=== PATIENT | male | born 1945 | race Caucasian/White ===

== ENCOUNTER → 2017-10-16 12:55 | Outpatient (CLI) | payer MEDICARE, SELFPAY ==
--- NOTE | 2017-10-16 13:08 | RAD_ITS ---
STUDY: SWALLOWING STUDY REASON FOR EXAM: Male, 71 years old. Dysphagia. TECHNIQUE: The examination was performed with Speech Pathology in attendance. Under fluoroscopic observation, the patient ingested thin barium, thick barium, barium pudding, and barium coated cracker. FLUOROSCOPY TIME: 2:17 minutes/seconds. 2129 fluoroscopic images were obtained. RADIOLOGIST INVOLVEMENT: Radiologist was present and providing direct supervision. COMPARISON: None. FINDINGS: The following was observed during swallowing of the various mixtures of barium: Hypertrophy of the cricopharyngeus muscle. Thin Barium: Penetration and delayed silent aspiration with thin liquids. Thick Barium: There was no evidence of aspiration or laryngeal penetration. Barium Pudding: There was no evidence of aspiration or laryngeal penetration. Barium Coated Cracker: There was no evidence of aspiration or laryngeal penetration. RAD/Swallowing Function w/Video IMPRESSION: Penetration and delayed silent aspiration for thin liquids. Prominence of the cricopharyngeus muscle. The swallow study findings were discussed with the patient by the speech pathologist at the conclusion of the examination. Please see speech pathology report for more information and recommendations. Electronically Signed: Silvestre Abraham MD at 13:52 EDT Tel [phone], Service support ,
--- NOTE | 2017-10-16 19:02 | SP.MBSS_ITS ---
PRIMARY / SECONDARY DIAGNOSIS: dysphagia (R13.10) REFERRING PHYSICIAN: Dr. Obinna Green MD CURRENT DIET: regular textures, thin liquids DENTITION: WFL MENTAL STATUS: WNL RESPIRATORY STATUS: O2 via room air PREVIOUS MODIFIED BARIUM SWALLOW STUDY: REASON FOR REFERRAL: Patient is a 71 year old male referred for a modified barium swallow (MBS) study to objectively assess the Patients oropharyngeal swallow function under fluoroscopy secondary to reported consistent sensation of retention located at and below the laryngeal notch (globus sensation vs. pharyngoesophageal retention ) that has persisted well over 1 year that has somewhat progressed particularly over the last 3 months, along with intermittent substernal discomfort. Patient unable to identify if symptoms are associated more so with liquids vs. solid textures. Patient reporting unexplained asthma related symptoms that persisted for upwards of 2-3 years that was seemingly unresponsive to intervention, denied any recent bronchitis or pneumonitis. Patient reporting intermittent and unexplained weakness and somewhat shuffled gait (not present during ambulation to fluoroscopy suite), presents with mild hypophonia (noted to gradually decline by the Patients ), mild dysphonia, and mild dysarthria marked by intermittent slurring of words, very trace hypernasality. Patient denies odynophagia, ageusia / dysgeusia, diurnal sialorrhea (though does report coughing on saliva at night prior to use of CPAP), denies presence of tremor or hypoesthesia. 10/20/2017 barium esophagram scheduled. MEDICAL HISTORY: Obstructive sleep apnea with use of CPAP. STUDY FINDINGS: Patient participated in a Modified Barium Swallow (MBS) study on 10/16/2017. Dr. Abraham was the radiologist present for this evaluation. This study was recorded in the lateral view and images were sent to PACs for storage. The following consistencies were presented to this patient for analysis of oropharyngeal swallow function: thin liquids, nectar thickened liquids, pudding , and a regular textured, Sidra Doone cookie. Results of the MBS are as follows: PENETRATION / ASPIRATION SCALE (MOREIRA): 1 = does not enter airway 2 = enters airway/above vocal folds/ejected 3 = enters airway/above vocal folds/not ejected 4 = enters airway/contacts vocal folds/ejected 5 = enters airway/contacts vocal folds/not ejected 6 = enters airway/below vocal folds/ejected 7 = enters airway/below vocal folds/not ejected despite effort 8 = enters airway/below vocal folds/no effort VIDEOFLOROSCOPIC SCALE SCORE (MOREIRA): Grade I = aspiration of material that has penetrated into the laryngeal vestibule, intact cough reflex Grade II = aspiration < 10 % of the bolus, intact cough reflex Grade III = aspiration of < 10 % of the bolus, reduced cough reflex or aspiration of > 10 % of the bolus, intact cough reflex Grade IV = aspiration of > 10 % of the bolus, reduced cough reflex PENETRATION / ASPIRATION SCALE (SCORE) WITH VIDEOFLOROSCOPIC SCALE SCORE: Thin liquid - 5 mL tsp.: 1 Thin liquids via cup (single sip): 1 Thin liquids via cup (single sip): 1 Thin liquids via cup (single sip): 1 Thin liquids via cup (sequential swallows): 1 Thin liquids via straw (sequential swallows): 8* - Grade III Thin liquids via straw (sequential swallows): 6 - Grade III Pudding via spoon: 1 Regular textured cookie: 1, 8 - Grade III Thin liquids via straw (single sip): 1 Ehrhardt thickened liquids via cup (single sip): 1 Ehrhardt thickened liquids via cup (single sip): 1 Ehrhardt thickened liquids via cup (single sip): 1 * denotes presence of prandial aspiration located along the posterior tracheal wall denotes clear aspiration of thin liquid residue within the laryngeal vestibule from prior penetration / aspiration events IMPRESSION: DIAGNOSIS: moderate oropharyngeal dysphagia (R13.12) ORAL PHASE CHARACTERIZED BY: LABIAL SEAL: no labial escape TONGUE CONTROL DURING BOLUS MANIPULATION: cohesive bolus between tongue to palatal seal BOLUS PREPARATION / MASTICATION: timely and efficient chewing and mashing BOLUS TRANSPORT / LINGUAL MOTION: brisk tongue motion ORAL RESIDUE: residue collection on oral structures PHARYNGEAL PHASE CHARACTERIZED BY: INITIATION OF PHARYNGEAL SWALLOW: bolus head in valleculae at first hyoid excursion SOFT PALATE ELEVATION: no bolus between soft palate and pharyngeal wall LARYNGEAL ELEVATION: intermittent partial superior movement of thyroid cartilage/partial approximation of arytenoids cartilage to epiglottic petiole ANTERIOR HYOID EXCURSION: trace anterior movement EPIGLOTTIC MOVEMENT: limited epiglottic inversion LARYNGEAL VESTIBULE CLOSURE AT HEIGHT OF SWALLOW: incomplete laryngeal vestibule closure with narrow column of air/contrast in laryngeal vestibule PHARYNGEAL STRIPPING WAVE: pharyngeal stripping wave present / diminished PHARYNGOESOPHAGEAL SEGMENT OPENING: complete distension and complete duration with no obstruction of flow TONGUE BASE RETRACTION: narrow column of contrast between tongue base and posterior pharyngeal wall PHARYNGEAL RESIDUE: collection of residue within or on pharyngeal structures ( valleculae), with upwards of 25% of the bolus retained during ingestion of more viscous textures. ESOPHAGEAL PHASE CHARACTERIZED BY: ESOPHAGEAL BOLUS CLEARANCE IN THE UPRIGHT POSITION: could not view DIET TEXTURE RECOMMENDATIONS: Will recommend a regular textured, nectar thickened liquid diet. COMPENSATORY STRATEGIES RECOMMENDED: Reduced bolus volume, reduced rate of intake, avoid straws, seated upright at 90 degrees during PO intake, remain upright for 30-60 minutes post meal (GERD precaution) INTERPRETATION OF RESULTS: Patient presents with moderate oropharyngeal dysphagia (R13.12) with grade III SILENT aspiration of thin liquids, with results unexpected given no clear etiology of cause. Oral phase primarily marked by mildly impaired oral clearance likely attributed to very mild reduced intraoral strength and coordination with mild consolidation of more viscous textures. Pharyngeal phase primarily marked by reduced closure of the airway during deglutition attributed to limited anterior hyoid excursion resulting in very limited epiglottic inversion and poor laryngeal vestibule closure / pressure contributing to prandial penetration and subsequent SILENT aspiration of thin liquids, with insufficient laryngeal vestibule pressure generated to expel penetrated material resulting in persistent SILENT aspiration of previously penetrated material; and impaired pharyngeal motility / pharyngeal dysmotility attributed to impaired tongue based retraction and posterior pharyngeal stripping wave action resulting in pharyngeal retention within the valleculae complicating airway protection during ingestion. All deficits ameliorated with bolus viscosity adjustments. Non-obstructive cricopharyngeal bar located at the C-5 C- 6 level no impact noted. Patient noted to SILENTLY aspirate with thin liquids, with clinical assessment at bedside relying on identification of classic overt signs and symptoms of aspiration unreliable. RECOMMENDATIONS: Would strongly discourage advancement past nectar thickened liquids without completion of a repeat modified barium swallow study due to the extent of aspirate identified that was SILENT in nature. Patient at higher risk of reduced caloric intake (quicker satiety during intake) along with increased risk of dehydration with placement on thickened liquid viscosities. Would consider implementation of the Mccormick Free Water Protocol (FFWP) following Patient and family education if deemed clinically appropriate. Patient considered at higher risk for pulmonary complications associated with persistent aspiration due to the presence of SILENT aspiration identified under fluoroscopy. Patient requires intensive skilled speech-language intervention targeting continued diet texture management; training and implementation of recommended compensatory strategies; training and implementation of recommended oropharyngeal strengthening exercises to facilitate improved lingual control / strength, laryngeal vestibule closure / pressure, and pharyngeal motility; training, implementation, and Patient education regarding implementation of the FFWP; and Patient and caregiver training targeting thickened liquid preparation. Would STRONGLY consider a referral for further workup via neurologist, as the Patient has reported a progressive course regarding dysphagia with primary concerns associated with thin liquid tolerance compounded by pharyngeal dysmotility, with no clear etiology of cause based on information present during assessment, with multiple progressive neurological etiologies known to initially present as persistent unexplained dysphagia. ADDITIONAL COMMENTS/RECOMMENDATIONS: Results and recommendations were discussed with the Patient immediately following MBS completion, with the Patient verbalizing understanding and agreement with all recommendations and education provided. IMAGE COUNT: 2129 G-CODES: SWALLOWING [id number] Current Status: CJ SWALLOWING [id number] Goal Status: SWALLOWING [id number] Discharge Status: TD Khan M.A., CCC-INVENTORY CONTROL ASSISTANT [facility] Speech-Language Pathology Department [email or web address]
== END ==
PROVIDERS: Visit Provider Otolaryngology
DX: R13.10 Dysphagia, unspecified (principal)
CPT/HCPCS: 74230; 92611; G8996; G8997; G8998

== ENCOUNTER → 2017-10-20 08:51 | Outpatient (CLI) | payer MEDICARE, SELFPAY ==
--- NOTE | 2017-10-20 08:56 | RAD_ITS ---
STUDY: AIR-CONTRAST ESOPHAGRAM STUDY REASON FOR EXAM: Male, 71 years old. Dysphagia RADIATION DOSAGE (If Supplied By Facility): CTDIvol = ( ) mGy, DLP = ( ) mGycm FLUOROSCOPY TIME (if supplied): (0:23) minutes/seconds, 12 images. TECHNIQUE: Barium pill swallow with sips of water is performed at the beginning of the study without difficulty. Multiple barium swallows were performed under fluoroscopic monitoring. Multiple views of the esophagus, the upper stomach were performed. COMPARISON: None. FINDINGS: Barium pill swallow with sips of water is performed at the beginning of the study without difficulty. The esophagus appears normal in size and shape it shows unremarkable mucosal pattern. There is a small intermittent sliding-type hiatal hernia with gastroesophageal reflux up to the giuliana. RAD/Esophagus Only IMPRESSION: There is a small intermittent sliding-type hiatal hernia with gastroesophageal reflux up to the giuliana. Electronically Signed: Tegan Clark MD at 20:24 EDT Tel , Service support ,
== END ==
PROVIDERS: Visit Provider Otolaryngology
DX: R13.10 Dysphagia, unspecified (principal)
CPT/HCPCS: 74220

== ENCOUNTER → 2018-02-06 09:02 | Outpatient (CLI) | payer MEDICARE, SELFPAY | PROVIDERS: Referring Provider Otolaryngology Otolaryngology/Facial Plastic Surgery; Visit Provider Otolaryngology Otolaryngology/Facial Plastic Surgery | DX: J32.9 Chronic sinusitis, unspecified (principal) | CPT/HCPCS: 87070; 87205 ==

== ENCOUNTER 2020-06-05 14:13 | Outpatient (RCR) | payer MEDICARE, SELFPAY ==
[2020-06-05] MEDS: COVID-19 VACC, MRNA(PFIZER)/PF 30 MCG/0.3 ML SYRINGE IM (11:17)
[2020-06-26] MEDS: COVID-19 VACC, MRNA(PFIZER)/PF 30 MCG/0.3 ML SYRINGE IM (11:08)
== END 2020-09-04 23:59 ==
LOC: IMMUN 14:13
PROVIDERS: Visit Provider Family Medicine
DX: Z23 Encounter for immunization (principal)
CPT/HCPCS: 0001A; 0002A; 91300

== ENCOUNTER → 2022-04-11 | Outpatient (CLI) | payer MEDICARE, SELFPAY ==
--- NOTE | 2022-04-11 11:58 | CT_ITS ---
STUDY: CT MAXILLOFACIAL SINUSES REASON FOR EXAM: Male, 76 years old. SINUSITIS RADIATION DOSAGE (If Supplied By Facility): CTDIvol = ( 33.06 ) mGy, DLP = ( 829.72 ) mGycm TECHNIQUE: The patient was scanned in a multi detector CT scanner. High resolution axial imaging was performed without the administration of intravenous contrast material. Sagittal and coronal images were reconstructed. Individualized dose optimization techniques were used for this CT. COMPARISON: None. FINDINGS: FRONTAL SINUSES: Normal aeration, without mucosal inflammatory disease. ETHMOIDAL SINUSES: Normal aeration, without mucosal inflammatory disease. MAXILLARY SINUSES: Mild degree of mucosal thickening of the maxillary sinuses inferiorly. SPHENOIDAL SINUSES: Normal aeration, without mucosal inflammatory disease. There is patency of the bilateral maxillary infundibuli with normal uncinate processes, ethmoid bullae, and hiatus semilunaris. Normal bilateral middle turbinates. Normal bilateral inferior turbinates. Normal midline nasal septum. There is patency of the bilateral nasal airways. The visualized osseous structures are normal. The visualized bilateral orbital contents are normal. CT/Sinus/Facial Bone IMPRESSION: Mild degree of mucosal thickening of the inferior portions of the maxillary sinuses bilaterally. Electronically Signed: Silvestre Abraham MD at 13:49 EST ,
== END | disposition home or self-care (01) ==
PROVIDERS: Visit Provider Otolaryngology
DX: J32.8 Other chronic sinusitis (principal)
CPT/HCPCS: 70486

== ENCOUNTER → 2023-06-11 | Outpatient (CLI) | payer MEDICARE, SELFPAY ==
--- NOTE | 2023-06-11 16:10 | CT_ITS ---
STUDY: CT MAXILLOFACIAL SINUSES REASON FOR EXAM: Male, 77 years old. SINUSITIS RADIATION DOSAGE (If Supplied By Facility): CTDIvol = ( 33.06 ) mGy, DLP = ( 854.51 ) mGycm TECHNIQUE: The patient was scanned in a multi detector CT scanner. High resolution axial imaging was performed without the administration of intravenous contrast material. Sagittal and coronal images were reconstructed. Individualized dose optimization techniques were used for this CT. COMPARISON: None. FINDINGS: FRONTAL SINUSES: Normal aeration, without mucosal inflammatory disease. ETHMOIDAL SINUSES: Normal aeration, with minimal mucosal inflammatory disease. MAXILLARY SINUSES: Normal aeration, with minimal mucosal inflammatory disease. SPHENOIDAL SINUSES: Normal aeration, without mucosal inflammatory disease. There is patency of the bilateral maxillary infundibuli with normal uncinate processes, ethmoid bullae, and hiatus semilunaris. Normal bilateral middle turbinates. Normal bilateral inferior turbinates. Normal midline nasal septum. There is patency of the bilateral nasal airways. The visualized osseous structures are normal. The visualized bilateral orbital contents are normal. CT/Sinus/Facial Bone IMPRESSION: Minimal mucosal thickening in the maxillary and ethmoid sinuses Electronically Signed: Kris Paniagua MD at 14:19 EDT ,
--- OUTSIDE RECORDS SUMMARY | 2023-06-11 22:22 | XMS RPT_ITS | CCD ---
Author Name Unknown Address [address] [place] [address] Organization [facility] Care Team Providers Care [employer] Name Role Phone Arlette Lopez Unavailable Unavailable Get Terrazas Unavailable Unavailable Nilda Baker Unavailable Unavailable Tierney Jung Unavailable Unavailable Get Terrazas Unavailable Unavailable Nilda Baker Unavailable Unavailable Get Terrazas Unavailable Unavailable Unavailable Get Terrazas MD Primary Care Provider Unavailable Unavailable Ebonie Vargas Attending Unavailable Mk, Dr. Get [facility] Unavai lable Detec, Ms. Ebonie Mackey Attending Unavailab tanvi Terrazas, Dr. Get [place] [facility] Mitavai lable Detec, Ms. Ebonie Mackey Attending Unavailab tanvi [place], Dr. Get [place] [facility] Unavai lable Detec, Ms. Ebonie Mackey Attending Unavailab tanvi [place], Dr. Get [place] Primary [facility] Mitavai lable Detec, Ms. Ebonie Mackey Attending Unavailab tanvi [place], Dr. Get [place] Primary [facility] Mitavai lable Detec, Ms. Ebonie Mackey Attending Unavailab tanvi [place], Dr. Get [place] [facility] Corbini labtanvi Detalbino, Ms. Ebonie Mackey Attending Unavailab tanvi [place], Dr. Get [place] [facility] Mitavai labtanvi Detalbino, Ms. Ebonie Mackey Attending Unavailab tanvi [place], Dr. Get [place] [facility] Mitavai labtanvi Detalbino, Ms. Ebonie Mackey Attending Unavailab le Mk, Dr. Get [place] Primary [facility] Unavai lable Detec, Ms. Ebonie Mackey Attending Unavailab le [place], Dr. Get [place] Primary [facility] Unavai lable Detec, Ms. Ebonie Mackey Attending Unavailab le Mk, Dr. Get [place] Primary [facility] Unavai lable Detec, Ms. Ebonie Mackey Attending Unavailab le [place], Dr. Get [place] [facility] Unavai lable Detec, Ms. Ebonie Mackey Attending Unavailab le Mk, Dr. Get [place] [facility] Unavai lable Mk, Dr. Get [place] [facility] Isac Samuel, Dr. Barahona Referring Unavailable Sofya, Dr. Barahona Attending Unavailable Detec, Ms. Ebonie Mackey Attending Unavailab le Detec, Ms. Ebonie Mackey Referring Unavailab le [place], Dr. Get [place] [facility] Unavai lable Detec, Ms. Ebonie Mackey Attending Unavailab le Mk, Dr. Get [place] Primary [facility] Unavai lable Detec, Ms. Ebonie Mackey Attending Unavailab le Mk, Dr. Get [place] [facility] Unavai lable Detec, Ms. Ebonie Mackey Attending Unavailab le [place], Dr. Get [place] Primary [facility] Unavai lable Detec, Ms. Ebonie Mackey Attending Unavailab le Mk, Dr. Get [place] [facility] Unavai lable Detec, Ms. Ebonie Mackey Attending Unavailab le [place], Dr. Get [place] [facility] Unavai lable Detec, Ms. Ebonie Mackey Attending Unavailab le Mk, Dr. Get [place] [facility] Unavai lable [place], Dr. Get [facility] Primary [facility] Mitavai labtanvi Mk, Dr. Get [place] Referring Unavai lable Stephanie, Dr. Lopez Attending Unava ilable [place], Dr. Get [place] [facility] JUN Crespo Attending Unavailable JUN SAMUEL Referring Unavailable JUN SAMUEL Referring Unavailable Mk, Dr. Get [place] [facility] JUN Crespo Attending Unavailable JUN SAMUEL Attending Unavailable JUN SAMUEL Referring Unavailable [place], Dr. Get [place] [facility] Mitadei labtanvi Mk, Dr. Get [facility] Primary [facility] Unavai lable Mk, Dr. Get [place] Referring Unavai lable Thirumavalavan, Dr. Lopez Attending Unava ilable [place], Dr. Get [facility] Unavai lable Detec, Ebonie Attending Unavailable Detec, Ebonie Referring Unavailable [place], Dr. Get [place] [facility] Unavai lable Detec, Ebonie Attending Unavailable Detec, Ebonie Referring Unavailable [place] Get NUNEZ Primary Care Provider Monae Steward DO Unavailable Get Terrazas MD Primary Care Provider Get Terrazas MD Primary Care Provider Isac TERRAZAS, GET [place] Primary Care Unavailable JUN SAMUEL Referring Unavailable MK, GET [place] Primary Care Unavailable ORLANDO DUKE Attending Unavailable HINDUISMCARLA TALBERT Attending Unavailable MK, GET A Primary Care Unavailable ARLETTE LOPEZ Attending Unavailable MK, GET A Primary Care Unavailable JUN SAMUEL Attending Unavailable MK, GET A Primary Care Unavailable ARLETTE LOPEZ Attending Unavailable MK, GET A Primary Care Unavailable DETALBINO, EBONIE B Attending Unavailable MK, GET [place] Primary Care Unavailable TRINH LOYOLA Attending Unavailable JONNA TRINH Primary Care Unavailable MELEENDER, BRAN Attending Unavailable MK, GET Primary Care Unavailable AWENDER, BRAN Attending Unavailable MK, GET Primary Care Unavailable LEONARDO BUSTAMANTE Attending Unavailable MK, GET Primary Care Unavailable AWENDER, BRAN Attending Unavailable MK, GET Primary Care Unavailable AWENDER, BRAN Attending Unavailable MK, GET Primary Care Unavailable AWENDER, BRAN Attending Unavailable MK, GET Primary Care Unavailable AWENDER, BRAN Attending Unavailable MK, GET Primary Care Unavailable AWENDER, BRAN Attending Unavailable MK, GET Primary Care Unavailable AWENDER, BRAN Attending Unavailable MK, GET Primary Care Unavailable Geaney Arlette NGUYEN Unavailable [phone] Trinh Loyola DO Primary Care Provider DETEC, EBONIE B Referring Unavailable BRODE, TRINH Primary Care Unavailable DETEC, EBONIE B Referring Unavailable BRODE, TRINH Primary Care Unavailable BRODE, TRINH Referring Unavailable BRODE, TRINH Primary Care Unavailable DETEC, EBONIE B Referring Unavailable BRODE, TRINH Primary Care Unavailable DETEC, EBONIE B Referring Unavailable BRODE, TRINH Primary Care Unavailable DETEC, EBONIE B Referring Unavailable BRODE, TRINH Primary Care Unavailable Allergies Allergy Classification Reported Allergen(s) Allergy Type Date of Onset Reaction(s) Facility (20 sources) Aspirin; Translations: [Aspirin TABS] Drug Allergy 5 Asthma, Other [facility] (20 sources) Bacitracin / Neomycin / Polymyxin B; Translations: [Neosporin OINT] Drug Allergy [email or web address] Work Phone: (20 sources) Ibuprofen; Translations: [ibuprofen] Drug Allergy 5 Other (See Comments), Swelling, Other [facility] Work Phone: (20 sources) Sulfonamides (Antibiotic); Translations: [Sulfa Drugs] drug allergy [facility] Work Phone: (20 sources) Bacitracin / Polymyxin B Drug Allergy 3 Hives [facility] Work Phone: (20 sources) Aluminum aspirin; Translations: [ASPIRIN] Drug Allergy 5 Other (See Comments), Other [facility] (19 sources) Sulfonamides (Antibiotic) Propensity to adverse reactions to drug 1 Itching, Rash [facility] (1 source) Neomycin-Bacitra fernanda Zn-Polymyx Propensity to adverse reactions to drug 1 Other (See Comments) [facility] (20 sources) Neomycin-Polymyx in-Gramicidin; Translations: [NEOMYCIN-POLYMY RUBY-GRAMICIDIN] Propensity to adverse reactions to drug 5 Rash [facility] Work Phone: (20 sources) Bacitracin / Neomycin / Polymyxin B / pramoxine; Translations: [[id number] YMYX-PRAMOXINE] Drug Allergy 1 Other [facility] Work Phone: (9 sources) Loratadine; Translations: [LORATADINE] Drug Allergy 3 [facility] Work Phone: (10 sources) Sulfonamides (Antibiotic); Translations: [SULFA (SULFONAMIDE ANTIBIOTICS)] Drug Allergy 1 Itching, Rash, [facility] Work Phone: (20 sources) Hydrocortisone; Translations: [HYDROCORTISONE] Drug Allergy 8 [facility] (18 sources) Loratadine Allergy to substance 3 [facility] (3 sources) BACITRACIN ZINC-POLYMYXIN B; Translations: [BACITRACIN ZINC-POLYMYXIN B] Propensity to adverse reactions to drug (disorder) 3 [facility] (3 sources) BACITRACIN-POLYM YXIN B; Translations: [BACITRACIN-POLY MYXIN B] Propensity to adverse reactions to drug (disorder) 3 [facility] Medications Current Medications Medication Drug Class(es) Dates Sig (Normalized) Sig (Original) [id number] 200 actuat albuterol 0.09 mg/actuat metered dose inhaler (20 sources) beta2-Adrenergic Agonist Start: 08-27-2021 End: 03-12-2023 albuterol 90 mcg/actuation inhaler Inhale 2 puffs if needed. 0 08/27/2021 03/12/2023 Discontinued (Med List Cleanup) Completed/Discontinued Medications Medication Drug Class(es) Dates Sig (Normalized) Sig (Original) acetaminophen 325 mg oral tablet (20 sources) Start: 08-29-2021 take 650 mg by mouth every four hours as needed, then take 4000 mg by mouth every twenty-four hours as needed 650 mg, Oral, EVERY 4 HOURS PRN, Starting on Key 08/29/21 at 1140, Until Discontinued, Pain Mild (1-3), Fever, Fever >100.5 F (38 C) Maximum dose of acetaminophen is 4000 mg from all sources in 24 hours. Recovery(IR) Problems Active Problems Problem Classification Problem Date Documented Da te Episodic/Chronic Allergic reactions (20 sources) Vesicular eczema; Translations: [Dyshidrosis] Episodic Asthma (20 sources) Asthma; Translations: [Asthma, unspecified type, unspecified] Onset: 03-08-2015 03-08-2015 Chronic Bacterial infection; unspecified site (2 sources) Other specified bacterial agents as the cause of diseases classified elsewhere; Translations: [Other specified bacterial agents as the cause of diseases classified elsewhere] Onset: 05-11-2023 Episodic Cancer; other and unspecified primary (20 sources) H/O: malignant neoplasm; Translations: [Personal history of unspecified malignant neoplasm] Episodic Cancer; other and unspecified primary (1 source) History of squamous cell carcinoma; Translations: [Personal history of malignant neoplasm of other organs and systems] 11-24-2022 Episodic Disorders of lipid metabolism (20 sources) Hyperlipidemia; Translations: [Other and unspecified hyperlipidemia] Onset: 12-22-2022 12-22-2022 Chronic Headache; including migraine (20 sources) Ophthalmic migraine; 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 with aura, not intractable, without status migrainosus] Onset: 05-29-2022 12-22-2022 Chronic Lymphadenitis (3 sources) Posterior auricular lymphadenopathy; Translations: [Localized enlarged lymph nodes] Onset: 05-25-2023 05-25-2023 Episodic Miscellaneous mental health disorders (20 sources) 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; 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] Onset: 12-22-2022 12-22-2022 Chronic Nutritional deficiencies (20 sources) Vitamin D deficiency; Translations: [Unspecified vitamin D deficiency] Onset: 03-11-2023 03-11-2023 Chronic Osteoarthritis (20 sources) Degenerative joint disease involving multiple joints; Translations: [Osteoarthrosis, generalized, multiple sites] Onset: 09-16-2022 12-22-2022 Chronic Other connective tissue disease (20 sources) Impingement syndrome of shoulder region; Translations: [Other affections of shoulder region, not elsewhere classified] Episodic Other connective tissue disease (20 sources) H/O: arthritis; Translations: [Personal history of arthritis] Episodic Other connective tissue disease (20 sources) Trochanteric bursitis; Translations: [Enthesopathy of hip region] Episodic Other connective tissue disease (20 sources) Tendinitis of right rotator cuff; Translations: [Disorders of bursae and tendons in shoulder region, unspecified] Onset: 03-11-2023 03-11-2023 Episodic Other connective tissue disease (9 sources) Foot pain; Translations: [Pain in limb] Episodic Other connective tissue disease (1 source) Complete rotator cuff tear or rupture of right shoulder, not specified as traumatic; Translations: [Complete rotatr-cuff tear/ruptr of r shoulder, not trauma] Onset: 09-16-2022 Episodic Other connective tissue disease (1 source) Other synovitis and tenosynovitis, right shoulder; Translations: [Other synovitis and tenosynovitis, right shoulder] Onset: 09-16-2022 Episodic Other connective tissue disease (1 source) Unspecified disorder of synovium and tendon, right upper arm; Translations: [Unspecified disorder of synovium and tendon, right upper arm] Onset: 09-16-2022 Episodic Other connective tissue disease (1 source) Nontraumatic rupture of rotator cuff of right shoulder; Translations: [Partial tear of rotator cuff] Episodic Other endocrine disorders (20 sources) Male hypogonadism; Translations: [Other testicular hypofunction] Onset: 12-22-2022 12-22-2022 Chronic Other eye disorders (20 sources) Bilateral posterior vitreous detachment; Translations: [Vitreous degeneration, bilateral] Onset: 05-29-2022 05-29-2022 Chronic Other eye disorders (2 sources) Vitreous degeneration, bilateral; Translations: [Vitreous degeneration, bilateral] Onset: 05-29-2022 Chronic Other gastrointestinal disorders (20 sources) Oropharyngeal dysphagia; Translations: [Dysphagia, oropharyngeal phase] Episodic Other lower respiratory disease (20 sources) Cough; Translations: [Cough] Episodic Other male genital disorders (20 sources) Male erectile dysfunction, unspecified; Translations: [ED (erectile dysfunction)] Chronic Other male genital disorders (20 sources) Persistent testicular pain; Translations: [Unspecified disorder of male genital organs] Onset: 03-11-2023 03-11-2023 Episodic Other non-epithelial cancer of skin (20 sources) History of malignant neoplasm of skin; Translations: [Personal history of other malignant neoplasm of skin] Episodic Other non-traumatic joint disorders (18 sources) Knee pain; Translations: [Knee pain] Episodic Other non-traumatic joint disorders (20 sources) Hip pain; Translations: [Pain in joint, pelvic region and thigh] Episodic Other non-traumatic joint disorders (20 sources) Pain in unspecified knee; Translations: [Knee pain] Episodic Other non-traumatic joint disorders (20 sources) Instability of joint of left ankle; Translations: [Other joint derangement, not elsewhere classified, ankle and foot] Episodic Other non-traumatic joint disorders (9 sources) Pain in right shoulder; Translations: [Pain in joint, shoulder region] Onset: 04-15-2022 Episodic Other non-traumatic joint disorders (5 sources) Pain in left shoulder; Translations: [Pain in left shoulder] Onset: 04-15-2022 Episodic Other non-traumatic joint disorders (5 sources) Pain in right knee; Translations: [Pain in joint, lower leg] Onset: 02-17-2023 02-17-2023 Episodic Other non-traumatic joint disorders (2 sources) Bilateral shoulder joint pain; Translations: [Pain in right shoulder] Onset: 05-21-2023 05-21-2023 Episodic Other nutritional; endocrine; and metabolic disorders (20 sources) Obesity; Translations: [Obesity, unspecified] Onset: 10-01-2017 12-22-2022 Chronic Other screening for suspected conditions (not mental disorders or infectious disease) (2 sources) Encounter for screening for malignant neoplasm of prostate; Translations: [Encounter for screening for malignant neoplasm of prostate] Onset: 05-11-2023 Episodic Other skin disorders (8 sources) Disorder of skin of lower limb; Translations: [History of Skin lesion of right lower limb] Episodic Other skin disorders (11 sources) [place] of toe; Translations: [Corns and callosities] Episodic Other skin disorders (20 sources) Disorder of the skin and subcutaneous tissue, unspecified; Translations: [Mass of skin of right lower limb] Episodic Other upper respiratory disease (20 sources) Allergic rhinitis; Translations: [Allergic rhinitis, cause unspecified] Onset: 12-22-2022 12-22-2022 Chronic Past or Other Problems Problem Classification Problem Date Documented Da te Episodic/Chronic Blindness and vision defects (18 sources) Disorder of refraction AND/OR accommodation; Translations: [Myopia, unspecified eye] Onset: 05-29-2022 05-29-2022 Episodic Cancer; other and unspecified primary (2 sources) Personal history of malignant neoplasm of other organs and systems; Translations: [Personal history of malignant neoplasm of other organs and systems] Onset: 11-24-2022 Episodic Cataract (20 sources) Combined form of senile cataract; Translations: [Combined forms of age-related cataract, unspecified eye] Onset: 05-29-2022 Resolved: 05-11-2023 12-22-2022 Chronic Genitourinary symptoms and ill-defined conditions (20 sources) Dysuria; Translations: [Increased frequency of urination] Onset: 03-11-2023 Resolved: 03-11-2023 03-11-2023 Episodic Immunizations and screening for infectious disease (3 sources) Vaccination needed; Translations: [Encounter for immunization] Onset: 12-22-2022 12-22-2022 Episodic Nonspecific chest pain (19 sources) Chest pain; Translations: [Chest pain, unspecified] Onset: 01-14-2017 01-14-2017 Episodic Other bone disease and musculoskeletal deformities (3 sources) Cartilage disorder; Translations: [Disorder of cartilage, unspecified] Onset: 11-24-2022 11-24-2022 Episodic Other bone disease and musculoskeletal deformities (2 sources) Disorder of cartilage, unspecified; Translations: [Disorder of cartilage, unspecified] Onset: 11-24-2022 Episodic Other diseases of veins and lymphatics (20 sources) Varicocele; Translations: [Scrotal varices] Onset: 03-08-2015 Episodic Other eye disorders (20 sources) Fuchs' corneal dystrophy; 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] Onset: 05-29-2022 12-22-2022 Episodic Other eye disorders (20 sources) Dermatochalasis of right upper eyelid; Translations: [Dermatochalasis] Onset: 05-29-2022 05-29-2022 Episodic Other eye disorders (2 sources) Dermatochalasis of left upper eyelid; Translations: [Dermatochalasis of left upper eyelid] Onset: 05-29-2022 Episodic Other gastrointestinal disorders (20 sources) Dysphagia; Translations: [Dysphagia, unspecified] Onset: 12-22-2022 12-22-2022 Episodic Other lower respiratory disease (20 sources) H/O: respiratory disease; Translations: [Personal history of other infectious and parasitic diseases] Resolved: 12-22-2014 Episodic Other lower respiratory disease (20 sources) H/O: asthma; Translations: [Personal history of other diseases of respiratory system] Resolved: 04-16-2021 Episodic Other non-traumatic joint disorders (20 sources) Shoulder pain; Translations: [Pain in joint, shoulder region] Onset: 03-11-2023 Resolved: 03-11-2023 03-11-2023 Episodic Other non-traumatic joint disorders (1 source) Pain in right hip; Translations: [Pain in right hip] Onset: 04-15-2022 Episodic Other non-traumatic joint disorders (1 source) Pain in left hip; Translations: [Pain in left hip] Onset: 01-10-2022 Episodic Other non-traumatic joint disorders (9 sources) Instability of joint of left ankle; Translations: [Instability of left ankle joint] Other skin disorders (20 sources) Change in skin lesion; Translations: [Unspecified disorder of skin and subcutaneous tissue] Resolved: 04-16-2021 Episodic Other skin disorders (20 sources) Epidermoid cyst; Translations: [Sebaceous cyst] Resolved: 12-22-2014 Episodic Other skin disorders (20 sources) Skin lesion; Translations: [Unspecified disorder of skin and subcutaneous tissue] Onset: 03-11-2023 Resolved: 03-11-2023 03-11-2023 Episodic Other skin disorders (20 sources) Epidermoid cyst of skin of ear; Translations: [Sebaceous cyst] Onset: 03-11-2023 Resolved: 03-11-2023 03-11-2023 Episodic Other skin disorders (20 sources) H/O: skin disorder; Translations: [Personal history of diseases of skin and subcutaneous tissue] Resolved: 04-16-2021 Episodic Other skin disorders (2 sources) Disorder of skin; Translations: [Other skin changes] Onset: 12-22-2022 12-22-2022 Episodic Other skin disorders (1 source) Other skin changes; Translations: [Other skin changes] Onset: 12-22-2022 Episodic Other upper respiratory disease (20 sources) Hypertrophy of nasal turbinates; Translations: [Hypertrophy of nasal turbinates] Onset: 12-22-2022 12-22-2022 Episodic Other upper respiratory disease (20 sources) Deviated nasal septum; Translations: [Deviated nasal septum] Onset: 03-08-2015 03-08-2015 Episodic Other upper respiratory infections (20 sources) Viral upper respiratory tract infection; Translations: [Acute upper respiratory infections of unspecified site] Onset: 03-11-2023 Resolved: 03-11-2023 03-11-2023 Episodic [place]-; endo-; and myocarditis; cardiomyopathy (except that caused by tuberculosis or sexually transmitted disease) (20 sources) Pericarditis; Translations: [Disease of pericardium, unspecified] Onset: 03-08-2015 03-08-2015 Episodic Residual codes; unclassified (20 sources) Personal history of other specified conditions; Translations: [History of chest pain] Resolved: 12-22-2014 Episodic Unclassified (20 sources) History of clinical finding in subject; Translations: [History of cough] Resolved: 04-16-2021 Unclassified (4 sources) Low back pain, unspecified; Translations: [Low back pain, unspecified] Onset: 12-19-2021 Unclassified (1 source) Other low back pain; Translations: [Other low back pain] Onset: 12-30-2021 Unclassified (6 sources) Onset: 11-24-2022 Resolved: 05-22-2023 11-24-2022 Unclassified (1 source) Endothelial corneal dystrophy, bilateral; 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, bilateral] Onset: 05-06-2023 NEGATED: Highlighted row has not occurred!Residual codes; unclassified (20 sources) Disease Episodic Results Test Name Value Interpretation Reference Range Facil ity Vital Signs Date Time Vital Sign Value Performing Clinician Facility 03-12-2023 10:01-0500 Body mass index (BMI) [Ratio] 35.59 kg/m2 Arlette Lopez APRN-MUSIC REHABILITATION THERAPIST Work Phone: [facility] 03-12-2023 10:01-0500 Body temperature 97.3 [degF] Arlette Lopez APRN-MUSIC REHABILITATION THERAPIST Work Phone: [facility] 03-12-2023 10:01-0500 Body weight 109.32 kg Arlette Lopez TUNNEL KILN OPERATOR-MUSIC REHABILITATION THERAPIST Work Phone: [facility] 03-12-2023 10:01-0500 Diastolic blood pressure 74 mm[Hg] Arlette Lopez TUNNEL KILN OPERATOR-MUSIC REHABILITATION THERAPIST Work Phone: [facility] 03-12-2023 10:01-0500 Heart rate 59 /min Arlette Smithy TUNNEL KILN OPERATOR-MUSIC REHABILITATION THERAPIST Work Phone: [facility] 03-12-2023 10:01-0500 SaO2% (BldA) [Mass fraction] 98 % Arlette Lopez TUNNEL KILN OPERATOR-MUSIC REHABILITATION THERAPIST Work Phone: [facility] 03-12-2023 10:01-0500 Systolic blood pressure 120 mm[Hg] Arlette Smithy TUNNEL KILN OPERATOR-MUSIC REHABILITATION THERAPIST Work Phone: [facility] 01-13-2023 14:22-0400 Body height 177.8 cm Leonardo Bustamante MD Work Phone: [facility] 01-13-2023 14:22-0400 Body mass index (BMI) [Ratio] 34.29 kg/m2 Leonardo Bustamante MD Work Phone: [facility] 01-13-2023 14:22-0400 Body weight 108.41 kg Leonardo Bustamante MD Work Phone: [facility] 01-13-2023 14:22-0400 Diastolic blood pressure 60 mm[Hg] Leonardo Bustamante MD Work Phone: [employer] [facility] 01-13-2023 14:22-0400 Heart rate 62 /min Leonardo Bustamante MD Work Phone: [facility] [facility] 01-13-2023 14:22-0400 SaO2% (BldA) [Mass fraction] 95 % Leonardo Bustamante MD Work Phone: [employer] 01-13-2023 14:22-0400 Systolic blood pressure 112 mm[Hg] Leonardo Bustamante MD Work Phone: [facility] 12-22-2022 13:46-0400 Body mass index (BMI) [Ratio] 35.68 kg/m2 Arlette Lopez TUNNEL KILN OPERATOR-MUSIC REHABILITATION THERAPIST Work Phone: [facility] 12-22-2022 13:46-0400 Body temperature 97.59 [degF] Arlette Luisy TUNNEL KILN OPERATOR-MUSIC REHABILITATION THERAPIST Work Phone: [facility] 12-22-2022 13:46-0400 Body weight 109.59 kg Arlettecathy Smithy TUNNEL KILN OPERATOR-MUSIC REHABILITATION THERAPIST Work Phone: [facility] 12-22-2022 13:46-0400 Diastolic blood pressure 58 mm[Hg] Arlette Gagandeepaney TUNNEL KILN OPERATOR-MUSIC REHABILITATION THERAPIST Work Phone: [facility] 12-22-2022 13:46-0400 Heart rate 64 /min Arlette Gagandeepaney TUNNEL KILN OPERATOR-MUSIC REHABILITATION THERAPIST Work Phone: [facility] 12-22-2022 13:46-0400 SaO2% (BldA) [Mass fraction] 97 % Arlette Gagandeepaney TUNNEL KILN OPERATOR-MUSIC REHABILITATION THERAPIST Work Phone: [facility] 12-22-2022 13:46-0400 Systolic blood pressure 106 mm[Hg] Arlette Gagandeepaney TUNNEL KILN OPERATOR-MUSIC REHABILITATION THERAPIST Work Phone: [facility] 11-24-2022 12:51-0400 Body mass index (BMI) [Ratio] 35.77 kg/m2 Carla Alfredo MD Work Phone: [facility] 11-24-2022 12:51-0400 Body temperature 97.59 [degF] Carla Alfredo MD Work Phone: [facility] 11-24-2022 12:51-0400 Body weight 109.86 kg Carla Alfredo MD Work Phone: [facility] 11-24-2022 12:51-0400 Diastolic blood pressure 73 mm[Hg] Carla Alfredo MD Work Phone: [facility] 11-24-2022 12:51-0400 Heart rate 61 /min Carla Alfredo MD Work Phone: [facility] 11-24-2022 12:51-0400 Systolic blood pressure 111 mm[Hg] Carla Alfredo MD Work Phone: [facility] 09-23-2022 14:59-0400 Body height 175.26 cm Get [facility] Work Phone: [facility] Work Phone: 09-23-2022 14:59-0400 Body mass index (BMI) [Ratio] 35.29 kg/m2 Get [facility]raz[facility] Work Phone: [facility] Work Phone: 09-23-2022 14:59-0400 Body surface area Derived from formula 2.23 m2 Get [facility]razas Work Phone: [facility] Work Phone: 09-23-2022 14:59-0400 Body weight 108.41 kg Get Terrazas Work Phone: [facility] Work Phone: 07-21-2022 16:48-0400 Body height 175.26 cm Get Terrazas Work Phone: [facility] Work Phone: 07-21-2022 16:48-0400 Body mass index (BMI) [Ratio] 35.29 kg/m2 [facility] Work Phone: [facility] Work Phone: 07-21-2022 16:48-0400 Body surface area Derived from formula 2.23 m2 Get Terrazas Work Phone: [facility] Work Phone: 07-21-2022 16:48-0400 Body weight 108.41 kg Get Terrazas Work Phone: [facility] Work Phone: 03-07-2022 11:15-0500 Body height 175.26 cm Get Terrazas Work Phone: WF[facility]Txxerlzaqd-Arjrm view 1400 A DO Work Phone: 03-07-2022 11:15-0500 Body mass index (BMI) [Ratio] 35.29 kg/m2 Get Genevieve Inmanch Work Phone: ZC[facility]Dbccdxevqg-Mukoz [facility] 1400 A DO Work Phone: 03-07-2022 11:15-0500 Body surface area Derived from formula 2.23 m2 Get Genevieve Terrazas Work Phone: ID-Eadpracyrd-Ypqse view 1400 A DO Work Phone: 03-07-2022 11:15-0500 Body weight 108.41 kg Get Genevieve Terrazas Work Phone: AF-Kyqwdyoroy-Gjofq view 1400 A DO Work Phone: 12-19-2021 10:54-0400 Body height 175.26 cm Get Terrazas Work Phone: [facility] 100 DO Work Phone: 12-19-2021 10:54-0400 Body mass index (BMI) [Ratio] 35.29 kg/m2 Get Genevieve Terrazas Work Phone: [facility] 100 DO Work Phone: 12-19-2021 10:54-0400 Body surface area Derived from formula 2.23 m2 Get Genevieve Terrazas Work Phone: [facility] 100 DO Work Phone: 12-19-2021 10:54-0400 Body weight 108.41 kg Get Genevieve Terrazas Work Phone: [facility] 100 DO Work Phone: 09-10-2021 14:53-0400 Body height 175.26 cm Get Inmanch Work Phone: [facility] 100 DO Work Phone: 09-10-2021 14:53-0400 Body mass index (BMI) [Ratio] 35.29 kg/m2 Get Inmanch Work Phone: [facility] 100 DO Work Phone: 09-10-2021 14:53-0400 Body surface area Derived from formula 2.23 m2 Get Vallejo Visalia Work Phone: [facility] 100 DO Work Phone: 09-10-2021 14:53-0400 Body weight 108.41 kg Get Inmanch Work Phone: [facility] 100 DO Work Phone: 09-05-2021 10:41-0400 Body height 175.26 cm Get Vallejo Mk Work Phone: XI-Lwwityj-Rojdhsl Work Phone: 09-05-2021 10:41-0400 Body mass index (BMI) [Ratio] 35.3 kg/m2 Get Vallejo [employer] Work Phone: MS-Ubovpqy-Jdtdfuy Work Phone: 09-05-2021 10:41-0400 Body surface area Derived from formula 2.23 m2 Get Vallejo [employer] Work Phone: TW-Bvqdhkd-Bwsogxk Work Phone: 09-05-2021 10:41-0400 Body weight 108.43 kg Get Vallejo [employer] Work Phone: MF-Atgmbha-Rwwvbgg Work Phone: 09-05-2021 10:41-0400 Diastolic blood pressure 66 mm[Hg] Get Terrazas Work Phone: WA-Thwdhxc-Zxobzdt Work Phone: 09-05-2021 10:41-0400 Heart rate 70 /min Get Genevieve Terrazas Work Phone: NY-Vlovjqw-Yddhmcs Work Phone: 09-05-2021 10:41-0400 Systolic blood pressure 103 mm[Hg] Get Genevieve Terrazas Work Phone: SA-Dcdbpvc-Tupeqjx Work Phone: 08-29-2021 13:00-0400 Diastolic blood pressure 67 mm[Hg] Jony Cano MD Work Phone: [facility] 08-29-2021 13:00-0400 Heart rate 55 /min Jony Cano MD Work Phone: [facility] 08-29-2021 13:00-0400 SaO2% (BldA) [Mass fraction] 96 % Jony Cano MD Work Phone: [facility] 08-29-2021 13:00-0400 Systolic blood pressure 96 mm[Hg] Jony Cano MD Work Phone: [facility] 08-29-2021 11:42-0400 Respiratory rate 18 /min Jony Cano MD Work Phone: [facility] 08-29-2021 08:25-0400 Body height 177.8 cm Jony Cano MD Work Phone: [facility] 08-29-2021 08:25-0400 Body mass index (BMI) [Ratio] 33 kg/m2 Jony Cano MD Work Phone: [facility] 08-29-2021 08:25-0400 Body temperature 97.2 [degF] Jony Cano MD Work Phone: [facility] 08-29-2021 08:25-0400 Body weight 104.33 kg Jony Cano MD Work Phone: [facility] 08-27-2021 15:07-0400 Body mass index (BMI) [Ratio] 35.29 kg/m2 Get Terrazas Work Phone: [facility] Work Phone: 08-27-2021 15:07-0400 Body surface area Derived from formula 2.23 m2 Get Genevieve Mk Work Phone: [facility] Work Phone: 08-27-2021 15:07-0400 Body temperature 97.5 [degF] Get Terrazas Work Phone: [facility] Work Phone: 08-27-2021 15:07-0400 Body weight 108.41 kg Get Vallejo Mk Work Phone: [facility] Work Phone: 08-27-2021 15:07-0400 Diastolic blood pressure 62 mm[Hg] Get Genevieve Terrazas Work Phone: [facility] Work Phone: 08-27-2021 15:07-0400 Heart rate 58 /min Get Genevieve Terrazas Work Phone: [facility] Work Phone: 08-27-2021 15:07-0400 SaO2% (BldA) [Mass fraction] 98 % Get Vallejo Mk Work Phone: [facility] Work Phone: 08-27-2021 15:07-0400 Systolic blood pressure 102 mm[Hg] Get Vallejo Mk Work Phone: [facility] Work Phone: 05-03-2021 15:03-0500 Body height 175.26 cm Get Terrazas Work Phone: VQ-Gwqlczbfny-Gghup view 1400 A DO Work Phone: 05-03-2021 15:03-0500 Body mass index (BMI) [Ratio] 34.41 kg/m2 Get Vallejo Mk Work Phone: NR-Fetabokvzr-Atcvn view 1400 A DO Work Phone: 05-03-2021 15:03-0500 Body surface area Derived from formula 2.2 m2 Get Genevieve Visalia Work Phone: JF-Isxcinzpuf-Cgyuh view 1400 A DO Work Phone: 05-03-2021 15:03-0500 Body weight 105.69 kg Get Genevieve [employer] Work Phone: SO-Asaqmozsjc-Ihgkn view 1400 A DO Work Phone: 04-16-2021 10:16-0500 Body height 174.5 cm Get Genevieve Visalia Work Phone: [facility] Work Phone: 04-16-2021 10:16-0500 Body mass index (BMI) [Ratio] 35.51 kg/m2 Get Inmanch Work Phone: [facility] Work Phone: 04-16-2021 10:16-0500 Body surface area Derived from formula 2.22 m2 Get Genevieve Visalia Work Phone: [facility] Work Phone: 04-16-2021 10:16-0500 Body temperature 97.2 [degF] Get Inmanch Work Phone: [facility] Work Phone: 04-16-2021 10:16-0500 Body weight 108.13 kg Get Genevieve Visalia Work Phone: [facility] Work Phone: 04-16-2021 10:16-0500 Diastolic blood pressure 80 mm[Hg] Get Terrazas Work Phone: [facility] Work Phone: 04-16-2021 10:16-0500 Systolic blood pressure 120 mm[Hg] Get Terrazas Work Phone: [facility] Work Phone: 04-14-2020 08:06-0500 BMI (Body Mass Index) 33.86 kg/m2 Nilda Kingger [facility] Work Phone: 04-14-2020 08:06-0500 Body Temperature 97.2 [degF] Nilda Kingger [facility] Work Phone: 04-14-2020 08:06-0500 Body weight 107.05 kg Nilda Kingger [facility] Work Phone: 04-14-2020 08:06-0500 BP Diastolic 82 mm[Hg] Nilda Kingger [facility] Work Phone: 04-14-2020 08:06-0500 BP Systolic 116 mm[Hg] Nilda Kingger [facility] Work Phone: 04-14-2020 08:06-0500 BSA (Body Surface Area) 2.24 m2 Nilda Kingger [facility] Work Phone: 03-29-2019 10:17-0500 BMI (Body Mass Index) 33.72 kg/m2 Arlette Donissaminacathy [facility] Work Phone: 03-29-2019 10:17-0500 Body Temperature 98.9 [degF] Arlette Donissaminacathy [facility] Work Phone: 03-29-2019 10:17-0500 Body weight 106.6 kg Arlette Lopez [facility] Work Phone: 03-29-2019 10:17-0500 BP Diastolic 70 mm[Hg] Arlette Lopez [facility] Work Phone: 03-29-2019 10:17-0500 BP Systolic 100 mm[Hg] Arlette Lopez [facility] Work Phone: 03-29-2019 10:17-0500 BSA (Body Surface Area) 2.24 m2 Arlette Lopez [facility] Work Phone: 03-29-2019 10:17-0500 Pulse (Heart Rate) 66 /min Arlette Lopez [facility] Work Phone: 03-29-2019 10:17-0500 Pulse Oximetry 97 % Arlette Lopez [facility] Work Phone: Encounters Encounter Date Encounter Type Care Provider Facility Start: 06-09-2023 End: 06-09-2023 ambulatory [facility] Start: 06-03-2023 End: 06-03-2023 ambulatory [facility] Start: 06-01-2023 End: 06-01-2023 ambulatory [facility] Start: 05-25-2023 End: 05-26-2023 ambulatory TRINH LOYOLA [facility] Start: 05-25-2023 End: 05-25-2023 Subsequent hospital visit by physician [address] Procedures Date Procedure Procedure Detail Performing Clinician Start: 06-09-2023 FOLLOW UP IN PHYSICAL THERAPY EBONIE DETEC Start: 06-03-2023 FOLLOW UP IN PHYSICAL THERAPY EBONIE DETEC Start: 06-01-2023 FOLLOW UP IN PHYSICAL THERAPY EBONIE DETEC Start: 05-25-2023 US HEAD NECK SOFT TISSUE EBONIE DETEC Start: 05-25-2023 XR SHOULDER 2+ VIEWS BILATERAL EBONIE DETEC Start: 05-25-2023 Us soft tissue head & neck real time imge docm Trinh Loyola DO Work Phone: Start: 05-25-2023 Radex shoulder compl ete minimum 2 views Ebonie Hernandez Detec TUNNEL KILN OPERATOR-MUSIC REHABILITATION THERAPIST Work Phone: Start: 05-21-2023 AMB REFERRAL TO PHYS ICAL THERAPY EBONIE DETEC Start: 03-25-2023 Oph bmtry prtl coher intrfrmtry io lens pwr roosevelt Monk MD Work Phone: Start: 03-03-2023 Oph bmtry prtl coher intrfrmtry io lens pwr roosevelt Monk MD Work Phone: Start: 02-17-2023 LARGE JOINT INJECTION/ARTHROCENTESIS TAJUL HINDUISM Start: 02-17-2023 POINT OF CARE ULTRAS OUND NO CHARGE TAJUL HINDUISM Start: 02-17-2023 XR KNEE RIGHT 3 VIEWS B BLANE TERRAZAS Start: 02-17-2023 Arthrocentesis aspir &/inj major jt/bursa w/us Jun Samuel MD Work Phone: Start: 01-14-2023 Ecg routine ecg w/le ast 12 lds w/i&r Leonardo Bustamante MD Work Phone: Start: 12-22-2022 INFLUENZA, HIGH-DOSE SEASONAL. QUADRIVALENT, PRESERVATIVE FREE TAJUL HINDUISM Start: 11-29-2022 Comprehensive metabo lic 2000 panel - Serum or Plasma GET TERRAZAS Start: 11-29-2022 Hemoglobin A1c/Hemoglobin.total in Blood GET TERRAZAS Start: 11-29-2022 Lipid panel GET JOSEPH Start: 11-29-2022 TSH WITH REFLEX TO F REE T4 IF ABNORMAL GET TERRAZAS Start: 11-29-2022 VITAMIN D 25-HYDROXY,TOTAL GET TERRAZAS Start: 11-29-2022 Lipid 1996 panel - S rosy or Plasma Arlette Lopez TUNNEL KILN OPERATOR-MUSIC REHABILITATION THERAPIST Work Phone: Start: 12-16-2021 Follow-up visit Start: 10-14-2021 Follow-up visit Start: 08-29-2021 Creatinine blood Jony Cano MD Work Phone: Start: 04-13-2021 Lipid 1996 panel - S rosy or Plasma Carla Alfredo MD Work Phone: Start: 04-14-2020 Dermatopathology Shanel soren Baker Start: 04-05-2019 Xray Chest 2 View PA + Lateral Arlette Donissaminacathy Start: 03-29-2019 GI Mod Barium Swallo w with Speech Eval Arlettemarkos Smithy Start: 02-27-2009 Colonoscopy Jony astorga MD Work Phone: Plan of Treatment Date Care Activity Detail Author Start: 11-30-2027 Lipid panel Lipid Panel [facility] Start: 04-13-2026 Lipid panel Lipid Panel [facility] Start: 10-09-2025 DTaP/Tdap/Td vaccine (2 - Td or Tdap) DTaP/Tdap/Td vaccine (2 - Td or Tdap) [facility] Start: 10-09-2025 DTaP/Tdap/Td Vaccines (2 - Td or Tdap) DTaP/Tdap/Td Vaccines (2 - Td or Tdap) [facility] Start: 05-12-2024 Medicare Annual Wellness Visit Medicare Annual Wellness Visit (AWV) [facility] Start: 01-13-2024 End: 01-13-2024 Patient encounter procedure 01/13/2024 12:00 PM EDT Office Visit [facility] [address] [place] [address] [address] [place] [address] Leonardo Bustamante MD [address] [place] [address], [address] [place], [place] [id number] [facility] Start: 11-30-2023 Diabetes mellitus screening Diabetes Screening [facility] Start: 11-09-2023 End: 11-09-2023 Patient encounter procedure 11/09/2023 8:30 AM EDT Office Visit [facility] [address] [place] [address] Trinh Loyola DO [address] Jack [address] [place] [address] [facility] Start: 06-25-2023 End: 06-25-2023 ambulatory 06/25/2023 11:30 AM EDT Treatment [facility] [place] [address] Eduarda Parada, PT [address] [facility] [place] [id number] [facility] Start: 06-23-2023 End: 06-23-2023 ambulatory 06/23/2023 11:00 AM EDT Treatment [facility] [address] [place] [address] Eduarda Parada, PT [address] [facility] [place] [id number] [facility] Start: 06-18-2023 End: 06-18-2023 ambulatory 06/18/2023 2:30 PM EDT Treatment [facility] [address] [place] [address] Eduarda Parada, PT [address] [facility] [place] [id number] [facility] Start: 06-16-2023 End: 06-16-2023 ambulatory 06/16/2023 3:15 PM EDT Treatment [facility] [address] [place] [address] Eduarda Parada, PT [address] [place] [address] [facility] Start: 06-11-2023 End: 06-11-2023 ambulatory 06/11/2023 1:15 PM EDT Treatment [address] [address] Eduarda Parada, PT [address] [facility] [place] [address] [facility] Start: 06-09-2023 End: 06-09-2023 ambulatory 06/09/2023 11:30 AM EDT Treatment [address] [address] Eduarda Parada, PT [address] [facility] [place] [address] [facility] Start: 06-03-2023 End: 06-03-2023 ambulatory 06/03/2023 11:30 AM EST Treatment [address] [address] Sarah Beth Lemons, DIESEL CRANE OPERATOR [address] [facility] [place] [address] [facility] Start: 06-01-2023 End: 06-01-2023 ambulatory 06/01/2023 8:30 AM EST Treatment [address] [address] Caity Cano, DIESEL CRANE OPERATOR [address] [facility] [place] [address] [facility] Start: 05-11-2023 End: 05-11-2023 Patient encounter procedure [facility] Start: 05-06-2023 End: 05-06-2023 Patient encounter procedure 05/06/2023 10:15 AM EST Office Visit [facility] [address] [place] [address] Bran Monk MD [address] [place], [place] [id number] [facility] Start: 04-22-2023 End: 04-22-2023 Patient encounter procedure [facility] Start: 04-15-2023 End: 04-15-2023 Patient encounter procedure 04/15/2023 10:45 AM EST Office Visit [facility] [address] [place] [address] Bran Monk MD [address] [place], [place] [id number] [facility] Start: 04-15-2023 End: 04-15-2023 Patient encounter procedure [facility] Start: 04-08-2023 End: 04-08-2023 Patient encounter procedure 04/08/2023 9:45 AM EST Office Visit [facility] [address] [place] [address] Bran Monk MD [address] [place], [place] [id number] [facility] Start: 03-25-2023 End: 03-25-2023 Patient encounter procedure [facility] Start: 03-18-2023 COVID-19 Vaccine (5 - Pfizer series) COVID-19 Vaccine (5 - Pfizer series) [facility] Start: 03-18-2023 COVID-19 Vaccine ( season) COVID-19 Vaccine ( season) [facility] Start: 03-18-2023 COVID-19 Vaccine ( season) COVID-19 Vaccine ( season) [facility] Start: 03-18-2023 End: 03-18-2023 Patient encounter procedure [facility] Start: 02-17-2023 End: 02-19-2023 XR Knee - right 3 Views [facility] Service Area Work Phone: Immunizations Immunization Date Immunization Notes Care Provider Janis rogers 01-21-2023 COVID-19, subunit, rS-nanoparticle, adjuvanted, PF, 5 mcg/0.5 mL Tino 1 [facility] Work Phone: 01-21-2023 Pfizer Purple Cap SARS-CoV-2 Arlettemarkos Donissaminacathy TUNNEL KILN OPERATOR-MUSIC REHABILITATION THERAPIST Work Phone: [facility] Work Phone: 12-22-2022 Flu vaccine, quadrivalent, high-dose, preservative free, age 65y+ (FLUZONE) Arlette Donismarline TUNNEL KILN OPERATOR-MUSIC REHABILITATION THERAPIST Work Phone: [facility] 12-23-2021 Fluad Quadrivalent 0 .5 ML Intramuscular Prefilled Syringe Get Terrazas Work Phone: [facility] Work Phone: Payers Date Payer Category Payer Medicare [id number] 2021 Medicare [id number] 2021 Private Health Insurance [id number] 2015 Medicare AETNA MEDICARE A ETNA MEDICARE-ADVANTAGE PPO [id number] 2015-Present [address] [place] [address] Medicare [id number] 1946 Unknown [id number] 2.16.840.1.996492.3.579.2.1 046 1946 Unknown [id number] 2.16.840.1.500029.3.579.2.1 1946 Unknown [id number] 2.16.840.1.936935.3.579.2.1 1946 Unknown [id number] 2.16.840.1.882636.3.579.2.1 1946 Unknown [id number] 2.16.840.1.334472.3.579.2.1 1946 Unknown [id number] 2.16.840.1.681959.3.579.2.1 1946 Unknown [id number] 2.16.840.1.297640.3.579.2.1 1946 Unknown [id number] 2.16.840.1.246816.3.579.2.1 1946 Unknown [id number] 2.16.840.1.638052.3.579.2.1 1946 Unknown [id number] 2.16840.1.719264.3.579.2.1 1946 Unknown [id number] 2.16840.1.500473.3.579.2.1 1946 Unknown [id number] 2.16840.1.489065.3.579.2.1 1946 Unknown [id number] 2.16840.1.599337.3.579.2.1 1946 Unknown [id number] 2.16.840.1.856677.3.579.2.1 1946 Unknown [id number] 2.16840.1.937455.3.579.2.1 1946 Unknown [id number] 2.16840.1.833081.3.579.2.1 1946 Unknown [id number] 2.16840.1.513361.3.579.2.1 1946 Unknown [id number] 2.16.840.1.586812.3.579.2.1 1946 Unknown [id number] 2.16840.1.475755.3.579.2.1 069 1946 Unknown [id number] 2.16.840.1.929680.3.579.2.1 069 1946 Unknown [id number] 2.16.840.1.270464.3.579.2.1 069 1946 Unknown [id number] 2.16.840.1.894774.3.579.2.3 56 1946 Unknown [id number] 2.16.840.1.522426.3.579.2.3 56 1946 Unknown [id number] 2.16.840.1.597292.3.579.2.3 56 1946 Unknown [id number] 2.16.840.1.457141.3.579.2.3 56 1946 Unknown [id number] 2.16840.1.030806.3.579.2.3 56 1946 Unknown [id number] 2.16.840.1.289542.3.579.2.3 56 1946 Unknown [id number] 2.16.840.1.853315.3.579.2.3 56 1946 Unknown [id number] 2.16.840.1.399624.3.579.2.1 245 1946 Unknown [id number] 2.16.840.1.532669.3.579.2.1 245 1946 Unknown [id number] 2.16.840.1.491949.3.579.2.1 244 1946 Unknown [id number] 2.16.840.1.466136.3.579.2.1 244 1946 Unknown [id number] 2.16.840.1.590565.3.579.2.1 244 1946 Unknown [id number] 2.16.840.1.175867.3.579.2.1 244 1946 Unknown [id number] 2.16.840.1.438706.3.579.2.1 244 1946 Unknown [id number] 2.16.840.1.409499.3.579.2.1 244 1946 Unknown [id number] 2.16.840.1.877766.3.579.2.1 243 1946 Unknown [id number] 2.16.840.1.300279.3.579.2.1 243 1946 Unknown [id number] 2.16.840.1.418352.3.579.2.1 243 1946 Unknown [id number] 2.16.840.1.518536.3.579.2.1 243 1946 Unknown [id number] 2.16.840.1.473323.3.579.2.1 243 1946 Unknown [id number] 2.16.840.1.343362.3.579.2.1 243 Unknown Social History Date Type Detail Facility Start: 08-29-2021 End: 05-22-2023 Does not use smokeless tobacco Does not use smokeless tobacco [facility] Work Phone: Start: 03-08-2015 End: 11-24-2022 Tobacco smoking status NHIS Never smoked tobacco [facility] Work Phone: Start: 03-08-2015 End: 05-22-2023 Tobacco use and exposure Smokeless tobacco non-user [facility] Work Phone: Start: 08-29-2021 End: 05-22-2023 Alcohol intake Current drinker of alcohol (finding) [facility] Work Phone: Start: 03-08-2015 History SDOH Alcohol Comment Socially [facility] Work Phone: Start: 1945 Sex Assigned At Male S [facility] Start: 08-19-2021 End: 05-25-2023 Exposure to SARS-CoV-2 (event) Not sure [facility] Work Phone: Start: 11-24-2022 End: 05-22-2023 Tobacco use panel [facility] Work Phone: Start: 01-16-2022 Gender identity Identifies as male gender (finding) [facility] Work Phone: Start: 12-17-2022 End: 05-22-2023 Tobacco smoking status NHIS Ex-smoker [facility] Work Phone: End: 03-30-1974 History of tobacco use Current smoker [facility] Work Phone: End: 03-30-1974 History of tobacco use Cigarette Smoker [facility] Work Phone: Start: 01-16-2022 Sexual orientation Heterosexual (fin ulises) [facility] End: 03-30-1974 History of tobacco use Pipe Smoker [facility] Start: 03-18-2023 Tobacco Comment Occasionally s moked a pipe, but NEVER SINCE Mar 30, 1975 [facility] Start: 05-22-2023 Tobacco Comment Very occasiona l pipe smoker, back in early . [facility] Work Phone: Start: 05-22-2023 Alcohol Comment Occasional beer. [facility] Work Phone: NEGATED: Highlighted row - - [facility] Work Phone: NEGATED: Highlighted rowStart: NINF History of tobacco use Passive smoker [facility] Work Phone: Medical Equipment Procedure Code Equipment Code Equipment Origin al Text Equipment Identifier Dates Selvin Embolizat ion Coil-08/29/2021 [id number] Start: 08-29-2021 Functional Status Date Assessment Result Facility NEGATED: Highlighted row Functional performance Functional status health issues are not documented Disease [facility] Work Phone: Mental Status Date Assessment Result Facility NEGATED: Highlighted row Cognitive function [Interpretation] Cognitive status health issues are not documented Disease [facility] Work Phone: Clinical Notes 10-04-2009 to 05-13-2023 Telephone Encounter - BEVERLEY Aguilera - 05/13/2023 11:47 AM ESTTelephone Encounter - BEVERLEY Aguilera - 05/13/2023 11:47 AM ESTTelephone Encounter - Bran Monk MD - 05/13/2023 10:06 AM EST Note Date & Type Note Facility 05-13-2023 Telephone encounter Note Called pt on 05/13/23 @ 1147 to inform him he is okay to take flonase. Pt understood and was thankful for a quick response. [facility] 05-13-2023 Miscellaneous Notes Called pt on 05/13/23 @ 1147 to inform him he is okay to take flonase. Pt understood and was thankful for a quick response. Yes, that is fine to take flonase Pt called on 05/12/2023 @ 1200. Pt states he has a sinus infection at the moments and was prescribed flonase. Pt would like to know if he is okay to take this. Last sx was on 04-07-23 documented in this encounter [facility] 05-13-2023 Telephone encounter Note Yes, that is fine to take flonase [facility] 05-12-2023 Telephone encounter Note Pt called on 05/12/2023 @ 1200. Pt states he has a sinus infection at the moments and was prescribed flonase. Pt would like to know if he is okay to take this. Last sx was on 04-07-23 [facility] [place] 05-06-2023 History of Present illness Narrative Images from the original note were not included. 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 Subjective HPI 77 year old male presents for 1 month post operative status post (s/p) Phaco w/ intraocular lens (IOL) right eye (OD). Pt reports good compliance with Ketorolac every day right eye (OD) and Prednisolone every day right eye (OD). Pt states once in a while, pt will notice irritation right eye (OD). Pt states vision has improved since operation. Pt states peripheral vision has reduced. Ketorolac last used this morning at 0825 Prednisolone last used this morning at 0830 Last edited by BEVERLEY Lennon on 05/06/2023 10:48 AM. ROS Positive for: Neurological, HENT, Cardiovascular, Eyes, Respiratory Negative for: Constitutional, Gastrointestinal, Skin, Genitourinary, Musculoskeletal, Endocrine, Psychiatric, Allergic/Imm, Heme/Lymph Last edited by Bran Monk MD on 05/06/2023 11:41 AM. Allergies Allergen Reactions Hydrocortisone Swelling Ibuprofen Swelling and Other nightmares/sleep disturbance, night terrors Aspirin Other Asthma Bacitracin-Polymyxin B Hives Loratadine Hives Fjavm-Xpwvw-Srowpcn-Pramoxine Other Vjptqlpn-Hqgrvrhsb-Oeimhrxrai Rash Sulfa Antibiotics Itching and Rash Current Outpatient Medications Medication Sig Dispense Refill cholecalciferol (Vitamin D-3) 125 MCG (5000 UT) capsule Take 5,000 Units by mouth daily. ketorolac (Acular) 0.5 % ophthalmic solution Administer 1 drop into the right eye in the morning and 1 drop at noon and 1 drop in the evening and 1 drop before bedtime. Start 2 days before surgery. Do not start before March 31, 2023. (Patient taking differently: Administer 1 drop into the right eye daily. Start 2 days before surgery) 5 mL 1 Multiple Vitamins-Minerals (PRESERVISION AREDS 2 PO) Take by mouth. prednisoLONE acetate (Pred-Forte) 1 % ophthalmic suspension Administer 1 drop into the right eye in the morning and 1 drop at noon and 1 drop in the evening and 1 drop before bedtime. Start day of surgery. Do not start before March 31, 2023. (Patient taking differently: Administer 1 drop into the right eye daily. Start day of surgery) 5 mL 1 No current facility-administered medications for this visit. Past Medical History: Diagnosis Date Asthma Combined forms of age-related cataract of both eyes DDD (degenerative disc disease), cervical Dermatochalasis of both upper eyelids Deviated septum Fuchs' corneal dystrophy of both eyes Hyperlipidemia Ocular migraine Osteoarthritis Lumbar Pericarditis PVD (posterior vitreous detachment), both eyes Sleep apnea Spondylosis Surgery, other elective Turbinate reduction Varicocele Left teste Visual floaters Social History Tobacco Use Smoking status: Former Types: Pipe Smokeless tobacco: Never Tobacco comments: Occasionally smoked a pipe, but NEVER SINCE Mar 30, 1975 Substance Use Topics Alcohol use: Yes Alcohol/week: 3.0 standard drinks of alcohol Types: 3 Cans of beer per week Past Surgical History: Procedure Laterality Date APPENDECTOMY CARDIAC CATHETERIZATION Left 08/2007 normal exam CATARACT EXTRACTION W/ INTRAOCULAR LENS IMPLANT Left 03/17/2023 CATARACT EXTRACTION W/ INTRAOCULAR LENS IMPLANT Right 04/07/2023 FRACTURE SURGERY Right FX leg NASAL SEPTUM SURGERY NOSE SURGERY 05/2014 turbinate reduction surgery SKIN CANCER EXCISION Left left calf TESTICLE SURGERY Left 08/29/2021 Dr. Cano TONSILLECTOMY (HISTORICAL) Family History Problem Relation Name Age of Onset Other (22911) Mother Pollee P Hruby lung disease Arthritis Mother Pollee P Hruby Fuchs' dystrophy Mother Pollee P Hruby Cataracts Mother Pollee P Hruby Thyroid disease Mother Pollee P Hruby Cancer Father Pedrito [place] Jr Tumor in heart High Blood Pressure Father Pedrito [place] Jr Heart disease Father Pedrito [place] Jr heart tumor cardiac pacemaker Obesity Sister High Blood Pressure Brother Uvaldo Vallejo Hruby Fuchs' dystrophy Brother Uvaldo [place] Hruby Cataracts Brother Uvaldo [place] Hruby Thyroid disease Brother David Carson Hruby Fuchs' dystrophy Father's Sister Aurora Mota Cataracts Paternal Grandfather Pedrito [place] Stroke Paternal Grandfather Pedrito [place] Thyroid disease Daughter Glaucoma Neg Hx Macular degeneration Neg Hx Objective Base Eye Exam Visual Acuity (Snellen - Linear) Right Left Dist sc 20/30 -2 20/40 -2 Tonometry (Applanation with Fluress, 11:00 AM) Right Left Pressure 10 10 Pupils Pupils Dark Light Shape React APD Right PERRL 4 3 Round Brisk None Left PERRL 4 3 Round Brisk None Visual Mclaughlin Right Left Full Full Extraocular Movement Right Left Full, Ortho Full, Ortho Neuro/Psych Oriented x3: Yes Mood/Affect: Normal Dilation Right eye: 2.5% Phenylephrine, 1.0% Tropicamide @ 11:00 AM Angles appear open, dilation discussed. Slit Lamp and Fundus Exam External Exam Right Left External Normal Normal Slit Lamp Exam Right Left Lids/Lashes 1+ Dermatochalasis - upper lid, 1+ Meibomian gland dysfunction 1+ Dermatochalasis - upper lid, 1+ Meibomian gland dysfunction Conjunctiva/Sclera White and quiet White and quiet Cornea 3-4+ Guttata, clear corneal incision 3-4+ Guttata, clear corneal incision Anterior Chamber Deep and quiet Deep and quiet Iris Round and reactive Round and reactive Lens Posterior chamber intraocular lens Posterior chamber intraocular lens Anterior Vitreous Posterior vitreous detachment Posterior vitreous detachment Fundus Exam Right Left Disc Peripapillary atrophy C/D Ratio 0.25 Macula Normal Vessels Normal Periphery Normal Refraction Wearing Rx Sphere Cylinder Viola Add Right -0.25 +1.50 022 +2.75 Left +0.25 +2.25 152 +2.75 Type: PAL - Pt uses these for computer and reading with ease Manifest Refraction (Auto) Sphere Cylinder Viola Dist VA Add Near VA Right -0.25 +1.00 007 Left [place] +1.50 149 Manifest Refraction #2 Sphere Cylinder Viola Dist VA Add Near VA Right -0.75 +1.25 010 20/20 +2.75 J1+ Left -0.75 +1.50 150 20/20 +2.75 J1+ Final Rx Sphere Cylinder Viola Add Right -0.75 +1.25 010 +2.75 Left -0.75 +1.50 150 +2.75 Expiration Date: 05/06/2024 Data Reviewed and Summarized No current labs Bran Monk MD documented in this encounter [facility] 04-15-2023 History of Present illness Narrative Images from the original note were not included. [facility] [address] [facility] [address] Dept: [phone] Dept Loc: [phone] Visit type: Established patient Reason for Visit: Post-op Assessment and Plan Problem List Items Addressed This Visit Eye/Vision problems Combined forms of age-related cataract - Primary (Chronic) One week post op status post (s/p) phaco w/pciol od: stable and improving Please see post-op instructions given prior to discharge Call if decreased vision or increased pain or other concerns Ofloxacin Prenisolone Acetate Ketorolac Week 1 4 times a day 4 times a day 4 times a day Week 2 3 times a day 3 times a day Week 3 2 times a day 2 times a day Week 4 1 times a day 1 times a day Ok to start artificial tears 4x/day Follow up for 1 month post op. Subjective HPI 77 year old male presents for 8 days status post (s/p) Phaco w/ intraocular lens (IOL) right eye (OD). Pt reports good compliance with Ketorolac TID right eye (OD), Prednisolone TID right eye (OD), and Ofloxacin discontinue. Pt states he is able to see well since cataract surgery. Pt denies itching, burning, pain, and irritation. Ketorolac last used this morning at 0830 Prednisolone last used this morning at 0835 Ofloxacin last used last night at 0100 Last edited by BEVERLEY Lennon on 04/15/2023 10:58 AM. ROS Positive for: Neurological, HENT, Cardiovascular, Eyes, Respiratory Last edited by BEVERLEY Lennon on 04/15/2023 10:50 AM. Allergies Allergen Reactions Hydrocortisone Swelling Ibuprofen Swelling and Other nightmares/sleep disturbance, night terrors Aspirin Other Asthma Bacitracin-Polymyxin B Hives Loratadine Hives Sknsy-Jtrsf-Mbtxkte-Pramoxine Other Ttcsuqsf-Eldomhfop-Xwceprqdkk Rash Sulfa Antibiotics Itching and Rash Current Outpatient Medications Medication Sig Dispense Refill cholecalciferol (Vitamin D-3) 125 MCG (5000 UT) capsule Take 5,000 Units by mouth daily. ketorolac (Acular) 0.5 % ophthalmic solution Administer 1 drop into the right eye in the morning and 1 drop at noon and 1 drop in the evening and 1 drop before bedtime. Start 2 days before surgery. Do not start before March 31, 2023. 5 mL 1 Multiple Vitamins-Minerals (PRESERVISION AREDS 2 PO) Take by mouth. prednisoLONE acetate (Pred-Forte) 1 % ophthalmic suspension Administer 1 drop into the right eye in the morning and 1 drop at noon and 1 drop in the evening and 1 drop before bedtime. Start day of surgery. Do not start before March 31, 2023. 5 mL 1 No current facility-administered medications for this visit. Past Medical History: Diagnosis Date Asthma Combined forms of age-related cataract of both eyes DDD (degenerative disc disease), cervical Dermatochalasis of both upper eyelids Deviated septum Fuchs' corneal dystrophy of both eyes Hyperlipidemia Ocular migraine Osteoarthritis Lumbar Pericarditis PVD (posterior vitreous detachment), both eyes Sleep apnea Spondylosis Surgery, other elective Turbinate reduction Varicocele Left teste Visual floaters Social History Tobacco Use Smoking status: Former Types: Pipe Smokeless tobacco: Never Tobacco comments: Occasionally smoked a pipe, but NEVER SINCE Mar 30, 1975 Substance Use Topics Alcohol use: Yes Alcohol/week: 3.0 standard drinks of alcohol Types: 3 Cans of beer per week Past Surgical History: Procedure Laterality Date APPENDECTOMY CARDIAC CATHETERIZATION Left 08/2007 normal exam CATARACT EXTRACTION W/ INTRAOCULAR LENS IMPLANT Left 03/17/2023 CATARACT EXTRACTION W/ INTRAOCULAR LENS IMPLANT Right 04/07/2023 FRACTURE SURGERY Right FX leg NASAL SEPTUM SURGERY NOSE SURGERY 05/2014 turbinate reduction surgery SKIN CANCER EXCISION Left left calf TESTICLE SURGERY Left 08/29/2021 Dr. Cano TONSILLECTOMY (HISTORICAL) Family History Problem Relation Name Age of Onset Other (26343) Mother Salas Kirkpatrick Hruby lung disease Arthritis Mother Salas P Hruby Fuchs' dystrophy Mother Salas P Hruby Cataracts Mother Salas Kirkpatrick Hruby Thyroid disease Mother Salas P Hruby Cancer Father Pedrito [place] Jr Tumor in heart High Blood Pressure Father Pedrito [place] Jr Heart disease Father Pedrito [place] Jr heart tumor cardiac pacemaker Obesity Sister High Blood Pressure Brother Uvaldo [place] Hruby Fuchs' dystrophy Brother Uvaldo [place] Hruby Cataracts Brother Uvaldo [place] Hruby Thyroid disease Brother David [place] Hruby Fuchs' dystrophy Father's Sister Aurora Mota Cataracts Paternal Grandfather Pedrito Concepcion Hruby Stroke Paternal Grandfather Pedrito Concepcion Hruby Thyroid disease Daughter Glaucoma Neg Hx Macular degeneration Neg Hx Objective Base Eye Exam Visual Acuity (Snellen - Linear) Right Left Dist sc 20/25 -2 20/40 Tonometry (Applanation with Fluress, 11:03 AM) Right Left Pressure 10 10 Pupils Pupils Dark Light Shape React APD Right PERRL 4 3 Round Brisk None Left PERRL 4 3 Round Brisk None Visual Mclaughlin Right Left Full Full Extraocular Movement Right Left Full, Ortho Full, Ortho Neuro/Psych Oriented x3: Yes Mood/Affect: Normal Slit Lamp and Fundus Exam External Exam Right Left External Normal Normal Slit Lamp Exam Right Left Lids/Lashes 1+ Dermatochalasis - upper lid, 1+ Meibomian gland dysfunction 1+ Dermatochalasis - upper lid, 1+ Meibomian gland dysfunction Conjunctiva/Sclera White and quiet White and quiet Cornea 3-4+ Guttata, FTBUT 3-4+ Guttata, FTBUT Anterior Chamber Deep and quiet Deep and quiet Iris dilated Round and reactive Lens Posterior chamber intraocular lens Posterior chamber intraocular lens Anterior Vitreous Posterior vitreous detachment Posterior vitreous detachment Data Reviewed and Summarized No current labs Bran Monk MD documented in this encounter [facility] 04-15-2023 Instructions BEVERLEY Lennon - 04/15/2023 10:45 AM EST 1 week Post-Operative Cataract Surgery Eye Drop Instructions Patient Name: Robyn Ireland : 1945 DATE: 04/15/2023 Directions for your surgical eye only: Instill only one (1) drop of medication Wait 3-5 minutes then install the next drop of medication. You may use them in any order. Ofloxacin (Valverde cap) Prednisolone Acetate (Salado or white cap) Ketorolac (Pate cap) Week 2 STOP 3 times a day 3 times a day Week 3 2 times a day 2 times a day Week 4 1 times a day 1 times a day Week 5 STOP STOP If you have any new change in clarity of vision, pain, or redness please call Dr. Monk's office at [phone]. documented in this encounter [facility] 04-08-2023 History of Present illness Narrative Images from the original note were not included. [facility] [address] [facility] [address] [facility] [address] Dept: [phone] Dept Loc: [phone] Visit type: Established patient Reason for Visit: Post-op Assessment and Plan Problem List Items Addressed This Visit Eye/Vision problems Combined forms of age-related cataract - Primary (Chronic) One day post op status post (s/p)phaco w/pciol od: doing well Please see post-op instructions given prior to discharge Call if decreased vision or increased pain or other concerns Ofloxacin Prenisolone Acetate Ketorolac Week 1 4 times a day 4 times a day 4 times a day Week 2 3 times a day 3 times a day Week 3 2 times a day 2 times a day Week 4 1 times a day 1 times a day He had one incidence while reading a spread sheet last night when he had difficulty reading centrally but was not wearing readers at the time. OCT done today to look for edema in macula and it was within normal limits. Follow up for 1 week post op. Subjective HPI 77 yr old male is here for a 1 day post op for posterior chamber intraocular lens (PCIOL) right eye (OD). Pt states slept well and is not in any pain. Pt is noticing new floaters in os and while doing a spreadsheet last night the middle had a blank spot. Pt was able to start all 3 post op drops (gtts) 4x after sx left eye (OS). Pt is still doing Pred and Ketorlac left eye (OS) once a day starting today. Ofloxacin last used:08 Ketorolac last used:804 Prednisolone last used: 809 Last edited by BEVERLEY Aguilera on 04/08/2023 10:00 AM. ROS Positive for: Eyes Last edited by BEVERLEY Aguilera on 04/08/2023 9:50 AM. Allergies Allergen Reactions Hydrocortisone Swelling Ibuprofen Swelling and Other nightmares/sleep disturbance, night terrors Aspirin Other Asthma Bacitracin-Polymyxin B Hives Loratadine Hives Bsavf-Xdxek-Kjmsobm-Pramoxine Other reaction(s): Other Mdahckkh-Ypbgccjlm-Cokrlqoatg Rash Sulfa Antibiotics Itching and Rash Itching Current Outpatient Medications Medication Sig Dispense Refill cholecalciferol (Vitamin D-3) 125 MCG (5000 UT) capsule Take 5,000 Units by mouth daily. ketorolac (Acular) 0.5 % ophthalmic solution Administer 1 drop into the right eye in the morning and 1 drop at noon and 1 drop in the evening and 1 drop before bedtime. Start 2 days before surgery. Do not start before March 31, 2023. 5 mL 1 Multiple Vitamins-Minerals (PRESERVISION AREDS 2 PO) Take by mouth. ofloxacin (Ocuflox) 0.3 % ophthalmic solution Administer 1 drop into the right eye in the morning and 1 drop at noon and 1 drop in the evening and 1 drop before bedtime. Do all this for 10 days. Start 2 days before surgery. Do not start before March 31, 2023. 5 mL 0 prednisoLONE acetate (Pred-Forte) 1 % ophthalmic suspension Administer 1 drop into the right eye in the morning and 1 drop at noon and 1 drop in the evening and 1 drop before bedtime. Start day of surgery. Do not start before March 31, 2023. 5 mL 1 No current facility-administered medications for this visit. Past Medical History: Diagnosis Date Asthma Combined forms of age-related cataract of both eyes DDD (degenerative disc disease), cervical Dermatochalasis of both upper eyelids Deviated septum Fuchs' corneal dystrophy of both eyes Hyperlipidemia Ocular migraine Osteoarthritis Lumbar Pericarditis PVD (posterior vitreous detachment), both eyes Sleep apnea Spondylosis Surgery, other elective Turbinate reduction Varicocele Left teste Visual floaters Social History Tobacco Use Smoking status: Former Types: Pipe Smokeless tobacco: Never Tobacco comments: Occasionally smoked a pipe, but NEVER SINCE Mar 30, 1975 Substance Use Topics Alcohol use: Yes Alcohol/week: 3.0 standard drinks of alcohol Types: 3 Cans of beer per week Past Surgical History: Procedure Laterality Date APPENDECTOMY CARDIAC CATHETERIZATION Left 08/2007 normal exam CATARACT EXTRACTION W/ INTRAOCULAR LENS IMPLANT Left 03/17/2023 CATARACT EXTRACTION W/ INTRAOCULAR LENS IMPLANT Right 04/07/2023 FRACTURE SURGERY Right FX leg NASAL SEPTUM SURGERY NOSE SURGERY 05/2014 turbinate reduction surgery SKIN CANCER EXCISION Left left calf TESTICLE SURGERY Left 08/29/2021 Dr. Cano TONSILLECTOMY (HISTORICAL) Family History Problem Relation Name Age of Onset Other (51056) Mother Pollee P Hruby lung disease Arthritis Mother Pollee P Hruby Fuchs' dystrophy Mother Pollee P Hruby Cataracts Mother Pollee P Hruby Thyroid disease Mother Pollee P Hruby Cancer Father Pedrito Hruby Jr Tumor in heart High Blood Pressure Father Pedrito Hruby Jr Heart disease Father Pedrito Hruby Jr heart tumor cardiac pacemaker Obesity Sister High Blood Pressure Brother Chau Hruby Fuchs' dystrophy Brother Chau Hruby Cataracts Brother Uvaldo [place]lejo Hruby Thyroid disease Brother David S Hruby Fuchs' dystrophy Father's Sister Aurora Mota Cataracts Paternal Grandfather Pedrito Concepcion Hrubcathy Stroke Paternal Grandfather Pedrito Concepcion Hruby Thyroid disease Daughter Glaucoma Neg Hx Macular degeneration Neg Hx Objective Base Eye Exam Visual Acuity (Snellen - Linear) Right Left Dist sc 20/30 -2 20/30 -2 Tonometry (Applanation, 10:31 AM) Right Left Pressure 17 Pupils Pupils Dark Light Shape React APD Right PERRL 5 4 Round dilated None Left PERRL 4 3 Round Brisk None Neuro/Psych Oriented x3: Yes Mood/Affect: Normal Slit Lamp and Fundus Exam External Exam Right Left External Normal Normal Slit Lamp Exam Right Left Lids/Lashes 1+ Dermatochalasis - upper lid, 1+ Meibomian gland dysfunction 1+ Dermatochalasis - upper lid, 1+ Meibomian gland dysfunction Conjunctiva/Sclera White and quiet White and quiet Cornea 3-4+ Guttata, FTBUT 3-4+ Guttata, FTBUT Anterior Chamber 1+ Cell Deep and quiet Iris dilated Round and reactive Lens Posterior chamber intraocular lens Posterior chamber intraocular lens Anterior Vitreous Posterior vitreous detachment Posterior vitreous detachment Data Reviewed and Summarized No current labs Bran Monk MD documented in this encounter [facility] 04-08-2023 Instructions BEVERLEY Aguilera - 04/08/2023 9:45 AM EST 1 Day Post-Operative Cataract Surgery Eye Drop Instructions Patient Name: Robyn Ireland : 1945 DATE: 04/08/2023 Directions for your surgical eye only: Instill only one (1) drop of the medication 2.) Wait 3-5 minutes then instill the next drop. You may use them in any order. Wear the clear eye shield at night for the first week No lifting over 10 pounds for the first week Ofloxacin (Valverde cap) Prenisolone Acetate (Salado or white cap) Ketorolac (Pate cap) Week 1 4 times a day 4 times a day 4 times a day Week 2 STOP 3 times a day 3 times a day Week 3 2 times a day 2 times a day Week 4 1 times a day 1 times a day If you have any new change in clarity of vision, pain, or redness please call Dr. Monk's office at [phone]. documented in this encounter [facility] 03-25-2023 History of Present illness Narrative Images from the original note were not included. [facility] [address] [facility] [address] Dept: [phone] Dept Loc: [phone] Visit type: Established patient Reason for Visit: Cataract Assessment and Plan Problem List Items Addressed This Visit Eye/Vision problems Combined forms of age-related cataract - Primary (Chronic) Relevant Orders IOL Biometry - OD - Right Eye (Completed) Fuchs' corneal dystrophy of both eyes (Chronic) One week post op status post (s/p) phaco w/pciol os: doing well Please see post-op instructions given prior to discharge Call if decreased vision or increased pain or other concerns Ofloxacin Prenisolone Acetate Ketorolac Week 1 4 times a day 4 times a day 4 times a day Week 2 3 times a day 3 times a day Week 3 2 times a day 2 times a day Week 4 1 times a day 1 times a day Patient feels they are unable to function with current vision and limited ability to carry out activies including: []Reading small print []Watching TV []Driving at night due to glare []Unable to meet occupation expectations ie: measuring, driving, seeing fine detail, colors []Unable to meet vocational expectations ie: crafts, art, painting, puzzles, model building []Other: The risks and benefits of cataract surgery were discussed with the patient including but not limited to: infection, bleeding, blindness, additional surgeries and complications due to anesthesia including and need for spectacles. Decreased vision appears to be due to visually significant cataracts and vision is expected to improve with cataract extraction. The alternatives to cataract surgery have also been discussed with patient including but not limited to: avoiding glare and optimizing glasses mrx. Order [facility]/Scan OU Target: distance with needing glasses for astigmatism Guarded prognosis: [] No [x]Yes Due to: Fuchs dystrophy possibly needing transplant The patient wishes to proceed with cataract surgery in the: [x] Right Eye [] Left Eye Anesthesia: [x] Topical [] General [] Block Preop meds: [] Prednisolone Forte [] Ofloxacin [] Ketorolac [] Sent to pharmacy [facility]: Preop Consent: Plan: [x] Phaco with PC IOL Topical: [] @ [] @ [facility] [] Phaco with PC IOL Block: [] @ [] @ [facility] [] Complex phaco with PC IOL pupilloplasty: [] @ [] @ [facility] Follow up for surgery scheduled at right eye. Subjective HPI Cataract Laterality: right eye Associated symptoms: blurred vision and glare Comments 77 yr old male is here for a 1 wk post op for posterior chamber intraocular lens (PCIOL) left eye (OS). Pt states left eye (OS) is doing a lot better. Pt reports he can read with left eye (OS) and he wasn't able to before the cataract sx. Pt would like to proceed with cataract sx right eye (OD). Pt states he was really constipated for a whole week since the sx and took stool softener and that helped. Ketorolac last used: 0800 Prednisolone last used: 08 Last edited by BEVERLEY Aguilera on 03/25/2023 10:17 AM. ROS Positive for: Eyes, Respiratory Last edited by BEVERLEY Aguilera on 03/25/2023 10:10 AM. Allergies Allergen Reactions Hydrocortisone Swelling Ibuprofen Swelling and Other nightmares/sleep disturbance, night terrors Aspirin Other Asthma Bacitracin-Polymyxin B Hives Loratadine Hives Txblt-Yfcrj-Hdfejhq-Pramoxine Other reaction(s): Other Honxesue-Nxytyiatb-Wtnpercqyc Rash Sulfa Antibiotics Itching and Rash Itching Current Outpatient Medications Medication Sig Dispense Refill cholecalciferol (Vitamin D-3) 125 MCG (5000 UT) capsule Take 5,000 Units by mouth daily. ketorolac (Acular) 0.5 % ophthalmic solution Administer 1 drop into the left eye in the morning and 1 drop at noon and 1 drop in the evening and 1 drop before bedtime. 5 mL 1 Multiple Vitamins-Minerals (PRESERVISION AREDS 2 PO) Take by mouth. prednisoLONE acetate (Pred-Forte) 1 % ophthalmic suspension Administer 1 drop into the left eye in the morning and 1 drop at noon and 1 drop in the evening and 1 drop before bedtime. 5 mL 1 No current facility-administered medications for this visit. Past Medical History: Diagnosis Date Asthma Combined forms of age-related cataract of both eyes DDD (degenerative disc disease), cervical Dermatochalasis of both upper eyelids Deviated septum Fuchs' corneal dystrophy of both eyes Hyperlipidemia Ocular migraine Osteoarthritis Lumbar Pericarditis PVD (posterior vitreous detachment), both eyes Sleep apnea Spondylosis Surgery, other elective Turbinate reduction Varicocele Left teste Visual floaters Social History Tobacco Use Smoking status: Former Types: Pipe Smokeless tobacco: Never Tobacco comments: Occasionally smoked a pipe, but NEVER SINCE Mar 30, 1975 Substance Use Topics Alcohol use: Yes Alcohol/week: 3.0 standard drinks of alcohol Types: 3 Cans of beer per week Past Surgical History: Procedure Laterality Date APPENDECTOMY CARDIAC CATHETERIZATION Left 08/2007 normal exam CATARACT EXTRACTION W/ INTRAOCULAR LENS IMPLANT Left 03/17/2023 FRACTURE SURGERY Right FX leg NASAL SEPTUM SURGERY NOSE SURGERY 05/2014 turbinate reduction surgery SKIN CANCER EXCISION Left left calf TESTICLE SURGERY Left 08/29/2021 Dr. Cano TONSILLECTOMY (HISTORICAL) Family History Problem Relation Name Age of Onset Other (86658) Mother Pollee P Hruby lung disease Arthritis Mother Pollcynthia P Hruby Fuchs' dystrophy Mother Pollcynthia P Hruby Cataracts Mother Pollee P Hruby Thyroid disease Mother Pollee P Hruby Cancer Father Pedrito Hruby Jr Tumor in heart High Blood Pressure Father Pedrito Hruby Jr Heart disease Father Pedrito Hruby Jr heart tumor cardiac pacemaker Obesity Sister High Blood Pressure Brother Uvaldo [place] Hruby Fuchs' dystrophy Brother Chau Hruby Cataracts Brother Uvaldo [place] Hruby Thyroid disease Brother David [place] Hruby Fuchs' dystrophy Father's Sister Aurora Mota Cataracts Paternal Grandfather Pedrito Olveraubcathy Stroke Paternal Grandfather Pedrito Concepcion Hrubcathy Thyroid disease Daughter Glaucoma Neg Hx Macular degeneration Neg Hx Objective Base Eye Exam Visual Acuity (Snellen - Linear) Right Left Dist sc 20/50 +1 Dist cc 20/25 +2 Dist ph sc 20/25 -2 Correction: Glasses Tonometry (Applanation, 10:31 AM) Right Left Pressure 10 11 Pupils Pupils Dark Light Shape React APD Right PERRL 4 3 Round Brisk None Left PERRL 4 3 Round Brisk None Visual Mclaughlin Right Left Full Full Extraocular Movement Right Left Full, Ortho Full, Ortho Neuro/Psych Oriented x3: Yes Mood/Affect: Normal Dilation Left eye: 2.5% Phenylephrine, 1.0% Tropicamide @ 10:31 AM Slit Lamp and Fundus Exam External Exam Right Left External Normal Normal Slit Lamp Exam Right Left Lids/Lashes 1+ Dermatochalasis - upper lid, 1+ Meibomian gland dysfunction 1+ Dermatochalasis - upper lid, 1+ Meibomian gland dysfunction Conjunctiva/Sclera White and quiet White and quiet Cornea 3-4+ Guttata, FTBUT 3-4+ Guttata, FTBUT Anterior Chamber Deep and quiet Deep and quiet Iris Round and reactive Round and reactive Lens 2+ Nuclear sclerosis, 1+ Cortical cataract Posterior chamber intraocular lens Anterior Vitreous Posterior vitreous detachment Posterior vitreous detachment Fundus Exam Right Left Disc Normal C/D Ratio 0.3 Macula Normal Vessels Normal Periphery Normal Refraction Wearing Rx Sphere Cylinder Viola Right -0.75 +1.50 018 Left -0.50 +2.00 148 Type: Bifocal Manifest Refraction Sphere Cylinder Viola Dist VA Add Near VA Right Left -0.50 +1.75 155 20/20 +2.75 J1+ Data Reviewed and Summarized No current labs Bran Monk MD documented in this encounter [facility] 03-25-2023 Instructions BEVERLEY Aguilera - 03/25/2023 10:00 AM EST 1 week Post-Operative Cataract Surgery Eye Drop Instructions Patient Name: Robyn Ireland : 1945 DATE: 03/25/2023 Directions for your surgical eye only: Instill only one (1) drop of medication Wait 3-5 minutes then install the next drop of medication. You may use them in any order. Ofloxacin (Valverde cap) Prednisolone Acetate (Salado or white cap) Ketorolac (Pate cap) Week 2 STOP 3 times a day 3 times a day Week 3 2 times a day 2 times a day Week 4 1 times a day 1 times a day Week 5 STOP STOP If you have any new change in clarity of vision, pain, or redness please call Dr. Monk's office at [phone]. documented in this encounter [facility] 03-24-2023 Telephone encounter Note Spoke to pt @ 4255. Pt c/o constipation s/p cataract extraction. Pt expressed concern stating that he eats fruits and vegetables, roughage, and drinks plenty of water. Pt states constipation is uncharacteristic and was wondering if the medication (gtts), may have caused the constipation. Asked pt if he has tried taking a stool softener, pt denied. Advised pt to contact his PCP to assess for any contraindications to taking a stool softener and if none, to try taking a stool softener to ease bowel movements. Pt expressed understanding and was thankful. Informed pt I will inform Dr Monk of symptoms upon her return to the office tomorrow. [facility] 03-24-2023 Miscellaneous Notes Spoke to pt @ 1305. Pt c/o constipation s/p cataract extraction. Pt expressed concern stating that he eats fruits and vegetables, roughage, and drinks plenty of water. Pt states constipation is uncharacteristic and was wondering if the medication (gtts), may have caused the constipation. Asked pt if he has tried taking a stool softener, pt denied. Advised pt to contact his PCP to assess for any contraindications to taking a stool softener and if none, to try taking a stool softener to ease bowel movements. Pt expressed understanding and was thankful. Informed pt I will inform Dr Monk of symptoms upon her return to the office tomorrow. documented in this encounter [facility] 03-18-2023 Telephone encounter Note Pt called concerned about a flicker of light in operative eye, left eye. Pt states the flicker of light is occurring in the peripheral vision left eye. Pt denies floaters or curtain effect. Advised pt sometimes after cataract surgery, the light will catch the edge of the lens while healing and the pt might notice a flash or flicker of light. Pt expressed understanding and was thankful. [facility] 03-18-2023 Miscellaneous Notes Pt called concerned about a flicker of light in operative eye, left eye. Pt states the flicker of light is occurring in the peripheral vision left eye. Pt denies floaters or curtain effect. Advised pt sometimes after cataract surgery, the light will catch the edge of the lens while healing and the pt might notice a flash or flicker of light. Pt expressed understanding and was thankful. documented in this encounter [facility] 03-18-2023 History of Present illness Narrative Images from the original note were not included. 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 Subjective HPI 77 year old male presents for 1 day status post (s/p) Phaco w/ intraocular lens (IOL) left eye (OS). Patch removed in office. Pt reports good compliance with Ketorolac QID left eye (OS), Prednisolone QID left eye (OS), and Ofloxacin QID left eye (OS). Pt denies itching, burning, pain, and irritation. Ketorolac last used this morning at 0730 Prednisolone last used this morning at 0735 Ofloxacin last used this morning at 0740 Last edited by BEVERLEY Lennon on 03/18/2023 10:36 AM. ROS Positive for: Neurological, HENT, Cardiovascular, Eyes, Respiratory Last edited by BEVERLEY Lennon on 03/18/2023 10:30 AM. Allergies Allergen Reactions Hydrocortisone Swelling Ibuprofen Swelling and Other nightmares/sleep disturbance, night terrors Aspirin Other Asthma Bacitracin-Polymyxin B Hives Loratadine Hives Zbmxu-Kxcnk-Qxdygjy-Pramoxine Other reaction(s): Other Zuswspiv-Abkrighwe-Tyqgepusvi Rash Sulfa Antibiotics Itching and Rash Itching Current Outpatient Medications Medication Sig Dispense Refill cholecalciferol (Vitamin D-3) 125 MCG (5000 UT) capsule Take 5,000 Units by mouth daily. ketorolac (Acular) 0.5 % ophthalmic solution Administer 1 drop into the left eye in the morning and 1 drop at noon and 1 drop in the evening and 1 drop before bedtime. 5 mL 1 Multiple Vitamins-Minerals (PRESERVISION AREDS 2 PO) Take by mouth. ofloxacin (Ocuflox) 0.3 % ophthalmic solution Administer 1 drop into the left eye in the morning and 1 drop at noon and 1 drop in the evening and 1 drop before bedtime. Do all this for 10 days. 5 mL 0 prednisoLONE acetate (Pred-Forte) 1 % ophthalmic suspension Administer 1 drop into the left eye in the morning and 1 drop at noon and 1 drop in the evening and 1 drop before bedtime. 5 mL 1 No current facility-administered medications for this visit. Past Medical History: Diagnosis Date Asthma Combined forms of age-related cataract of both eyes DDD (degenerative disc disease), cervical Dermatochalasis of both upper eyelids Deviated septum Fuchs' corneal dystrophy of both eyes Hyperlipidemia Ocular migraine Osteoarthritis Lumbar Pericarditis PVD (posterior vitreous detachment), both eyes Sleep apnea Spondylosis Surgery, other elective Turbinate reduction Varicocele Left teste Visual floaters Social History Tobacco Use Smoking status: Former Types: Pipe Smokeless tobacco: Never Tobacco comments: Occasionally smoked a pipe, but NEVER SINCE Mar 30, 1975 Substance Use Topics Alcohol use: Yes Alcohol/week: 3.0 standard drinks of alcohol Types: 3 Cans of beer per week Past Surgical History: Procedure Laterality Date APPENDECTOMY CARDIAC CATHETERIZATION Left 08/2007 normal exam CATARACT EXTRACTION W/ INTRAOCULAR LENS IMPLANT Left 03/17/2023 FRACTURE SURGERY Right FX leg NASAL SEPTUM SURGERY NOSE SURGERY 05/2014 turbinate reduction surgery SKIN CANCER EXCISION Left left calf TESTICLE SURGERY Left 08/29/2021 Dr. Cano TONSILLECTOMY (HISTORICAL) Family History Problem Relation Name Age of Onset Other ([id number]) Mother Pollee P Hruby lung disease Arthritis Mother Pollee P Hruby Fuchs' dystrophy Mother Pollee P Hruby Cataracts Mother Pollee P Hruby Thyroid disease Mother Pollee P Hruby Cancer Father ePdrito Hruby Jr Tumor in heart High Blood Pressure Father Pedrito Hruby Jr Heart disease Father Pedrito Hruby Jr heart tumor cardiac pacemaker Obesity Sister High Blood Pressure Brother Chau Hruby Fuchs' dystrophy Brother Chau Hruby Cataracts Brother Chau Hruby Thyroid disease Brother David S Hruby Fuchs' dystrophy Father's Sister Aurora Mota Cataracts Paternal Grandfather Pedrito [place] Stroke Paternal Grandfather Pedrito Concepcion Hruby Thyroid disease Daughter Glaucoma Neg Hx Macular degeneration Neg Hx Objective Base Eye Exam Visual Acuity (Snellen - Linear) Right Left Dist sc 20/60 Dist cc 20/25 -1 Dist ph sc 20/40 -2 Near cc J1 Correction: Glasses Tonometry (Applanation, 11:02 AM) Right Left Pressure 16 Pupils Dark Light Shape React APD Right 4.5 3.5 Round Brisk None Left 6 6 Round Dilated None Visual Mclaughlin Right Left Full Full Extraocular Movement Right Left Full, Ortho Full, Ortho Neuro/Psych Oriented x3: Yes Mood/Affect: Normal Slit Lamp and Fundus Exam External Exam Right Left External Normal Normal Slit Lamp Exam Right Left Lids/Lashes 1+ Dermatochalasis - upper lid, 1+ Meibomian gland dysfunction 1+ Dermatochalasis - upper lid, 1+ Meibomian gland dysfunction Conjunctiva/Sclera White and quiet Trace Injection Cornea 3-4+ Guttata, FTBUT 3-4+ Guttata, FTBUT Anterior Chamber Deep and quiet 1+ Cell Iris Round and reactive dilated Lens 2+ Nuclear sclerosis, 1+ Cortical cataract Posterior chamber intraocular lens Anterior Vitreous Posterior vitreous detachment Posterior vitreous detachment Refraction Wearing Rx Sphere Cylinder Viola Right -0.75 +1.50 018 Left -0.50 +2.00 148 Type: Bifocal Data Reviewed and Summarized No current labs Bran Monk MD documented in this encounter [facility] 03-18-2023 Instructions BEVERLEY Lennon - 03/18/2023 10:15 AM EST 1 Day Post-Operative Cataract Surgery Eye Drop Instructions Patient Name: Robyn Ireland : 1945 DATE: 03/18/2023 Directions for your surgical eye only: Instill only one (1) drop of the medication 2.) Wait 3-5 minutes then instill the next drop. You may use them in any order. Wear the clear eye shield at night for the first week No lifting over 10 pounds for the first week Ofloxacin (Valverde cap) Prenisolone Acetate (Salado or white cap) Ketorolac (Pate cap) Week 1 4 times a day 4 times a day 4 times a day Week 2 STOP 3 times a day 3 times a day Week 3 2 times a day 2 times a day Week 4 1 times a day 1 times a day If you have any new change in clarity of vision, pain, or redness please call Dr. Monk's office at [phone]. documented in this encounter [facility] 03-12-2023 History of Present illness Narrative Subjective Patient ID: Robyn Ireland is a 77 y.o. male who presents for Pre-op Exam (Cataract surgery 03/17/[address] Monk). HPI Presents forr surgical clearance for cataracts removal and lens implant. No problems with anesthesia. No cardiac or respiratory issues. Cardiology year EKG this fall normal. Labs 04/2022 reviewed as noted. Review of Systems Constitutional: Negative. HENT: Negative. Respiratory: Negative. Cardiovascular: Negative. Gastrointestinal: Negative. Musculoskeletal: Negative. Neurological: Negative. Psychiatric/Behavioral: Negative. Objective BP 120/74 (BP Location: Left arm, Patient Position: Sitting) Pulse 59 Temp 36.3 C (97.3 F) (Temporal) Wt 109 kg (241 lb) SpO2 98% BMI 35.59 kg/m Physical Exam Constitutional: Appearance: Normal appearance. HENT: Right Ear: Tympanic membrane, ear canal and external ear normal. Left Ear: Tympanic membrane, ear canal and external ear normal. Nose: Nose normal. Mouth/Throat: Mouth: Mucous membranes are moist. Pharynx: Oropharynx is clear. Eyes: Pupils: Pupils are equal, round, and reactive to light. Cardiovascular: Rate and Rhythm: Normal rate and regular rhythm. Pulses: Normal pulses. Pulmonary: Effort: Pulmonary effort is normal. Abdominal: General: Abdomen is flat. Bowel sounds are normal. Palpations: Abdomen is soft. Musculoskeletal: General: Normal range of motion. Cervical back: Normal range of motion. Lymphadenopathy: Cervical: No cervical adenopathy. Skin: General: Skin is warm. Neurological: General: No focal deficit present. Mental Status: He is alert and oriented to person, place, and time. Psychiatric: Mood and Affect: Mood normal. Behavior: Behavior normal. Assessment/Plan Problem List Items Addressed This Visit ICD-10-CM Combined forms of age-related cataract (Chronic) H25.819 Other Visit Diagnoses Codes Pre-operative clearance - Primary Z01.818 documented in this encounter [facility] Work Phone: 03-12-2023 Instructions WENDY Young - 03/12/2023 9:45 AM EST Forms completed and will be faxed. documented in this encounter [facility] Work Phone: 03-04-2023 Telephone encounter Note Spoke with pt on 03-04-23 @ 4579. Went over surgery letter, eye drop instructions, and post op appointment. Pt showed understanding. Mailed letter out to pt. [facility] 03-04-2023 Miscellaneous Notes Spoke with pt on 03-04-23 @ 8028. Went over surgery letter, eye drop instructions, and post op appointment. Pt showed understanding. Mailed letter out to pt. documented in this encounter [facility] 03-03-2023 History of Present illness Narrative Lenstar today: left eye first documented in this encounter [facility] 03-02-2023 Note HNO ID: [id number] Author: Orlando Duke MD Service: ? Author Type: Physician Type: Progress Notes Filed: 03/02/2023 8:54 AM Note Text: Assessment and Plan 1. Fuchs' corneal dystrophy of both eyes -with some thickening both eyes 2. Combined form of age-related cataract, both eyes -visually significant -followed by Dr. Monk Plan: -corneal thickness 586/587 -discussed with patient that the recovery after cataract surgery will be prolonged, but odds of the corneas clearing up after surgery are good. If still not satisfied with vision after 3 months postop, back to me for consideration of DMEK I have confirmed and edited as necessary the relevant ophthalmic history, ROS, and the neuro exam findings as obtained by others. I have seen and examined Robyn Kirkpatrick Francoisecathy. I have discussed the case and the management of this patient's care with the Resident/Fellow, if applicable. I also have reviewed and agree with the assessment and plan as stated above and agree with all of its relevant components. Orlando Duke MD March 02, 2023 8:37 AM [facility] 02-17-2023 History of Present illness Narrative Associated Order(s): L Inj/Asp: R knee Post-Procedure Diagnose(s): Right knee pain History of Present Illness Chief Complaint Patient presents with Right Knee - Pain The patient is 77 y.o. male here with a complaint of right knee pain. Onset of symptoms few days ago. Patient says that he has been quite active in his yard over the summer and fall without any issues, says that after some more intense work in his yard 2 days ago he was walking into his house and as he was going to go up some steps he had pain and difficulty doing so. He has been taking some dvpj-dtg-gvwaqaj medications with minimal change in symptoms, he points to the medial aspect of his knee as area of discomfort. He says that he will get some intermittent pain in his knee as with activity but typically is self-limiting and more mild in severity. Was concerned about the severity of his right knee pain as well as some feelings of instability, was worried he may fall. He denies any significant swelling, no locking or catching. Past Medical History: Diagnosis Date Acute upper respiratory infection, unspecified 03/29/2019 Upper respiratory infection, viral Disorder of the skin and subcutaneous tissue, unspecified 04/14/2020 Changing skin lesion Disorder of the skin and subcutaneous tissue, unspecified 06/03/2013 Skin lesion of right lower limb Epidermal cyst 11/04/2013 Inclusion cyst Pain in unspecified knee 04/16/2021 Knee pain Personal history of diseases of the skin and subcutaneous tissue 02/25/2016 History of corn of toe Personal history of malignant neoplasm, unspecified History of malignant neoplasm Personal history of other diseases of the musculoskeletal system and connective tissue History of arthritis Personal history of other diseases of the respiratory system 04/16/2021 History of asthma Personal history of other diseases of the respiratory system 03/06/2014 History of upper respiratory infection Personal history of other malignant neoplasm of skin History of malignant neoplasm of skin Personal history of other specified conditions 04/04/2014 History of chest pain Medication Documentation Review Audit Reviewed by WENDY Young (Nurse Practitioner) on 12/22/22 at 1351 Medication Order Taking? Sig Documenting Provider Last Dose Status albuterol 90 mcg/actuation inhaler [id number] Yes Inhale 2 puffs if needed. Historical Provider, Taking Active cholecalciferol (Vitamin D-3) 125 MCG (5000 UT) capsule [id number] Yes Take 1 capsule (5,000 Units) by mouth once daily. Historical Provider, Taking Active fexofenadine ([place] [facility]) 180 mg tablet [id number] Yes Take 1 tablet (180 mg) by mouth if needed. Historical Provider, Taking Active Allergies Allergen Reactions Hydrocortisone Swelling Aspirin Other asthma Bacitracin Zinc-Polymyxin B Hives Bacitracin-Polymyxin B Hives Claritin [Loratadine] Hives Ibuprofen Swelling and Other Night terrors Jotte-Ntezv-Nqoqejv-Pramoxine Other Pgxovkdd-Ccsvhsmxk-Lcbqikcadu Rash Sulfa (Sulfonamide Antibiotics) Itching, Rash and Hives Itching Itching Social History Socioeconomic History Marital status: Spouse name: Not on file Number of children: Not on file Years of education: Not on file Highest education level: Not on file Occupational History Not on file Tobacco Use Smoking status: Former Types: Cigarettes Passive exposure: Never Smokeless tobacco: Never Substance and Sexual Activity Alcohol use: Not on file Drug use: Not on file Sexual activity: Not on file Other Topics Concern Not on file Social History Narrative Not on file Social Determinants of Health Financial Resource Strain: Not on file Food Insecurity: Not on file Transportation Needs: Not on file Physical Activity: Not on file Stress: Not on file Social Connections: Not on file Intimate Partner Violence: Not on file Housing Stability: Not on file No past surgical history on file. Review of Systems GENERAL: Negative GI: Negative MUSCULOSKELETAL: See HPI SKIN: Negative NEURO: Negative Physical Exam: General/Constitutional: well appearing, no distress, appears stated age HEENT: sclera clear Respiratory: non labored breathing Vascular: No edema, swelling or tenderness, except as noted in detailed exam. Integumentary: No impressive skin lesions present, except as noted in detailed exam. Neurological: Alert and oriented Psychological: Normal mood and affect. Musculoskeletal: Normal, except as noted in detailed exam and in HPI. Mildly antalgic gait, unassisted Right knee: Normal appearance, no swelling, no redness or warmth, there is no joint effusion. There is some tenderness at the medial joint line, there is some tenderness at the medial tibia as well. Range of motion from 0 to 120 degrees with some mild discomfort endrange of flexion, there is no motor deficits, there is some pain with both resisted knee flexion and extension. Negative Combs, negative Edgardo, negative posterior drawer. Stable to varus and valgus stress. Imaging: X-rays of right knee obtained today and independently reviewed, there is a mild to moderate narrowing of the medial joint space, no acute abnormalities are seen L Inj/Asp: R knee on 02/17/2023 2:25 PM Indications: pain Details: 22 G needle, ultrasound-guided superolateral approach Medications: 40 mg triamcinolone acetonide 40 mg/mL; 2 mL lidocaine 10 mg/mL (1 %) Outcome: tolerated well, no immediate complications Procedure, treatment alternatives, risks and benefits explained, specific risks discussed. Consent was given by the patient. Immediately prior to procedure a time out was called to verify the correct patient, procedure, equipment, it support engineer and site/side marked as required. Patient was prepped and draped in the usual sterile fashion. Assessment 1. Primary osteoarthritis of right knee 2. Right knee pain XR knee right 3 views Point of Care Ultrasound Acute, atraumatic knee pain thought to be aggravation of underlying moderate osteoarthritis of the medial compartment, may have some mild early stress reaction Plan: Discussed further work-up and treatment, x-rays were reviewed. Patient was provided a home exercise rehabilitation program. We also proceeded with knee joint injection with Kenalog under ultrasound guidance, see procedure note for full details. He was directed to modify his activity, he will limit some of his extracurricular activities in the yard, walking over the next few weeks to allow for some healing. He will follow-up as symptoms dictate. documented in this encounter [facility] Work Phone: 02-10-2023 Note Progress notes faxed to Dr Orlando Duke's office @ [phone]. Confirmation rec'd via fax that job was completed. Confirmation fax scanned into pt's chart. [facility] 02-10-2023 Telephone encounter Note Progress notes faxed to Dr Orlando Duke's office @ [phone]. Confirmation rec'd via fax that job was completed. Confirmation fax scanned into pt's chart. [facility] 02-10-2023 Miscellaneous Notes Progress notes faxed to Dr Orlando Duke's office @ [phone]. Confirmation rec'd via fax that job was completed. Confirmation fax scanned into pt's chart. Dr Monk requested pt be seen by Dr Orlando Duke at [facility]. Appointment was made for 03/02/2023 @ 0745. Dr Duke's office requested records be faxed to [phone]. Will fax progress notes tomorrow morning when signed and finalized. documented in this encounter [facility] 02-09-[address] Monk requested pt be seen by Dr Orlando Duke at [facility]. Appointment was made for 03/02/2023 @ 0745. Dr Duke's office requested records be faxed to [phone]. Will fax progress notes tomorrow morning when signed and finalized. [facility] 02-09-[address] Monk requested pt be seen by Dr Orlando Duke at [facility]. Appointment was made for 03/02/2023 @ 0745. Dr Duke's office requested records be faxed to [phone]. Will fax progress notes tomorrow morning when signed and finalized. documented in this encounter [facility] 02-09-2023 History of Present illness Narrative Images from the original note were not included. [facility] [address] [facility] [address] Dept: [phone] Dept Loc: [phone] Visit type: Established patient Reason for Visit: Cataract Assessment and Plan Problem List Items Addressed This Visit Eye/Vision problems Combined forms of age-related cataract (Chronic): visually significant left worse than right. He is not interested in toric lenses and will wear glasses to correct his astigmatism. We had long discussion regarding risks and benefits in particular related to Fuch's corneal dystrophy both eyes. I offered a second opinion from [facility] cornea specialist prior to cataract surgery. 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 Gale at [facility] in [place] . Subjective HPI Return 6 mos DFE for poss scheduling cataract surgery. Pt states va left eye (OS) has decreased in near va especially. Pt uses art tears very rarely. Pt states was wire brushing rust and feels both eyes (OU) have a little rust in them. Both eyes (OU) feel a little gritty. Pt c/o both eyes (OU) water sometimes and feel dry. Pt has hx of floaters, no light flashes. Last edited by Maylin Markham on 02/09/2023 2:17 PM. ROS Positive for: Eyes Negative for: Constitutional, Gastrointestinal, Neurological, Skin, Genitourinary, Musculoskeletal, HENT, Endocrine, Cardiovascular, Respiratory, Psychiatric, Allergic/Imm, Heme/Lymph Last edited by Bran Monk MD on 02/09/2023 5:59 PM. Allergies Allergen Reactions Hydrocortisone Swelling Ibuprofen Other and Swelling Other reaction(s): nightmares/sleep disturbance, Other Night terrors Night terrors Aspirin Other Other reaction(s): Asthma, Asthma asthma asthma Bacitracin-Polymyxin B Hives Loratadine Hives Hcczu-Igejk-Khnkere-Pramoxine Other reaction(s): Other Reodfgfw-Etqbmrktn-Pndrhyhtwq Rash Sulfa Antibiotics Itching and Rash Itching Current Outpatient Medications Medication Sig Dispense Refill cholecalciferol (Vitamin D-3) 125 MCG (5000 UT) capsule Take 5,000 Units by mouth daily. Multiple Vitamins-Minerals (PRESERVISION AREDS 2 PO) Take by mouth. No current facility-administered medications for this visit. Past Medical History: Diagnosis Date Asthma Cataract DDD (degenerative disc disease), cervical Deviated septum Fuchs' corneal dystrophy of both eyes Hyperlipidemia Ocular migraine Osteoarthritis Lumbar Pericarditis Sleep apnea Spondylosis Surgery, other elective Turbinate reduction Varicocele Left teste Visual floaters Social History Tobacco Use Smoking status: Former Types: Cigarettes, Pipe Quit date: 1974 Years since quittin.8 Smokeless tobacco: Never Substance Use Topics Alcohol use: Yes Alcohol/week: 3.0 standard drinks of alcohol Types: 3 Cans of beer per week Past Surgical History: Procedure Laterality Date APPENDECTOMY CARDIAC CATHETERIZATION Left 08/2007 normal exam FRACTURE SURGERY Right FX leg NASAL SEPTUM SURGERY NOSE SURGERY 05/2014 turbinate reduction surgery SKIN CANCER EXCISION Left left calf TESTICLE SURGERY Left 08/29/2021 Dr. Cano TONSILLECTOMY (HISTORICAL) Family History Problem Relation Name Age of Onset Other (21553) Mother lung disease Arthritis Mother Fuchs' dystrophy Mother Cancer Father Tumor in heart High Blood Pressure Father Heart disease Father heart tumor cardiac pacemaker Obesity Sister High Blood Pressure Brother Fuchs' dystrophy Brother Thyroid disease Daughter Objective Base Eye Exam Visual Acuity (Snellen - Linear) Right Left Dist cc 20/20 -2 20/30 +2 Near cc J1+ J3 Tonometry (Applanation with Fluress, 2:30 PM) Right Left Pressure 10 9 Pupils Pupils Right PERRL Left PERRL Neuro/Psych Oriented x3: Yes Mood/Affect: Normal Dilation Both eyes: 2.5% Phenylephrine, 1.0% Tropicamide @ 2:31 PM Additional Tests Glare Testing (BAT) Off Medium High Right 20/20 20/25 20/30 Left 20/25 20/40 20/60 Slit Lamp and Fundus Exam External Exam Right Left External Normal Normal Slit Lamp Exam Right Left Lids/Lashes 1+ Dermatochalasis - upper lid, 1+ Meibomian gland dysfunction 1+ Dermatochalasis - upper lid, 1+ Meibomian gland dysfunction Conjunctiva/Sclera White and quiet White and quiet Cornea 2+ Guttata, FTBUT 2+ Guttata, FTBUT Anterior Chamber Deep and quiet Deep and quiet Iris Round and reactive Round and reactive Lens 2+ Nuclear sclerosis, 1+ Cortical cataract 2+ Nuclear sclerosis, 1+ Cortical cataract Anterior Vitreous Posterior vitreous detachment Posterior vitreous detachment Fundus Exam Right Left Disc Normal Normal C/D Ratio 0.3 0.3 Macula Normal Normal Vessels Normal Normal Periphery Normal Normal Refraction Wearing Rx Sphere Cylinder Viola Right -0.75 +1.50 018 Left -0.50 +2.00 148 Age: 6m Type: Bifocal Manifest Refraction Sphere Cylinder Viola Dist VA Near VA Right -0.75 +1.50 018 20/20- J1+ Left -0.50 +2.00 148 20/25- J2 Data Reviewed and Summarized No current labs Bran Monk MD documented in this encounter [facility] 02-09-2023 History of Present illness Narrative Images from the original note were not included. 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 He is not interested in toric lenses and will wear glasses to correct his astigmatism. We had long discussion regarding risks and benefits in particular related to Fuch's corneal dystrophy both eyes. I offered a second opinion from [facility] cornea specialist prior to cataract surgery. 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): stable monitor PVD (posterior vitreous detachment), both eyes (Chronic): stable monitor yearly Dermatochalasis of both upper eyelids (Chronic): stable monitor yearly Patient feels they are unable to function with current vision and limited ability to carry out activies including: [x]Reading small print []Watching TV [x]Driving at night due to glare []Unable to meet occupation expectations ie: measuring, driving, seeing fine detail, colors []Unable to meet vocational expectations ie: crafts, art, painting, puzzles, model building []Other: The risks and benefits of cataract surgery were discussed with the patient including but not limited to: infection, bleeding, blindness, additional surgeries and complications due to anesthesia including and need for spectacles. Decreased vision appears to be due to visually significant cataracts and vision is expected to improve with cataract extraction. The alternatives to cataract surgery have also been discussed with patient including but not limited to: avoiding glare and optimizing glasses mrx. Order Lenstar/Scan OU Target: distance needing glasses for all distance due to astigmatism, not interested or a candidate for toric lenses Guarded prognosis: [] No [x]Yes Due to: Moderate Fuch's dystrophy; he went to cornea specialist and understands the risks and benefits. He understands that his cornea may fail and require a corneal transplant after cataract surgery if it fails to clear due to Fuch's dystrophy. He was offered to go to cornea specialist for his cataracts but wishes to have them done by me. The patient wishes to proceed with cataract surgery in the: [] Right Eye [x] Left Eye Anesthesia: [x] Topical [] General [] Block Preop meds: [] Prednisolone Forte [] Ofloxacin [] Ketorolac [] Sent to pharmacy Lenstar: done Preop Consent: done Plan: [x] Phaco with PC IOL Topical: [x] @ [facility] [] @ [facility] [] Phaco with PC IOL Block: [] @ PW [] @ [facility] [] Complex phaco with PC IOL pupilloplasty: [] @ PW [] @ [facility] Note above was written after his appointment with Dr. Gale but discussion occurred prior to his during this visit. Follow up for referral to Cornea: Dr. Gale at [facility] in [place] . Subjective HPI Return 6 mos DFE for poss scheduling cataract surgery. Pt states va left eye (OS) has decreased in near va especially. Pt uses art tears very rarely. Pt states was wire brushing rust and feels both eyes (OU) have a little rust in them. Both eyes (OU) feel a little gritty. Pt c/o both eyes (OU) water sometimes and feel dry. Pt has hx of floaters, no light flashes. Last edited by Maylin Markham on 02/09/2023 2:17 PM. ROS Positive for: Eyes Negative for: Constitutional, Gastrointestinal, Neurological, Skin, Genitourinary, Musculoskeletal, HENT, Endocrine, Cardiovascular, Respiratory, Psychiatric, Allergic/Imm, Heme/Lymph Last edited by Bran Monk MD on 02/09/2023 5:59 PM. Allergies Allergen Reactions Hydrocortisone Swelling Ibuprofen Other and Swelling Other reaction(s): nightmares/sleep disturbance, Other Night terrors Night terrors Aspirin Other Other reaction(s): Asthma, Asthma asthma asthma Bacitracin-Polymyxin B Hives Loratadine Hives Dpnnp-Mgrng-Sqwopgb-Pramoxine Other reaction(s): Other Npbbtzhg-Gdwovfyeb-Ekktwweqmx Rash Sulfa Antibiotics Itching and Rash Itching Current Outpatient Medications Medication Sig Dispense Refill cholecalciferol (Vitamin D-3) 125 MCG (5000 UT) capsule Take 5,000 Units by mouth daily. Multiple Vitamins-Minerals (PRESERVISION AREDS 2 PO) Take by mouth. No current facility-administered medications for this visit. Past Medical History: Diagnosis Date Asthma Cataract DDD (degenerative disc disease), cervical Deviated septum Fuchs' corneal dystrophy of both eyes Hyperlipidemia Ocular migraine Osteoarthritis Lumbar Pericarditis Sleep apnea Spondylosis Surgery, other elective Turbinate reduction Varicocele Left teste Visual floaters Social History Tobacco Use Smoking status: Former Types: Cigarettes, Pipe Quit date: 1974 Years since quittin.8 Smokeless tobacco: Never Substance Use Topics Alcohol use: Yes Alcohol/week: 3.0 standard drinks of alcohol Types: 3 Cans of beer per week Past Surgical History: Procedure Laterality Date APPENDECTOMY CARDIAC CATHETERIZATION Left 08/2007 normal exam FRACTURE SURGERY Right FX leg NASAL SEPTUM SURGERY NOSE SURGERY 05/2014 turbinate reduction surgery SKIN CANCER EXCISION Left left calf TESTICLE SURGERY Left 08/29/2021 Dr. Cano TONSILLECTOMY (HISTORICAL) Family History Problem Relation Name Age of Onset Other (53677) Mother lung disease Arthritis Mother Fuchs' dystrophy Mother Cancer Father Tumor in heart High Blood Pressure Father Heart disease Father heart tumor cardiac pacemaker Obesity Sister High Blood Pressure Brother Fuchs' dystrophy Brother Thyroid disease Daughter Objective Base Eye Exam Visual Acuity (Snellen - Linear) Right Left Dist cc 20/20 -2 20/30 +2 Near cc J1+ J3 Tonometry (Applanation with Fluress, 2:30 PM) Right Left Pressure 10 9 Pupils Pupils Right PERRL Left PERRL Neuro/Psych Oriented x3: Yes Mood/Affect: Normal Dilation Both eyes: 2.5% Phenylephrine, 1.0% Tropicamide @ 2:31 PM Additional Tests Glare Testing (BAT) Off Medium High Right 20/20 20/25 20/30 Left 20/25 20/40 20/60 Slit Lamp and Fundus Exam External Exam Right Left External Normal Normal Slit Lamp Exam Right Left Lids/Lashes 1+ Dermatochalasis - upper lid, 1+ Meibomian gland dysfunction 1+ Dermatochalasis - upper lid, 1+ Meibomian gland dysfunction Conjunctiva/Sclera White and quiet White and quiet Cornea 2+ Guttata, FTBUT 2+ Guttata, FTBUT Anterior Chamber Deep and quiet Deep and quiet Iris Round and reactive Round and reactive Lens 2+ Nuclear sclerosis, 1+ Cortical cataract 2+ Nuclear sclerosis, 1+ Cortical cataract Anterior Vitreous Posterior vitreous detachment Posterior vitreous detachment Fundus Exam Right Left Disc Normal Normal C/D Ratio 0.3 0.3 Macula Normal Normal Vessels Normal Normal Periphery Normal Normal Refraction Wearing Rx Sphere Cylinder Viola Right -0.75 +1.50 018 Left -0.50 +2.00 148 Age: 6m Type: Bifocal Manifest Refraction Sphere Cylinder Viola Dist VA Near VA Right -0.75 +1.50 018 20/20- J1+ Left -0.50 +2.00 148 20/25- J2 Data Reviewed and Summarized No current labs Bran Monk MD documented in this encounter [facility] 01-13-2023 History of Present illness Narrative Subjective: Patient: Robyn Ireland is a 77 y.o. male HPI Robyn Ireland is 77 years old last visit with us was a year ago he has a history of pericarditis and obstructive sleep apnea in the past to use nonsteroidals for his pericarditis. EKG in the past has been normal. He has been active doing daily activities. He lives in [facility]. Blood work and renal function in the past was unremarkable. He had a catheterization in 1999, which was reported to be normal his last documented weight 241. His last visit he had no evidence to suggest a reoccurrence of his pericarditis he continues to use his CPAP device. Today presents in follow-up for his history of pericarditis and obstructive sleep apnea. He is currently on no cardiac medications Review of Systems Constitutional: Negative. HENT: Negative. Eyes: Negative. Respiratory: Negative. Cardiovascular: Negative. Gastrointestinal: Negative. Endocrine: Negative. Genitourinary: Negative. Musculoskeletal: Negative. Skin: Negative. Allergic/Immunologic: Negative. Neurological: Negative. Hematological: Negative. Psychiatric/Behavioral: Negative. Allergies Allergen Reactions Hydrocortisone Swelling Ibuprofen Other and Swelling Other reaction(s): nightmares/sleep disturbance, Other Night terrors Night terrors Aspirin Other Other reaction(s): Asthma, Asthma asthma asthma Bacitracin-Polymyxin B Hives Loratadine Hives Givvr-Ekjhu-Kpvxsfs-Pramoxine Other reaction(s): Other Kaukkfve-Dzolwsbwj-Mtztoimdco Rash Sulfa Antibiotics Itching and Rash Itching @MEDCMED@ Past Medical History: Diagnosis Date Asthma DDD (degenerative disc disease), cervical Deviated septum Hyperlipidemia Osteoarthritis Lumbar Pericarditis Sleep apnea Spondylosis Surgery, other elective Turbinate reduction Varicocele Left teste Past Surgical History: Procedure Laterality Date APPENDECTOMY CARDIAC CATHETERIZATION Left 08/2007 normal exam FRACTURE SURGERY Right FX leg NASAL SEPTUM SURGERY NOSE SURGERY 05/2014 turbinate reduction surgery SKIN CANCER EXCISION Left left calf TESTICLE SURGERY Left 08/29/2021 Dr. Cano TONSILLECTOMY (HISTORICAL) Family History Problem Relation Name Age of Onset Other (12529) Mother lung disease Arthritis Mother Fuchs' dystrophy Mother Cancer Father Tumor in heart High Blood Pressure Father Heart disease Father heart tumor cardiac pacemaker Obesity Sister High Blood Pressure Brother Fuchs' dystrophy Brother Thyroid disease Daughter Social History Tobacco Use Smoking status: Never Smokeless tobacco: Never Substance Use Topics Alcohol use: Yes Alcohol/week: 3.0 standard drinks of alcohol Objective: BP 112/60 (BP Location: Left arm, Patient Position: Sitting, BP Cuff Size: Adult) Pulse 62 Ht 5' 10 (1.778 m) Wt 239 lb (108 kg) SpO2 95% BMI 34.29 kg/m Physical Exam Vitals and nursing note reviewed. Constitutional: Appearance: Normal appearance. HENT: Head: Normocephalic and atraumatic. Nose: Nose normal. Eyes: Extraocular Movements: Extraocular movements intact. Conjunctiva/sclera: Conjunctivae normal. Pupils: Pupils are equal, round, and reactive to light. Cardiovascular: Rate and Rhythm: Normal rate and regular rhythm. Pulses: Normal pulses. Heart sounds: Normal heart sounds. Pulmonary: Effort: Pulmonary effort is normal. Breath sounds: Normal breath sounds. Abdominal: General: Abdomen is flat. Bowel sounds are normal. Palpations: Abdomen is soft. Musculoskeletal: General: No swelling. Normal range of motion. Cervical back: Normal range of motion and neck supple. Skin: General: Skin is warm and dry. Neurological: General: No focal deficit present. Mental Status: He is alert and oriented to person, place, and time. Mental status is at baseline. Psychiatric: Mood and Affect: Mood normal. Behavior: Behavior normal. Thought Content: Thought content normal. Assessment 1. Mixed hyperlipidemia 2. Obstructive sleep apnea syndrome 3. Mild intermittent asthma without complication 4. Chronic idiopathic pericarditis, unspecified complication status Plan Robyn Ireland is well from a cardiac standpoint he remains active. His primary complaint is more arthritic in nature. He has had no evidence of a reoccurrence of his pericarditis today his exam is unremarkable. He has sleep apnea uses a CPAP device. He does not want to be on any medications unless he has to his lipids are somewhat elevated. His LDL is 140. I discussed with him rationale and current recommendations for treating elevated lipids he would prefer to try it with diet first and then proceed with medications if required. His EKG today showed a sinus rhythm and a normal record. I will see him back in the office in 1 year. He will be in search of a new family physician in the [facility]. He will contact me should he have difficulties Leonardo Bustamante MD 01/14/2023 6:50 AM In preparation for this encounter, we have personally reviewed pertinent lab work, imaging, and cardiac testing. documented in this encounter [facility] 12-22-2022 History of Present illness Narrative Subjective Patient ID: Robyn Ireland is a 77 y.o. male who presents for lab follow up, spot on right fore arm, and spot on left cheek. HPI Presents today as follow up on blood work done at last visit. Patient has questions and was told he may need medication for his cholesterol. Is requesting flu vaccine Has socrates working in the yard and now has some bruising on his right arm Blood work 11/29/2022 reviewed with patient as noted CACS 05/13/2021 was 0 Has a raised clear lesion on his left cheek. Saw dermatology and they said all ok but now seems to be getting scaly Review of Systems Constitutional: Negative. Respiratory: Negative. Cardiovascular: Negative. Skin: As noted in HPI Psychiatric/Behavioral: Negative. Objective BP 106/58 (BP Location: Left arm, Patient Position: Sitting, BP Cuff Size: Large adult) Pulse 64 Temp 36.4 C (97.6 F) (Temporal) Wt 110 kg (241 lb 9.6 oz) SpO2 97% BMI 35.68 kg/m Physical Exam Constitutional: Appearance: Normal appearance. Cardiovascular: Rate and Rhythm: Normal rate and regular rhythm. Pulmonary: Effort: Pulmonary effort is normal. Breath sounds: Normal breath sounds. Musculoskeletal: General: Normal range of motion. Skin: Comments: 2 cm bruise right forearm. 5 mm raised scaly round lesion left cheek Neurological: General: No focal deficit present. Mental Status: He is alert. Psychiatric: Mood and Affect: Mood normal. Behavior: Behavior normal. Assessment/Plan Problem List Items Addressed This Visit ICD-10-CM Hypercholesterolemia E78.00 Other Visit Diagnoses Codes Need for vaccination - Primary Z23 Relevant Orders Flu vaccine, quadrivalent, high-dose, preservative free, age 65y+ (FLUZONE) (Completed) Other skin changes R23.8 documented in this encounter [facility] Work Phone: 12-22-2022 Instructions WENDY Young - 12/22/2022 1:30 PM EDT Will continue to monitor your cholesterol yearly. If lesion on face continues to change please return to the drum stock clerk. documented in this encounter [facility] Work Phone: 11-24-2022 History of Present illness Narrative Subjective HPI Robyn Ireland is a 77 y.o. male who presents for Pain (Twinging, swelling noticed about 2 hrs after getting out of bed plus couple of skin issues ). Having left lateral leg pain for couple of weeks. 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 Objective Visit Vitals BP 111/73 Pulse 61 Temp 36.4 C (97.6 F) Review of Systems All 12 systems reviewed, no other abnormality except that mentioned in HPI. Physical Exam Constitutional- no abnormality ENT- no abnormality Neck- no swelling CVS- normal S1 and S2, no murmur. Pulmonary- clear to auscultation,no rhonchi, no wheezes. Abdomen- normal- liver and spleen, soft, no distension, bowel sound present. Neurological- all cranial nerves intact, speech and gait normal, no sensory or motor deficiency. Musculoskeletal- all pulses are normal, normal movement, no joint swelling. Skin- scar over the left lateral leg area. psychiatry- no suicidal ideation. Lymph node- no lymphadenopathy Assessment/Plan Problem List Items Addressed This Visit None Visit Diagnoses Healthcare maintenance - Primary Relevant Orders Comprehensive Metabolic Panel Lipid Panel Vitamin D, Total TSH with reflex to Free T4 if abnormal Hemoglobin A1C Disorder of cartilage, unspecified Relevant Orders Vitamin D, Total H/O squamous cell carcinoma Relevant Orders Referral to Dermatology H/O squamous cell cancer and left lateral leg pain- he has some new lesion, he also have some lesion over his left hand dorsal surface. Carla Alfredo MD documented in this encounter [facility] Work Phone: 11-24-2022 Instructions Calra Alfredo MD - 11/24/2022 12:30 PM EDT Medicare wellness visit in February,. Dermatology referral placed. documented in this encounter [facility] Work Phone: 03-25-2022 History of Present illness Narrative Patient confirmed name and date of . PT Francis came in pool room to perform measurements at start of session. Added shoulder strengthening in aquatic session today. Gave HEP to patient along with bands. Patient demonstrated R shoulder weakness with midrows and b/l extension. Patient continues to demonstrate good trunk control with LE/UE exercises.03/25/2022 PT Reassessment to add Dx of b/l shoulder pain to PT POC. Pt presents with b/l shoulder strength and ROM limitation with IR. Pt would benefit from adding b/l shoulder strength and ROM/flexibility to current POC at this time. See added PT goals in goal section for b/l shoulder strength and ROM/flexibility. Continue as per current PT POC with added shoulder treatment as per MD order. [facility] Work Phone: 12-22-2021 History of Present illness Narrative This is a pleasant 76-year-old male presenting to the office for reevaluation of low back pain with radiculopathy down left side. I did see patient last week, and provided him with a Medrol Dosepak and physical therapy order. Patient states that he was feeling much better after Medrol Dosepak, and was able to go kayaking for the first time in a while. Patient admits to feeling better, and proceeding to move two filing cabinets in his basement. He also removed a few items in and out of his truck, and then began to start experiencing more excruciating left lower back pain. It has been difficult for him to sleep and get in and out of the chair. He has been trying rest, and has done 1 physical therapy appointment. He will have an aquatic physical therapy appointment tomorrow. He has been taking ibuprofen as needed to help decrease pain and inflammation following Medrol Dosepak. He continues to deny numbness and paresthesia of bilateral lower extremities.The patient's past medical, surgical, family, and social history as well as allergies and medications were reviewed and updated in the chart.Pleasant and no acute distress. Walks with an antalgic gait today in office. There is decreased flexibility of the lumbosacral spine. There is tenderness on the lumbar paraspinal muscles, more notably to left side. Bilateral lower extremity quadriceps, hamstring, gastrocsoleus, tibialis anterior strength are intact. Sensation to light touch is intact. Both lower extremities are well perfused the skin is intact and muscle tone is adequate.Multiple view x-rays of the lumbar spine obtained today independently reviewed with evidence of degenerative changes of lumbar spine. There is spondylolisthesis of L4-L5, L5-S1.Assessment: Low back pain, differential diagnoses of left-sided sciatica pain versus bulging discPlan: Discussion with patient and his about differential diagnoses with review of today's x-rays. Explained to patient that I think he should obtain an MRI of the lumbar spine to evaluate for sciatica versus bulging disc. Order provided for MRI. He was also provided a referral to pain management, and advised to make appointment after MRI is complete. He should continue with physical therapy and aquatic therapy for lower back pain. Extensive discussion with patient about rest, and not overdoing activities even if he starts to feel better. He can continue to take ibuprofen or Tylenol as needed to help decrease inflammation and pain. He will avoid aggravating activities. I will call patient once results of MRI are complete. [facility] Work Phone: 2021 History of Present illness Narrative 76-year-old male presenting for follow-up of bilateral shoulder pain, right greater than left as well as some right foot pain, would also like a new order for some therapy for some ongoing chronic low back pain. With regards to his shoulders, patient was seen by me approximately 10 months ago, was diagnosed with bilateral shoulder impingement, right greater than left, treatment has included subacromial injection at that time, he has also been doing formal physical therapy and home exercise program. He did have a subsequent injection in August of this year with some recurrence of pain which did provide good relief. He says that over the past few weeks he has been very active in his yard, they have a farm. Thinks he may have aggravated some pain in his shoulder with this. He has continued to physical therapy, is combining his back and his shoulder, feels like he is doing well with his aquatic therapy and would like to continue with this. Left pain is minimal. 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 No new injuries or symptomsWith regards to right foot he is having some pain over the plantar aspect of his foot he says it is only noticeable when he steps on something during their hikes, he will get sharp pain that can be pretty intense but seems to resolve after a short period of time. Has been going on for the past few months. He denies any swelling, no redness or warmth. -[facility] Work Phone: 10-21-2021 Chief complaint Narrative - Reported An interactive audio and video telecommunication system which permits real time communications between the patient (at the originating site) and provider (at the distant site) was utilized to provide this telehealth service.Verbal consent was requested and obtained from ROBYN IRELAND on this date, 10/21/2021 01:00 PM , for a telehealth visit.VaricoceleAnorgasmiaLow T [facility] Work Phone: 10-21-2021 History of Present illness Narrative 76 yo M here for varicocele and anorgasmiaLast visit 10/21/21:-continue conservative measures-monitor symptoms during masturbation vs intercourse-repeat T in end of October#Varicocele/scrotal pain-had varicocele for over 20 years-varicocele embolization 08/29/21-had previous dysuria, negative for UTI-dull throbbing, improved after embolization-left testicular pain with exercise, no correlation with ejaculation, had severe pain yesterday when working with plants-radiates to back-had asthma brought on by aspirin, nightmares from ibuprofen-taking tylenol-dad of cancer-no hx of vasectomyScrotal US 09/06/21 personally reviewed: Mild left varicocele.Additional incidental findings as detailed above includingbilateral 6 mm epididymal head cysts and 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Labs 09/16/21: UA, UCx normal#Anorgasmia-unable to orgasm with intercourse and masturbation-has low BP-no other symptoms of low T-no hx of heart attack or stroke-Labs 09/17/21: T 264, 17OHP 22, Prl 10.1, FSH 8.3 LH 7.1, E 22, PSA 3.22, A1C 5.3-T 11/30/21: 313 GA-[facility] [place] Work Phone: 09-16-2021 History of Present illness Narrative 75 yo M here for varicocele and anorgasmiaLast visit 09/16/21:-UA/CX/ureaplasma/mycopla sma-pelvic floor PT-monitor symptoms during masturbation vs intercourse-ED labs (hormones), A1C#Varicocele-had varicocele for over 20 years-varicocele embolization 08/29/21-had previous dysuria, negative for UTI-dull throbbing, improved after embolization-left testicular pain with exercise, no correlation with ejaculation-had asthma brought on by aspirin, nightmares from ibuprofen-taking tylenol-dad of cancer-no hx of vasectomyScrotal US 09/06/21 personally reviewed: Mild left varicocele.Additional incidental findings as detailed above includingbilateral 6 mm epididymal head cysts and 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 No known injury. He was last seen by Dr. Samuel in April 2021, when he was diagnosed with bilateral shoulder impingement syndrome. At that time he received a right shoulder subacromial steroid injection, which he states provided relief for approximately 1 month. Patient states that that this time right shoulder pain is significantly more prominent than the left. He noticed over the last few weeks that it was difficult to forward flex right upper extremity, specifically stating difficulty bringing fork to his mouth. He enjoys canoeing as well as hiking, but canoeing has been difficult with right shoulder pain. He has pain with overhead reaching, reaching behind his back, and taking on and off shirts. He points to the anterior and posterior lateral aspect of right shoulder. He is currently not taking any medications to help decrease pain. He had been going to physical therapy for bilateral shoulder impingement syndrome over the last 3 months, last session being on Thursday. He will continue with a home exercise program. Denies any numbness or paresthesia of right upper extremity.The patient's past medical, surgical, family, and social history as well as allergies and medications were reviewed and updated in the chart.Denies history of diabetes.Pleasant and no acute distress. Right shoulder normal appearance, no overlying skin changes, no muscle atrophy. Right shoulder forward flexion 160 . No effusion or instability. There is positive Neer and Paez impingement. There is subacromial crepitus and tenderness around the subacromial space. No biceps tenderness. No acromioclavicular tenderness. Rotator cuff strength 5/5 with resisted internal and external rotation, as well as forward flexion resistance. Strength is intact, but there is discomfort with strength testing. Left shoulder forward flexion 180 . No effusion or instability. No impingement or crepitus or tenderness involving the subacromial space. No biceps or acromioclavicular tenderness. There is intact rotator cuff strength. There is adequate range of motion of the cervical spine without pain. Both upper extremities are well perfused, skin is intact and muscle tone is adequate. Elbow flexion and extension and wrist flexion and extension strength are intact. Sensation intact to light touch.Multiple view x-rays of bilateral shoulders obtained on May 03 reviewed. Reiterated to patient that he has moderate degenerative changes of the acromioclavicular joint bilaterally. Slightly superior rising humeral head on the right.Under clean conditions, a right shoulder subacromial injection was performed with 1cc of Kenalog 40 mg/mL and 2cc of 2% lidocaine plain. Patient tolerated injection well.Assessment: Right shoulder impingement syndrome/rotator cuff tendinitisPlan: Discussion with patient about diagnosis of right shoulder impingement syndrome and rotator cuff tendinitis, with review of previous x-rays. Explained to patient that since his strength was adequate with strength testing, I do not have concern for a major rotator cuff tear. Treatment for rotator cuff impingement syndrome and tendinitis is treated conservatively. After the risks and benefits of a right shoulder subacromial steroid joint injection of Kenalog and lidocaine was discussed, patient agreed to proceed with injection and tolerated well. He has just completed a 3-month physical therapy program for bilateral shoulder impingement syndrome. He will continue with his home exercise program. He was advised to try Voltaren gel topically. If patient does not see significant relief of symptoms in 4 to 6 weeks, an MRI of the right shoulder may be indicated. He will follow-up as needed. -[facility] [address] DO Work Phone: 09-03-2021 History of Present illness Narrative This is a pleasant 75-year-old supkm-cgal-hcsudnmv male presenting to the office for returning right shoulder pain, which has been ongoing for approximately 6 months, worsening over the last week. No known injury. He was last seen by Dr. Samuel in April 2021, when he was diagnosed with bilateral shoulder impingement syndrome. At that time he received a right shoulder subacromial steroid injection, which he states provided relief for approximately 1 month. Patient states that that this time right shoulder pain is significantly more prominent than the left. He noticed over the last few weeks that it was difficult to forward flex right upper extremity, specifically stating difficulty bringing fork to his mouth. He enjoys canoeing as well as hiking, but canoeing has been difficult with right shoulder pain. He has pain with overhead reaching, reaching behind his back, and taking on and off shirts. He points to the anterior and posterior lateral aspect of right shoulder. He is currently not taking any medications to help decrease pain. He had been going to physical therapy for bilateral shoulder impingement syndrome over the last 3 months, last session being on Thursday. He will continue with a home exercise program. Denies any numbness or paresthesia of right upper extremity.The patient's past medical, surgical, family, and social history as well as allergies and medications were reviewed and updated in the chart.Denies history of diabetes.Pleasant and no acute distress. Right shoulder normal appearance, no overlying skin changes, no muscle atrophy. Right shoulder forward flexion 160 . No effusion or instability. There is positive Neer and Paez impingement. There is subacromial crepitus and tenderness around the subacromial space. No biceps tenderness. No acromioclavicular tenderness. Rotator cuff strength 5/5 with resisted internal and external rotation, as well as forward flexion resistance. Strength is intact, but there is discomfort with strength testing. Left shoulder forward flexion 180 . No effusion or instability. No impingement or crepitus or tenderness involving the subacromial space. No biceps or acromioclavicular tenderness. There is intact rotator cuff strength. There is adequate range of motion of the cervical spine without pain. Both upper extremities are well perfused, skin is intact and muscle tone is adequate. Elbow flexion and extension and wrist flexion and extension strength are intact. Sensation intact to light touch.Multiple view x-rays of bilateral shoulders obtained on May 03 reviewed. Reiterated to patient that he has moderate degenerative changes of the acromioclavicular joint bilaterally. Slightly superior rising humeral head on the right.Under clean conditions, a right shoulder subacromial injection was performed with 1cc of Kenalog 40 mg/mL and 2cc of 2% lidocaine plain. Patient tolerated injection well.Assessment: Right shoulder impingement syndrome/rotator cuff tendinitisPlan: Discussion with patient about diagnosis of right shoulder impingement syndrome and rotator cuff tendinitis, with review of previous x-rays. Explained to patient that since his strength was adequate with strength testing, I do not have concern for a major rotator cuff tear. Treatment for rotator cuff impingement syndrome and tendinitis is treated conservatively. After the risks and benefits of a right shoulder subacromial steroid joint injection of Kenalog and lidocaine was discussed, patient agreed to proceed with injection and tolerated well. He has just completed a 3-month physical therapy program for bilateral shoulder impingement syndrome. He will continue with his home exercise program. He was advised to try Voltaren gel topically. If patient does not see significant relief of symptoms in 4 to 6 weeks, an MRI of the right shoulder may be indicated. He will follow-up as needed. 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 No new co pain. Right neck site benign. Will dc to home shortly - pt getting dressed at this time. DC instructions given to paper and pt spoke With Dr. Cano regarding them. Interventional Radiology: Robyn is in post procedure recovery here in IR. He is alert and in no distress. Vitals stable. He denies pain. His right neck puncture site dressing is dry and intact. No bleeding. No hematoma. He is fully awake and oriented. He is in no distress. documented in this encounter [facility] Work Phone: 06-20-2021 History of Present illness Narrative DISCHARGE SUMMARY: PERIOD COVERED: 06/20/2021 TO 07/17/2021 SESSIONS ATTENDED: 8/8Mr. Dianelys was seen twice per week for dysphagia treatment with concurrent neuromuscular electrical stimulation - NMES (VitalStim) with overall excellent attendance and adequate progress. He has a history of dysphagia and has been seen previously for instrumental swallow studies and subsequent dysphagia treatment in the past. A modified barium swallow study (MBSS) was done 06/07/21, which showed mild oral pharyngeal dysphagia - large bites/sips, difficulty chewing mixed texture, and difficulty with pineapple. Mild premature spillage with liquids, piecemeal swallowing, and trace to mild stasis in valleculae. No other significant pharyngeal stasis, laryngeal penetration, or aspiration. The biggest issue with Mr. Ireland's swallowing is minimal to no epiglottic movement and prominent cricopharyngeus at C4-C5. Outpatient dysphagia therapy targeted base of tongue retraction, strengthening pharyngeal constrictors, and patient education - re: eating/drinking slower, smaller bites/sips, hard/effortful swallow, multiple swallows, as needed, and avoiding pineapple. Mr. Ireland continues to eat pineapple, but blends it with cantaloupe. MANAGER TECHNICAL suggested crushed pineapple. A repeat MBSS was done 08/02/21, which showed continued premature spillage and stasis, decreased epiglottic movement, and prominent cricopharyngeus muscle. Improvement seen with ability to clear stasis in valleculae with multiple swallows or liquid wash despite no epiglottic movement. No aspiration or laryngeal penetration. Continue to use safe eating/swallowing strategies.Mr. Ireland is discharged from therapy with maximum potential achieved with goals. Reconsult as needed. Thank you for this referral. [facility] Work Phone: 06-07-2021 History of Present illness Narrative Mr. Ireland was seen for an outpatient swallowing evaluation following a modified barium swallow study (MBSS), which was completed 06/07/2021. MBSS showed minimal to no epiglottic movement and a prominent cricopharyngeus muscle at C5-C6. Outpatient dysphagia therapy with concurrent neuromuscular electrical stimulation - NMES (VitalStim) was recommended. Mr. Ireland frequently complains of obstruction in valleculae, especially with pineapple. MANAGER TECHNICAL recommended canned, crushed pineapple if he wants to continue to eat pineapple. Mr. Ireland is well known to MANAGER TECHNICAL from previous swallow studies and subsequent dysphagia treatment starting in 2019. Mr. Ireland admitted to eating/drinking fast at times, taking larger bites/sips, and not always alternating solids/liquids. MANAGER TECHNICAL showed MBSS video to Mr. Ireland and reviewed swallow function and eating/swallowing strategies to help reduce/eliminate stasis.Diet Recommendations:Liquid consistencies: thin (IDDSI level 0)Solid consistencies: regular (IDDSI Level 7)NOMS swallow score: mild: level 6Feeding strategy recommendations: small bites, small sips, hard/effortful swallow, slow rate , alternate consistencies, up 90 degrees for all intake by mouth, remain upright for 30 minutes after meal and reflux precautionsAdditional recommendations: outpatient skilled speech therapyRepeat: MBSS, when clinically indicated [facility] Work Phone: 05-28-2021 History of Present illness Narrative ROBYN IRELAND was seen for an outpatient modified barium swallow study (MBSS) to following dysphagia treatment in order to re-assess oral and pharyngeal phases of swallow and make recommendations for safest oral diet. The patient reported feeling improvements in his swallow, though stated he had difficulty swallowing a pretzel this AM. Past medical history includes decreased epiglottic excursion and cricopharyngeal bar on MBSS in May 2021.MBSS showed mild oropharyngeal dysphagia. The patient demonstrated premature spillage and stasis in valleculae d/t decreased epiglottic movement; as well as the cricopharyngeal bar noted on previous study. Even so, that patient demonstrated adequate clearing of stasis with multiple swallows and liquid wash. No aspiration or penetration noted. Based on the findings, a regular diet and thin liquids is recommended. It is recommended that ROBYN IRELAND alternate liquids and solids and eat at a slow rate.MBSS VIDEO IN PACS [facility] Work Phone: 05-08-2021 History of Present illness Narrative 76-year-old male presenting for follow-up of bilateral shoulder pain, right greater than left as well as some right foot pain, would also like a new order for some therapy for some ongoing chronic low back pain. With regards to his shoulders, patient was seen by me approximately 10 months ago, was diagnosed with bilateral shoulder impingement, right greater than left, treatment has included subacromial injection at that time, he has also been doing formal physical therapy and home exercise program. He did have a subsequent injection in August of this year with some recurrence of pain which did provide good relief. He says that over the past few weeks he has been very active in his yard, they have a farm. Thinks he may have aggravated some pain in his shoulder with this. He has continued to physical therapy, is combining his back and his shoulder, feels like he is doing well with his aquatic therapy and would like to continue with this. Left pain is minimal. 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 No new injuries or symptomsWith regards to right foot he is having some pain over the plantar aspect of his foot he says it is only noticeable when he steps on something during their hikes, he will get sharp pain that can be pretty intense but seems to resolve after a short period of time. Has been going on for the past few months. He denies any swelling, no redness or warmth. [email or web address] [address] A DO Work Phone: 01-31-2021 History of Present illness Narrative Pleasant 75-year-old zxuwu-lihd-mycumgvc male presenting for shoulder pain. Onset of symptoms approximately 3 months ago, atraumatic in nature. Right shoulder pain significantly more prominent than left. Patient says that he enjoys canoeing as well as hiking, has not been canoeing since pain started because of the weather but is worried that he will not be able to continue with the degree of discomfort in his right shoulder. He admits to pain with overhead activity, reaching behind his back, putting on and off his coat. Pain is over the anterior lateral and posterior aspect of his shoulder, feels deep within the shoulder at times. He denies any radiation of pain down the upper extremity, no associated numbness or tingling. He is not taking any medications for pain, no specific treatments. He feels like things may have been aggravated the last few weeks with moving heavy snow. [email or web address] [address] A DO Work Phone: 09-25-2019 History of Present illness Narrative 76-year-old male presenting for follow-up of right shoulder pain/MRI review. In brief patient has been ill with some ongoing right shoulder pain for the past few years, atraumatic in nature, also has some less significant left shoulder pain. He has been treating conservatively with formal physical therapy as well as as needed subacromial injections with somewhat of a diminishing response, most recent visit with me was 2 months ago, he had around 5 months of relief with prior subacromial injection with 1 before this lasting around 10 months, we did opt to proceed with MRI of his shoulder for better evaluation of rotator cuff to help further guide treatment, he is here today for review, he says symptoms are overall doing well following injection 2 months ago, pain is tolerable. Patient does enjoy canoeing on a regular basis, tends to notice that his pain is most prominent when he uses his canoe on consecutive days, also worse with a shorter paddle compared to his longer paddle. He denies any new injuries or symptoms. [facility] Work Phone: 02-27-2019 History of Present illness Narrative Mr. Ireland was seen for an outpatient modified barium swallow study (MBSS) to assess oral and pharyngeal phases of swallowing and any aspiration. He was previously seen for an MBSS with subsequent dysphagia therapy from February 2019 to April 2019. Mr. Ireland reported increased obstruction and coughing/throat clear the last few months. No precipitating factors. Main difficulty is with pineapples, apples, and walnuts. He also reported eating fast and not always alternating solids/liquids. Own teeth. No recent hospitalization, but he did have a recent fall and is receiving outpatient physical therapy.MBSS showed mild oropharyngeal dysphagia as evidenced by: large bites/sips at times, difficulty chewing mixed fruit - especially pineapple, reported frequent obstruction (pharynx was clear at times), premature spillage with liquid portion of mixed liquid/solids, piecemeal swallowing with soft and regular solids, trace to mild stasis in valleculae, and minimal to no epiglottic movement. No other significant pharyngeal stasis, no laryngeal penetration, and no aspiration. No coughing. Occasional throat clear. Prominent cricopharyngeus at C4-C5.MBSS VIDEO IN PACSDiet Recommendations:Liquid consistencies: thin (IDDSI level 0)Solid consistencies: regular (IDDSI Level 7)NOMS swallow score: mild: level 6Feeding strategy recommendations: small bites, small sips, hard/effortful swallow, double/multiple swallows, slow rate , alternate consistencies, up 90 degrees for all intake by mouth and remain upright for 30 minutes after mealAdditional recommendations: outpatient skilled speech therapyRepeat: MBSS, when clinically indicated [facility] Work Phone: 02-27-2019 History of Present illness Narrative Mr. Ireland was seen for an outpatient modified barium swallow study (MBSS) to assess oral and pharyngeal phases of swallowing and any aspiration. He was previously seen for an MBSS with subsequent dysphagia therapy from February 2019 to April 2019. Mr. Ireland reported increased obstruction and coughing/throat clear the last few months. No precipitating factors. Main difficulty is with pineapples, apples, and walnuts. He also reported eating fast and not always alternating solids/liquids. Own teeth. No recent hospitalization, but he did have a recent fall and is receiving outpatient physical therapy.MBSS showed mild oropharyngeal dysphagia as evidenced by: large bites/sips at times, difficulty chewing mixed fruit - especially pineapple, reported frequent obstruction (pharynx was clear at times), premature spillage with liquid portion of mixed liquid/solids, piecemeal swallowing with soft and regular solids, trace to mild stasis in valleculae, and minimal to no epiglottic movement. No other significant pharyngeal stasis, no laryngeal penetration, and no aspiration. No coughing. Occasional throat clear. Prominent cricopharyngeus at C4-C5.MBSS VIDEO IN PACSDiet Recommendations:Liquid consistencies: thin (IDDSI level 0)Solid consistencies: regular (IDDSI Level 7)NOMS swallow score: mild: level 6Feeding strategy recommendations: small bites, small sips, hard/effortful swallow, double/multiple swallows, slow rate , alternate consistencies, up 90 degrees for all intake by mouth and remain upright for 30 minutes after mealAdditional recommendations: outpatient skilled speech therapyRepeat: MBSS, when clinically indicated [facility] 10-[facility]-2009 History of Present illness Narrative Patient presents to the office today to Establish with a Varicocele. Painful -11/06. Recently Dr Jony Cano at [facility] did Embolization of the Varicocele (08/29/2021). Since procedure he has had a lot of discomfort. LUTs are chronic and mild. Denies frequency and urgency. Some hesitancy..Some intermittent dysuria. Denies hematuria.. Nocturia x2-3. Fm Hx of Prostate CA (Father)...Most recent PSA was 1.98 (04/20)... Caffeine does worsen LUTs.. No medications for LUTs. ED is Chronic. No meds for this....No Hx of Kidney Stones.No Hx of UTI's. [facility] Work Phone: Chief complaint Narrative - Reported Varicose vein in testicle would like referral. [facility] Work Phone: documented in this encounter [facility] [employer] Phone: Evaluation note* Diagnosis Healthcare maintenance- Primary Disorder of cartilage, unspecified H/O squamous cell carcinoma documented in this encounter [facility] Work Phone: Evaluation note* Diagnosis Hypercholesterolemia- Primary Pure hypercholesterolemia Need for vaccination Need for prophylactic vaccination and inoculation against unspecified single disease Other skin changes documented in this encounter [facility] Work Phone: Evaluation note* Diagnosis Mixed hyperlipidemia- Primary Obstructive sleep apnea syndrome Obstructive sleep apnea (adult) (pediatric) Mild intermittent asthma without complication Chronic idiopathic pericarditis, unspecified complication status documented in this encounter [facility] [employer] note* Diagnosis Fuchs' corneal dystrophy of both eyes- Primary Combined forms of age-related cataract of both eyes PVD (posterior vitreous detachment), both eyes Dermatochalasis of both upper eyelids documented in this encounter [facility] [employer] note* Diagnosis Primary osteoarthritis of right knee- Primary Right knee pain Pain in joint, lower leg documented in this encounter [facility] Work Phone: Evaluation note* Diagnosis Combined forms of age-related cataract of both eyes- Primary documented in this encounter [facility] [employer] note* Diagnosis Fuchs' corneal dystrophy of both eyes- Primary Combined forms of age-related cataract of both eyes PVD (posterior vitreous detachment), both eyes Dermatochalasis of both upper eyelids documented in this encounter [facility] [employer] note* Diagnosis Pre-operative clearance- Primary Unspecified pre-operative examination Combined forms of age-related cataract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 the coordination, continuation and progression of the POC. * This patient s care and PT of record will be transferred from Macarena Azar PT to Corinne Husain PT effective as of 12/16/21. * Clinical Presentation: Stable and/or uncomplicated characteristics. * Level of Complexity: low * Problem List: activity limitations, ADLs/IADLs/self care skills, balance, decreased functional level, decreased knowledge of HEP, fall risk, flexibility, gait/locomotion, pain, participation restrictions, posture, range of motion/joint mobility and strength. [facility] Work Phone: History of Present illness Narrative* This is a pleasant 76-year-old male presenting to the office for reevaluation of low back pain withradiculopathy down left side. I did see patient last week, and provided him with a Medrol Dosepak and physical therapy order. Patient states that he was feeling much better after Medrol Dosepak, and was able to go kayaking for the first time in a while. Patient admits to feeling better, and proceeding to move two filing cabinets in his basement. He also removed a few items in and out of his truck, and then began to start experiencing more excruciating left lower back pain. It has been difficultfor him to sleep and get in and out of the chair. He has been trying rest, and has done 1 physical therapy appointment. He will have an aquatic physical therapy appointment tomorrow. He has been taking ibuprofen as needed to help decrease pain and inflammation following Medrol Dosepak. He continuesto deny numbness and paresthesia of bilateral lower extremities. * The patient's past medical, surgical, family, and social history as well as allergies and medications were reviewed and updated in the chart. * Pleasant and no acute distress. Walks with an antalgic gait today in office. There is decreased flexibility of the lumbosacral spine. There is tenderness on the lumbar paraspinal muscles, more notably to left side. Bilateral lower extremity quadriceps, hamstring, gastrocsoleus, tibialis anterior strength are intact. Sensation to light touch is intact. Both lower extremities are well perfused the skin is intact and muscle tone is adequate. * Multiple view x-rays of the lumbar spine obtained today independently reviewed with evidence of degenerative changes of lumbar spine. There is spondylolisthesis of L4-L5, L5-S1. * Assessment: Low back pain, differential diagnoses of left-sided sciatica pain versus bulging disc * Plan: Discussion with patient and his about differential diagnoses with review of today's x-rays. Explained to patient that I think he should obtain an MRI of the lumbar spine to evaluate for sciatica versus bulging disc. Order provided for MRI. He was also provided a referral to pain management, and advised to make appointment after MRI is complete. He should continue with physical therapy and aquatic therapy for lower back pain. Extensive discussion with patient about rest, and not overdoing activities even if he starts to feel better. He can continue to take ibuprofen or Tylenol as needed to help decrease inflammation and pain. He will avoid aggravating activities. I will call patient once results of MRI are complete. [facility] [address] DO Work Phone: History of Present illness NarrativePatient orientated to pool. Patient has weak Tra and attempts to keep intact in tact with ther-ex. Patient needing verbal/demo cues for body positioning, paddle positioning with ther-ex. Patient needing one UE support with LE ther-ex and no support with 100% unloading. Continue with core stability while programing dyn activity to decrease back pain. [facility] Work Phone: History of Present illness NarrativePatient tolerated treatment without increased pain. Patient has Fair TrA and keeps intact with ther-ex. Patient has good form/understanding with ther-ex and keeps body in good alignment. Patient needing one UE support with LE ther-ex and no support with 100% unloading. Continue with core stability while performing dyn activity to decrease back pain.[facility] Work Phone: History of Present illness NarrativePatient tolerated treatment without increased pain. Patient has Fair TrA and keeps intact with ther-ex. Patient Has good form/understanding with ther-ex and keeps body in good alignment. Patient needing one UE support with LE ther-ex and no support with 100% unloading. Continue with core stability while peforming dyn activity to decrease back pain.[facility] Work Phone: History of Present illness NarrativePatient tolerated treatment without increased pain. Patient has Fair TrA and keeps intact with ther-ex. Patient needing no UE support with LE ther-ex or with 100% unloading. Patient has good form/understanding with ther-ex and keeps body in good alignment. Continue with core stability to improve low back pain and improve sleeping, standing, ambulation. [facility] Work Phone: History of Present illness NarrativePatient confirmed name and date of . Reviewed TrA contraction with patient, compensation noted.[facility] Work Phone: History of Present illness Narrative* Patient confirmed name and date of . Reviewed TrA contraction with patient, compensation noted. JA * Pt has improved significantly in his pain levels since beginning aquatic PT services. He also demosfunctional improvements including no longer requiring an assistive device to ambulate (used [place] at [facility]). Despite these improvements he is still reporting pain in low back and would benefit from continued PT services in order to further reduce pain so that he can perform outdoor activities safely and painfree. MP. [facility] Work Phone: History of Present illness NarrativePatient confirmed name and date of . Patient demonstrates fair trunk control with UE/LE exercises, some loss from having a 3 week break. Cues for Tra contraction and no flexed posture with dumbbell rolls. Some fatigue noted in R shoulder from UE paddles, no increased pain. Reduction pain with unloading. [facility] Work Phone: History of Present illness NarrativePatient confirmed name and date of . Patient able to progress to dumbbell rotation and side bends to promote lumbar mobility to allow for improved lumbar ROM with yard work. Added bwd step taps today to work on core control and extension bias. [facility] Work Phone: History of Present illness NarrativePatient confirmed name and date of . Added lunges facing shallow end, patient required cues for good form. No c/o of increased pain. Patient showed good tolerance to addition of reps, good trunkstability. Patient maintains trunk stability throughout session.[facility] Work Phone: History of Present illness NarrativePatient confirmed name and date of . Patient demonstrates increased trunk control with UE/LE exercises, able to move through all reps without noted fatigue or c/o of increased pain. Noted LE weakness with bwd step ups, performed 5 reps today. Cues to keep trunk from rotation with skiing duringunloading. [facility] Work Phone: history of Present illness Narrative* Patient confirmed name and date of this session. * Pt is progressing well through POC addressing back pain with aquatic PT. He demos improved strengthand functional mobility which allows for greater ease with yardwork, bending, lifting. He does report R shoulder and neck pain has started recently therefore pt instructed to obtain script for this diagnosis and it can be addressed in PT. Pt would benefit from skilled aquatic PT to further lower back pain and cont addressing LE strength, core strength, and flexibility. [facility] Work Phone: History of Present illness NarrativePatient confirmed name and date of . Patient showed slight balance deficits with UE/LE exercises without UE assist. Held lateral lunges today secondary to lack of time. Patient is going to send PT Corinne a script from to address shoulder pain.[facility] Work Phone: History of Present illness NarrativePatient confirmed name and date of . Added addition shoulder strengthening with patient demonstrating good tolerance and fair strength. Patient shows improved scapular engagement with postural strengthening. Improved trunk control with unloading, less sway and rotation noted.[facility] Work Phone: Hismcdt of Present illness Narrative* Patient confirmed name and date of . Patient demonstrates improved trunk control with all UE/LE exercises, Able to advance resistance with dumbbell rolls with fair trunk control, some trunk swaynoted. Patient able to perform lunges without UE assist. No increased pain with aquatic exercises. * Pt reassessed this date by supervising PT after last aquatic session, with improvements noted in lumbar AROM, MMT in BLE s as well as significant subjective report of improvement with CHELSEY score improving from 60% at eval to only 10% disability at D/C. Pt reported good understanding of all edu and up dates to HEP made this date and is appropriate to attempt independence with HEP and symptom management at this time. [facility] Work Phone: Hisnrda of Present illness [id number] male presenting for follow-up of right shoulder pain. Patient has previously been diagnosed with rotator cuff impingement syndrome, he has had x-rays that show some mild to moderate degenerative changes but no range of motion abnormalities, has had good response to 2prior subacromial injections, initial injection lasted around 10 months, recent injection lasted around 5 months with recent recurrence of symptoms, he is getting back into canoe season, says that ifhe continues on consecutive days he will have more notable discomfort, less so if he takes days offbut he plans to continue quite a bit this summer, thought he should be seen. Pain over the anteriorlateral aspect of his shoulder similar to before prior injection, no new symptoms. No prior advanced imaging of his shoulder. He has done physical therapy for his shoulder in the past, he has been compliant with his home exercise program, says that he has been doing more diligently with more recentaggravation of pain.- [facility] [address] Work Phone: Hospital Discharge instructions* Instructions* Stefan Mixon RN - 08/29/2021 SEDATION / ANALGESIA INFORMATION / HOME GOING ADVICE You have received the sedation/analgesia medication during your visit Sedation/analgesia is used during short medical procedures under controlled supervision. The medication will produce a strong relaxation. You will be able to hear, speak and follow instructions, but your memory and alertness will be decreased. You will be able to swallow and breathe on your own. During sedation/analgesia your blood pressure,heart and breathing will be watched closely. After the procedure, you may not remember what was said or done. You may have the following effects from the medication. Drowsiness, dizziness, sleepiness or confusion. Difficulty remembering or delayed reaction times. Loss of fine muscle control or difficulty with your balance especially while walking. Difficulty focusing or blurred vision. You may not be aware of slight changes in your behavior and/or your reaction time because of the medication used during the procedure. Therefore you should follow these instructions. Have someone responsible help you with your care. Do not drive for 24 hours. Do not operate equipment for 24 hours (lawnmowers, power tools, kitchen accessories, stove). Do not drink any alcoholic beverages for a minimum of 24 hours. Do not make important personal, legal or business decisions for 24 hours. You may experience dizziness or lightheadedness. Move slowly and carefully, do not make sudden position changes. Drink extra amounts of fluids today. Increase your diet as tolerated (unless you have received specific instructions from your doctor). If you feel nauseated, continue with liquids until the nausea is gone. Notify your physician if you have not urinated within 8 hours after the procedure. Resume your medications unless otherwise instructed. Contact your physician if you have any questions or concerns. You may contact Special Procedures at with any questions or concerns. After hours (before 7 am and after 5 pm) call and ask for the Interventional Radiologist personnel research scientist. IF YOU REPORT TO AN EMERGENCY ROOM, DOCTOR'S OFFICE OR HOSPITAL WITHIN 24 HOURS AFTER YOUR PROCEDURE, BRING THIS SHEET AND YOUR AFTER VISIT SUMMARY WITH YOU AND GIVE IT TO THE PHYSICIAN OR NURSE ATTENDING YOU. * Attachments The following attachments cannot be sent through Care Everywhere. * Angiogram: General: Post-op (Setswana) documented in this [facility] Work Phone: Reason for referral (narrative)* Consultation (Routine) - Authorized Specialty Diagnoses / Procedures Referred By Jam mojica Referred To Contact Dermatology Diagnoses H/O squamous cell carcinoma Procedures IN OFFICE/OUTPATIENT NEW HIGH MDM 60-74 MINUTES Carla Alfredo MD [address] [facility], [facility] [address] [place] [address] Referral ID Status Reason Start Date Expiration Date Visits Requested Visits Authorized [id number] Authorized Specialty Services Required 11/24/2022 05/23/2023 1 1 [facility] Work Phone: Reason for visit Narrative* Initial Evaluation . bilateral shoulder pain, R and L shoulder impingement. * Referred by: Dr. Samuel [facility] Work Phone: Reycqs for visit Narrative* Initial Evaluation . greater trochanteric bursitis of L hip and R hip. * Referred by: Dr. Samuel [facility] Work Phone: Reemiq for visit Narrative* Initial Evaluation . hip pain right, lumbago. * Referred by: Ebonie Vargas APRN-MENDEZ [facility] Work Phone: Family History No Family History Records Found Father Name Dates Details Family history of Prostate c ancer(185, C61) Status:Active Father Name Dates Details Family history of Prostate c ancer(185, C61) Status:Active Father Name Dates Details Family history of Prostate c ancer(185, C61) Status:Active Father Name Dates Details Family history of Prostate c ancer(185, C61) Status:Active Father Name Dates Details Family history of Prostate c ancer(185, C61) Status:Active Father Name Dates Details Family history of Prostate c ancer(185, C61) Status:Active Father Name Dates Details Family history of Prostate c ancer(185, C61) Status:Active Father Name Dates Details Family history of Prostate c ancer(185, C61) Status:Active Unknown Family Member Name Dates Details Prostate cancer: Father Status:Active Unknown Family Member Name Dates Details Prostate cancer: Father Status:Active Unknown Family Member Name Dates Details Prostate cancer: Father Status:Active Unknown Family Member Name Dates Details Prostate cancer: Father Status:Active Unknown Family Member Name Dates Details Prostate cancer: Father Status:Active Family history of malignant neoplasm of heart: Father(V16.8, Z80.8) Status:Active Family history of arthritis: Mother(V17.7, Z82.61) Status:Active Unknown Family Member Name Dates Details Family history of malignant neoplasm of heart: Father(V16.8, Z80.8) Status:Active Family history of arthritis: Mother(V17.7, Z82.61) Status:Active Prostate cancer: Father Status:Active Unknown Family Member Name Dates Details Prostate cancer: Father Status:Active Family history of malignant neoplasm of heart: Father(V16.8, Z80.8) Status:Active Family history of arthritis: Mother(V17.7, Z82.61) Status:Active Unknown Family Member Name Dates Details Prostate cancer: Father Status:Active Family history of arthritis: Mother(V17.7, Z82.61) Status:Active Family history of malignant neoplasm of heart: Father(V16.8, Z80.8) Status:Active Unknown Family Member Name Dates Details Prostate cancer: Father Status:Active Family history of arthritis: Mother(V17.7, Z82.61) Status:Active Family history of malignant neoplasm of heart: Father(V16.8, Z80.8) Status:Active Unknown Family Member Name Dates Details Prostate cancer: Father Status:Active Family history of malignant neoplasm of heart: Father(V16.8, Z80.8) Status:Active Family history of arthritis: Mother(V17.7, Z82.61) Status:Active Unknown Family Member Name Dates Details Prostate cancer: Father Status:Active Family history of malignant neoplasm of heart: Father(V16.8, Z80.8) Status:Active Family history of arthritis: Mother(V17.7, Z82.61) Status:Active Unknown Family Member Name Dates Details Prostate cancer: Father Status:Active Family history of malignant neoplasm of heart: Father(V16.8, Z80.8) Status:Active Family history of arthritis: Mother(V17.7, Z82.61) Status:Active Unknown Family Member Name Dates Details Prostate cancer: Father Status:Active Family history of malignant neoplasm of heart: Father(V16.8, Z80.8) Status:Active Family history of arthritis: Mother(V17.7, Z82.61) Status:Active Unknown Family Member Name Dates Details Prostate cancer: Father Status:Active Family history of malignant neoplasm of heart: Father(V16.8, Z80.8) Status:Active Family history of arthritis: Mother(V17.7, Z82.61) Status:Active Unknown Family Member Name Dates Details Prostate cancer: Father Status:Active Family history of malignant neoplasm of heart: Father(V16.8, Z80.8) Status:Active Family history of arthritis: Mother(V17.7, Z82.61) Status:Active Unknown Family Member Name Dates Details Prostate cancer: Father Status:Active Family history of malignant neoplasm of heart: Father(V16.8, Z80.8) Status:Active Family history of arthritis: Mother(V17.7, Z82.61) Status:Active Unknown Family Member Name Dates Details Prostate cancer: Father Status:Active Family history of malignant neoplasm of heart: Father(V16.8, Z80.8) Status:Active Family history of arthritis: Mother(V17.7, Z82.61) Status:Active Unknown Family Member Name Dates Details Prostate cancer: Father Status:Active Family history of malignant neoplasm of heart: Father(V16.8, Z80.8) Status:Active Family history of arthritis: Mother(V17.7, Z82.61) Status:Active Unknown Family Member Name Dates Details Prostate cancer: Father Status:Active Family history of malignant neoplasm of heart: Father(V16.8, Z80.8) Status:Active Family history of arthritis: Mother(V17.7, Z82.61) Status:Active Unknown Family Member Name Dates Details Prostate cancer: Father Status:Active Family history of malignant neoplasm of heart: Father(V16.8, Z80.8) Status:Active Family history of arthritis: Mother(V17.7, Z82.61) Status:Active Unknown Family Member Name Dates Details Prostate cancer: Father Status:Active Family history of arthritis: Mother(V17.7, Z82.61) Status:Active Family history of malignant neoplasm of heart: Father(V16.8, Z80.8) Status:Active Unknown Family Member Name Dates Details Family history of arthritis: Mother(V17.7, Z82.61) Status:Active Family history of malignant neoplasm of heart: Father(V16.8, Z80.8) Status:Active Prostate cancer: Father Status:Active Unknown Family Member Name Dates Details Prostate cancer: Father Status:Active Family history of malignant neoplasm of heart: Father(V16.8, Z80.8) Status:Active Family history of arthritis: Mother(V17.7, Z82.61) Status:Active Unknown Family Member Name Dates Details Prostate cancer: Father Status:Active Family history of malignant neoplasm of heart: Father(V16.8, Z80.8) Status:Active Family history of arthritis: Mother(V17.7, Z82.61) Status:Active Unknown Family Member Name Dates Details Prostate cancer: Father Status:Active Family history of arthritis: Mother(V17.7, Z82.61) Status:Active Family history of malignant neoplasm of heart: Father(V16.8, Z80.8) Status:Active Unknown Family Member Name Dates Details Prostate cancer: Father Status:Active Family history of arthritis: Mother(V17.7, Z82.61) Status:Active Family history of malignant neoplasm of heart: Father(V16.8, Z80.8) Status:Active Unknown Family Member Name Dates Details Prostate cancer: Father Status:Active Family history of malignant neoplasm of heart: Father(V16.8, Z80.8) Status:Active Family history of arthritis: Mother(V17.7, Z82.61) Status:Active Unknown Family Member Name Dates Details Prostate cancer: Father Status:Active Family history of malignant neoplasm of heart: Father(V16.8, Z80.8) Status:Active Family history of arthritis: Mother(V17.7, Z82.61) Status:Active Unknown Family Member Name Dates Details Prostate cancer: Father Status:Active Family history of malignant neoplasm of heart: Father(V16.8, Z80.8) Status:Active Family history of arthritis: Mother(V17.7, Z82.61) Status:Active Unknown Family Member Name Dates Details Prostate cancer: Father Status:Active Family history of malignant neoplasm of heart: Father(V16.8, Z80.8) Status:Active Family history of arthritis: Mother(V17.7, Z82.61) Status:Active Unknown Family Member Name Dates Details Prostate cancer: Father Status:Active Family history of malignant neoplasm of heart: Father(V16.8, Z80.8) Status:Active Family history of arthritis: Mother(V17.7, Z82.61) Status:Active Unknown Family Member Name Dates Details Prostate cancer: Father Status:Active Family history of malignant neoplasm of heart: Father(V16.8, Z80.8) Status:Active Family history of arthritis: Mother(V17.7, Z82.61) Status:Active Unknown Family Member Name Dates Details Prostate cancer: Father Status:Active Family history of malignant neoplasm of heart: Father(V16.8, Z80.8) Status:Active Family history of arthritis: Mother(V17.7, Z82.61) Status:Active Unknown Family Member Name Dates Details Prostate cancer: Father Status:Active Family history of malignant neoplasm of heart: Father(V16.8, Z80.8) Status:Active Family history of arthritis: Mother(V17.7, Z82.61) Status:Active Unknown Family Member Name Dates Details Prostate cancer: Father Status:Active Family history of malignant neoplasm of heart: Father(V16.8, Z80.8) Status:Active Family history of arthritis: Mother(V17.7, Z82.61) Status:Active Unknown Family Member Name Dates Details Prostate cancer: Father Status:Active Family history of malignant neoplasm of heart: Father(V16.8, Z80.8) Status:Active Family history of arthritis: Mother(V17.7, Z82.61) Status:Active Unknown Family Member Name Dates Details Prostate cancer: Father Status:Active Family history of malignant neoplasm of heart: Father(V16.8, Z80.8) Status:Active Family history of arthritis: Mother(V17.7, Z82.61) Status:Active Unknown Family Member Name Dates Details Prostate cancer: Father Status:Active Family history of malignant neoplasm of heart: Father(V16.8, Z80.8) Status:Active Family history of arthritis: Mother(V17.7, Z82.61) Status:Active Unknown Family Member Name Dates Details Prostate cancer: Father Status:Active Family history of malignant neoplasm of heart: Father(V16.8, Z80.8) Status:Active Family history of arthritis: Mother(V17.7, Z82.61) Status:Active Unknown Family Member Name Dates Details Prostate cancer: Father Status:Active Family history of malignant neoplasm of heart: Father(V16.8, Z80.8) Status:Active Family history of arthritis: Mother(V17.7, Z82.61) Status:Active Unknown Family Member Name Dates Details Prostate cancer: Father Status:Active Family history of malignant neoplasm of heart: Father(V16.8, Z80.8) Status:Active Family history of arthritis: Mother(V17.7, Z82.61) Status:Active Unknown Family Member Name Dates Details Prostate cancer: Father Status:Active Family history of malignant neoplasm of heart: Father(V16.8, Z80.8) Status:Active Family history of arthritis: Mother(V17.7, Z82.61) Status:Active Unknown Family Member Name Dates Details Prostate cancer: Father Status:Active Family history of malignant neoplasm of heart: Father(V16.8, Z80.8) Status:Active Family history of arthritis: Mother(V17.7, Z82.61) Status:Active Unknown Family Member Name Dates Details Prostate cancer: Father Status:Active Family history of malignant neoplasm of heart: Father(V16.8, Z80.8) Status:Active Family history of arthritis: Mother(V17.7, Z82.61) Status:Active Unknown Family Member Name Dates Details Prostate cancer: Father Status:Active Family history of malignant neoplasm of heart: Father(V16.8, Z80.8) Status:Active Family history of arthritis: Mother(V17.7, Z82.61) Status:Active Unknown Family Member Name Dates Details Prostate cancer: Father Status:Active Family history of malignant neoplasm of heart: Father(V16.8, Z80.8) Status:Active Family history of arthritis: Mother(V17.7, Z82.61) Status:Active Unknown Family Member Name Dates Details Prostate cancer: Father Status:Active Family history of malignant neoplasm of heart: Father(V16.8, Z80.8) Status:Active Family history of arthritis: Mother(V17.7, Z82.61) Status:Active Unknown Family Member Name Dates Details Prostate cancer: Father Status:Active Family history of malignant neoplasm of heart: Father(V16.8, Z80.8) Status:Active Family history of arthritis: Mother(V17.7, Z82.61) Status:Active Unknown Family Member Name Dates Details Prostate cancer: Father Status:Active Family history of malignant neoplasm of heart: Father(V16.8, Z80.8) Status:Active Family history of arthritis: Mother(V17.7, Z82.61) Status:Active Unknown Family Member Name Dates Details Prostate cancer: Father Status:Active Family history of malignant neoplasm of heart: Father(V16.8, Z80.8) Status:Active Family history of arthritis: Mother(V17.7, Z82.61) Status:Active Unknown Family Member Name Dates Details Prostate cancer: Father Status:Active Family history of malignant neoplasm of heart: Father(V16.8, Z80.8) Status:Active Family history of arthritis: Mother(V17.7, Z82.61) Status:Active Unknown Family Member Name Dates Details Prostate cancer: Father Status:Active Family history of malignant neoplasm of heart: Father(V16.8, Z80.8) Status:Active Family history of arthritis: Mother(V17.7, Z82.61) Status:Active Unknown Family Member Name Dates Details Family history of arthritis: Mother(V17.7, Z82.61) Status:Active Family history of malignant neoplasm of heart: Father(V16.8, Z80.8) Status:Active Prostate cancer: Father Status:Active Unknown Family Member Name Dates Details Prostate cancer: Father Status:Active Family history of malignant neoplasm of heart: Father(V16.8, Z80.8) Status:Active Family history of arthritis: Mother(V17.7, Z82.61) Status:Active Unknown Family Member Name Dates Details Prostate cancer: Father Status:Active Family history of malignant neoplasm of heart: Father(V16.8, Z80.8) Status:Active Family history of arthritis: Mother(V17.7, Z82.61) Status:Active Unknown Family Member Name Dates Details Prostate cancer: Father Status:Active Family history of malignant neoplasm of heart: Father(V16.8, Z80.8) Status:Active Family history of arthritis: Mother(V17.7, Z82.61) Status:Active Unknown Family Member Name Dates Details Prostate cancer: Father Status:Active Family history of arthritis: Mother(V17.7, Z82.61) Status:Active Family history of malignant neoplasm of heart: Father(V16.8, Z80.8) Status:Active Unknown Family Member Name Dates Details Prostate cancer: Father Status:Active Family history of malignant neoplasm of heart: Father(V16.8, Z80.8) Status:Active Family history of arthritis: Mother(V17.7, Z82.61) Status:Active Unknown Family Member Name Dates Details Prostate cancer: Father Status:Active Family history of malignant neoplasm of heart: Father(V16.8, Z80.8) Status:Active Family history of arthritis: Mother(V17.7, Z82.61) Status:Active Unknown Family Member Name Dates Details Prostate cancer: Father Status:Active Family history of malignant neoplasm of heart: Father(V16.8, Z80.8) Status:Active Family history of arthritis: Mother(V17.7, Z82.61) Status:Active Unknown Family Member Name Dates Details Prostate cancer: Father Status:Active Family history of malignant neoplasm of heart: Father(V16.8, Z80.8) Status:Active Family history of arthritis: Mother(V17.7, Z82.61) Status:Active Unknown Family Member Name Dates Details Prostate cancer: Father Status:Active Family history of malignant neoplasm of heart: Father(V16.8, Z80.8) Status:Active Family history of arthritis: Mother(V17.7, Z82.61) Status:Active Unknown Family Member Name Dates Details Prostate cancer: Father Status:Active Family history of malignant neoplasm of heart: Father(V16.8, Z80.8) Status:Active Family history of arthritis: Mother(V17.7, Z82.61) Status:Active Unknown Family Member Name Dates Details Prostate cancer: Father Status:Active Family history of malignant neoplasm of heart: Father(V16.8, Z80.8) Status:Active Family history of arthritis: Mother(V17.7, Z82.61) Status:Active Heart base tumor: Father Status:Active Unknown Family Member Name Dates Details Prostate cancer: Father Status:Active Family history of malignant neoplasm of heart: Father(V16.8, Z80.8) Status:Active Family history of arthritis: Mother(V17.7, Z82.61) Status:Active Heart base tumor: Father Status:Active Unknown Family Member Name Dates Details Prostate cancer: Father Status:Active Family history of malignant neoplasm of heart: Father(V16.8, Z80.8) Status:Active Family history of arthritis: Mother(V17.7, Z82.61) Status:Active Heart base tumor: Father Status:Active Unknown Family Member Name Dates Details Prostate cancer: Father Status:Active Family history of malignant neoplasm of heart: Father(V16.8, Z80.8) Status:Active Family history of arthritis: Mother(V17.7, Z82.61) Status:Active Heart base tumor: Father Status:Active Chief Complaint * NO CONTACT RISK * Medicare Annual Wellness Visit * 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 X 3 MOS * NKI * RT HANDED * + SLEEP, ACHY, LROM, WEAKNESS, TROUBLE GRIPPING Establishing with a VaricoceleF/U RT SHOUDLERF/U RT SHOUDLERVaricocele* Varicocele * Anorgasmia * Low T * lower back/ hip pain x 5 days * +yardwork- digging * L>R * +groin F/U BACK PAINF/U BACK PAINF/U BILATERAL SHOULDERF/U RT SHOULDERF/U BILATERAL SHOULDERF/U DISCUSS MRI RT SHOULDER Reason for Referral Specialty Diagnoses / Procedures Referred By Jam mojica Referred To Contact Radiology Diagnoses Varicocele Procedures XA SPECIAL ANGIOGRAPHY PROCEDURE Jerome, Jony Vallejo MD [facility] [place] [address] Referral ID Status Reason Start Date Expiration Date Visits Re quested Visits Authorized [id number] Open 08/28/2021 08/28/2022 1 1 Specialty Diagnoses / Procedures Referred By Jam mojica Referred To Contact Orthopaedic Surgery / Orthopedic Surgery Diagnoses Right knee pain Procedures L Inj/Asp: R knee Jun Samuel MD [address] [place] [address] Referral ID Status Reason Start Date Expiration Date V isits Requested Visits Authorized [id number] Pending Review 02/17/2023 02/17/2024 1 1 Specialty Diagnoses / Procedures Referred By Contac t Referred To Contact Radiology Diagnoses Right knee pain Procedures XR knee right 3 views Jun Samuel MD [address] [place] [address] Referral ID Status Reason Start Date Expiration Date Visits Requested Visits Authorized [id number] Authorized Perform Procedure 02/16/2024 1 1 Specialty Diagnoses / Procedures Referred By Contac t Referred To Contact Radiology Diagnoses Postauricular lymphadenopathy Procedures US head neck soft tissue Trinh [facility] [address] [facility] [address] [place] [address] Referral ID Status Reason Start Date Expiration Date Visits Requested Visits Authorized [id number] Authorized Perform Procedure 05/22/2023 05/21/2024 1 1 Specialty Diagnoses / Procedures Referred By Contac t Referred To Contact Radiology Diagnoses Bilateral shoulder pain, unspecified chronicity Procedures XR shoulder 2+ views bilateral Eboine Vargas, TUNNEL KILN OPERATOR-MUSIC REHABILITATION THERAPIST [address] [facility], [address] [place] [address] Referral ID Status Reason Start Date Expiration Date Visits Requested Visits Authorized [id number] Authorized Perform Procedure 05/25/2023 05/24/2024 1 1 Advance Directives No Advanced Directives Records FoundDocuments on File Type Date Recorded 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 ACP-Advance Directive ACP-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 Latest Code Status on File Code Status Date Activated Date Inactivated Comments Full Code 08/29/2021 11:41 AM Summary Purpose Additional Source Comments Continuous Active and Recently Administ ered Medications (unrecognized section and content) PRN Medication Order 08/27/2021 08/28/2021 08/29/2021 acetaminophen (TYLENOL) tablet 650 mg 650 mg, Oral, EVERY 4 HOURS PRN, Starting on Key 6 at 1140, Until Discontinued, Pain Mild (1-3), Fever, Fever >100.5 F (38 C), Maximum dose of acetaminophen is 4000 mg from all sources in 24 hours., Recovery(IR) fentaNYL (SUBLIMAZE) injection (COMPLETED) ONCE PRN, 1 dose, Starting on Key 6//22 at 0936, Until Key 6/05/21 at 0936 0936 (Given - Provid er: Radha Gamino RN) fentaNYL (SUBLIMAZE) injection (COMPLETED) ONCE PRN, 1 dose, Starting on Key 6/05/21 at 1011, Until Key 6 at 1011 1011 (Given - Provid er: Radha Gamino RN) fentaNYL (SUBLIMAZE) injection (COMPLETED) ONCE PRN, 1 dose, Starting on Key 6 at 1040, Until Key 6 at 1040 1040 (Given - Provid er: Radha Gamino RN) lidocaine PF 1 % injection (COMPLETED) ONCE PRN, 1 dose, Starting on Key 6 at 0936, Until Key 6/22 at 0936 0936 (Given - Provid er: Jony Cano MD - Comment: Right) midazolam (VERSED) injection (COMPLETED) ONCE PRN, 1 dose, Starting on Key 6/05/21 at 0936, Until Key 6/05/21 at 0936 0936 (Given - Provid er: Radha Gamino RN) midazolam (VERSED) injection (COMPLETED) ONCE PRN, 1 dose, Starting on Key 6 at 1011, Until Key 6 at 1011 1011 (Given - Provid er: Radha Gamino RN) midazolam (VERSED) injection (COMPLETED) ONCE PRN, 1 dose, Starting on Key 6 at 1040, Until Key 6/22 at 1040 1040 (Given - Provid er: Radha Gamino RN) ondansetron (ZOFRAN) injection 4 mg 4 mg, IntraVENous, EVERY 8 HOURS PRN, Starting on Key 6 at 1141, Until Discontinued, Nausea, Vomiting, Recovery(IR) oxyCODONE (ROXICODONE) immediate release tablet 10 mg(Linked Group 1) 10 mg, Oral, EVERY 4 HOURS PRN, Starting on Key 08/29/21 at 1141, Until Discontinued, Pain Severe (7-10), Recovery(IR) oxyCODONE (ROXICODONE) immediate release tablet 5 mg(Linked Group 1) 5 mg, Oral, EVERY 4 HOURS PRN, Starting on Key 08/29/21 at 1141, Until Discontinued, Pain Moderate (4-6), Recovery(IR) Linked Groups Order Group 1: oxyCODONE (ROXICODONE) immediate release tablet 5 mgJump to med 5 mg, Oral, EVERY 4 HOURS PRN, Starting on Key 08/29/21 at 1141, Until Discontinued, Pain Moderate (4-6), Recovery(IR) Or oxyCODONE (ROXICODONE) immediate release tablet 10 mgJump to med 10 mg, Oral, EVERY 4 HOURS PRN, Starting on Key 08/29/21 at 1141, Until Discontinued, Pain Severe (7-10), Recovery(IR) Care Teams (unrecognized sec tion and content) Recyclable Materials Distributor Relationship Specialty Start Date End Date Get Terrazas MD [address] [facility] [place], [address] [address] PCP - General 04/24/11 Monae Steward DO [address] [facility] [place], [address] [address] PCP - [employer] Medicare Advantage PCP 03/30/22 [employer] Materials Distributor Relationship Specialty Start Date End Date Get Terrazas MD [address] [facility] [place], [address] [address] PCP - General 04/24/11 Monae Steward DO [address] [facility] [place], [address] [address] PCP - [employer] Medicare Advantage PCP 03/30/22 [employer] Distributor Relationship Specialty Start Date End Date Get Terrazas MD [address] [facility], [address] [address] PCP - General 01/07/16 [employer] Distributor Relationship Specialty Start Date End Date Get Terrazas MD [address] [facility], [address] [address] PCP - General 01/07/16 [employer] Distributor Relationship Specialty Start Date End Date Get Terrazas MD [address] [facility], [address] [address] PCP - General 01/07/16 [employer] Distributor Relationship Specialty Start Date End Date Get Terrazas MD Office Address Unavailable as of 09/28/2022 PCP - General 04/24/11 Monae Steward DO [address] [facility], [address] [address] PCP - [employer] Medicare Advantage PCP 03/30/22 Recyclable Materials Distributor Relationship Specialty Start Date End Date Get Terrazas MD [address] [facility], [address] [address] PCP - General 01/07/16 [employer] Distributor Relationship Specialty Start Date End Date Get Terrazas MD [address] [facility], [address] [address] PCP - General 01/07/16 [employer] Distributor Relationship Specialty Start Date End Date Get Terrazas MD [address] [facility] [place], [facility] [address] [place] [address] PCP - General 01/07/16 [employer] Distributor Relationship Specialty Start Date End Date Get Terrazas MD Office Address Unavailable as of 09/28/2022 PCP - General 04/24/11 Monae Steward DO [address] [facility] [place], [address] [address] PCP - [employer] Medicare Advantage PCP 03/30/22 [employer] Materials Distributor Relationship Specialty Start Date End Date Get Terrazas MD [address] [facility] [place], [address] [address] PCP - General 01/07/16 [employer] Distributor Relationship Specialty Start Date End Date Get Terrazas MD [address] [facility] [place], [address] [address] PCP - General 01/07/16 [employer]ycl[employer] Materials Distributor Relationship Specialty Start Date End Date Get Terrazas MD [address] [facility] [place], [address] [address] PCP - General 01/07/16 [employer] Distributor Relationship Specialty Start Date End Date Get Terrazas MD [address] [facility] [place], [address] [address] PCP - General 01/07/16 [employer]yclable Materials Distributor Relationship Specialty Start Date End Date Get Terrazas MD [address] [facility] [place], [address] [address] PCP - General 01/07/16 [employer] Distributor Relationship Specialty Start Date End Date Arlette Lopez, TUNNEL KILN OPERATOR-MUSIC REHABILITATION THERAPIST [address] [facility] [place], [address] [place] [address] PCP - [employer] Medicare Advantage PCP 03/30/23 Trinh Loyola DO [address] [place] [address] PCP - General Family Medicine 05/11/23 (unrecognized sect ion and content) No Status Records FoundNo Status Records FoundNo Status Records FoundNo Status Records FoundNo Status Records FoundNo Status Records FoundNo Status Records FoundNo Status Records FoundNo Status Records FoundNo Status Records FoundNo Status Records Found INFORMATION SOURCE (unrecogn ized section and content) DATE CREATED AUTHOR AUTHOR'S ORGANIZ ATION 12/29/2021 [facility] DATE CREATED AUTHOR AUTHOR'S ORGANIZ ATION 09/21/2022 [facility] DATE CREATED AUTHOR AUTHOR'S ORGANIZ ATION 09/24/2022 [facility] DATE CREATED AUTHOR AUTHOR'S ORGANIZ ATION 09/30/2022 [facility] DATE CREATED AUTHOR AUTHOR'S ORGANIZ ATION 02/22/2023 [facility] DATE CREATED AUTHOR AUTHOR'S ORGANIZ ATION 03/03/2023 [facility] DATE CREATED AUTHOR AUTHOR'S ORGANIZ ATION 04/08/2023 [facility] DATE CREATED AUTHOR AUTHOR'S ORGANIZ ATION 05/12/2023 [facility] DATE CREATED AUTHOR AUTHOR'S ORGANIZ ATION 05/14/2023 [facility] DATE CREATED AUTHOR AUTHOR'S ORGANIZ ATION 06/10/2023 [facility] Reason for Visit (unrecogniz ed section and content) Reason Comments lab follow up spot on right fore arm spot on left cheek Reason Comments Follow-up Reason Onset Date Comments Appointment Request 02/09/2023 Reason Comments Cataract Reason Comments Pain Reason Onset Date Comments Cataract sx Letter 03/04/2023 Reason Comments [facility] Reason Comments Pre-op Exam Cataract surgery with Dr. Monk Reason Onset Date Comments Med Refill 03/13/2023 Reason Onset Date Comments Eye Problem 03/18/2023 Reason Comments Post-op Reason Onset Date Comments Constipation 03/24/2023 Reason Onset Date Comments Medication Question 05/12/2023 Specialty Diagnoses / Procedures Referred By Contac t Referred To Contact Radiology Diagnoses Postauricular lymphadenopathy Procedures US head neck soft tissue Trinh Loyola, DO [address] [place] [address] Referral ID Status Reason Start Date Expiration Date Visits Requested Visits Authorized [id number] Authorized Perform Procedure 05/22/2023 05/21/2024 1 1 Specialty Diagnoses / Procedures Referred By Contac t Referred To Contact Radiology Diagnoses Bilateral shoulder pain, unspecified chronicity Procedures XR shoulder 2+ views bilateral Ebonie Vargas, TUNNEL KILN OPERATOR-MUSIC REHABILITATION THERAPIST [address] [facility], [address] [place] [address] Referral ID Status Reason Start Date Expiration Date Visits Requested Visits Authorized [id number] Authorized Perform Procedure 05/25/2023 05/24/2024 1 1 FOR RECORDS PERTAINING TO PATIENTS WHO ARE OR HAVE BEEN ENROLLED IN A CHEMICAL DEPENDENCY/SUBSTANCEABUSE PROGRAM, SOME INFORMATION MAY BE OMITTED. This clinical summary was aggregated from multiple sources. Caution should be exercised in using it in the provision of clinical care. This summary normalizes information from multiple sources, and as a consequence, information in this document may materially change the coding, format and clinical context of patient data. In addition, data may be omitted in some cases. CLINICAL DECISIONS SHOULD BE BASED ON THE PRIMARY CLINICAL RECORDS. [employer] provides no warranty or guarantee of the accuracy or completeness of information in this document.
== END | disposition home or self-care (01) ==
LOC: CT 16:07
DX: J32.0 Chronic maxillary sinusitis (principal)
CPT/HCPCS: 70486

== ENCOUNTER → 2023-08-13 | Outpatient (CLI) | payer MEDICARE, SELFPAY | END | disposition home or self-care (01) | LOC: LABSPEC 14:59 | PROVIDERS: Referring Provider Otolaryngology; Visit Provider Otolaryngology | DX: J32.9 Chronic sinusitis, unspecified (principal) | CPT/HCPCS: 87070; 87077; 87205 ==

== ENCOUNTER → 2024-02-06 | Outpatient (CLI) | payer MEDICARE, SELFPAY | END | disposition home or self-care (01) | LOC: LABSPEC 11:21 | PROVIDERS: Visit Provider Otolaryngology | DX: J32.9 Chronic sinusitis, unspecified (principal) | CPT/HCPCS: 87070; 87205 ==

== ENCOUNTER → 2024-03-11 | Outpatient (CLI) | payer MEDICARE, SELFPAY ==
--- NOTE | 2024-03-11 19:02 | CT_ITS ---
INDICATION: Chronic sinusitis EXAMINATION: CT SINUSES - CT Maxillofacial W/O Contrast Injection TECHNIQUE: Helically acquired images were obtained of the paranasal sinuses. A radiation dose optimization technique was used for this scan. IV Contrast dosage and agent: No contrast administered. Radiation Dose (provided by facility) CTDIvol (NA ) mGy, DLP ( NA) mGy-cm COMPARISON: 06/11/2023 FINDINGS: POSTOPERATIVE CHANGES: None Paranasal sinuses- MAXILLARY SINUSES: Mucosal thickening in the maxillary antra with negligible interval change. No air-fluid levels noted. The ostiomeatal complexes are narrowed but patent. No evidence of emma occlusion. ETHMOID SINUSES: Diffuse mucosal thickening within ethmoid complexes without air-fluid level or emma sinus opacification. FRONTAL SINUSES: Mild mucosal thickening within the frontal sinuses with mild contact thickening within the distal recesses reflect however are completely included SPHENOID SINUSES: Sphenoid sinuses are clear, sphenoid ostia are patent. Nasal passages- NASAL SEPTUM: Midline in position, no bony spurs noted. TURBINATES: She has had normal configuration, there is mild bilateral inferior turbinate hypertrophy. No evidence of nasal passages occlusion.. There is pneumatization of the vertical lamella of the middle turbinates without evidence of fluid or soft tissue accumulation. CRIBRIFORM PLATE AND FOVEA ETHMOIDALIS: Normal Facial skeleton- FACIAL SKELETON AND ORBITS: Within normal limits. CT/Sinus/Facial Bone IMPRESSION: 1. Stable exam. 2. Persistent diffuse of mucosal thickening in ethmoid and maxillary sinuses. There is mild persistent narrowing of the ostiomeatal complexes and the frontal recesses, however no evidence of air-fluid levels, emma sinus opacification or obstruction of drainage catheter. 3. Persistent anterior turbinate hypertrophy bilaterally without evidence of nasal passage obstruction.. Electronically Signed: Pollo Lino MD at 18:12 EST ,
== END | disposition home or self-care (01) ==
PROVIDERS: Referring Provider Otolaryngology; Visit Provider Otolaryngology
DX: J32.9 Chronic sinusitis, unspecified (principal)
CPT/HCPCS: 70486

== ENCOUNTER → 2024-10-31 | Outpatient (CLI) | payer MEDICARE, SELFPAY ==
--- NOTE | 2024-10-31 16:09 | RAD_ITS ---
PROCEDURE: CHEST PA AND LATERAL 10/31/2024 REASON FOR EXAM: COUGH TECHNIQUE: CHEST PA AND LATERAL COMPARISON: None. FINDINGS: Hardware: None. Heart: None. Mediastinum: Unremarkable. Lungs: Diffuse reticular pulmonary densities may represent pulmonary edema, pneumonitis or pneumonia. No pleural effusion or pneumothorax. Bones: No acute bony abnormalities. RAD/Chest PA and Lateral IMPRESSION: Diffuse reticular pulmonary densities may represent pulmonary edema, pneumoniti s or pneumonia. Reading Location: [id number]
--- OUTSIDE RECORDS SUMMARY | 2024-10-31 22:51 | XMS RPT_ITS | CCD ---
Author Organization [facility] Care Team Providers Care Carver And Checkerer Specials Name Role Phone Arlette Lopez Unavailable Unavailable Get Terrazas Unavailable Unavailable Nilda Baker Unavailable Unavailable Tierney Jung Unavailable Unavailable Get Terrazas Unavailable Unavailable Nilda Baker Unavailable Unavailable Get Terrazas Unavailable Unavailable Unavailable Get Terrazas MD Primary Care Provider Unavailable Unavailable Ebonie Moore Attending Unavailable Mk, Dr. Get [facility] Unavai lable Detec, Ms. Ebonie Mackey Attending Unavailab le Helen, Dr. Get [facility] Unavai lable Detec, Ms. Ebonie Mackey Attending Unavailab le Mk, Dr. Get [facility] Unavai lable Detec, Ms. Ebonie Mackey Attending Unavailab le Helen, Dr. Get [facility] Unavai lable Detec, Ms. Ebonie Mackey Attending Unavailab le Mk, Dr. Get [facility] Unavai lable Detec, Ms. Ebonie Mackey Attending Unavailab le Mk, Dr. Get [facility] Unavai lable Detmisbah, Ms. Ebonie Mackey Attending Unavailab le Helen, Dr. Gte [facility] Unavai lable Detmisbah, Ms. Ebonie Mackey Attending Unavailab le Helen, Dr. Get [facility] Unavai lable Detec, Ms. Ebonie Mackey Attending Unavailab le Helen, Dr. Get [facility] Unavai lable Detec, Ms. Ebonie Mackey Attending Unavailab le Helen, Dr. Get [facility] Unavai lable Detec, Ms. Ebonie Mackey Attending Unavailab le Mk, Dr. Get [facility] Unavai lable Detec, Ms. Ebonie Mackey Attending Unavailab le Helen, Dr. Get [facility] Unavai lable Detec, Ms. Ebonie Mackey Attending Unavailab le Mk, Dr. Get [facility] Corbini melvin Terrazas, Dr. Get [place] [facility] Isac Samuel, Dr. Barahona Referring Unavailable Sofya, Dr. Barahona Attending Unavailable Detec, Ms. Ebonie Mackey Attending Unavailab le Detec, Ms. Ebonie Mackey Referring Unavailab le Mk, Dr. Get [facility] Unavai lable Detec, Ms. Ebonie Mackey Attending Unavailab le Helen, Dr. Get [place] Primary [facility] Unavai lable Detec, Ms. Ebonie Mackey Attending Unavailab le Helen, Dr. Get [facility] Unavai lable Detec, Ms. Ebonie Mackey Attending Unavailab le Mk, Dr. Get [facility] Unavai lable Detec, Ms. Ebonie Mackey Attending Unavailab le Mk, Dr. Get [facility] Unavai lable Detec, Ms. Ebonie Mackey Attending Unavailab le Helen, Dr. Get [facility] Unavai lable Detec, Ms. Ebonie Mackey Attending Unavailab le Mk, Dr. Get [facility] Unavai arunle Mk, Dr. Get [place] Primary Care Mitavamagdaleno Terrazas, Dr. Get [place] Referring Unavai lable Thirumavalavan, Dr. Lopez Attending Unava ilable Helen, Dr. Get [facility] JUN Crespo Attending Unavailable JUN SAMUEL Referring Unavailable JUN SAMUEL Referring Unavailable Mk, Dr. Get [facility] JUN Crespo Attending Unavailable JUN SAMUEL Attending Unavailable JUN SAMUEL Referring Unavailable Helen, Dr. Get [facility] Isac Terrazas, Dr. Get [place] Primary Care Isac Terrazas, Dr. Get [place] Referring Isac Brown, Dr. Lopez Attending Corbin Terraazs, Dr. Get [facility] Unavai lable Detec, Ebonie Attending Unavailable Detec, Ebonie Referring Unavailable Mk, Dr. Get [facility] Mitavai labtanvi Detec, Ebonie Attending Unavailable Detec, Ebonie Referring Unavailable Mk NUNEZ, Get [place] Primary Care Provider Bin DO Monae H Unavailable Mk NUNEZ, Get [place] Primary Care Provider Mk NUNEZ, Get [place] Primary Care Provider Isac Lopez DISC INSPECTOR-HEAD MIXER, Arlette L Unavailable [phone] Brode DO, Trinh Primary Care Provider ISAMAR Romano Attending Provider [phone] BRODE, TRINH Primary Care Unavailable BRODE, TRINH Primary Care Unavailable Get Terrazas MD Primary Care Provider Unavailable Primary Care Provider Unavailabl e Brode DO, Trinh Primary Care Provider Brode DO, Trinh Unavailable Mk NUNEZ, Get [place] Primary Care Provider LEONARDO BUSTAMANTE Attending Unavailable GET TERRAZAS Primary Care Unavailable ROZINA STAPLETON Attending Unavailable GET TERRAZAS Primary Care Unavailable Brode DO, Trinh Unavailable MELANIE DUMAS Attending Unavailable DETEC, EBONIE B Referring Unavailable BRODE, TRINH Primary Care Unavailable DETEC, EBONIE B Referring Unavailable BRODE, TRINH Primary Care Unavailable DETEC, EBONIE B Referring Unavailable BRODE, TRINH Primary Care Unavailable MELANIE DUMAS Attending Unavailable DETEC, EBONIE B Referring Unavailable BRODE, TRINH Primary Care Unavailable MELANIE DUMAS Attending Unavailable DETEC, EBONIE B Referring Unavailable BRODE, TRINH Primary Care Unavailable DETEC, EBONIE B Referring Unavailable BRODE, TRINH Primary Care Unavailable DETEC, EBONIE B Referring Unavailable BRODE, TRINH Primary Care Unavailable DETEC, EBONIE B Referring Unavailable BRODE, TRINH Primary Care Unavailable MELANIE DUMAS Attending Unavailable DETEC, EBONIE B Referring Unavailable BRODE, TRINH Primary Care Unavailable ROBERT CHRISTIAN Referring Unavailable BRODE, TRINH Primary Care Unavailable ROBERT CHRISTIAN Referring Unavailable BRODE, TRINH Primary Care Unavailable BRODE, TRINH Attending Unavailable BRODE, TRINH Primary Care Unavailable ARLETTE LOPEZ Attending Unavailable BRODE, TRINH Primary Care Unavailable BRODE, TRINH Attending Unavailable BRODE, TRINH Primary Care Unavailable BRODE, TRINH Attending Unavailable BRODE, TRINH Primary Care Unavailable TEETEE CHAPIN Attending Unavailable BRODE, TRINH Primary Care Unavailable JUN SAMUEL Attending Unavailable BRODE, TRINH Primary Care Unavailable ROBERT CHRISTIAN Attending Unavailable BRODE, TRINH Referring Unavailable BRODE, TRINH Primary Care Unavailable ROBERT CHRISTIAN Attending Unavailable BRODE, TRINH Primary Care Unavailable DETEC, EBONIE B Attending Unavailable BRODE, TRINH Primary Care Unavailable ORLANDO DUKE Attending Unavailable ORLANDO DUKE Attending Unavailable SELF Referring Unavailable Macarena Duran Attending Provider Obinna Green Attending [facility] Obinna Green Referring UnavailObinna Gonzalez Attending Unavailprincess cherry [facility] Care Unavailable [facility] Unavailable Scottie Solorzano Referring Unavailable Scottie Solorzano Attending Unavailable Macarena Cho Attending Unavailprincess cherry Allergies Allergy Classification Reported Allergen(s) Allergy Type Date of Onset Reaction(s) Facility Aluminum aspirin (1 source) Aluminum aspirin Drug Allergy 03-08-20 15 Other [facility] Bacitracin / Polymyxin B (1 source) Bacitracin / Polymyxin B Drug Allergy 05-30-19 23 Hives [facility] Corticosteroids (1 source) Hydrocortisone Drug Allergy 10-02-19 18 Swelling [facility] NSAIDs (1 source) Ibuprofen Drug Allergy 03-08-20 15 Swelling, Other [facility] Sulfonamides (antibiotic) (1 source) Sulfonamides (Antibiotic) Drug Allergy 06-06-19 21 Itching, Rash [facility] (20 sources) Aspirin; Translations: [Aspirin TABS] Drug Allergy 03-08-20 15 Asthma, Other, Other: See Comments [facility] (20 sources) Bacitracin / Neomycin / Polymyxin B; Translations: [Neosporin OINT] Drug Allergy [facility] Work Phone: (20 sources) Ibuprofen; Translations: [ibuprofen] Drug Allergy 03-08-20 15 Other (See Comments), Swelling, Other, [facility] Work Phone: (20 sources) Sulfonamides (Antibiotic); Translations: [Sulfa Drugs] drug allergy [facility] Work Phone: (20 sources) Bacitracin / Polymyxin B Drug Allergy 05-30-19 23 Hives [facility] Work Phone: (20 sources) Aluminum aspirin; Translations: [ASPIRIN] Drug Allergy 03-08-20 15 Other (See Comments), Other [facility] (20 sources) Sulfonamides (Antibiotic) Propensity to adverse reactions to drug 06-06-19 21 Itching, Rash [facility] (1 source) Neomycin-Bacitracin Zn-Polymyx Propensity to adverse reactions to drug 11-28-19 21 Other (See Comments) [facility] (20 sources) Neomycin-Polymyxin- Gramicidin; Translations: [NEOMYCIN-POLYMYXIN -GRAMICIDIN] Propensity to adverse reactions to drug 03-08-20 15 Rash [facility] Work Phone: (9 sources) Sulfonamides (Antibiotic); Translations: [SULFA (SULFONAMIDE ANTIBIOTICS)] Allergy to substance 06-06-19 21 Itching [facility] (20 sources) Bacitracin / Neomycin / Polymyxin B / pramoxine; Translations: [QZYNW-AUPYF-FSPIGE X-PRAMOXINE] Drug Allergy 11-28-19 21 Other [facility] Work Phone: (20 sources) Loratadine; Translations: [LORATADINE] Drug Allergy 11-25-19 23 [facility] Work Phone: (20 sources) Sulfonamides (Antibiotic) Drug Allergy 06-06-19 21 Itching, Rash, [facility] Work Phone: (20 sources) Hydrocortisone; Translations: [HYDROCORTISONE] Drug Allergy 10-02-19 18 [facility] (20 sources) Loratadine Allergy to substance 11-25-19 23 [facility] (6 sources) BACITRACIN ZINC-POLYMYXIN B; Translations: [BACITRACIN ZINC-POLYMYXIN B] Propensity to adverse reactions to drug (disorder) 11-25-19 [facility] (5 sources) BACITRACIN-POLYMYXI N B; Translations: [BACITRACIN-POLYMYX IN B] Propensity to adverse reactions to drug (disorder) 05-30-19 [facility] (3 sources) Sulfamethoxazole / Trimethoprim; Translations: [SULFAMETHOXAZOLE-T RIMETHOPRIM] Drug Allergy 03-02-20 [facility] (10 sources) Doxycycline; Translations: [DOXYCYCLINE] Drug Allergy 06-29-19 [facility] Work Phone: (1 source) Bacitracin Drug Allergy 10-31-19 25 [facility] (1 source) Neomycin Drug Allergy 10-31-19 25 [facility] (1 source) Polymyxin B Drug Allergy 10-31-19 25 [facility] (1 source) Bacitracin Drug Allergy 10-31-19 25 [facility] (1 source) Loratadine Drug Allergy 10-31-19 25 [facility] (1 source) Neomycin Drug Allergy 10-31-19 25 [facility] (1 source) Sulfonamides (Antibiotic) Drug allergy (disorder) 10-31-19 25 [facility] (1 source) polymyxin B Drug allergy (disorder) 10-31-19 25 [facility] Medications Current Medications Medication Drug Class(es) Dates Sig (Normalized) Sig (Original) [id number] 200 actuat albuterol 0.09 mg/actuat metered dose inhaler (20 sources) beta2-Adrenergic Agonist Start: 08-27-2021 End: 03-12-2023 albuterol 90 mcg/actuation inhaler Inhale 2 puffs if needed. 0 08/27/2021 03/12/2023 Discontinued (Med List Cleanup) Start: 08-27-2021 take 2 puff(s) by in halation every four hours as needed Albuterol Sulfate HFA 108 (90 Base) MCG/ACT Inhalation Aerosol Solution INHALE 2 PUFFS EVERY 4 HOURS NEEDED Quantity: 1 Refills: 0 Ordered: 27-Aug-2021 Binviola CASTILLO Monae Start : 27-Aug-2021 Active ALBUTEROL SULFAT E IN Inhale into the lungs as needed Newly prescribed. Pt has not has to use it yet 0 Active azelastine hydrochloride 0.137 mg/actuat metered dose nasal spray (12 sources) Histamine-1 Receptor Antagonist Start: 10-30-2024 Azelastine 137 mcg ( 0.1 %) spray,non-aerosol Active 1 NMA INTRANASAL TWICE A DAY October 30, 2024 12:00am Start: 03-17-2024 End: 03-17-2025 take 1 spray(s) nasal route twice daily azelastine (Astelin) 137 mcg (0.1 %) nasal spray Indications: Recurrent sinusitis Administer 1 spray into each nostril 2 times a day. Use in each nostril as directed 30 mL 12 03/17/2024 03/17/2025 Active Start: 03-17-2024 End: 03-17-2025 azelastine (Astelin) 0.1 % n miladys spray 1 spray twice a day. 03/17/2024 03/17/2025 Active benoxinate hydrochloride 4 mg/ml / fluorescein sodium 3 mg/ml ophthalmic solution (4 sources) Diagnostic Dye Start: 10-17-2024 End: 10-17-2024 fluorescein-benoxinate 0.3-0.4 % 1 drop (FLURESS) Start: 10-17-2024 End: 10-17-2024 1 drop, BOTH EYES, DIRECT ED, Starting on Thu10/17/24 at 1000, Until Thu10/17/24 at 2159, Administer for applanation tonometry. In the event of a Fluress shortage, administer Claunch-Fluor 1 drop into both eyes as directed for applanation tonometry Start: 05-04-2024 End: 05-05-2024 fluorescein-benoxinate 0.3-0 .4 % 1 Drop (FLURESS) Start: 05-04-2024 End: 05-05-2024 1 Drop, BOTH EYES, DIRECT ED, Starting on Thu05/04/24 at 1330, Until Key 05/05/24 at 0129, Administer for applanation tonometry. In the event of a Fluress shortage, administer Celestina-Fluor 1 drop into both eyes as directed for applanation tonometry benzonatate 100 mg oral capsule (13 sources) Non-narcotic Antitussive Start: 06-22-2024 End: 07-22-2024 take 1 capsule by mouth three times daily as needed for cough benzonatate (Tessalon) 100 mg capsule Indications: Cough, unspecified type Take 1 capsule (100 mg) by mouth 3 times a day as needed for cough. Do not crush or chew. 20 capsule 06/22/2024 07/22/2024 Active Start: 03-14-2019 take 1 capsule by mo uth three times daily as needed Benzonatate 200 MG Oral Capsule TAKE 1 CAPSULE 3 TIMES DAILY NEEDED. Quantity: 20 Refills: 0 Arlette Vasquez Start : 14-Mar-2019 Active cholecalciferol 0.125 mg oral capsule (20 sources) Vitamin D Start: 10-30-2024 take 1 capsule by mouth once daily Cholecalciferol (Vitamin D3) 125 mcg (5,000 unit) capsule Active 125 ug PO daily October 30, 2024 12:00am Start: 08-27-2021 Cholecalcifero l, Vitamin D3, 125 mcg (5,000 unit) cap Take 5,000 Units by mouth. 08/27/2021 Active Start: 08-27-2021 take 1 capsule by mo uth once daily cholecalciferol (Vitamin D-3) 125 MCG (5000 UT) capsule Take 1 capsule (125 mcg) by mouth once daily. 08/27/2021 Active Start: 08-27-2021 take 1 capsule by mo uth once daily cholecalciferol (Vitamin D-3) 125 MCG (5000 UT) capsule Take 5,000 Units by mouth daily. 08/27/2021 Active Start: 08-27-2021 Vitamin D-3 12 5 MCG (5000 UT) Oral Tablet Quantity: 0 Refills: 0 Ordered: 27-Aug-2021 DO Start : 27-Aug-2021 Active vitamin D (VITAM IN D3 MAXIMUM STRENGTH) 125 MCG (5000 UT) CAPS capsule Take 5,000 Units by mouth daily 0 Active CPAP (4 sources) Start: 12-04-2020 CPAP Indicatio ns: SIOMARA (obstructive sleep apnea) Please provide pt with PAP supplies: mask(pt pref), chin strap, heated tubing & heated humidity, filters. Lifetime supplies. SIOMARA G47.33. 1 Device 12/04/2020 Active Start: 12-06-2019 CPAP New Set u p: Settings IPAP max 25 EPAP min 4 and PS 4 cm H2O, suitable mask per pt preference, chin strap, head gear, humidity, heated tubing (FAUSTINO), lifetime supplies. G47.33 SIOMARA 1 Device 11 12/06/2019 Active CPAP Machine MISC (1 source) Start: 12-04-2020 CPAP Machine M ISC Please provide pt with PAP supplies: mask(pt pref), chin strap, heated tubing & heated humidity, filters. Lifetime supplies. SIOMARA G47.33. 0 12/04/2020 Active Docusate (17 sources) docusate sodium (Stool Softener) 150 MG/15ML oral liquid Every 24 hours. Active docusate sodium (STOOL SOFTENER ORAL) Take by mouth. Active docusate sodium (STOOL SOFTENER ORAL) Take by mouth. 0 Active doxycycline hyclate 100 mg oral capsule (1 source) Tetracycline-class Drug Start: 06-22-2024 End: 06-27-2024 doxycycline (Vibramycin) 100 mg capsule Indications: Bronchitis Take 1 capsule (100 mg) by mouth 2 times a day for 5 days. Take with at least 8 ounces (large glass) of water, do not lie down for 30 minutes after 10 capsule 06/22/2024 06/27/2024 Active ferrous sulfate (12 sources) Start: 10-30-2024 take 1 tablet by mouth once daily Ferrous Sulfate (Slow Fe) 137 mg (45 mg iron) tablet extended release Active 137 mg PO daily October 30, 2024 12:00am Start: 03-17-2024 End: 03-17-2025 Slow Fe 45 MG tablet Take 13 7 mg by mouth daily. 03/17/2024 03/17/2025 Active Start: 03-17-2024 End: 03-17-2025 take 1 tablet by mouth once daily ferrous sulfate (Slow Fe) 137 mg (45 mg iron) tablet extended release Indications: Iron deficiency anemia, unspecified iron deficiency anemia type Take 1 tablet (137 mg) by mouth once daily. 90 tablet 3 03/17/2024 03/17/2025 Active ferrous sulfate 137 mg (45 mg iron) TbER (2 sources) Start: 03-17-2024 End: 03-17-2025 ferrous sulfate 137 mg (45 mg iron) TbER Take 137 mg by mouth. 03/17/2024 03/17/2025 Active fexofenadine hydrochloride 180 mg oral tablet (20 sources) Histamine-1 Receptor Antagonist Start: 06-03-2013 fexofenadine (Allegr a Allergy) 180 mg tablet Take 1 tablet (180 mg) by mouth if needed. 06/03/2013 Active fexofenadine HCl (PARADISE ORAL) Take by mouth as needed. Active fluticasone propionate 0.05 mg/actuat metered dose nasal spray (20 sources) Corticosteroid Start: 03-10-2024 End: 03-10-2025 Fluticasone Propionate 50 mcg/actuation spray,suspension Active 2 NMA INTRANASAL daily October 30, 2024 12:00am Start: 05-11-2023 End: 05-10-2024 fluticasone (Flonase) 50 MCG /ACT nasal spray 1 spray in the morning. 05/11/2023 Active Start: 05-11-2023 End: 05-10-2024 take 1 spray(s) nasal route once daily fluticasone (Flonase) 50 mcg/actuation nasal spray Indications: Bacterial sinusitis Administer 1 spray into each nostril once daily. Shake gently. Before first use, prime pump. After use, clean tip and replace cap. 16 g 11 05/11/2023 03/10/2024 Discontinued (Reorder) Start: 08-27-2021 take 2 spray(s) nasa l route once daily Fluticasone Propionate 50 MCG/ACT Nasal Suspension SPRAY 2 SPRAYS INTO EACH NOSTRIL EVERY DAY Quantity: 1 Refills: 2 Ordered: 27-Aug-2021 Monae Steward DO Start : 27-Aug-2021 Active take 1 spray(s) nasa l route once daily fluticasone (FLONASE) 50 MCG/ACT nasal spray 1 spray by Each Nostril route daily 0 Active ketorolac tromethamine 5 mg/ml ophthalmic solution (15 sources) Nonsteroidal Anti-inflammatory Drug, Cyclooxygenase Inhibitor Start: 04-05-2023 take 1 drop(s) into the eye(s) four times daily keTORolac (ACULAR) 0.5 % ophthalmic solution Use 1 Drop in the right eye four times daily. 04/05/2023 Active Start: 03-16-2023 End: 05-06-2023 ketorolac (Acular) 0.5 % oph thalmic solution Administer 1 drop into the right eye in the morning and 1 drop at noon and 1 drop in the evening and 1 drop before bedtime. Start 2 days before surgery. Do not start before March 31, 2023. 5 mL 1 03/31/2023 05/06/2023 mecobalamin 1 mg chewable tablet (1 source) Start: 10-30-2024 take 1 tablet by mouth once daily Mecobalamin (Vitamin B12) 1,000 mcg tablet,chewable Active 1000 ug PO daily October 30, 2024 12:00am Multiple Vitamins-Minerals (PRESERVISION AREDS 2 PO) (20 sources) Multiple Vitamin s-Minerals (PRESERVISION AREDS 2 PO) Take by mouth. Active Multiple Vitamin s-Minerals (PRESERVISION AREDS 2 PO) Take by mouth. 0 Active mupirocin 0.02 mg/mg topical ointment (1 source) RNA Synthetase Inhibitor Antibacterial End: 08-29-2021 mupirocin (BACTROBAN) 2 % ointment Apply topically 3 times daily Apply topically 3 times daily. 0 08/29/2021 Discontinued (LIST CLEANUP) ofloxacin 3 mg/ml ophthalmic solution (10 sources) Quinolone Antimicrobial Start: 04-05-2023 take 1 drop(s) into the eye(s) four times daily ofloxacin (OCUFLOX) 0.3 % ophthalmic solution Use 1 Drop in the right eye four times daily. 04/05/2023 Active Start: 03-31-2023 End: 04-15-2023 ofloxacin (Ocuflox) 0.3 % op hthalmic solution Administer 1 drop into the right eye in the morning and 1 drop at noon and 1 drop in the evening and 1 drop before bedtime. Do all this for 10 days. Start 2 days before surgery. Do not start before March 31, 2023. 5 mL 0 03/31/2023 04/15/2023 Discontinued (Therapy completed) Start: 03-16-2023 End: 03-26-2023 ofloxacin (Ocuflox) 0.3 % op hthalmic solution Administer 1 drop into the left eye in the morning and 1 drop at noon and 1 drop in the evening and 1 drop before bedtime. Do all this for 10 days. 5 mL 0 03/16/2023 03/25/2023 Discontinued (Therapy completed) oxyCODONE (1 source) Opioid Agonist Start: 08-29-2021 oxyCODONE (ROXICODONE) immediate release tablet 5 mg pantoprazole 20 mg delayed release oral tablet (20 sources) Proton Pump Inhibitor Start: 12-13-2020 take 1 tablet by mouth twice daily pantoprazole DR (PROTONIX) 20 mg tablet Take 20 mg by mouth twice daily. 12/13/2020 Active Start: 03-14-2019 End: 08-29-2021 pantoprazole (PROTONIX) 20 M G tablet Take by mouth 0 03/14/2019 08/29/2021 Discontinued (LIST CLEANUP) Start: 03-14-2019 take 1 tablet by azalea once daily Pantoprazole Sodium 40 MG Oral Tablet Delayed Release TAKE 1 TABLET DAILY. Quantity: 0 Refills: 0 Ordered: 14-Mar-2019 DO Start : 14-Mar-2019 Active phenylephrine hydrochloride 25 mg/ml ophthalmic solution (2 sources) alpha-1 Adrenergic Agonist Start: 10-17-2024 End: 10-17-2024 PHENYLephrine 2.5 % 1 drop (AK-DILATE, ALMA-SYNEPHRINE) Start: 10-17-2024 End: 10-17-2024 1 drop, BOTH EYES, DIRECT ED, Starting on Thu10/17/24 at 1000, Until Thu10/17/24 at 2159, Administer for dilation PROTECT FROM LIGHT prednisoLONE acetate 10 mg/ml ophthalmic suspension (15 sources) Corticosteroid Start: 04-07-2023 prednisoLONE a cetate (PRED FORTE) 1 % ophthalmic suspension Use 1 Drop in the right eye four times daily. 04/07/2023 Active Start: 03-16-2023 End: 05-06-2023 prednisoLONE acetate (Pred-F orte) 1 % ophthalmic suspension Administer 1 drop into the right eye in the morning and 1 drop at noon and 1 drop in the evening and 1 drop before bedtime. Start day of surgery. Do not start before March 31, 2023. 5 mL 1 03/31/2023 05/06/2023 proparacaine hydrochloride 5 mg/ml ophthalmic solution (3 sources) Local Anesthetic Start: 10-17-2024 End: 10-17-2024 proparacaine 0.5 % 1 drop (ALCAINE) Start: 05-04-2024 End: 05-05-2024 proparacaine 0.5 % 1 Drop (A LCAINE) Start: 05-04-2024 End: 05-05-2024 1 Drop, BOTH EYES, DIRECT ED, Starting on Thu05/04/24 at 1330, Until Thu05/05/24 at 0129, Administer for pneumo tonometry, tonopen tonometry, or pachymetry. In the event of a proparacaine shortage, administer tetracaine 0.5% ophthalmic drops 1 drop in both eyes as directed for pneumo tonometry, tonopen tonometry, or pachymetry 1000 ml sodium chloride 9 mg/ml injection (1 source) Start: 08-29-2021 0.9 % sodium c hloride infusion tropicamide 10 mg/ml ophthalmic solution (4 sources) Anticholinergic Start: 10-17-2024 End: 10-17-2024 tropicamide 1 % 1 drop (MYDRIACYL) Start: 10-17-2024 End: 10-17-2024 1 drop, BOTH EYES, DIRECT ED, Starting on Thu10/17/24 at 1000, Until Thu10/17/24 at 2159, Administer for dilation Start: 05-04-2024 End: 05-05-2024 tropicamide 1 % 1 Drop (MYDR IACYL) Start: 05-04-2024 End: 05-05-2024 1 Drop, BOTH EYES, DIRECT ED, Starting on Thu05/04/24 at 1330, Until Key 05/05/24 at 0129, Administer for dilation vit A/vit C/vit E/zinc/coppe r (PRESERVISION AREDS ORAL) (17 sources) vit A/vit C/vit E/zinc/copper (PRESERVISION AREDS ORAL) Take by mouth. Active vit A/vit C/vit E/zinc/copper (PRESERVISION AREDS ORAL) Take by mouth. 0 Active vit C/E/Zn/coppr/lutein/zeax an (PRESERVISION AREDS-2 ORAL) (2 sources) take 1 tablet by mouth twice daily vit C/E/Zn/coppr/lutein/zeaxan (PRESERVISION AREDS-2 ORAL) Take 1 tablet by mouth two times a day. Active vitamin b12 1 mg oral tablet (10 sources) Vitamin B12 take 1 tablet by mouth once daily cyanocobalamin (Vitamin B-12) 1,000 mcg tablet Take 1 tablet (1,000 mcg) by mouth once daily. Active Vitamins A,C,I-Qsjx-Cppuer (Preservision Areds) 4,296 mcg-226 mg-90 mg capsule (1 source) Star t: 06-16 Vitamins A,C,G-Rcag-Vqphsw (Preservision Areds) 4,296 mcg-226 mg-90 mg capsule Active 1 NMA PO TWICE A DAY October 30, 2024 12:00am Completed/Discontinued Medications Medication Drug Class(es) Dates Sig [...] from all sources in 24 hours. Recovery(IR) Acetaminophen 32 5 MG Oral Tablet Quantity: 0 Refills: 0 Ordered: 05-Sep-2021 DO Active amoxicillin 875 mg / clavulanate 125 mg oral tablet (3 sources) Penicillin-class Antibacterial Start: 05-11-2023 End: 05-26-2023 take 1 tablet by mouth twice daily amoxicillin-pot clavulanate (Augmentin) 875-125 mg tablet Indications: Bacterial sinusitis Take 1 tablet (875 mg) by mouth 2 times a day for 10 days. 20 tablet 0 05/11/2023 05/26/2023 Discontinued (Therapy completed) Start: 01-07-2021 End: 08-29-2021 amoxicillin-clavulanate (AUG MENTIN) 875-125 MG per tablet azithromycin 500 mg oral tablet (8 sources) Macrolide Antimicrobial Start: 03-29-2019 take 1 tablet by mouth once daily Azithromycin 500 MG Oral Tablet TAKE 1 TABLET DAILY. Quantity: 5 Refills: 1 Get Terrazas MD Start : 29-Mar-2019 Active famotidine 20 mg oral tablet (20 sources) Histamine-2 Receptor Antagonist Start: 08-27-2021 Famotidine 20 MG Oral Tablet Quantity: 0 Refills: 0 Ordered: 27-Aug-2021 DO Start : 27-Aug-2021 Active 2 ml fentaNYL 0.05 mg/ml injection (3 sources) Opioid Agonist Start: 08-29-2021 End: 08-29-2021 fentaNYL (SUBLIMAZE) injection guaiFENesin 20 mg/ml oral solution (20 sources) Start: 08-27-2021 Mucinex Fast-Max Chest [place] MS 400 MG/20ML Oral Liquid Quantity: 0 Refills: 0 Ordered: 27-Aug-2021 DO Start : 27-Aug-2021 Active guaiFENesin (HUM IBID E) 400 mg tab Take 400 mg by mouth. Active hydrocortisone 25 mg/ml topical cream (8 sources) Corticosteroid Start: 06-06-2016 Hydrocortisone 2.5 % External Cream APPLY TO AFFECTED AREA TWICE DAILY DIRECTED. Quantity: 1 Refills: 2 Get Terrazas MD Start : 06-Jun-2016 Active 30 GM Tube Lidocaine (13 sources) Antiarrhythmic, Amide Local Anesthetic Start: 07-22-2024 End: 07-22-2024 lidocaine (Xylocaine) 20 mg/mL (2 %) injection 2 mL Start: 07-22-2024 End: 07-22-2024 2 mL, injection, Once PRN Pr ocedure, Starting on Thu07/22/24 at 1619, For 1 dose Start: 06-12-2023 End: 06-12-2023 lidocaine (Xylocaine) 20 mg/ mL (2 %) injection 2 mL Start: 02-17-2023 End: 02-17-2023 lidocaine (Xylocaine) 10 mg/ mL (1 %) injection 2 mL Start: 03-07-2022 Lidocaine HCl - 2 % Injection Solution INJECT 2 ML Intra-articular Quantity: 0 Refills: 0 Ordered: 21-Jul-2022 Jun Samuel MD Start : 21-Jul-2022 Complete Start: 09-10-2021 Lidocaine HCl - 2 % Injection Solution inject 2 ml intr- articular Quantity: 0 Refills: 0 Ordered: 10-Sep-2021 Detec Ebonie NGUYEN Start : 10-Sep-2021 Complete Start: 08-29-2021 End: 08-29-2021 lidocaine PF 1 % injection Start: 05-03-2021 Lidocaine HCl - 2 % Injection Solution INJECT 2 ML Intra-articular Quantity: 0 Refills: 0 Ordered: 03-May-2021 Jun Samuel MD Start : 03-May-2021 Complete methylPREDNISolone 4 MG Oral Tablet Therapy Pack (20 sources) Start: 12-12-2021 methylPREDNISolone 4 MG Oral Tablet Therapy Pack Take as prescribed Quantity: 1 Refills: 0 Ordered: 12-Dec-2021 Ebonie Ortiz Start : 12-Dec-2021 Active 2 ml midazolam 1 mg/ml injection (3 sources) Benzodiazepine Start: 08-29-2021 End: 08-29-2021 midazolam (VERSED) injection 2 ml ondansetron 2 mg/ml injection (1 source) Serotonin-3 Receptor Antagonist Start: 08-29-2021 4 mg, IntraVENous, EVERY 8 HOURS PRN, Starting on Thu08/29/21 at 1141, Until Discontinued, Nausea, Vomiting, Recovery(IR) 1 ml triamcinolone acetonide 40 mg/ml injection (12 sources) Corticosteroid Start: 07-22-2024 End: 07-22-2024 triamcinolone acetonide (Kenalog-40) injection 40 mg Start: 07-22-2024 End: 07-22-2024 40 mg, intra-articular, Once PRN Procedure, Starting on Thu07/22/24 at 1619, For 1 dose Start: 06-12-2023 End: 06-12-2023 triamcinolone acetonide (Jovanni alog-40) injection 40 mg Start: 02-17-2023 End: 02-17-2023 triamcinolone acetonide (Jovanni alog-40) injection 40 mg Start: 07-21-2022 Triamcinolone Acetonide 40 MG/ML Injection Suspension INJECT 1 ML Intra-articular Quantity: 0 Refills: 0 Ordered: 21-Jul-2022 Jun Samuel MD Start : 21-Jul-2022 Complete Start: 03-07-2022 Triamcinolone Acetonide 40 MG/ML Injection Suspension INJECT 1 ML Intra-articular Quantity: 0 Refills: 0 Ordered: 07-Mar-2022 Jun Samuel MD Start : 07-Mar-2022 Complete Start: 03-07-2022 Triamcinolone Acetonide 40 MG/ML Injection Suspension INJECT 1 ML Intra-articular Quantity: 0 Refills: 0 Ordered: 07-Mar-2022 Jun Samuel MD Start : 07-Mar-2022 Complete Start: 09-10-2021 Triamcinolone Acetonide 40 MG/ML Injection Suspension INJECT 1 ML INTRA-ARTICULAR Quantity: 0 Refills: 0 Ordered: 10-Sep-2021 Detec Ebonie NGUYEN Start : 10-Sep-2021 Complete Start: 05-03-2021 Triamcinolone Acetonide 40 MG/ML Injection Suspension INJECT 1 ML Intra-articular Quantity: 0 Refills: 0 Ordered: 03-May-2021 Jun Samuel MD Start : 03-May-2021 Complete Problems Active Problems Problem Classification Problem Date Documented Da te Episodic/Chronic Allergic reactions (20 sources) Vesicular eczema; Translations: [Dyshidrosis] Episodic Asthma (20 sources) Asthma; Translations: [Asthma, unspecified type, unspecified] Onset: 03-08-2015 03-08-2015 Chronic Blindness and vision defects (20 sources) Disorder of refraction AND/OR accommodation; Translations: [Myopia, unspecified eye] Onset: 05-29-2022 05-29-2022 Episodic Cancer; other and unspecified primary (20 sources) H/O: malignant neoplasm; Translations: [Personal history of unspecified malignant neoplasm] Episodic Cancer; other and unspecified primary (1 source) History of squamous cell carcinoma; Translations: [Personal history of malignant neoplasm of other organs and systems] 11-24-2022 Episodic Cataract (20 sources) Combined form of senile cataract; Translations: [Combined forms of age-related cataract, unspecified eye] Onset: 05-29-2022 Resolved: 05-11-2023 12-22-2022 Chronic Chronic obstructive pulmonary disease and bronchiectasis (3 sources) Bronchitis; Translations: [Bronchitis, not specified as acute or chronic] Onset: 06-22-2024 06-22-2024 Episodic Deficiency and other anemia (2 sources) Anemia; Translations: [Anemia, unspecified] 11-09-2023 Episodic Deficiency and other anemia (2 sources) Iron deficiency anemia; Translations: [Iron deficiency anemia, unspecified] 03-17-2024 Episodic Disorders of lipid metabolism (20 sources) Hyperlipidemia; Translations: [Other and unspecified hyperlipidemia] Onset: 12-22-2022 12-22-2022 Chronic Headache; including migraine (20 sources) Ophthalmic migraine; 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 with aura, not intractable, without status migrainosus] Onset: 05-29-2022 12-22-2022 Chronic Immunizations and screening for infectious disease (1 source) Vaccination needed; Translations: [Encounter for immunization] 12-22-2022 Episodic Lymphadenitis (1 source) Posterior auricular lymphadenopathy; Translations: [Localized enlarged lymph nodes] 05-25-2023 Episodic Miscellaneous mental health disorders (20 sources) 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; 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] Onset: 12-22-2022 12-22-2022 Chronic Nutritional deficiencies (20 sources) Vitamin D deficiency; Translations: [Unspecified vitamin D deficiency] Onset: 03-11-2023 03-11-2023 Chronic Osteoarthritis (20 sources) Degenerative joint disease involving multiple joints; Translations: [Osteoarthrosis, generalized, multiple sites] Onset: 09-16-2022 12-22-2022 Chronic Other bone disease and musculoskeletal deformities (1 source) Cartilage disorder; Translations: [Disorder of cartilage, unspecified] 11-24-2022 Episodic Other congenital anomalies (1 source) 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; 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] 03-17-2024 Chronic Other congenital anomalies (2 sources) 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; 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] Onset: 03-17-2024 Chronic Other connective tissue disease (20 sources) Impingement syndrome of shoulder region; Translations: [Other affections of shoulder region, not elsewhere classified] Onset: 07-22-2024 Episodic Other connective tissue disease (20 sources) H/O: arthritis; Translations: [Personal history of arthritis] Episodic Other connective tissue disease (20 sources) Trochanteric bursitis; Translations: [Enthesopathy of hip region] Episodic Other connective tissue disease (9 sources) [...] [Partial tear of rotator cuff] Episodic Other connective tissue disease (6 sources) Supraspinatus tear; Translations: [Unspecified rotator cuff tear or rupture of right shoulder, not specified as traumatic] 05-20-2024 Episodic Other connective tissue disease (5 sources) Tear of left rotator cuff; Translations: [Unspecified rotator cuff tear or rupture of left shoulder, not specified as traumatic] 06-20-2024 Episodic Other connective tissue disease (3 sources) Unspecified rotator cuff tear or rupture of unspecified shoulder, not specified as traumatic; Translations: [Rotator cuff (capsule) sprain] Onset: 07-08-2024 07-08-2024 Episodic Other connective tissue disease (8 sources) Unspecified rotator cuff tear or rupture of right shoulder, not specified as traumatic; Translations: [Unspecified rotator cuff tear or rupture of right shoulder, not specified as traumatic] Onset: 05-20-2024 Episodic Other connective tissue disease (2 sources) Nontraumatic rotator cuff tear; Translations: [Unspecified rotator cuff tear or rupture of right shoulder, not specified as traumatic] 07-22-2024 Episodic Other connective tissue disease (1 source) Rotator cuff impingement syndrome; Translations: [Impingement syndrome of left shoulder] 07-22-2024 Episodic Other connective tissue disease (1 source) Impingement syndrome of left shoulder; Translations: [Impingement syndrome of left shoulder] Onset: 07-22-2024 Episodic Other connective tissue disease (1 source) Tear of right rotator cuff; Translations: [Unspecified rotator cuff tear or rupture of right shoulder, not specified as traumatic] 09-22-2024 Episodic Other endocrine disorders (20 sources) Male hypogonadism; Translations: [Other testicular hypofunction] Onset: 12-22-2022 12-22-2022 Chronic Other eye disorders (20 sources) Bilateral posterior vitreous detachment; Translations: [Vitreous degeneration, bilateral] Onset: 05-29-2022 05-29-2022 Chronic Other eye disorders (20 sources) Fuchs' corneal dystrophy; 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] Onset: 05-29-2022 12-22-2022 Episodic Other eye disorders (2 sources) Tear film insufficiency; Translations: [Dry eye syndrome of bilateral lacrimal glands] 05-04-2024 Episodic Other eye disorders (1 source) Dry eye syndrome of bilateral lacrimal glands; Translations: [Dry eye syndrome of both eyes] Onset: 10-17-2024 Episodic Other gastrointestinal disorders (20 sources) Oropharyngeal dysphagia; Translations: [Dysphagia, oropharyngeal phase] Episodic Other lower respiratory disease (20 sources) Cough; Translations: [Cough] 06-22-2024 Episodic Other lower respiratory disease (1 source) Cough; Translations: [Acute cough] 03-10-2024 Episodic Other male genital disorders (20 sources) Male erectile dysfunction, unspecified; Translations: [ED (erectile dysfunction)] Chronic Other nervous system disorders (6 sources) Other chronic pain; Translations: [Other chronic pain] Onset: 05-20-2024 Chronic Other non-epithelial cancer of skin (20 sources) [...] and foot] Episodic Other non-traumatic joint disorders (13 sources) Pain in right shoulder; Translations: [Pain in joint, shoulder region] Onset: 04-15-2022 Episodic Other non-traumatic joint disorders (1 source) Pain in right knee; Translations: [Pain in joint, lower leg] 02-17-2023 Episodic Other non-traumatic joint disorders (6 sources) Chronic pain of right upper limb; Translations: [Pain in right shoulder] 06-12-2023 Episodic Other nutritional; endocrine; and metabolic disorders (20 sources) Obesity; Translations: [Obesity, unspecified] Onset: 10-01-2017 12-22-2022 Chronic Other screening for suspected conditions (not mental disorders or infectious disease) (8 sources) Encounter for screening for malignant neoplasm of prostate; Translations: [Patient encounter status] Onset: 11-06-2023 Episodic Other skin disorders (8 sources) Disorder of skin of lower limb; Translations: [History of Skin lesion of right lower limb] Episodic Other skin disorders (11 sources) [place] of toe; Translations: [Corns and callosities] Episodic Other skin disorders (20 sources) Disorder of the skin and subcutaneous tissue, unspecified; Translations: [Mass of skin of right lower limb] Episodic Other skin disorders (1 source) Disorder of skin; Translations: [Other skin changes] 12-22-2022 Episodic Other upper respiratory disease (20 sources) Allergic rhinitis; Translations: [Allergic rhinitis, cause unspecified] Onset: 12-22-2022 12-22-2022 Chronic Comment on above: Added by Problem Lis yunior Migration; 2013-01-09; Moved to [facility] Feb 20 2013 4:35PM; Other upper respiratory infections (15 sources) Chronic maxillary sinusitis; Translations: [Chronic maxillary sinusitis] Onset: 03-08-2024 Resolved: 03-08-2024 03-08-2024 Chronic Pneumonia (except that caused by tuberculosis or sexually transmitted disease) (20 sources) Community acquired pneumonia; Translations: [Pneumonia, organism unspecified] Episodic Residual codes; unclassified (20 sources) Obstructive sleep apnea syndrome; Translations: [Obstructive sleep apnea (adult)(pediatric)] Onset: 01-07-2016 01-07-2016 Chronic Residual codes; unclassified (20 sources) Sleep apnea; Translations: [Sleep apnea, unspecified] Onset: 03-08-2015 03-08-2015 Chronic Residual codes; unclassified (2 sources) Obstructive sleep apnea (adult) (pediatric); Translations: [Obstructive sleep apnea (adult) (pediatric)] Onset: 01-10-2022 Chronic Retinal detachments; defects; vascular occlusion; and retinopathy (2 sources) Bilateral cystoid macular edema of retinas; 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, bilateral] Onset: 10-17-2024 10-17-2024 Chronic Spondylosis; intervertebral disc disorders; other back problems (4 sources) Spondylosis without myelopathy or radiculopathy, lumbar region; Translations: [Spondylosis without myelopathy or radiculopathy, cervical region] Onset: 12-19-2021 Chronic Unclassified (5 sources) Low back pain, unspecified; Translations: [Low back pain, unspecified] Onset: 12-19-2021 Unclassified (2 sources) Other low back pain; Translations: [Other low back pain] Onset: 12-30-2021 Unclassified (3 sources) Chronic pain of right upper limb 05-20-2024 Unclassified (1 source) Rotator cuff tear 07-08-2024 Unclassified (3 sources) Cough, unspecified; Translations: [Cough, unspecified] Onset: 06-22-2024 Unclassified (1 source) Acute cough; Translations: [Acute cough] Onset: 03-10-2024 Unclassified (1 source) Fuchs' corneal dystrophy of both eyes; 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] Onset: 10-17-2024 Viral infection (14 sources) Disease caused by 2019-nCoV; Translations: [COVID-19] Onset: 03-08-2024 Resolved: 03-08-2024 04-23-2023 Episodic Past or Other Problems Problem Classification Problem Date Documented Da te Episodic/Chronic Deficiency and other anemia (4 sources) Anemia, unspecified; Translations: [Anemia, unspecified] Onset: 11-09-2023 Episodic Deficiency and other anemia (2 sources) Iron deficiency anemia, unspecified; Translations: [Iron deficiency anemia, unspecified] Onset: 03-17-2024 Episodic Genitourinary symptoms and ill-defined conditions (20 sources) Dysuria; Translations: [Increased frequency of urination] Onset: 03-11-2023 Resolved: 03-11-2023 03-11-2023 Episodic Nonspecific chest pain (20 sources) Chest pain; Translations: [Chest pain, unspecified] Onset: 01-14-2017 01-14-2017 Episodic Other connective tissue disease (20 sources) Tendinitis of right rotator cuff; Translations: [Disorders of bursae and tendons in shoulder region, unspecified] Onset: 03-11-2023 03-11-2023 Episodic Other connective tissue disease (13 sources) Non-traumatic partial tear of right rotator cuff; Translations: [Incomplete rotator cuff tear or rupture of right shoulder, not specified as traumatic] Onset: 11-26-2023 06-12-2023 Episodic Other connective tissue disease (4 sources) Unspecified rotator cuff tear or rupture of left shoulder, not specified as traumatic; Translations: [Unspecified rotator cuff tear or rupture of left shoulder, not specified as traumatic] Onset: 06-20-2024 Episodic Other connective tissue disease (2 sources) Incomplete rotator cuff tear or rupture of right shoulder, not specified as traumatic; Translations: [Incomplete rotator cuff tear or rupture of right shoulder, not specified as traumatic] Onset: 11-26-2023 Episodic Other diseases of veins and lymphatics (20 sources) Varicocele; Translations: [Scrotal varices] Onset: 03-08-2015 Episodic Other eye disorders (20 sources) Dermatochalasis of right upper eyelid; Translations: [Dermatochalasis] Onset: 05-29-2022 05-29-2022 Episodic Other eye disorders (2 sources) Excess skin of eyelid; Translations: [Dermatochalasis of right upper eyelid] Onset: 05-29-2022 Episodic Other gastrointestinal disorders (20 sources) Dysphagia; Translations: [Dysphagia, unspecified] Onset: 12-22-2022 12-22-2022 Episodic Other lower respiratory disease (20 sources) H/O: respiratory disease; Translations: [Personal history of other infectious and parasitic diseases] Resolved: 12-22-2014 Episodic Other lower respiratory disease (20 sources) H/O: asthma; Translations: [Personal history of other diseases of respiratory system] Resolved: 01-18-2022 Episodic Other male genital disorders (20 sources) Persistent testicular pain; Translations: [Unspecified disorder of male genital organs] Onset: 03-11-2023 03-11-2023 Episodic Other non-traumatic joint disorders (20 sources) Shoulder pain; Translations: [Pain in joint, shoulder region] Onset: 03-11-2023 Resolved: 03-11-2023 03-11-2023 Episodic Other non-traumatic joint disorders (1 source) Pain in right hip; Translations: [Pain in right hip] Onset: 04-15-2022 Episodic Other non-traumatic joint disorders (3 sources) Pain in left shoulder; Translations: [Pain in left shoulder] Onset: 04-15-2022 Episodic Other non-traumatic joint disorders (1 source) Pain in left hip; Translations: [Pain in left hip] Onset: 01-10-2022 Episodic Other non-traumatic joint disorders (20 sources) Bilateral shoulder joint pain; Translations: [Pain in right shoulder] Onset: 05-21-2023 Resolved: 11-09-2023 05-21-2023 Episodic Other non-traumatic joint disorders (9 sources) [...] 04-16-2021 Episodic Other skin disorders (2 sources) Finding of neck region; Translations: [Localized swelling, mass and lump, neck] Onset: 10-01-2017 10-01-2017 Episodic Other upper respiratory disease (11 sources) Allergic rhinitis due to pollen; Translations: [Allergic rhinitis due to pollen] Onset: 03-08-2024 Resolved: 03-08-2024 03-08-2024 Chronic Other upper respiratory disease (20 sources) Hypertrophy [...] [History of chest pain] Resolved: 12-22-2014 Episodic Spondylosis; intervertebral disc disorders; other back problems (20 sources) Low back pain; Translations: [Lumbago] Onset: 03-11-2023 Resolved: 03-11-2023 03-11-2023 Episodic Comment on above: Added by Problem Ellyn Staples; 2013-01-09; Moved to [facility] Feb 20 2013 4:35PM; Unclassified (20 sources) History of clinical finding in subject; Translations: [History of cough] Resolved: 04-16-2021 Unclassified (2 sources) Low back pain, unspecified; Translations: [Low back pain, unspecified] Onset: 12-19-2021 Unclassified (1 source) Other low back pain; Translations: [Other low back pain] Onset: 12-30-2021 Unclassified (20 sources) Onset: 11-24-2022 Resolved: 10-10-2024 11-24-2022 Unclassified (1 source) Cough, unspecified; Translations: [Cough, unspecified] Onset: 06-22-2024 Unclassified (1 source) Acute cough; Translations: [Acute cough] Onset: 03-10-2024 NEGATED: Highlighted row has not occurred!Residual codes; unclassified (20 sources) Disease Episodic Results Test Name Value Interpretation Reference Range Facility Chest PA and Lateralon 10-31 Chest PA and Lateral [facility] Services [address] [place] [address] Chest PA and Lateral MR#: [id number] Acct: [id number] Name: ORBYN IRELAND Rep #: [id number] : 1945 M 78 From: Harris Nazario MD PCP: TRINH LOYOLA Status: REG CLI Study: Chest PA and Lateral Date of Exam: 10/31/24 Exam# [id number] Ordering Dr: Scottie Barnes PA PROCEDURE: CHEST PA AND LATERAL 10/31/2024 REASON FOR EXAM: COUGH TECHNIQUE: CHEST PA AND LATERAL COMPARISON: None. FINDINGS: Hardware: None. Heart: None. Mediastinum: Unremarkable. Lungs: Diffuse reticular pulmonary densities may represent pulmonary edema, pneumonitis or pneumonia. No pleural effusion or pneumothorax. Bones: No acute bony abnormalities. RAD/Chest PA and Lateral IMPRESSION: Diffuse reticular pulmonary densities may represent pulmonary edema, pneumonitis or pneumonia. Reading Location: [facility] CC: TRINH LOYOLA; ISAMAR Varma Inspector Balance Bridge: Signed Normal [facility] Office Visit Reporton 2024 Office Visit Report [facility] [address] [place] [address] OFFICE VISIT Date of Service: 10/30/24 MR#: [id number] Acct: [id number] Patient: ROBYN IRELAND Rep #: [id number] : 1945 Provider: ISAMAR Xie Age/Sex: 78/M Location: [facility] [place] [facility] [place] Status: Signed Intake Vital Signs 04/23/23 16:14 10/30/24 11:36 Height 5 ft 10 in BP 108/68 Blood Pressure Location Rt brachial Position Sitting Respiration 16 Pulse 62 Pulse Source NIBP Temp 99.0 F Temp Source Oral Pulse Oximetry (%) 96 Oxygen Delivery Method room air Intake Visit Reasons: CONCERN FOR FLU Chief Complaint: cough, fatigue, BA, fever 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 Required: No Is patient in pain?: No Allergies bacitracin (From Neosporin ([id number])) Allergy (Mild, Verified 10/30/24 11:37) Rash loratadine (From Claritin) Allergy (Mild, Verified 10/30/24 11:37) Rash neomycin (From Neosporin ([id number])) Allergy (Mild, Verified 10/30/24 11:37) Rash polymyxin B (From Neosporin ([id number])) Allergy (Mild, Verified 10/30/24 11:37) Rash ibuprofen Allergy (Verified 10/30/24 11:37) Other Sulfa (Sulfonamide Antibiotics) Allergy (Verified 10/30/24 11:37) Itching Medications ???Medication ???Instructions ???Recorded ???Confirmed ???Type azelastine 137 mcg (0.1 %) nasal 1 spray intranasal BID 10/30/24 History spray azithromycin 250 mg tablet See Rx Instructions PO .COMPLEX 5 10/30/24 10/30/24 Rx (Zithromax Z-Simon) days #6 tabs cholecalciferol (vitamin D3) 125 125 mcg PO QDAY 10/30/24 10/30/24 History mcg (5,000 unit) capsule ferrous sulfate 137 mg (45 mg 137 mg PO QDAY 10/30/24 10/30/24 H istory iron) tablet,extended release (Slow Fe) fluticasone propionate 50 2 spray intranasal QDAY 10/30/24 0 10/30/24 History mcg/actuation nasal spray,suspension mecobalamin (vitamin B12) 1,000 1,000 mcg PO QDAY 10/30/24 5 History mcg chewable tablet vitamins A,C,N-jkcq-aaxuzx 4,296 1 cap PO BID 10/30/24 10/30/24 His tory mcg-226 mg-90 mg capsule (PreserVision AREDS) Have you fallen in the past year?: No Nurse's Note: cough, fatigue, BA, fever x 4 days. pt concern for flu. admits to very strong fumes at home during remodel recently. pt agreeable to covid testing as recommended HPI HPI Chief Complaint: cough, fatigue, BA, fever Details: ROBYN IRELAND, is a 78 M who presents to the office today for fatigue, low-grade fever of 99-100, chronic cough that keeps him up at night. Because of his symptoms he will be tested for COVID and flu. He does not have any ear pain or sinus drainage. He just has a cough that is dry, low-grade fevers, fatigue and wanting to take naps. and body aches. ROS Const Constitutional: Positive for other (ROS negative x 6 except what is described above) Exam Const General: cooperative and well developed HENMT Head: normal to inspection and atraumatic Ears: hearing grossly normal bilaterally and TM's normal bilaterally Nose: nasal discharge clear Face and sinus: normal facial exam Mouth: oral mucosae normal Throat: posterior oropharynx normal Resp Effort Inspection: normal respiratory effort and no audible wheezes Auscultation: Bilateral: Rales Cardio Palpation: normal PMI Rate: regular rate Rhythm: regular rhythm Neuro General: patient alert and CN's II-XI intact bilaterally Psych Appearance: grossly normal Mental Status: mental status grossly normal Results POC FLU A B Office Flu A B Negative FLU A B Last Edit by Sheri Borges on 10/30/24 11:47 POC SARS AG POC SARS AG Negative Last Edit by Sheri Borges on 10/30/24 11:48 Coding Level of Care Code Off vis,est,level 3 Diagnoses Pneumonia J18.9 Assessment and Plan Assessment and Plan (1) Pneumonia: Status: Acute Plan: Based on patient's symptoms and exam we will treat him for pneumonia. He was negative for both flu and COVID. He was given a prescription for Zithromax. He was advised that if he does not feel any better he should see his PCP. He was also advised that we do not have x-ray available on the weekend and that is why if he still not improving he should see his PCP. Orders: Orders POC Rapid SARS Antigen Today POC FLU A B Today R05.9 - Cough, unspecified Medications: New azithromycin (Zithromax Z-Simon) For 250 mg dose pack: take 500 mg today (day 1), then 250 mg for 4 days (days 2-5) PO 5 days 6 tabs 0RF Clinical Quality Measures Falls Risk Screening/Assistive Devices Have you fallen in the past year?: No 10/30/24 1159 A> Date Macarena Franco Signature: Date (if applicable) CC: Normal [facility] OCT MACULA CIRRUS OU (BOTH E YES)on 10-17-2024 [facility] Radiology Study observation (narrative) [facility] L Inj/Asp: R subacromial bur saon 07-22-2024 Jun Samuel MD 07/22 4:21 PM L Inj/Asp: R subacromial bursa on 07/22/2024 4:19 PM Indications: pain Details: 22 G needle, posterior approach Medications: 40 mg triamcinolone acetonide 40 mg/mL; 2 mL lidocaine 20 mg/mL (2 %) Outcome: tolerated well, no immediate complications Procedure, treatment alternatives, risks and benefits explained, specific risks discussed. Consent was given by the patient. Immediately prior to procedure a time out was called to verify the correct patient, procedure, equipment, behaviour support teacher and site/side marked as required. Patient was prepped and draped in the usual sterile fashion. [facility] Work Phone: [facility] Work Phone: MR SHOULDER LEFT WO IV CONTR Viri 07-08-2024 MR SHOULDER LEFT WO IV CONTRAST Interpreted By: Dony Dennison, STUDY: MR SHOULDER LEFT WO IV CONTRAST; INDICATION: Signs/Symptoms:left rotator cuff tear. COMPARISON: Plain film radiographs of the left shoulder performed on May 25, 2023 ACCESSION NUMBER(S): [id number] ORDERING CLINICIAN: ROBERT CHRISTIAN TECHNIQUE: Multiplanar multisequential MRI left shoulder without contrast. FINDINGS: Small amount of partial-thickness articular surface tearing distal supraspinatus tendon without evidence of full-thickness rotator cuff tear. Other rotator cuff tendons are normal. Muscle volume normal without atrophy or edema. Some rotator cuff insertional cystic change noted at the greater tuberosity. Biceps intact. Degenerative tearing posterosuperior and posteroinferior labrum with adjacent subchondral cystic change along the posterior glenoid rim. There is also some blunting of the anterior labrum with adjacent subchondral edema also degenerative tearing. No sizeable effusion. No evidence of fracture. No marrow replacement lesion. Moderate acromioclavicular osteoarthritis. Mild subacromial subdeltoid bursitis. No focal fluid collections. No evidence of a soft tissue mass. IMPRESSION: Small amount of distal supraspinatus tendon tearing without full-thickness rotator cuff tear. Mild glenohumeral osteoarthritis with degenerative circumferential labral tearing. Moderate acromioclavicular osteoarthritis with some subacromial subdeltoid bursitis. Signed by: Dony Dennison 07/09/2024 10:36 AM Dictation workstation: [id number] [facility] MR SHOULDER RIGHT WO IV CONT Judith 07-08-2024 MR SHOULDER RIGHT WO IV CONTRAST Interpreted By: Dony Dennison, STUDY: MR SHOULDER RIGHT WO IV CONTRAST; INDICATION: Signs/Symptoms:right rotator cuff tear. COMPARISON: Previous MRI performed on September 16, 2022 ACCESSION NUMBER(S): [id number] ORDERING CLINICIAN: ROBERT CHRISTIAN TECHNIQUE: Multiplanar multisequential MRI right shoulder without contrast. FINDINGS: Evaluation of the rotator cuff demonstrates a small full-thickness tear of the distal supraspinatus tendon measuring an approximate 7 mm in size. This is superimposed on high-grade partial-thickness articular surface tearing of the entirety of the remainder of the supraspinatus. This has significantly progressed from prior. There is also some new partial tearing of the superior fibers of the subscapularis. Intra-articular biceps tendinosis without tear. Degenerative tearing posterosuperior and posteroinferior labrum with some adjacent subchondral cystic change and mild glenohumeral osteoarthritis. This has progressed from prior. No evidence of fracture. No marrow edema or marrow replacement process. Some joint effusion or synovitis. No other fluid collections. Mild acromioclavicular osteoarthritis similar to prior. IMPRESSION: Small full-thickness distal supraspinatus tendon tear slightly more prominent than prior study with extensive high-grade partial-thickness articular surface tearing. Partial tearing superior fibers subscapularis. Posterior labral tearing with glenohumeral osteoarthritis. Joint effusion with some synovitis. Signed by: Dony Dennison 07/09/2024 10:34 AM Dictation workstation: [id number] [facility] Comment on above: Order Comment: PT [facility] HE HAS COILS IN GROIN AREA STATES HE HAS HAD MRI'S SINCE COIL PLACEMENT WITH NO ISSUES COILS PLACED 4 OR 5 YEARS AGO XR EYE FOREIGN BODYon 2024 XR EYE FOREIGN BODY Interpreted By: Amish Vega, STUDY: XR EYE FOREIGN BODY; ; 07/08/2024 5:35 pm INDICATION: Signs/Symptoms:MRI clearance. ,M75.100 Unspecified rotator cuff tear or rupture of unspecified shoulder, not specified as traumatic COMPARISON: None. ACCESSION NUMBER(S): [id number] ORDERING CLINICIAN: ROBERT CHRISTIAN FINDINGS: There are no radiopaque foreign bodies overlying the orbits or other vital structures. No acute osseous abnormalities. IMPRESSION: No evidence of metallic foreign body overlying the orbits or other vital structures. MACRO: None Signed by: Amish Lerner 07/08/2024 5:57 PM Dictation workstation: [id number] [facility] XR eye foreign bodyon 2024 No evidence of metal lic foreign body overlying the orbits or other vital structures. MACRO: None Signed by: Amish Lerner 07/08/2024 5:57 PM Dictation workstation: [id number] MMODAL Interpreted By: Amish Vega, STUDY: XR EYE FOREIGN BODY; ; 07/08/2024 5:35 pm INDICATION: Signs/Symptoms:MRI clearance. ,M75.100 Unspecified rotator cuff tear or rupture of unspecified shoulder, not specified as traumatic COMPARISON: None. ACCESSION NUMBER(S): [id number] ORDERING CLINICIAN: ROBERT CHRISTIAN FINDINGS: There are no radiopaque foreign bodies overlying the orbits or other vital structures. No acute osseous abnormalities. [facility] MMODAL Amish Lerner MD - 07/08/2024 Interpreted By: Amish Lerner, STUDY: XR EYE FOREIGN BODY; ; 07/08/2024 5:35 pm INDICATION: Signs/Symptoms:MRI clearance. ,M75.100 Unspecified rotator cuff tear or rupture of unspecified shoulder, not specified as traumatic COMPARISON: None. ACCESSION NUMBER(S): [id number] ORDERING CLINICIAN: ROBERT CHRISTIAN FINDINGS: There are no radiopaque foreign bodies overlying the orbits or other vital structures. No acute osseous abnormalities. IMPRESSION: No evidence of metallic foreign body overlying the orbits or other vital structures. MACRO: None Signed by: Amish Lerner 07/08/2024 5:57 PM Dictation workstation: [id number] [facility] Work Phone: Radiology Study observation (narrative) [facility] Work Phone: XR eye foreign bodyOrdered B y: Amish Lerner on 07-08-2024 [facility] Work Phone: No Panel InformationOrdered By: Maribeth Dia on 06-22-2024 [facility] POCT [employer] Covid-[address] manually resultedon 06-22-2024 SARS-CoV-2 (COVID-19) Ag IA.rapid Ql (Resp) Presumptive negative test for SARS-CoV-2 (no antigen detected) Presumptive negative test for SARS-CoV-2 (no antigen detected) [facility] Work Phone: POCT Influenza A/B manually resultedOrdered By: Maribeth Dia on 06-22-2024 POC Rapid Influenza A Negative Negative [facility] POC Rapid Influenza B Negative Negative [facility] SARS-CoV-2 (COVID-19) Ag IA. rapid Ql (Resp)on 06-22-2024 [employer] [facility] Covid Expiration 09/18/2025 [facility] Work Phone: [employer] Covid Serial Number [id number] [facility] Work Phone: ECG 12 lead - CLINIC PERFORM EDon 06-08-2024 Sinus Bradycardia Nonspecific QRS widening [facility] 37on 06-06-2024 37 ASCVD Risk Normal [facility] Office Visiton 06-06-2024 Follow-up visit [id number] Akil Ireland Casimiro 1945 M Date Provider Department Center 06/06/2024 [id number] [facility] [address] Ar Family History Problem Relation Age of Onset Other Mother Comments: lung disease Arthritis Mother Fuchs' dystrophy Mother Cataracts Mother Thyroid disease Mother Cancer Father Comments: Tumor in heart High Blood Pressure Father Heart disease Father Comments: heart tumor cardiac pacemaker Obesity Sister High Blood Pressure Brother Fuchs' dystrophy Brother Cataracts Brother Thyroid disease Brother Fuchs' dystrophy Father's Sister Cataracts Paternal Grandfather Stroke Paternal Grandfather Thyroid disease Daughter Glaucoma Neg Hx Macular degeneration Neg Hx Family Status - Relation Status Age at Mother 89 Notes: Eye issues Father Sister Alive Notes: 1 sister Brother Alive Notes: 3 brothers Brother Father's Sister Paternal Grandfather Daughter Alive Notes: Nicole's disease Neg Hx Level of Service:68469 ME OFFICE/OUTPATIENT NEW LOW MDM 30 MINUTES Reason for Visit and Comments: Establish Care [42] [facility] Progress Noteon 06-06-2024 Progress Note [facility] - [address] [address] Dept: [phone] Dept Loc: [phone] Visit type: New patient Dr. Bustamante Reason for Visit: Establish Care Assessment and Plan Recurrent pericarditis, resolved -see details in HPI -No further cardiac testing indicated at this time; EKG normal Hyperlipidemia, uncontrolled -LDL 157 (March 2024) -Continue with diet and lifestyle modification -He does not wish to pursue pharmacotherapy at this time; information given in AVS for Mediterranean diet -Repeat lipid panel yearly Follow up in about 1 year (around 06/06/2025). Subjective HPI 77yo M following with Dr. Bustamante for a remote history of recurrent pericarditis. He had a catheterization 20 years ago which was reported to be normal he had no symptoms to suggest a reoccurrence of his pericarditis. He last saw Dr. Bustamante in October 2023. He had an elevated LDL of 140 and wanted to trial diet and lifestyle modification prior to pharmacotherapy for primary prevention. Patient seen and examined in the office today to establish. He continues to do well from a cardiac standpoint. His biggest complaint is arthritis pain. He is active and enjoys horticulture. ROS as below. Review of Systems Constitutional: Negative for fatigue and unexpected weight change. Respiratory: Negative for shortness of breath. Cardiovascular: Negative for chest pain, palpitations and leg swelling. Musculoskeletal: Positive for arthralgias. Neurological: Negative for dizziness, syncope and light-headedness. Hematological: Does not bruise/bleed easily. Allergies Allergen Reactions Hydrocortisone Swelling Ibuprofen Swelling and Other nightmares/sleep disturbance, night terrors Aspirin Other Asthma Bacitracin-Polymyxin B Hives Loratadine Hives Lteeg-Bmjhi-Uowdsuv-Pramoxi ne Other Dxjqwwry-Zyajjnoah-Ykumlktp in Rash Sulfa Antibiotics Itching and Rash Current Outpatient Medications Medication Instructions azelastine (Astelin) 0.1 % nasal spray 1 spray, 2 times daily cholecalciferol (VITAMIN D-3) 5,000 Units, Daily cyanocobalamin (VITAMIN B-12) 1,000 mcg, Daily docusate sodium (Stool Softener) 150 MG/15ML oral liquid Every 24 hours fluticasone (Flonase) 50 MCG/ACT nasal spray 1 spray, Daily Multiple Vitamins-Minerals (PRESERVISION AREDS 2 PO) Take by mouth. Slow Fe 137 mg, Daily Past Medical History: Diagnosis Date Asthma Combined [...] SURGERY NOSE SURGERY 05/2014 turbinate reduction surgery ROOT CANAL 05/30/2024 d/t abcess SKIN CANCER EXCISION Left left calf TESTICLE SURGERY Left 08/29/2021 Dr. Cano TONSILLECTOMY (HISTORICAL) Family History Problem Relation Name Age of Onset Other (78949) Mother Pollee P Hruby lung disease Arthritis Mother Pollee P Hruby Fuchs' dystrophy Mother Pollee P Hruby Cataracts Mother Pollee P Hruby Thyroid disease Mother Pollee P Hruby Cancer Father Emma [place] Tumor in heart High Blood Pressure Father Emma Hruby Jr Heart disease Father Emma Hruby Jr heart tumor cardiac pacemaker Obesity Sister High Blood Pressure Brother Uvaldo [place] Hruby Fuchs' dystrophy Brother Uvaldo [place] Hruby Cataracts Brother Uvaldo [place] Hruby Thyroid disease Brother David [place] Hruby Fuchs' dystrophy Father's Sister Aurora Mota Cataracts Paternal Grandfather Emma Concepcion Hruby Stroke Paternal Grandfather Emma Concepcion Hruby Thyroid disease Daughter Glaucoma Neg Hx Macular degeneration Neg Hx Objective BP 108/64 (BP Location: Left arm, Patient Position: Sitting, BP Cuff Size: Adult) Pulse 57 Ht 5' 10 (1.778 m) Wt 238 lb (108 kg) BMI 34.15 kg/m? Physical Exam Constitutional: General: He is not in acute distress. Appearance: Normal appearance. He is obese. HENT: Head: Normocephalic and atraumatic. Neck: Vascular: No JVD. Cardiovascular: Rate and Rhythm: Normal rate and regular rhythm. Pulses: Nor (more content not included)... Normal [facility] CBC (INCLUDES DIFF/PLT)on Basophils (Bld) [#/Vol] 0.062 10*3/uL Normal 0-200 [facility] Comment on above: Performed By: #### 9 36, 794, 3151, 6680 #### [facility] [address] [facility], [address] [place] [id number] Hr Director: Vikas Lomas MD Basophils/100 WBC (Bld) 1.0 % Normal [facility] Comment on above: Performed By: #### 9 49, 214, 3803, 6058 #### [facility] [address] , [address] [place] [phone] Hr Director: Vikas Lomas MD Eosinophils (Bld) [#/Vol] 0.149 10*3/uL Normal 15-500 [facility] Comment on above: Performed By: #### 9 , 466, 7573, 6399 #### [facility] [place] [address] Hr Director: Vikas Lomas MD Eosinophils/100 WBC (Bld) 2.4 % Normal [facility] Comment on above: Performed By: #### 9 , , 7573, 6399 #### [facility] [place] [address] Hr Director: Vikas Lomas MD Erythrocyte distribution width (RBC) [Ratio] 12.6 % Normal 11.0-15.0 [facility] Comment on above: Performed By: #### 9 , , 7573, 6399 #### [facility] [place] [address] Hr Director: Vikas Lomas MD Hematocrit (Bld) [Volume fraction] 41.2 % Normal 38.5-50.0 [facility] Comment on above: Performed By: #### 9 , , 7573, 6399 #### [facility] [place] [address] Hr Director: Vikas Lomas MD Hemoglobin (Bld) [Mass/Vol] 13.4 g/dL Normal 13.2-17.1 [facility] Comment on above: Performed By: #### 9 , , 7573, 6399 #### [facility] [place] [address] Hr Director: Vikas Lomas MD Lymphocytes (Bld) [#/Vol] 1.99 10*3/uL Normal 850-3900 [facility] Comment on above: Performed By: #### 9 , 466, 7573, 6399 #### [facility] [place] [address] Hr Director: Vikas Lomas MD Lymphocytes/100 WBC (Bld) 32.1 % Normal [facility] Comment on above: Performed By: #### 9 , 466, 7573, 6399 #### [facility] [place] [address] Hr Director: Vikas Lomas MD MCH (RBC) [Entitic mass] 30.5 pg Normal 27.0-33.0 [facility] Comment on above: Performed By: #### 9 , , 4955, 6399 #### [facility] [place] [address] Hr Director: Vikas Lomas MD MCHC (RBC) [Mass/Vol] 32.5 g/dL Normal 32.0-36.0 [facility] Comment on above: Result Comment: For adults, a slight decrease in the calculated MCHC value (in the range of 30 to 32 g/dL) is most likely not clinically significant; however, it should be interpreted with caution in correlation with other red cell parameters and the patient's clinical condition. Performed By: #### 9 , , 8926, 6399 #### [facility] [place] [address] Hr Director: Vikas Lomas MD MCV (RBC) [Entitic vol] 93.8 fL Normal 80.0-100.0 [facility] Comment on above: Performed By: #### 9 , , 7888, 7399 #### [facility] [place] [address] Hr Director: Vikas Lomas MD Monocytes (Bld) [#/Vol] 0.608 10*3/uL Normal 200-950 [facility] Comment on above: Performed By: #### 9 , , 0773, 6399 #### [facility] [place] [address] Hr Director: Vikas Lomas MD Monocytes/100 WBC (Bld) 9.8 % Normal [facility] Comment on above: Performed By: #### 9 , , 3417, 5899 #### [facility] [place] [address] Hr Director: Vikas Lomas MD Neutrophils (Bld) [#/Vol] 3.391 10*3/uL Normal 8693-1138 [facility] Comment on above: Performed By: #### 9 27, 466, 7573, 6399 #### [facility] of [address], [address] [place] [address] Hr Director: Vikas Lomas MD Neutrophils/100 WBC (Bld) 54.7 % Normal [facility] Comment on above: Performed By: #### 9 27, 466, 7573, 6399 #### [facility] of [address], [address] [place] [address] Hr Director: Vikas Lomas MD Platelet mean volume (Bld) [Entitic vol] 11.1 fL Normal 7.5-12.5 [facility] Comment on above: Performed By: #### 9 27, 466, 7573, 6399 #### [facility] of [address], [address] [place] [address] Hr Director: Vikas Lomas MD Platelets (Bld) [#/Vol] 175 10*3/uL Normal 140-400 [facility] Comment on above: Performed By: #### 9 27, 466, 7573, 6399 #### [facility] of [address], [address] [place] [address] Hr Director: Vikas Lomas MD RBC (Bld) [#/Vol] 4.39 10*6/uL Normal 4.20-5.80 [facility] Comment on above: Performed By: #### 9 , 466, 7573, 6399 #### [facility] of [address], [address] [place] [address] Hr Director: Vikas Lomas MD WBC (Bld) [#/Vol] 6.2 10*3/uL Normal 3.8-10.8 [facility] Comment on above: Performed By: #### 9 , 466, 7573, 6399 #### [facility] of [address], [address] [place] [address] Hr Director: Vikas Lomas MD COMPREHENSIVE METABOLIC PANE L W/ANION GAPon 05-21-2024 Albumin [Mass/Vol] 4.3 g/dL Normal 3.6-5.1 [facility] Comment on above: Performed By: #### 7 600, 10136 #### [facility] [place] [address] Hr Director: Vikas Lomas MD ALP [Catalytic activity/Vol] 64 U/L Normal 35-144 [facility] Comment on above: Performed By: #### 7 600, 31966 #### [facility] [place] [address] Hr Director: Vikas Lomas MD ALT [Catalytic activity/Vol] 17 U/L Normal 9-46 [facility] Comment on above: Performed By: #### 7 600, 34838 #### [facility] [place] [address] Hr Director: Vikas Lomas MD AST [Catalytic activity/Vol] 21 U/L Normal 10-35 [facility] Comment on above: Performed By: #### 7 600, 03028 #### [facility] [place] [address] Hr Director: Vikas Lomas MD Bilirubin [Mass/Vol] 0.5 mg/dL Normal 0.2-1.2 [facility] Comment on above: Performed By: #### 7 600, 77720 #### [facility] [place] [address] Hr Director: Vikas Lomas MD Calcium [Mass/Vol] 9.5 mg/dL Normal 8.6-10.3 [facility] Comment on above: Performed By: #### 7 600, 28816 #### [facility] [place] [address] Hr Director: Vikas Lomas MD Chloride [Moles/Vol] 102 mmol/L Normal 98-110 [facility] Comment on above: Performed By: #### 7 600, 58064 #### [facility] of [address], [address] [place] [address] Hr Director: Vikas Lomas MD CO2 [Moles/Vol] 29 mmol/L Normal 20-32 [facility] Comment on above: Performed By: #### 7 600, 41693 #### [facility] [place] [address] Hr Director: Vikas Lomas MD Creatinine [Mass/Vol] 0.72 mg/dL Normal 0.70-1.28 [facility] Comment on above: Performed By: #### 7 600, 26211 #### [facility] [place] [address] Hr Director: Vikas Lomas MD ELECTROLYTE BALANCE 8 mmol/L (calc) Normal 7-17 [facility] Comment on above: Performed By: #### 7 600, 31986 #### [facility] [place] [address] Hr Director: Vikas Lomas MD GFR/1.73 sq M.predicted among non-blacks MDRD (S/P/Bld) [Vol rate/Area] 94 mL/min/{1.73_m2} Normal > OR = 60 [facility] Comment on above: Performed By: #### 7 600, 64498 #### [facility] [place] [address] Hr Director: Vikas Lomas MD Glucose [Mass/Vol] 89 mg/dL Normal 65-99 [facility] Comment on above: Result Comment: Fasting reference interval Performed By: #### 7 600, 60718 #### [facility] [place] [address] Hr Director: Vikas Lomas MD Potassium [Moles/Vol] 4.5 mmol/L Normal 3.5-5.3 [facility] Comment on above: Performed By: #### 7 600, 10487 #### [facility] of [address] [place] [address] Hr Director: Vikas Lomas MD Protein [Mass/Vol] 6.9 g/dL Normal 6.1-8.1 [facility] Comment on above: Performed By: #### 7 600, 97766 #### [facility] of [address], [address] [place] [address] Hr Director: Vikas Lomas MD Sodium [Moles/Vol] 139 mmol/L Normal 135-146 [facility] Comment on above: Performed By: #### 7 600, 34162 #### [facility] [place] [address] Hr Director: Vikas Lomas MD Urea nitrogen [Mass/Vol] 13 mg/dL Normal 7-25 [facility] Comment on above: Performed By: #### 7 600, 74545 #### [facility] [place] [address] Hr Director: Vikas Lomas MD FERRITINon 05-21-2024 Ferritin [Mass/Vol] 49 ng/mL Normal 24-380 [facility] Comment on above: Performed By: #### 9 27, 466, 1494, 2136 #### [facility] [place] [address] Hr Director: Vikas Lomas MD FOLATE, SERUMon 05-21-2024 Folate [Mass/Vol] 12.7 ng/mL Normal [facility] Comment on above: Result Comment: Refe rence Range Low: <3.4 Borderline: 3.4-5.4 Normal: >5.4 Performed By: #### 9 27, 466, 1324, 1199 #### [facility] [place] [address] Hr Director: Vikas Lomas MD IRON AND TOTAL IRON BINDING CAPACITYon 05-21-2024 % SATURATION 25 % (calc) Normal 20-48 [facility] Comment on above: Order Comment: FASTI NG:NO FASTING: NO Performed By: #### 9 27, 466, 2395, 9899 #### [facility] [address], [address] [place] [address] Hr Director: Vikas Lomas MD IRON BINDING CAPACITY 381 mcg/dL (calc) Normal 250-425 [facility] Comment on above: Order Comment: FASTI NG:NO FASTING: NO Performed By: #### 9 27, 466, 7573, 6399 #### [facility] [place] [address] Hr Director: Vikas Lomas MD IRON, TOTAL 95 mcg/dL Normal 50-180 [facility] Comment on above: Order Comment: FASTI NG:NO FASTING: NO Performed By: #### 9 27, 466, 7573, 6399 #### [facility] [place] [address] Hr Director: Vikas Lomas MD LIPID PANEL, [facility] 05-01 Cholesterol [Mass/Vol] 233 mg/dL High <200 [facility] Comment on above: Order Comment: FASTI NG:YES FASTING: YES Performed By: #### 7 600, 96969 #### [facility] [place] [address] Hr Director: Vikas Lomas MD Cholesterol in HDL [Mass/Vol] 50 mg/dL Normal > OR = 40 [facility] Comment on above: Order Comment: FASTI NG:YES FASTING: YES Performed By: #### 7 600, 88538 #### [facility] [place] [address] Hr Director: Vikas Lomas MD Cholesterol in LDL [Mass/Vol] 157 mg/dL High [facility] Comment on above: Order Comment: FASTI NG:YES FASTING: YES Result Comment: Refe rence range: <100 Desirable range <100 mg/dL for primary prevention; <70 mg/dL for patients with CHD or diabetic patients with > or = 2 CHD risk factors. LDL-C is now calculated using the Victor M calculation, which is a validated novel method providing better accuracy than the Friedewald equation in the estimation of LDL-C. Lupillo BLUE et al. REDDY. 2013;310(19): 7497-6200 (http://education.eSoft.Changelight/faq/KUX017) Performed By: #### 7 600, 67110 #### [facility] [address], [address] [place] [address] Hr Director: Vikas Lomas MD Cholesterol.total/C holesterol in HDL [Mass ratio] 4.7 {ratio} Normal <5.0 [facility] Comment on above: Order Comment: FASTI NG:YES FASTING: YES Performed By: #### 7 600, 75597 #### [facility] [address], [address] [place] [address] Hr Director: Vikas Lomas MD NON HDL CHOLESTEROL 183 mg/dL (calc) High <130 [facility] Comment on above: Order Comment: FASTI NG:YES FASTING: YES Result Comment: For patients with diabetes plus 1 major ASCVD risk factor, treating to a non-HDL-C goal of <100 mg/dL (LDL-C of <70 mg/dL) is considered a therapeutic option. Performed By: #### 7 600, 15758 #### [facility] [place] [address] Hr Director: Vikas Lomas MD Triglyceride [Mass/Vol] 131 mg/dL Normal <150 [facility] Comment on above: Order Comment: FASTI NG:YES FASTING: YES Performed By: #### 7 600, 26599 #### [facility] [place] [address] Hr Director: Vikas Lomas MD VITAMIN B12on 05-21-2024 Cobalamin (Vitamin B12) [Mass/Vol] 565 pg/mL Normal 200-1100 [facility] Comment on above: Performed By: #### 9 54, 610, 6013, 6038 #### [facility] [place] [address] Hr Director: Vikas Lomas MD CORNEAL TOPOGRAPHY PENTACAM OU (BOTH EYES)on 05-04-2024 [facility] Radiology Study observation (narrative) [facility] Sinus/Facial Boneon 03-11-20 Sinus/Facial Bone [facility] Imaging Services [address] [place] [address] Sinus/Facial Bone MR#: [id number] Acct: [id number] Name: ROBYN IRELAND Rep #: [id number] : 1945 M 78 From: Pollo Valente PCP: TRINH LOYOLA Status: REG CLI Study: Sinus/Facial Bone Date of Exam: 03/11/24 Exam# [id number] Ordering Dr: Obinna Green MD [id number] INDICATION: Chronic sinusitis EXAMINATION: CT SINUSES - CT Maxillofacial W/O Contrast Injection TECHNIQUE: Helically acquired images were obtained of the paranasal sinuses. A radiation dose optimization technique was used for this scan. IV Contrast dosage and agent: No contrast administered. Radiation Dose (provided by facility) CTDIvol (NA ) mGy, DLP ( NA) mGy-cm COMPARISON: 06/11/2023 FINDINGS: POSTOPERATIVE CHANGES: None Paranasal sinuses- MAXILLARY SINUSES: Mucosal thickening in the maxillary antra with negligible interval change. No air-fluid levels noted. The ostiomeatal complexes are narrowed but patent. No evidence of emma occlusion. ETHMOID SINUSES: Diffuse mucosal thickening within ethmoid complexes without air-fluid level or emma sinus opacification. FRONTAL SINUSES: Mild mucosal thickening within the frontal sinuses with mild contact thickening within the distal recesses reflect however are completely included SPHENOID SINUSES: Sphenoid sinuses are clear, sphenoid ostia are patent. Nasal passages- NASAL SEPTUM: Midline in position, no bony spurs noted. TURBINATES: She has had normal configuration, there is mild bilateral inferior turbinate hypertrophy. No evidence of nasal passages occlusion.. There is pneumatization of the vertical lamella of the middle turbinates without evidence of fluid or soft tissue accumulation. CRIBRIFORM PLATE AND FOVEA ETHMOIDALIS: Normal Facial skeleton- FACIAL SKELETON AND ORBITS: Within normal limits. CT/Sinus/Facial Bone IMPRESSION: 1. Stable exam. 2. Persistent diffuse of mucosal thickening in ethmoid and maxillary sinuses. There is mild persistent narrowing of the ostiomeatal complexes and the frontal recesses, however no evidence of air-fluid levels, emma sinus opacification or obstruction of drainage catheter. 3. Persistent anterior turbinate hypertrophy bilaterally without evidence of nasal passage obstruction.. Electronically Signed: Pollo Lino MD at 18:12 EST , CC: Dr. Obinna Green MD; TRINH LOYOLA Inspector Balance Bridge: Signed Normal [facility] CBC W Auto Differential pane l (Bld)on 03-04-2024 Basophils (Bld) [#/Vol] 0.08 x10*3/uL Normal 0.00-0.10 [facility] Comment on above: Performed By: #### 5 7021-8 #### JORGE HELM ([id number]) [facility] ([facility]) [address] [place] [address] 17918 Basophils/100 WBC (Bld) 0.8 % Normal 0.0-2.0 [facility] Comment on above: Performed By: #### 5 7021-8 #### JORGE HELM ([id number]) [facility] ([facility]) [address] [place] [address] 41335 Eosinophils (Bld) [#/Vol] 0.20 x10*3/uL Normal 0.00-0.40 [facility] Comment on above: Performed By: #### 5 7021-8 #### JORGE HELM ([id number]) [facility] ([facility]) [address] [place] [address] 47071 Eosinophils/100 WBC (Bld) 1.9 % Normal 0.0-6.0 [facility] Comment on above: Performed By: #### 5 7021-8 #### JORGE HELM ([id number]) [facility] ([facility]) [address] [place] [address] 95284 Erythrocyte distribution width (RBC) [Ratio] 12.8 % Normal 11.5-14.5 [facility] Comment on above: Performed By: #### 5 7021-8 #### JORGE HELM ([id number]) [facility] ([facility]) [address] [place] [address] 72849 Hematocrit (Bld) [Volume fraction] 39.3 % Low 41.0-52.0 [facility] Comment on above: Performed By: #### 5 7021-8 #### JORGE HELM ([id number]) [facility] ([facility]) [address] [place] [address] Hemoglobin (Bld) [Mass/Vol] 12.6 g/dL Low 13.5-17.5 [facility] Comment on above: Performed By: #### 5 7021-8 #### JORGE HELM ([id number]) [facility] ([facility]) [address] [place], [place] [address] Immature granulocytes (Bld) [#/Vol] 0.08 x10*3/uL Normal 0.00-0.50 [facility] Comment on above: Performed By: #### 5 7021-8 #### JORGE HELM ([id number]) [facility] ([facility]) [address] [place], [place] [address] Immature granulocytes/100 WBC (Bld) 0.8 % Normal 0.0-0.9 [facility] Comment on above: Result Comment: Ciara ture Granulocyte Count (IG) includes promyelocytes, myelocytes and metamyelocytes but does not include bands. Percent differential counts (%) should be interpreted in the context of the absolute cell counts (cells/UL). Performed By: #### 5 7021-8 #### JORGE HELM ([id number]) [facility] ([facility]) [address] [place] [address] 67510 Lymphocytes (Bld) [#/Vol] 2.59 x10*3/uL Normal 0.80-3.00 [facility] Comment on above: Performed By: #### 5 7021-8 #### JORGE HELM ([id number]) [facility] ([facility]) [address] [place] [address] 11399 Lymphocytes/100 WBC (Bld) 25.0 % Normal 13.0-44.0 [facility] Comment on above: Performed By: #### 5 7021-8 #### JORGE HELM ([id number]) [facility] ([facility]) [address] [place] [address] 90872 MCH (RBC) [Entitic mass] 30.9 pg Normal 26.0-34.0 [facility] Comment on above: Performed By: #### 7021-8 #### JORGE HELM ([id number]) [facility] ([facility]) [address] [place] [address] 48474 MCHC (RBC) [Mass/Vol] 32.1 g/dL Normal 32.0-36.0 [facility] Comment on above: Performed By: #### 7021-8 #### JORGE HELM ([id number]) [facility]) [address] [place] [address] 12658 MCV (RBC) [Entitic vol] 96 fL Normal 80-100 [facility] Comment on above: Performed By: #### 7021-8 #### JORGE HELM ([id number]) [facility] ([facility]) [address] [place] [address] 84044 Monocytes (Bld) [#/Vol] 1.11 x10*3/uL High 0.05-0.80 [facility] Comment on above: Performed By: #### 5 7021-8 #### JORGE HELM ([id number]) [facility] ([facility]) [address] [place] [address] 28712 Monocytes/100 WBC (Bld) 10.7 % Normal 2.0-10.0 [facility] Comment on above: Performed By: #### 5 7021-8 #### JORGE HELM ([id number]) [facility] ([facility]) [address] [place] [address] 63961 Neutrophils (Bld) [#/Vol] 6.29 x10*3/uL High 1.60-5.50 [facility] Comment on above: Result Comment: Perc ent differential counts (%) should be interpreted in the context of the absolute cell counts (cells/uL). Performed By: #### 5 7021-8 #### JORGE HELM ([id number]) [facility] ([facility]) [address] [place] [address] 04897 Neutrophils/100 WBC (Bld) 60.8 % Normal 40.0-80.0 [facility] Comment on above: Performed By: #### 5 7021-8 #### JORGE HELM ([id number]) [facility] ([facility]) [address] [place] [address] 95154 Nucleated RBC/100 WBC (Bld) [Ratio] 0.0 /100 WBCs Normal 0.0-0.0 [facility] Comment on above: Performed By: #### 5 7021-8 #### JORGE HELM ([id number]) [facility] ([facility]) [address] [place] [address] 85451 Platelets (Bld) [#/Vol] 190 x10*3/uL Normal 150-450 [facility] Comment on above: Performed By: #### 5 7021-8 #### JORGE HELM ([id number]) [facility] ([facility]) [address] [place] [address] 40997 RBC (Bld) [#/Vol] 4.08 x10*6/uL Low 4.50-5.90 [facility] Comment on above: Performed By: #### 5 7021-8 #### JORGE HELM ([id number]) [facility]) [address] [place] [address] 04813 WBC (Bld) [#/Vol] 10.4 x10*3/uL Normal 4.4-11.3 [facility] Comment on above: Performed By: #### 5 7021-8 #### JORGE HELM ([id number]) [facility] ([facility]) [address] [place] [address] 94166 Cobalaminson 03-04-2024 Cobalamin (Vitamin B12) [Mass/Vol] 211 pg/mL Normal 211-911 [facility] Comment on above: Performed By: #### 2 132-9 #### JORGE HELM ([id number]) [facility] ([facility]) [address] [place] [address] 34983 Ferritinon 03-04-2024 Ferritin [Mass/Vol] 107 ng/mL Normal 20-300 [facility] Comment on above: Performed By: #### 2 276-4 #### JORGE HELM ([id number]) [facility]) [address] [place] [address] 96608 Folateon 03-04-2024 Folate [Mass/Vol] 11.4 ng/mL Normal >5.0 [facility] Comment on above: Order Comment: Low < 3.4 Borderline 3.4-5.0 Normal >5.0 Patients receiving more than 5 mg/day of biotin may have interference in test results. A sample should be taken no sooner than eight hours after previous dose. Contact the testing laboratory for additional information. Performed By: #### 2 284-8 #### JORGE HELM ([id number]) [facility] ([facility]) [address] [place] [address] 13064 Iron and Iron binding capaci ty panelon 03-04-2024 Iron [Mass/Vol] 41 ug/dL Normal 35-150 [facility] Comment on above: Performed By: #### 5 0190-8 #### JORGE HELM ([id number]) [facility] ([facility]) [address] [place] [address] 10136 Iron binding capacity [Mass/Vol] 330 ug/dL Normal 240-445 [facility] Comment on above: Performed By: #### 5 0190-8 #### JORGE HELM ([id number]) [facility] ([facility]) [address] [place] [address] 33547 Iron binding capacity.unsaturate d [Mass/Vol] 289 ug/dL Normal 110-370 [facility] Comment on above: Performed By: #### 5 0190-8 #### JORGE HELM ([id number]) [facility] ([facility]) [address] [place] [address] Iron saturation [Mass fraction] 12 % Low 25-45 [facility] Comment on above: Performed By: #### 5 0190-8 #### PATEL VOLODYMYR ([id number]) [facility] ([facility]) [address] [place] [address] Nasopharyngeal Cultureon NAC Gram positive dennis suggestive of a diphtheroid. Susceptibility not normally performed on this organism Nasopharyngeal Culture ORGANISM IDENTIFICATION: Corynebacterium otitidis Testing performed by a combination of broth microdilution and gradient elution. Nasopharyngeal Culture SUSCEPTIBILITY, GRAM POS RODS TEST OSIRIS/INTERPRETATION UNITS ERYTHROMYCIN OSIRIS <=0.5 S ug/mL GENTAMICIN OSIRIS <=4 S ug/mL PENICILLIN OSIRIS <=.12 S ug/mL RIFAMPIN OSIRIS <=1 S ug/mL *Note Rifampin should not be used alone for chemotherapy. TETRACYCLINE OSIRIS <=4 S ug/mL VANCOMYCIN OSIRIS <=2 S ug/mL Nasopharyngeal Culture S= SUSCEPTIBLE I= INTERMEDIATE R= RESISTANT __ TESTING PERFORMED AT [facility]. ORIGINAL REPORT ON FILE IN LAB CONTAINS ADDITIONAL TEST SITE INFORMATION. ___ Corynebacterium otitidis Amount Growth 3+ * This is an amended result. * A prior result that was reported as final has been changed. 02/15/24 1515 by MELISA [facility] Comment on above: Performed By: #### M 100.2500, M100.1999 #### [facility] [address] [place], [address] Gram Stainon 02-07-2024 GS Positive Normal [facility] Comment on above: Performed By: #### M 100.2500, .1999 #### [facility] [address] [place], [address] POCT UA Automated manually r esultedon 11-09-2023 Appearance (U) Clear Clear [facility] Work Phone: [phone] Glucose Test strip (U) [Mass/Vol] Negative NEGATIVE mg/dl [facility] Work Phone: [phone] Hemoglobin Ql (U) Negative NEGATIVE [facility] Work Phone: [phone] Leukocyte esterase Test strip Ql (U) Negative NEGATIVE [facility] Work Phone: [phone] Nitrite Ql (U) Negative NEGATIVE [facility] Work Phone: [phone] pH (U) 7.5 [pH] No Reference Range Established [facility] Work Phone: [phone] POC Bilirubin, Urine Negative NEGATIVE [facility] Work Phone: [phone] POC Color, Urine Yellow Straw, Yellow, Light-Yellow [facility] Work Phone: [phone] POC Ketones, Urine Negative NEGATIVE mg/dl [facility] Work Phone: [phone] POC Protein, Urine Negative NEGATIVE, 30 (1+) mg/dl [facility] Work Phone: [phone] POC Specific [place], Urine 1.015 1.005 - 1.035 [facility] Work Phone: [phone] POC Urobilinogen, Urine 0.2 0.2, 1.0 EU/DL [facility] Work Phone: [phone] [facility] Work Phone: [phone] CBC panel Auto (Bld)on 11-05 Erythrocyte distribution width (RBC) [Ratio] 13.2 % Normal 11.5-14.5 [facility] Comment on above: Performed By: #### 5 8410-2 #### JORGE HELM ([id number]) [facility] ([facility]) [address] [place] [address] Hematocrit (Bld) [Volume fraction] 40.5 % Low 41.0-52.0 [facility] Comment on above: Performed By: #### 5 8410-2 #### JORGE HELM ([id number]) [facility] ([facility]) [address] [place] [address] 71425 Hemoglobin (Bld) [Mass/Vol] 13.1 g/dL Low 13.5-17.5 [facility] Comment on above: Performed By: #### 5 8410-2 #### JORGE HELM ([id number]) [facility] ([facility]) [address] [place] [address] 09836 MCH (RBC) [Entitic mass] 31.0 pg Normal 26.0-34.0 [facility] Comment on above: Performed By: #### 5 8410-2 #### JORGE HELM ([id number]) [facility] ([facility]) [address] [place] [address] 58287 MCHC (RBC) [Mass/Vol] 32.3 g/dL Normal 32.0-36.0 [facility] Comment on above: Performed By: #### 5 8410-2 #### JORGE HELM ([id number]) [facility]) [address] [place] [address] 25887 MCV (RBC) [Entitic vol] 96 fL Normal 80-100 [facility] Comment on above: Performed By: #### 5 8410-2 #### JORGE HELM ([id number]) [facility] ([facility]) [address] [place] [address] 42123 Nucleated RBC/100 WBC (Bld) [Ratio] 0.0 /100 WBCs Normal 0.0-0.0 [facility] Comment on above: Performed By: #### 5 8410-2 #### JORGE HELM ([id number]) [facility] ([facility]) [address] [place] [address] 69723 Platelets (Bld) [#/Vol] 154 x10*3/uL Normal 150-450 [facility] Comment on above: Performed By: #### 5 8410-2 #### JORGE HELM ([id number]) [facility] ([facility]) [address] [place] [address] RBC (Bld) [#/Vol] 4.22 x10*6/uL Low 4.50-5.90 [facility] Comment on above: Performed By: #### 5 8410-2 #### JORGE HELM ([id number]) [facility]) [address] [place] [address] WBC (Bld) [#/Vol] 8.6 x10*3/uL Normal 4.4-11.3 [facility] Comment on above: Performed By: #### 5 8410-2 #### JORGE HELM ([id number]) [facility]) [address] [place] [address] Comprehensive metabolic 2000 panelon 11-06-2023 Albumin BCP dye [Mass/Vol] 4.0 g/dL Normal 3.4-5.0 [facility] Comment on above: Performed By: #### 2 4323-8 #### JORGE HELM ([id number]) [facility]) [address] [place] [address] ALP [Catalytic activity/Vol] 68 U/L Normal 33-136 [facility] Comment on above: Performed By: #### 2 4323-8 #### JORGE HELM ([id number]) [facility]) [address] [place] [address] 37216 ALT With P-5'-P [Catalytic activity/Vol] 14 U/L Normal 10-52 [facility] Comment on above: Result Comment: Tonie ents treated with Sulfasalazine may generate falsely decreased results for ALT. Performed By: #### 2 4323-8 #### JORGE HELM ([id number]) [facility]) [address] [place] [address] Anion gap [Moles/Vol] 11 mmol/L Normal 10-20 [facility] Comment on above: Performed By: #### 2 4322-8 #### JORGE HELM ([id number]) [facility]) [address] [place] [address] AST With P-5'-P [Catalytic activity/Vol] 18 U/L Normal 9-39 [facility] Comment on above: Performed By: #### 2 432-8 #### JORGE HELM ([id number]) [facility]) [address] [place] [address] Bilirubin [Mass/Vol] 0.9 mg/dL Normal 0.0-1.2 [facility] Comment on above: Performed By: #### 2 4322-8 #### JORGE HELM ([id number]) [facility]) [address] [place] [address] 72376 Calcium [Mass/Vol] 8.8 mg/dL Normal 8.6-10.3 [facility] Comment on above: Performed By: #### 2 4322-8 #### JORGE HELM ([id number]) [facility]) [address] [place] [address] Chloride [Moles/Vol] 104 mmol/L Normal 98-107 [facility] Comment on above: Performed By: #### 2 4322-8 #### JORGE HELM ([id number]) [facility]) [address] [place] [address] CO2 [Moles/Vol] 28 mmol/L Normal 21-32 [facility] Comment on above: Performed By: #### 2 4322-8 #### JORGE HELM ([id number]) [facility]) [facility] [place] [address] Creatinine [Mass/Vol] 0.74 mg/dL Normal 0.50-1.30 [facility] Comment on above: Performed By: #### 2 4322-8 #### JORGE HELM ([id number]) [facility]) [address] [place] [address] 13128 GFR/1.73 sq M.predicted MDRD (S/P/Bld) [Vol rate/Area] mL/min/{1.73_m2} Normal >60 [facility] Comment on above: Result Comment: Calc ulations of estimated GFR are performed using the 2020 CKD-EPI Study Refit equation without the race variable for the IDMS-Traceable creatinine methods. https://jasn.asnjournals.org/content/early/ASN.07745290 88 Performed By: #### 2 4323-8 #### JORGE HELM ([id number]) [facility]) [address] [place] [address] 11833 Glucose [Mass/Vol] 98 mg/dL Normal 74-99 [facility] Comment on above: Performed By: #### 2 4323-8 #### JORGE HELM ([id number]) [facility]) [address] [place] [address] 44087 Potassium [Moles/Vol] 4.0 mmol/L Normal 3.5-5.3 [facility] Comment on above: Performed By: #### 2 4323-8 #### JORGE HELM ([id number]) [facility]) [address] [place] [address] 95718 Protein [Mass/Vol] 6.4 g/dL Normal 6.4-8.2 [facility] Comment on above: Performed By: #### 2 4323-8 #### JORGE HELM ([id number]) [facility]) [address] [place] [address] 39153 Sodium [Moles/Vol] 139 mmol/L Normal 136-145 [facility] Comment on above: Performed By: #### 2 4323-8 #### JORGE HELM ([id number]) [facility]) [address] [place] [address] 34948 Urea nitrogen [Mass/Vol] 11 mg/dL Normal 6-23 [facility] Comment on above: Performed By: #### 2 4323-8 #### JORGE HELM ([id number]) [facility]) [address] [place] [address] 32409 Lipid 1996 panelon 4 Cholesterol [Mass/Vol] 209 mg/dL High 0-199 [facility] Comment on above: Result Comment: Age Desirable Borderline High High 0-19 Y 0 - 169 170 - 199 >/= 200 20-24 Y 0 - 189 190 - 224 >/= 225 >24 Y 0 - 199 200 - 239 >/= 240 All ranges are based on fasting samples. Specific therapeutic targets will vary based on patient-specific cardiac risk. Pediatric guidelines reference:Pediatrics 2011, 128(S5).Adult guidelines reference: NCEP ATPIII Guidelines,REDDY 2001, 258:2486-97 Venipuncture immediately after or during the administration of Metamizole may lead to falsely low results. Testing should be performed immediately prior to Metamizole dosing. Performed By: #### 2 4331-1 #### JORGE HELM ([id number]) [facility]) [address] [place] [address] 45617 Cholesterol in HDL [Mass/Vol] 43.0 mg/dL Normal [facility] Comment on above: Result Comment: Age Very Low Low Normal High 0-19 Y < 35 < 40 40-45 ---- 20-24 Y ---- < 40 >45 ---- >24 Y ---- < 40 40-60 >60 Performed By: #### 2 4331-1 #### JORGE HELM ([id number]) [facility]) [address] [place] [address] 53430 Cholesterol in LDL [Mass/Vol] 142 mg/dL High <=99 [facility] Comment on above: Result Comment: Near Borderline AGE Desirable Optimal High High Very High 0-19 Y 0 - 109 --- 110-129 >/= 130 ---- 20-24 Y 0 - 119 --- 120-159 >/= 160 ---- >24 Y 0 - 99 100-129 130-159 160-189 >/=190 Performed By: #### 2 4331-1 #### JORGE HELM ([id number]) [facility]) [address] [place] [address] 23486 Cholesterol in VLDL [Mass/Vol] 24 mg/dL Normal 0-40 [facility] Comment on above: Performed By: #### 2 4331-1 #### JORGE HELM ([id number]) [facility]) [address] [place] [address] 88893 CHOLESTEROL/HDL RATIO 4.[address] [facility] Comment on above: Result Comment: Ref Values Desirable < 3.4 High Risk > 5.0 Performed By: #### 2 4331-1 #### JORGE HELM ([id number]) [facility]) [address] [place] [address] 27861 NON HDL CHOLESTEROL 166 mg/dL High 0-149 [facility] Comment on above: Result Comment: Age Desirable Borderline High High Very High 0-19 Y 0 - 119 120 - 144 >/= 145 >/= 160 20-24 Y 0 - 149 150 - 189 >/= 190 ---- >24 Y 30 mg/dL above LDL Cholesterol goal Performed By: #### 2 4331-1 #### JORGE HELM ([id number]) [facility]) [address] [place] [address] 59409 Triglyceride [Mass/Vol] 122 mg/dL Normal 0-149 [facility] Comment on above: Result Comment: Age Desirable Borderline High High Very High 0 D-90 D 19 - 174 ---- ---- ---- 91 D- 9 Y 0 - 74 75 - 99 >/= 100 ---- 10-19 Y 0 - 89 90 - 129 >/= 130 ---- 20-24 Y 0 - 114 115 - 149 >/= 150 ---- >24 Y 0 - 149 150 - 199 200- 499 >/= 500 Venipuncture immediately after or during the administration of Metamizole may lead to falsely low results. Testing should be performed immediately prior to Metamizole dosing. Performed By: #### 2 [id number] #### JORGE HELM ([id number]) [facility] ([facility]) [address] [place] [address] Prostate specific Agon 11-05 Prostate specific Ag [Mass/Vol] 2.04 ng/mL Normal <=4.00 [facility] Comment on above: Order Comment: The F DA requires that the method used for PSA assay be reported to the physician. Values obtained with different assay methods must not be used interchangeably. This test was performed at [facility] using the [employer] PSA assay is a two-site immunoenzymatic sandwich assay. The assay is approved for measurement of prostate-specific antigen (PSA)in serum and may be used in conjunction with a digital rectal examination in men 50 years and older as an aid in detection of prostate cancer. 9-Jeykl-xlphvrdzg inhibitors (e.g. Proscar, Finasteride, Avodart, Dutasteride and Rashmi) for the treatment of BPH have been shown to lower PSA levels by an average of 50% after 6 months of treatment. Performed By: #### 2 [id number] #### PATEL VOLODYMYR ([id number]) [facility] ([facility]) [facility] [place] [address] Office Visiton 09-30-2023 Follow-up visit [id number] Akil Ireland 1945 M Date Provider Department [place] 09/30/2023 00330-NKMBPLEONARDO BUSTAMANTE [facility] WR None Family History Problem Relation Age of Onset Other Mother Comments: lung disease Arthritis Mother Fuchs' dystrophy Mother Cataracts Mother Thyroid disease Mother Cancer Father Comments: Tumor in heart High Blood Pressure Father Heart disease Father Comments: heart tumor cardiac pacemaker Obesity Sister High Blood Pressure Brother Fuchs' dystrophy Brother Cataracts Brother Thyroid disease Brother Fuchs' dystrophy Father's Sister Cataracts Paternal Grandfather Stroke Paternal Grandfather Thyroid disease Daughter Glaucoma Neg Hx Macular degeneration Neg Hx Family Status - Relation Status Age at Mother 89 Notes: Eye issues Father Sister Alive Notes: 1 sister Brother Alive Notes: 3 brothers Brother Father's Sister Paternal Grandfather Daughter Alive Notes: Nicole's disease Neg Hx Level of Service:[id number] ME OFFICE/OUTPATIENT ESTABLISHED MOD MDM 30 MIN Reason for Visit and Comments: Follow-up [[id number]] Shortness of Breath [[id number]] Normal [facility] Progress Noteon 07-03-2024 Progress Note Subjective: Patient: Robyn Ireland is a 77 y.o. male HPI Robyn Ireland is 77 years old he was last seen in December he has a history of sleep apnea and a remote history of pericarditis. For his pericarditis he had use nonsteroidal. He currently lives in [facility]. He had a catheterization 20 years ago which was reported to be normal he had no symptoms to suggest a reoccurrence of his pericarditis and he uses a CPAP device for his sleep apnea. He is on no cardiac medications his last weight 239 during his last visit he remained active he had more complaints of arthritis. I asked him to continue his CPAP device. In the past he has had an elevated LDL of 140 I recommended a statin therapy he wanted to try diet first EKG was normal today presents in follow-up for her remote history of pericarditis and elevated lipids. Review of Systems Constitutional: Negative. HENT: Negative. Eyes: Positive for visual disturbance (catarac surgery see;sbetter). Respiratory: Negative. Cardiovascular: Positive for chest pain (Sharp bilateral last seconds, not consistent with anginal-like pain). Gastrointestinal: Negative. Endocrine: Negative. Genitourinary: Negative. Musculoskeletal: Negative. Skin: Negative. Allergic/Immunologic: Negative. Neurological: Negative. Hematological: Negative. Psychiatric/Behavioral: Negative. Allergies Allergen Reactions Hydrocortisone Swelling Ibuprofen Swelling and Other nightmares/sleep disturbance, night terrors Aspirin Other Asthma Bacitracin-Polymyxin B Hives Loratadine Hives Vaymk-Jufyj-Mshcqna-Pramoxi ne Other Gwklfhao-Hzjpyujdi-Ugdeztjz in Rash Sulfa Antibiotics Itching and Rash @MEDCMED@ Past Medical History: Diagnosis Date Asthma Combined forms of age-related cataract of both eyes DDD (degenerative disc disease), cervical Dermatochalasis of both upper eyelids Deviated septum Fuchs' corneal dystrophy of both eyes Hyperlipidemia Ocular migraine Osteoarthritis Lumbar Pericarditis PVD (posterior vitreous detachment), both eyes Sleep apnea Spondylosis Surgery, other elective Turbinate reduction Varicocele Left teste Visual floaters Past Surgical History: Procedure Laterality Date APPENDECTOMY [...] Problem Relation Name Age of Onset Other (33562) Mother Pollee P Hruby lung disease Arthritis Mother Pollee P Hruby Fuchs' dystrophy Mother Pollee P Hruby Cataracts Mother Pollee P Hruby Thyroid disease Mother Pollee P Hruby Cancer Father Emma Hruby Jr Tumor in heart High Blood Pressure Father Emma Hruby Jr Heart disease Father Emma Hruby Jr heart tumor cardiac pacemaker Obesity Sister High Blood Pressure Brother Uvaldo [place] Hruby Fuchs' dystrophy Brother Uvaldo [place] Hruby Cataracts Brother Uvaldo [place] Hruby Thyroid disease Brother David [place] Hruby Fuchs' dystrophy Father's Sister Aurora Mota Cataracts Paternal Grandfather Emma Concepcion Hruby Stroke Paternal Grandfather Emma Olverauby Thyroid disease Daughter Glaucoma Neg Hx Macular degeneration Neg Hx Social History Tobacco Use Smoking status: Former Types: Pipe Smokeless tobacco: Never Tobacco comments: Occasionally smoked a pipe, but NEVER SINCE Mar 30, 1975 Substance Use Topics Alcohol use: Yes Alcohol/week: 3.0 standard drinks of alcohol Types: 3 Cans of beer per week Objective: BP 130/70 (BP Location: Left arm, Patient Position: Sitting, BP Cuff Size: Adult) Pulse 69 Ht 5' 10 (1.778 m) Wt 233 lb (106 kg) SpO2 96% BMI 33.43 kg/m? Physical Exam Vitals and nursing note reviewed. [...] baseline. Psychiatric: Mood and Affect: Mood normal. Behav (more content not included)... [facility] 36on 08-11-2023 36 Patient called and l eft message on Triage line. He believes he has an infection in his left eye. He contacted [facility] and has an appointment with the Cow Tender today. [facility] 36 Patient called back and information was relayed to him. He thanked everyone for following up and apologized for missing the call. [facility] 36on 08-10-2023 36 Left a message for t he patient to return my call. [facility] 36 Patient received you letter and wanted to wish you well. Also he recently had cataract surgery. He was diagnosis with james Boateng. He wanted to know if you knew of budget officer he could share this information with. He would like to help others who had had this. [facility] L Inj/Asp: R subacromial bur saon 06-12-2023 Ebonie Hernandez Detec, DISC INSPECTOR -HEAD MIXER 06/12/2023 2:49 PM L Inj/Asp: R subacromial bursa on 06/12/2023 2:47 PM Indications: pain Details: 22 G needle, posterior approach Medications: 40 mg triamcinolone acetonide 40 mg/mL; 2 mL lidocaine 20 mg/mL (2 %) Procedure, treatment alternatives, risks and benefits explained, specific risks discussed. Consent was given by the patient. [facility] Work Phone: [facility] Work Phone: US Head and neck soft tissue on 05-25-2023 Unremarkable exam. Signed by: Get Santiago 05/25/2023 4:43 PM Dictation workstation: [id number] [facility]AL Interpreted By: Gte Abdi, STUDY: US HEAD NECK SOFT TISSUE 05/25/2023 3:52 pm INDICATION: 77 y/o M with Signs/Symptoms:postauricula r lymphadenopathy right. COMPARISON: None. ACCESSION NUMBER(S): [id number] ORDERING CLINICIAN: TRINH LOYOLA TECHNIQUE: Routine ultrasound and color Doppler of the neck posteriorly was performed. Static images and color Doppler analysis were obtained for remote interpretation. FINDINGS: CERVICAL LYMPHADENOPATHY: Scanning at the neck posteriorly demonstrates unremarkable cutaneous and subcutaneous layer, without cystic or solid lesion. There is no adenopathy. MMODAL Get Santiago MD - 05/25/2023 Interpreted By: Get Santiago, STUDY: US HEAD NECK SOFT TISSUE 05/25/2023 3:52 pm INDICATION: 77 y/o M with Signs/Symptoms:postauricula r lymphadenopathy right. COMPARISON: None. ACCESSION NUMBER(S): [id number] ORDERING CLINICIAN: TRINH LOYOLA TECHNIQUE: Routine ultrasound and color Doppler of the neck posteriorly was performed. Static images and color Doppler analysis were obtained for remote interpretation. FINDINGS: CERVICAL LYMPHADENOPATHY: Scanning at the neck posteriorly demonstrates unremarkable cutaneous and subcutaneous layer, without cystic or solid lesion. There is no adenopathy. IMPRESSION: Unremarkable exam. Signed by: Get Santiago 05/25/2023 4:43 PM Dictation workstation: [id number] [facility] Work Phone: Radiology Study observation (narrative) [facility] Work Phone: US Head and neck soft tissue Ordered By: Get Santiago on 05-25-2023 [facility] Work Phone: XR Shoulder - bilateral 2 Vi ewson 05-25-2023 LEFT SHOULDER-modera tely severe degenerative changes of the AC joint. 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 MACRO: None Signed by: Alexander Gay 05/25/2023 3:28 PM Dictation workstation: [id number] MMODAL Interpreted By: Alexander Buitrago, STUDY: XR SHOULDER 2+ VIEWS BILATERAL; ; 05/25/2023 2:40 pm INDICATION: Signs/Symptoms:BILATERAL SHOULDER PAIN. COMPARISON: 05/03/2021 ACCESSION NUMBER(S): [id number] ORDERING CLINICIAN: EBONIE MOORE FINDINGS: LEFT SHOULDER-AP, Y, INTERNAL OBLIQUE VIEWS: The glenohumeral joint is normal in width. No periarticular calcification. Moderately severe degenerative changes are present at the AC joint with narrowing of the joint and osteophyte formation. RIGHT SHOULDER-Grashey, axillary, AP and Y-views The glenohumeral joint is normal in width. No periarticular calcification. Moderate narrowing of the AC joint is present. [facility] Alexander Gay MD - 05/25/2023 Interpreted By: Alexander Gay, STUDY: XR SHOULDER 2+ VIEWS BILATERAL; ; 05/25/2023 2:40 pm INDICATION: Signs/Symptoms:BILATERAL SHOULDER PAIN. COMPARISON: 05/03/2021 ACCESSION NUMBER(S): [id number] ORDERING CLINICIAN: EBONIE MOORE FINDINGS: LEFT SHOULDER-AP, Y, INTERNAL OBLIQUE VIEWS: The glenohumeral joint is normal in width. No periarticular calcification. Moderately severe degenerative changes are present at the AC joint with narrowing of the joint and osteophyte formation. RIGHT SHOULDER-Grashey, axillary, AP and Y-views The glenohumeral joint is normal in width. No periarticular calcification. Moderate narrowing of the AC joint is present. IMPRESSION: LEFT SHOULDER-moderately severe degenerative changes of the AC joint. 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 MACRO: None Signed by: Alexander Gay 05/25/2023 3:28 PM Dictation workstation: [id number] [facility] Work Phone: Radiology Study observation (narrative) [facility] Work Phone: XR Shoulder - bilateral 2 Vi ewsOrdered By: Alexander Gay on 05-25-2023 [facility] Work Phone: No Panel Informationon 04-23 POC SARS CoV-2 Antigen Positive [facility] ANES POSTPROC EVALon 024 ANES POSTPROC EVAL HNO ID: [id number] Author: JORGE MARTÍNEZ MD Service: Anesthesiology Author Type: Anesthesiologist Type: Anesthesia Postprocedure Evaluation Filed: 04/07/2023 12:29 Note Text: POST ANESTHESIA EVALUATION NOTE : 1945 Procedure Summary Date: 04/07/23 Room / Location: [facility] / [facility] Anesthesia Start: 1146 Anesthesia Stop: 1225 Procedure: PHACOEMULSIFICATION CATARACT IMPLANT INTRAOCULAR LENS W/O ENDOSCOPIC CYCLOPHOTOCOAGULATION (Right: Eye) Diagnosis: Combined forms of age-related cataract of right eye (Combined forms of age-related cataract of right eye [H25.811]) Surgeons: Bran Monk MD Responsible Provider: Jorge Martínez MD Anesthesia Type: MAC ASA Status: 3 Anesthesia Type: MAC Last Vitals Vitals Value Taken Time BP 102/58 04/07/23 1229 Temp 36.8 04/07/23 1229 Pulse 50 04/07/23 1229 Resp 18 04/07/23 1229 SpO2 58 04/07/23 1229 Post Anesthesia Patient Status Patient Evaluation: bedside. Anticipated Disposition: phase 2 then home. Neurological Status: aware and responsive. Pulmonary Status: breathing comfortably on room air Airway Control: returned to baseline unsupported. Cardiovascular Status: stable. Pain Management: clinically adequate Postoperative Hydration: acceptable. Intraoperative Events: no significant anesthesia events Post Operative Nausea/Vomiting Status: no significant post operative nausea or vomiting Recommendation: continue current plan of care. Anesthesia Observations No Documentation SIGNATURE: Jorge Martínez MD PATIENT NAME: Robyn Ireland DATE: April 07, 2023 TIME: 12:29 PM CSN: [id number] [facility] ANES PRE-OPon 04-07-2023 ANES PRE-OP HNO ID: [id number] Author: JORGE MARTÍNEZ MD Service: Anesthesiology Author Type: Anesthesiologist Type: Anesthesia Preprocedure Evaluation Filed: 04/07/2023 11:11 Note Text: ANESTHESIOLOGY DAY OF SURGERY NOTE : 1945 Procedure Information Date/Time: 04/07/23 1210 Procedure: PHACOEMULSIFICATION CATARACT IMPLANT INTRAOCULAR LENS W/O ENDOSCOPIC CYCLOPHOTOCOAGULATION (Right) Location: [place] [address] / [facility] Surgeons: Bran Monk MD Estimated body mass index is 34.29 kg/m? as calculated from the following: Height as of this encounter: 177.8 cm (5' 10). Weight as of this encounter: 108.4 kg (239 lb). Most recent hematocrit and potassium results: No results found for this basename: HCT,HEMATOCRIT,K,POTASSIUM Relevant Problems ANESTHESIA (+) SIOMARA (obstructive sleep apnea) PULMONARY (+) SIOMARA (obstructive sleep apnea) I - PHYSICAL EVALUATION AIRWAY Patient intubated: No. Tracheostomy tube not present Mallampati: III. TM distance: >3 FB. Neck ROM: full ROM without neurological symptoms. Mouth opening: adequate. Short neck: no. Thick neck: yes DENTAL Dental findings: teeth intact and chipped. II - ANESTHESIA PLAN ASA Score: 3 Anesthetic Plan: MAC The patient is not a current smoker. NPO Status: adequate Beta Marcie Monitoring Plan Monitoring plan: standard ASA. Post Procedure Analgesic Plan Postoperative analgesic plan: parenteral or oral opioids and multimodal analgesia. Informed Consent Anesthetic risks, benefits, alternatives, personnel and consent discussed: yes. Patient / Responsible Green Party agrees to proceed: yes Patient / Surrogate agrees to blood products: blood products not planned DNR status not reviewed with patient and/or family prior to surgery. Significant changes in the patient condition since the History and Physical, not otherwise documented in primary service progress note: no. Potential Anesthesia issues that may suggest increased risk of complications or contraindication to planned procedure: none. Discussed the possibility of lip / dental damage: yes Vitals Value Taken Time BP 97/61 04/07/23 1103 Pulse 47 04/07/23 1103 Resp 16 04/07/23 1103 Temp 36.1 ?C (96.9 ?F) 04/07/23 1103 SpO2 96 % 04/07/23 1103 Facility-Administered Medications as of 04/07/2023 Medication Dose Route Frequency - [COMPLETED] cyclopentolate 1%-tropicamide 1%-PHENYLephrine 2.5% ophthalmic drops 1 Drop RIGHT EYE q 3 min Outpatient Medications as of 04/07/2023 Medication Sig - ofloxacin (OCUFLOX) 0.3 % ophthalmic solution Use 1 Drop in the right eye four times daily. - keTORolac (ACULAR) 0.5 % ophthalmic solution Use 1 Drop in the right eye four times daily. - keTORolac (ACULAR) 0.5 % ophthalmic solution Use 1 Drop in the left eye four times daily. - prednisoLONE acetate (PRED FORTE) 1 % ophthalmic suspension Use 1 Drop in the left eye four times daily. - Cholecalciferol, Vitamin D3, 125 mcg (5,000 unit) cap Take 5,000 Units by mouth. - vit C/E/Zn/coppr/lutein/zeaxan (PRESERVISION AREDS-2 ORAL) Take 1 tablet by mouth two times a day. - CPAP New Set up: Settings IPAP max 25 EPAP min 4 and PS 4 cm H2O, suitable mask per pt preference, chin strap, head gear, humidity, heated tubing (FAUSTINO), lifetime supplies. G47.33 SIOMARA - prednisoLONE acetate (PRED FORTE) 1 % ophthalmic suspension Use 1 Drop in the right eye four times daily. - [] ofloxacin (OCUFLOX) 0.3 % ophthalmic solution Use 1 Drop in the left eye four times daily. - guaiFENesin (HUMIBID E) 400 mg tab Take 400 mg by mouth. (Patient not taking: Reported on 04/07/2023) - pantoprazole DR (PROTONIX) 20 mg tablet Take 20 mg by mouth twice daily. (Patient not taking: Reported on 03/02/2023) - CPAP Please provide pt with PAP supplies: mask(pt pref), chin strap, heated tubing AND heated humidity, filters. Lifetime supplies. SIOMARA G47.33. - fexofenadine HCl (PARADISE ORAL) Take by mouth as needed. I have interviewed and examined the patient. I have reviewed the medical record and/or the pre-anesthesia evaluation, pertinent labs, and test results. This contains updated information obtained within 48 hours of Surgery/Procedure. SIGNATURE: Jorge Martínez MD PATIENT NAME: Robyn Ireland DATE: April 07, 2023 TIME: 11:11 AM CSN: [id number] [facility] HISTORY PHYSICALon HISTORY PHYSICAL HNO ID: [id number] Author: BRAN MONK MD Service: Ophthalmology Author Type: Physician Type: H&P Filed: 04/07/2023 11:58 Note Text: UPDATED HISTORY AND PHYSICAL EXAMINATION SERVICE DATE: 04/07/2023 SERVICE TIME: 11:57 AM PHYSICAL EXAM MUST BE COMPLETED ON ADMISSION The History and Physical (completed in the past 30 days) has been reviewed and the patient has been examined. The contents accurately reflect the patient's condition with the following additions or revisions since the HANDP was completed. Examination indicates no changes. This HANDP can be found in the scanned documents dated 03/26/23. SIGNATURE: Bran Monk MD PATIENT NAME: Robyn Ireland DATE: April 07, 2023 TIME: 11:57 AM PAGER: [facility] OPERATIVE NOon 04-07-2023 OPERATIVE NO HNO ID: [id number] Author: BRAN MONK MD Service: Ophthalmology Author Type: Physician Type: Operative Report Filed: 04/07/2023 12:26 Note Text: OPERATIVE/PROCEDURE REPORT OPHTHAMOLOGY LOG ID: [id number] Surgery/Procedure Date: 04/07/2023 Incision/Procedure Start Time: 12:06 PM Incision Close/Procedure End Time: 12:23 PM Surgeon(s)/Proceduralist(s) and Loss Control Manager(s): Surgeon(s) and Role: * Bran Monk MD - Primary Procedure(s): Procedure(s) (LRB): PHACOEMULSIFICATION CATARACT IMPLANT INTRAOCULAR LENS W/O ENDOSCOPIC CYCLOPHOTOCOAGULATION (Right) Preoperative Diagnosis: Combined forms of age-related cataract of right eye [H25.811] Postoperative Diagnosis: Same as Preop Operative Indications: The patient has a history of decreased visual acuity secondary to his cataract. Preoperative best corrected visual acuity is 20/50 in the right eye. The patient complained of gradual decreased vision, both at distance and near. Slit lamp exam revealed a 2-3+cortical and nuclear sclerotic cataract in the right eye. Ophthalmoscopy showed no macular disease. The risks and benefits were discussed with the patient, and the patient was found to be in stable condition by his primary care physician to undergo cataract surgery. Treatment exams are expected in the postoperative period. Anesthesia: Monitored Anesthesia Care Procedure Details: The correct eye was identified and marked by me in the preoperative area. The patient was taken back to the operating room and was then prepped and draped in the usual sterile fashion for a right eye procedure. Topical tetracaine was applied to the right eye, and a lid speculum was placed into the operative eye. The operating microscope was brought into proper position. A paracentesis was placed with a 15-degree blade at the 7 o'clock position and the anterior chamber was filled with 1% PF lidocaine on a cannula. The anterior chamber was filled with viscoelastic. Clear corneal incision was then created using a crescent blade and then a keratome from the 9 to 10 o'clock position. A continuous capsulorrhexis was then created using a cystotome and Utrata forceps. Hydrodissection and hydrodelineation were then performed. Phacoemulsification was then undertaken successfully to remove the entire lens. Any remaining cortex was then aspirated from the eye. The capsular bag was filled with viscoelastic, and an CCA0T0 +18.0 diopter lens was successfully introduced to the posterior chamber. Any remaining viscoelastic was then removed from the eye. BSS on a cannula was then used to hydrate the wounds which were found to be self-sealing. PF moxifloxacin was instilled into the a/c. The lid speculum was removed and the anterior chamber remained formed. Maxitrol ointment was instilled, and a patch and shield were applied to the operative eye. The patient was taken back to the postoperative area in good condition. The postoperative instructions were reviewed with the patient, and an instruction sheet was sent home with him. The patient is to follow up with me the next day in my office or call me if he is to have any problems overnight. Estimated Blood Loss: Minimal unless noted here. Specimens: * No specimens in log * Implantable Devices: Implant Name Type Inv. Item Serial No. Agriculture Internship Lot No. LRB No. Used Action Model No. CCA0T0.180 [facility] [employer] - [id number] Intraocular Lens CCA0T0.180 [facility] [employer] [id number] [employer] Right 1 Implanted CCA0T0.180 Drains: None unless noted here. Complications: None I performed the procedure myself. SIGNATURE: Bran Monk MD PATIENT NAME: Robyn Ireland DATE: April 07, 2023 TIME: 12:24 PM PAGER/CONTACT #: [facility] IOL Biometry - OD - Right Ey herminio 03-25-2023 - [facility] ANES POSTPROC EVALon 023 ANES POSTPROC EVAL HNO ID: [id number] Author: Jonah Kelsey MD Service: Anesthesiology Author Type: Physician Type: Anesthesia Postprocedure Evaluation Filed: 03/17/2023 2:44 PM Note Text: POST ANESTHESIA EVALUATION NOTE : 1945 Procedure Summary Date: 03/17/23 Room / Location: [facility] OR01 / [facility] Anesthesia Start: 1345 Anesthesia Stop: 1425 Procedure: PHACOEMULSIFICATION CATARACT IMPLANT INTRAOCULAR LENS W/O ENDOSCOPIC CYCLOPHOTOCOAGULATION (Left) Diagnosis: Cataract of left eye, unspecified cataract type (Cataract of left eye, unspecified cataract type [H26.9]) Surgeons: Bran Monk MD Responsible Provider: Jonah Kelsey MD Anesthesia Type: MAC ASA Status: 3 Anesthesia Type: MAC Last Vitals Vitals Value Taken Time BP 117/72 03/17/23 1432 Temp 36.1 ?C (97 ?F) 03/17/23 1421 Pulse 59 03/17/23 1432 Resp 16 03/17/23 1432 SpO2 97 % 03/17/23 1432 Post Anesthesia Patient Status Patient Evaluation: PACU. PACU/ICU Patient Condition: stable. Anticipated Disposition: phase 2 then home. Neurological Status: aware and responsive. Pulmonary Status: breathing comfortably on room air Airway Control: returned to baseline unsupported. Cardiovascular Status: stable. Pain Management: clinically adequate - multimodal analgesia pain management approach Postoperative Hydration: acceptable. Intraoperative Events: no significant anesthesia events Recommendation: continue current plan of care. Anesthesia Observations No Documentation SIGNATURE: Jonah Kelsey MD PATIENT NAME: Robyn Ireland DATE: March 17, 2023 TIME: 2:44 PM CSN: [id number] [facility] ANES PRE-OPon 03-17-2023 ANES PRE-OP HNO ID: [id number] Author: Jonah Kelsey MD Service: Anesthesiology Author Type: Physician Type: Anesthesia Preprocedure Evaluation Filed: 03/17/2023 12:39 PM Note Text: ANESTHESIOLOGY DAY OF SURGERY NOTE : 1945 Procedure Information Date/Time: 03/17/23 1350 Procedure: PHACOEMULSIFICATION CATARACT IMPLANT INTRAOCULAR LENS W/O ENDOSCOPIC CYCLOPHOTOCOAGULATION (Left) Location: [facility] OR02 / [facility] Surgeons: Bran Monk MD Estimated body mass index is 31.66 kg/m? as calculated from the following: Height as of 10/01/17: 180.3 cm (5' 11). Weight as of 10/01/17: 103 kg (227 lb). Most recent hematocrit and potassium results: No results found for this basename: HCT,HEMATOCRIT,K,POTASSIUM Relevant Problems ANESTHESIA (+) SIOMARA (obstructive sleep apnea) PULMONARY (+) SIOMARA (obstructive sleep apnea) I - PHYSICAL EVALUATION AIRWAY Patient intubated: No. Tracheostomy tube not present Mallampati: III. TM distance: >3 FB. Neck ROM: full ROM without neurological symptoms. Mouth opening: adequate. Short neck: no. Thick neck: no Additional exam findings: no II - ANESTHESIA PLAN ASA Score: 3 Anesthetic Plan: MAC NPO Status: adequate Beta Marcie Monitoring Plan Monitoring plan: standard ASA. Post Procedure Analgesic Plan Postoperative analgesic plan: parenteral or oral opioids and multimodal analgesia. Patient / Surrogate agrees to blood products: blood products not planned Significant changes in the patient condition since the History and Physical, not otherwise documented in primary service progress note: no. No vitals data found for the desired time range. No current facility-administered medications on file as of . Outpatient Medications as of Medication Sig - guaiFENesin (HUMIBID E) 400 mg tab Take 400 mg by mouth. - Cholecalciferol, Vitamin D3, 125 mcg (5,000 unit) cap Take 5,000 Units by mouth. - vit C/E/Zn/coppr/lutein/zeaxan (PRESERVISION AREDS-2 ORAL) Take 1 tablet by mouth two times a day. - pantoprazole DR (PROTONIX) 20 mg tablet Take 20 mg by mouth twice daily. (Patient not taking: Reported on 03/02/2023) - CPAP Please provide pt with PAP supplies: mask(pt pref), chin strap, heated tubing AND heated humidity, filters. Lifetime supplies. SIOMARA G47.33. - CPAP New Set up: Settings IPAP max 25 EPAP min 4 and PS 4 cm H2O, suitable mask per pt preference, chin strap, head gear, humidity, heated tubing (FAUSTINO), lifetime supplies. G47.33 SIOMARA - fexofenadine HCl (PARADISE ORAL) Take by mouth. I have interviewed and examined the patient. I have reviewed the medical record and/or the pre-anesthesia evaluation, pertinent labs, and test results. This contains updated information obtained within 48 hours of Surgery/Procedure. SIGNATURE: Jonah Kelsey MD PATIENT NAME: Robyn Ireland DATE: March 17, 2023 TIME: 12:38 PM CSN: [id number] [facility] HISTORY PHYSICALon HISTORY PHYSICAL HNO ID: [id number] Author: Bran Monk MD Service: Ophthalmology Author Type: Physician Type: HANDP Filed: 03/17/2023 1:56 PM Note Text: UPDATED HISTORY AND PHYSICAL EXAMINATION SERVICE DATE: 03/17/2023 SERVICE TIME: 1:56 PM PHYSICAL EXAM MUST BE COMPLETED ON ADMISSION The History and Physical (completed in the past 30 days) has been reviewed and the patient has been examined. The contents accurately reflect the patient's condition with the following additions or revisions since the HANDP was completed. Examination indicates no changes. This HANDP can be found in the scanned documents dated 03/09/23. SIGNATURE: Bran Monk MD PATIENT NAME: Robyn Ireland DATE: March 17, 2023 TIME: 1:56 PM PAGER: [facility] OPERATIVE NOon 03-17-2023 OPERATIVE NO HNO ID: [id number] Author: Bran Monk MD Service: Ophthalmology Author Type: Physician Type: Operative Report Filed: 03/26/2023 7:39 PM Note Text: OPERATIVE/PROCEDURE REPORT OPHTHAMOLOGY LOG ID: [id number] Surgery/Procedure Date: 03/17/2023 Incision/Procedure Start Time: 2:04 PM Incision Close/Procedure End Time: 2:16 PM Surgeon(s)/Proceduralist(s) and Loss Control Manager(s): Surgeon(s) and Role: * Bran Monk MD - Primary Procedure(s): Procedure(s) (LRB): PHACOEMULSIFICATION CATARACT IMPLANT INTRAOCULAR LENS W/O ENDOSCOPIC CYCLOPHOTOCOAGULATION (Left) Preoperative Diagnosis: Mature combined forms of age related cataract left eye H25.812 Postoperative Diagnosis: Same as Preop Operative Indications: The patient has a history of decreased visual acuity secondary to his cataract. Preoperative best corrected visual acuity is 20/50 in the left eye. The patient complained of gradual decreased vision, both at distance and near. Slit lamp exam revealed a 2-3+ nuclear sclerotic cataract in the left eye. Ophthalmoscopy showed no macular disease. His anterior exam is significant for 4+ guttae. The risks and benefits were discussed with the patient, and the patient was found to be in stable condition by his primary care physician to undergo cataract surgery. Treatment exams are expected in the postoperative period. Anesthesia: Monitored Anesthesia Care Procedure Details: The correct eye was identified and marked by me in the preoperative area. The patient was taken back to the operating room and was then prepped and draped in the usual sterile fashion for a left eye procedure. Topical tetracaine was applied to the left eye, and a lid speculum was placed into the operative eye. The operating microscope was brought into proper position. A paracentesis was placed with a 15-degree blade at the 1 o'clock position and the anterior chamber was filled with 1% PF lidocaine on a cannula. The anterior chamber was filled with viscoelastic. Clear corneal incision was then created using a crescent blade and then a keratome from the 4 to 5 o'clock position. A continuous capsulorrhexis was then created using a cystotome and Utrata forceps. Hydrodissection and hydrodelineation were then performed. Phacoemulsification was then undertaken successfully to remove the entire lens. Any remaining cortex was then aspirated from the eye. The capsular bag was filled with viscoelastic, and an CCA0T0 /+19.5 diopter lens was successfully introduced to the posterior chamber. Any remaining viscoelastic was then removed from the eye. BSS on a cannula was then used to hydrate the wounds which were found to be self-sealing. PF moxifloxacin was instilled into the a/c. The lid speculum was removed and the anterior chamber remained formed. Maxitrol ointment was instilled, and a patch and shield were applied to the operative eye. The patient was taken back to the postoperative area in good condition. The postoperative instructions were reviewed with the patient, and an instruction sheet was sent home with him. The patient is to follow up with me the next day in my office or call me if he is to have any problems overnight. Estimated Blood Loss: Minimal unless noted here. Specimens: * No specimens in log * Implantable Devices: Implant Name Type Inv. Item Serial No. Agriculture Internship Lot No. LRB No. Used Action Model No. CCA0T0.195 [facility] - [id number] Intraocular Lens CCA0T0.195 [facility] [id number] [employer] Left 1 Implanted CCA0T0.195 Drains: None unless noted here. Complications: None I performed the procedure myself. SIGNATURE: Bran Monk MD PATIENT NAME: Robyn Ireland DATE: March 17, 2023 TIME: 2:19 PM PAGER/CONTACT #: [facility] IOL Biometry - OS - Left Eye on 03-05-2023 - [facility] IOL Biometry - OU - Both Eye son 03-05-2023 - [facility] L Inj/Asp: R kneeon 02-18-20 23 Jun Samuel MD 01/29 2:26 PM L Inj/Asp: R knee on 02/17/2023 2:25 [...] to verify the correct patient, procedure, equipment, behaviour support teacher and site/side marked as required. Patient was prepped and draped in the usual sterile fashion. [facility] Work Phone: [facility] Work Phone: ECG 12 lead - CLINIC PERFORM EDon 01-14-2023 Sinus Bradycardia WITHIN NORMAL LIMITS [facility] Established Visit (Orthopaed ic Surgery)on 09-23-2022 Established Visit (Orthopaedic Surgery) Diagnoses/Problems Assessed Right shoulder pain (719.41) (M25.511) Nontraumatic incomplete tear of right rotator cuff (726.13) (M75.111) Patient Discussion/Summary Assessment: Ongoing right shoulder pain secondary to rotator cuff impingement, recent MRI does show some partial-thickness tearing of the supraspinatus distally without retraction, there is some tendinosis of supraspinatus, infraspinatus and subscapularis as well as some tenosynovitis of the proximal biceps tendon Plan: Discussed diagnosis, further work-up and treatment. Patient is doing well following subacromial injection 2 months ago, he can continue with activities as tolerated by symptoms, no indication for any acute surgical intervention at this time. We discussed that he could continue with as needed subacromial injections though doing them too close together could lead to some further wear of the rotator cuff tendons. We discussed role of possible PRP injection, though this may be cost prohibitive. We also discussed potential need for surgical invention including possible arthroscopic subacromial decompression. Patient voiced understanding. He will plan to follow-up as needed Chief Complaint F/U DISCUSS MRI RT SHOULDER History of Present Illness 76-year-old male presenting for follow-up of right [...] He denies any new injuries or symptoms. Review of Systems The patient's past medical, surgical, family, and social history as well as allergies and medications were reviewed with the patient and updated in the chart Constitutional: no fever, no chills, not feeling tired, no recent weight gain and no recent weight loss. ENT: no nosebleeds. Cardiovascular: no chest pain. Respiratory: no shortness of breath and no cough. Gastrointestinal: no abdominal pain, no nausea, no diarrhea and no vomiting. Integumentary: no rashes and no skin wound. Neurological: no headache. Psychiatric: no depression and no sleep disturbances. Endocrine: no muscle cramps. Hematologic/Lymphatic: no swollen glands and no tendency for easy bruising. All other systems have been reviewed and are negative for complaint. 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) Bilateral shoulder pain (719.41) (M25.511,M25.512) Class 2 obesity with body mass index (BMI) of 35.0 to 35.9 in adult (278.00,V85.35) (E66.9,Z68.35) Community acquired pneumonia (486) (J18.9) Cough (786.2) (R05.9) Dyshydrosis (705.81) (L30.1) Dysphagia (787.20) (R13.10) ED (erectile dysfunction) (607.84) (N52.9) Generalized osteoarthritis of multiple sites (715.09) (M15.9) Greater trochanteric bursitis of left hip (726.5) (M70.62) Greater trochanteric bursitis of right hip (726.5) (M70.61) Hip pain, bilateral (719.45) (M25.551,M25.552) Hip pain, right (719.45) (M25.551) Hyperlipidemia, unspecified (272.4) (E78.5) Hypertrophy, nasal, 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) (J34.3) Hypogonadism male (257.2) (E29.1) Impingement syndrome of left shoulder (726.2) (M75.42) Impingement syndrome of right shoulder (726.2) (M75.41) Increased urinary frequency (788.41) (R35.0) Instability of left ankle joint (718.87) (M25.372) Knee pain (719.46) (M25.569) Low back pain (724.2) (M54.50) Medicare annual wellness visit, subsequent (V70.0) (Z00.00) Oropharyngeal dysphagia (787.22) (R13.12) SIOMARA (obstructive sleep apnea) (327.23) (G47.33) Other low back pain (724.2) (M54.59) Pain with urination (788.1) (R30.9) 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 Normal [facility] MRI SHOULDER W/O CONTRAST on 09-16-2022 MRI SHOULDER W/O CONTRAST Patient Name: ROBYN IRELAND STUDY: MRI of the right shoulder without IV contrast; 09/16/2022 8:10 pm INDICATION: PAIN M25.511: Right shoulder pain. COMPARISON: None ACCESSION NUMBER(S): [id number] ORDERING CLINICIAN: JUN SAMUEL TECHNIQUE: MR imaging of the right shoulder was obtained without IV contrast. FINDINGS: ROTATOR CUFF TENDONS: There is mild thickening with increased intrasubstance signal in the distal supraspinatus tendon suggestive of mild tendinosis. There is focal full-thickness tearing at the insertion of central supraspinatus tendon measuring approximally 5 mm in width (as seen on coronal image / and sagittal image 32/40). There is also moderate grade partial interstitial tearing at the insertion of the posterior supraspinatus tendon. There is mild thickening with increased intrasubstance signal in the distal infraspinatus tendon, however infraspinatus tendon is intact without discrete tear. Teres minor is intact. Subscapularis demonstrates mild insertional tendinosis without discrete tear. There is no edema or fatty atrophy of the rotator cuff musculature. BICEPS TENDON AND ROTATOR INTERVAL: There is mild thickening with increased intrasubstance signal in the intracapsular long head of biceps tendon suggestive of mild tendinosis however extracapsular long head of biceps tendon demonstrates normal morphology and course within the bicipital groove. There is trace fluid within the extracapsular long head of biceps tendon sheath suggestive of mild tenosynovitis. Rotator interval is unremarkable. JOINTS: Moderate degenerative changes are noted in the acromioclavicular joint with diffuse capsular hypertrophy and prominent marginal osteophytes. There are moderate degenerative changes in the glenohumeral joint with high-grade focal fissuring of hyaline articular cartilage along the posterior glenoid rim with associated subchondral cystic changes. There is small volume glenohumeral joint effusion with internal debris suggestive of synovitis.. There is trace fluid in the subacromial subdeltoid bursa suggestive of mild bursitis. LABRUM: There is irregular truncated morphology of the posterosuperior and posteroinferior labrum suggestive of mild labral tearing. OSSEOUS STRUCTURES: No focal marrow replacing lesions are identified. There is no fracture. SOFT TISSUES: There is moderate fatty atrophy of spinal part of the posterior belly of deltoid muscle (as seen on axial image 23/38 and sagittal image 7/40). The suprascapular nerve is intact at the suprascapular and spinoglenoid notches. IMPRESSION: 1. Focal full-thickness insertional tearing of the central supraspinatus tendon (5 mm in width) and moderate grade partial interstitial tearing at the insertion of posterior supraspinatus tendon, superimposed on mild tendinosis. 2. Mild insertional tendinosis of infraspinatus and subscapularis tendons without discrete tear. 3. Xmzn-ce-qfognjtg acromioclavicular and glenohumeral joint arthrosis. 4. Small volume glenohumeral joint effusion with synovitis. Trace subacromial subdeltoid bursitis. 5. Moderate fatty atrophy of spinal origin/posterior belly of deltoid muscle (as seen on axial image 23/38 and sagittal image 7/40). This is a nonspecific finding and could be related to prior trauma versus chronic denervation change. 6. Mild intracapsular long head of biceps tendinosis with suggestion of mild extracapsular long head of biceps tenosynovitis. Electronically signed by: SONIA PIZANO MD Normal [facility] MRI Shoulder without Contras ton 09-16-2022 MR Shoulder WO contrast Normal [facility] [address] Work Phone: Established Visit (Orthopaed ic Surgery)on 07-21-2022 Established Visit (Orthopaedic Surgery) Diagnoses/Problems Assessed Right shoulder pain (719.41) (M25.511) Impingement syndrome of right shoulder (726.2) (M75.41) Orders Right shoulder pain Administered: Lidocaine HCl - 2 % Injection Solution MRI Shoulder without Contrast; Status:Hold For - Scheduling,Retrospective By Protocol Authorization; Requested for:21Jul2022; Laterality : Right Radiologist to Determine Optimal Study : Y Does the patient have a Cochlear Implant, Pacemaker, Defibrilator, Pacing Wire, Brain Aneurysm Clip, Implanted Nerve or Bone Graft Simulator, Implanted Breast Tissue Functional Analyst, Glucose Monitor, or Neulasta Device? : No What are the patient's signs and symptoms? : PAIN Administered: Triamcinolone Acetonide 40 MG/ML Injection Suspension (Kenalog) Patient Discussion/Summary Assessment: Right shoulder pain/rotator cuff impingement Plan: Discussed treatment options with patient, he has had good response to 2 previous subacromial injections, less lasting response to injection 5 months ago with more recent recurrence of pain, no significant range of motion deficits or weakness on exam. We did opt to proceed with repeat subacromial injection with Kenalog today. I also placed order for MRI for better evaluation of rotator cuff, shoulder structures to determine if he may benefit from other potential alternative treatments guided by MRI, we discussed potential concerns with repetitive corticosteroid injections in the subacromial space. Patient voiced understanding. Further treatment pending response to this injection as well as MRI results. Chief Complaint F/U RT SHOULDER History of Present Illness 76-year-old oyeao-uzxe-iwrnhvso male presenting for follow-up of right shoulder pain. 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 Pain over the anterior lateral aspect of his shoulder similar to before prior injection, no new symptoms. No prior advanced imaging of his shoulder. He has done physical therapy for his shoulder in the past, he has been compliant with his home exercise program, says that he has been doing more diligently with more recent aggravation of pain. Review of Systems The patient's past medical, surgical, family, and social history as well as allergies and medications were reviewed with the patient and updated in the chart Constitutional: no fever, no chills, not feeling tired, no recent weight gain and no recent weight loss. ENT: no nosebleeds. Cardiovascular: no chest pain. Respiratory: no shortness of breath and no cough. Gastrointestinal: no abdominal pain, no nausea, no diarrhea and no vomiting. Integumentary: no rashes and no skin wound. Neurological: no headache. Psychiatric: no depression and no sleep disturbances. Endocrine: no muscle cramps. Hematologic/Lymphatic: no swollen glands and no tendency for easy bruising. All other systems have been reviewed and are negative for complaint. 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) Bilateral shoulder pain (719.41) (M25.511,M25.512) Class 2 obesity with body mass index (BMI) of 35.0 to 35.9 in adult (278.00,V85.35) (E66.9,Z68.35) Community acquired pneumonia (486) (J18.9) Cough (786.2) (R05.9) Dyshydrosis (705.81) (L30.1) Dysphagia (787.20) (R13.10) ED (erectile dysfunction) (607.84) (N52.9) Generalized osteoarthritis of multiple sites (715.09) (M15.9) Greater trochanteric bursitis of left hip (726.5) (M70.62) Greater trochanteric bursitis of right hip (726.5) (M70.61) Hip pain, bilateral (719.45) (M25.551,M25.552) Hip pain, right (719.45) (M25.551) Hyperlipidemia, unspecified (272.4) (E78.5) Hypertrophy, nasal, 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) (J34.3) Hypogonadism male (257.2) (E29.1) Impingement syndrome of left shoulder (726.2) (M75.42) Impingement syndrome of right shoulder (726.2) (M75.41) Increased urinary frequency (788.41) (R35.0) Instability of left ankle joint (718.87) (M25.372) Knee pain (719.46) (M25.569) Low back pain (724.2) (M54.50) Medicare annual wellness visit, subsequent (V70.0) (Z00.00) Oropharyngeal dysphagia (787.22) (R13.12) SIOMARA (obstructive sleep apnea) (327.23) (G47.33) Other low back pain (724.2) (M54.59) Pain with urination (788.1) (R30.9) 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 Normal [facility] PT Progress Noteon 3 PT Progress Note Therapy Diagnosis Assessed Low back pain (724.2) (M54.50) Plan Goals: Goals set and discussed today. Pt will demonstrate independence and compliance with HEP and self management New B/l shoulder goals effective 03/25/2022: 1) Improve b/l shoulder strength to >= 5-/5 throughout in order to be able to lift objects and perform housework without significant limitation. 4-6 weeks 2) Improve b/l shoulder active IR to >= L1-L2 in order to be able to reach effectively behind back as needed. 4-6 weeks, by week 2, goal met Activity Limitation: Decrease disability as assessed by Oswestry to less than or equal to 50% disability for improved QOL., by week 4, goal partially met Gait/Locomotion: amb with normalized gait without antalgia for return to PLOF, by week 4, goal partially met Pain: Decrease max pain to less than or equal to 7/10 for improved QOL. , by week 4, goal met Range Of Motion/Joint Mobility: Lumbar flex AROM WFL for improved ability to put on shoes, by week 4, goal partially met Strength: L and R LE strength 5/5 throughout for improved ability to complete yardwork, by week 4, goal partially met Planned interventions include: aquatic therapy, cryotherapy, education/instruction, gait training, home program, hot pack, kinesiotaping, manual therapy, neuromuscular re-education, self care/home management, therapeutic activities and therapeutic exercises . aquatic PT - correct lateral shift if able, focus on neutral spine while symptoms remain irritable, may have extension bias as flexion mechanism of injury. Frequency and duration: No further visits planned. 1x/every other week for 8 weeks = 4 total visits Pool. Potential to achieve rehab goals is good Continue with core and shoulder strengthening to allow for improved strength and ROM with yard work. JW Pt being placed on hold for 30 days at this time and is going to attempt independence with HEP. If pt does not elect to resume PT within 30 days, this will serve as his D/C. Refer back in future if necessary. Progress with POC, as tolerated. Assessment Patient confirmed name and date of . Patient demonstrates improved trunk control with all UE/LE exercises, Able to advance resistance with dumbbell rolls with fair trunk control, some trunk sway noted. Patient able to perform lunges without UE assist. No increased pain with aquatic exercises. Pt reassessed this date by supervising PT after last aquatic session, with improvements noted in lumbar AROM, MMT in BLEs as well as significant subjective report of improvement with CHELSEY score improving from 60% at eval to only 10% disability at D/C. Pt reported good understanding of all edu and updates to HEP made this date and is appropriate to attempt independence with HEP and symptom management at this time. Adult Risk Screening There are no spiritual/cultural practices/values/needs that are important to know Initial Fall Risk Screening: ROBYN has not fallen in the last 6 months. ROBYN does not have a fear of falling. He does not need assistance with sitting, standing or walking. Does not need assistance walking in his home. He does not need assistance in an unfamiliar setting. The patient is not using an assistive device. Fall Risk Screening: Patient is identified as a fall risk. Care Plan: Low Risk: Environmental for all patients and low risk patients: Offer assistance as needed or requested, keep environment free of obstacles, keep floor clean and dry, keep room lighting, wheelchair brakes on, bed/ stretcher locked and in low position if applicable, non-slip footwear if applicable, walker/cane available if needed, side rails up if applicable and pre-emptive toileting. Please identify location of pain: low back radiating to L groin, occ to R groin. Insurance Insurance reviewed Visit number: 18 POC 11/04,4/ supervising PT CAROL MIDDLETON, med necessity, $0 copay, 4% co-insurance Onset Date: 2021 Medicare Certification Period: Beginnin2021 Endin2021 Subjective Patient reports:. Patient has resolved since last week. States that he continues to have pain but as long as he is doing his exercises, his pain stays under control. R shoulder pain is 2-3/10. Back pain 1/10. 0/10 pain after session. Home program performing as directed: Yes . DC'd bridge. Precautions: none. Fall Risk: low USE KX MODIFIER. Objective Ortho CHELSEY: 60% disability > 20%-->10% deferred lumbar AROM standing assessment due to high irritability of symptoms at eval-->04/22/22 Lumbar AROM: Flex: 90% Ext: 100% R Rotation: 100% L ROtation: 100% R Sidebend: 100% mild P! on R L Sidebend: 100% L LE MMT: hip flex 2/5 left sided low back pain > 5 /5--> 5/5, hip abd 4/5, hip add 4/5 pain > 5 /5-->5/5 , knee ext 2/5 pain > 5 /5 , knee flex 4/5 > 5/5 R LE MMT: hip flex 2/5 left sided low back pain > 5 /5-->5/5 , hip abd 4/5 > 5 /5 , hip add 4/5 pain > 5 /5-->5/5 , knee ext 2/5 pain >5 /5 , knee flex 4/5 >5 (more content not included)... Normal [facility] Therapy Re-eval Noteon 04-22 Therapy Re-eval Note Therapy Diagnosis Assessed 1. Low back pain (724.2) (M54.50) Plan Goals: Goals set and discussed today. Pt will demonstrate independence and compliance with HEP and self management New B/l shoulder goals effective 03/25/2022: 1) Improve b/l shoulder strength to >= 5-/5 throughout in order to be able to lift objects and perform housework without significant limitation. 4-6 weeks 2) Improve b/l shoulder active IR to >= L1-L2 in order to be able to reach effectively behind back as needed. 4-6 weeks, by week 2, goal met Activity Limitation: Decrease disability as assessed by Oswestry to less than or equal to 50% disability for improved QOL., by week 4, goal partially met Gait/Locomotion: amb with normalized gait without antalgia for return to PLOF, by week 4, goal partially met Pain: Decrease max pain to less than or equal to 7/10 for improved QOL. , by week 4, goal met Range Of Motion/Joint Mobility: Lumbar flex AROM WFL for improved ability to put on shoes, by week 4, goal partially met Strength: L and R LE strength 5/5 throughout for improved ability to complete yardwork, by week 4, goal partially met Planned interventions include: aquatic therapy, cryotherapy, education/instruction, gait training, home program, hot pack, kinesiotaping, manual therapy, neuromuscular re-education, self care/home management, therapeutic activities and therapeutic exercises . aquatic PT - correct lateral shift if able, focus on neutral spine while symptoms remain irritable, may have extension bias as flexion mechanism of injury. Frequency and duration: No further visits planned. 1x/every other week for 8 weeks = 4 total visits Pool. Potential to achieve rehab goals is good Continue with core and shoulder strengthening to allow for improved strength and ROM with yard work. JW Pt being placed on hold for 30 days at this time and is going to attempt independence with HEP. If pt does not elect to resume PT within 30 days, this will serve as his D/C. Refer back in future if necessary. Progress with POC, as tolerated. Assessment Patient confirmed name and date of . Patient demonstrates improved trunk control with all UE/LE exercises, Able to advance resistance with dumbbell rolls with fair trunk control, some trunk sway noted. Patient able to perform lunges without UE assist. No increased pain with aquatic exercises. Pt reassessed this date by supervising PT after last aquatic session, with improvements noted in lumbar AROM, MMT in BLEs as well as significant subjective report of improvement with CHELSEY score improving from 60% at eval to only 10% disability at D/C. Pt reported good understanding of all edu and updates to HEP made this date and is appropriate to attempt independence with HEP and symptom management at this time. Adult Risk Screening There are no spiritual/cultural practices/values/needs that are important to know Initial Fall Risk Screening: ROBYN has not fallen in the last 6 months. ROBYN does not have a fear of falling. He does not need assistance with sitting, standing or walking. Does not need assistance walking in his home. He does not need assistance in an unfamiliar setting. The patient is not using an assistive device. Fall Risk Screening: Patient is identified as a fall risk. Care Plan: Low Risk: Environmental for all patients and low risk patients: Offer assistance as needed or requested, keep environment free of obstacles, keep floor clean and dry, keep room lighting, wheelchair brakes on, bed/ stretcher locked and in low position if applicable, non-slip footwear if applicable, walker/cane available if needed, side rails up if applicable and pre-emptive toileting. Please identify location of pain: low back radiating to L groin, occ to R groin. Insurance Insurance reviewed Visit number: 18 POC 11/04,07/01 supervising PT CAROL MIDDLETON, med necessity, $0 copay, 4% co-insurance Onset Date: 2021 Medicare Certification Period: Beginnin2021 Endin2021 Subjective Patient reports:. Patient has resolved since last week. States that he continues to have pain but as long as he is doing his exercises, his pain stays under control. R shoulder pain is 2-3/10. Back pain 1/10. 0/10 pain after session. Home program performing as directed: Yes . DC'd bridge. Precautions: none. Fall Risk: low USE KX MODIFIER. Objective Ortho CHELSEY: 60% disability > 20%-->10% deferred lumbar AROM standing assessment due to high irritability of symptoms at eval-->04/22/22 Lumbar AROM: Flex: 90% Ext: 100% R Rotation: 100% L ROtation: 100% R Sidebend: 100% mild P! on R L Sidebend: 100% L LE MMT: hip flex 2/5 left sided low back pain > 5 /5--> 5/5, hip abd 4/5, hip add 4/5 pain > 5 /5-->5/5 , knee ext 2/5 pain > 5 /5 , knee flex 4/5 > 5/5 R LE MMT: hip flex 2/5 left sided low back pain > 5 /5-->5/5 , hip abd 4/5 > 5 /5 , hip add 4/5 pain > 5 /5-->5/5 , knee ext 2/5 pain >5 /5 , knee flex 4/5 (more content not included)... Normal [facility] PT Progress Noteon 3 PT Progress Note Therapy Diagnosis Assessed Hip pain, right (719.45) (M25.551) Low back pain (724.2) (M54.50) Bilateral shoulder pain (719.41) (M25.511,M25.512) Plan Goals: Goals set and discussed today. Pt will demonstrate independence and compliance with HEP and self management New B/l shoulder goals effective 03/25/2022: 1) Improve b/l shoulder strength to >= 5-/5 throughout in order to be able to lift objects and perform housework without significant limitation. 4-6 weeks 2) Improve b/l shoulder active IR to >= L1-L2 in order to be able to reach effectively behind back as needed. 4-6 weeks, by week 2, goal met Activity Limitation: Decrease disability as assessed by Oswestry to less than or equal to 50% disability for improved QOL., by week 4 Gait/Locomotion: amb with normalized gait without antalgia for return to PLOF, by week 4 Pain: Decrease max pain to less than or equal to 7/10 for improved QOL. , by week 4, goal met Range Of Motion/Joint Mobility: Lumbar flex AROM WFL for improved ability to put on shoes, by week 4 Strength: L and R LE strength 5/5 throughout for improved ability to complete yardwork, by week 4 Planned interventions include: aquatic therapy, cryotherapy, education/instruction, gait training, home program, hot pack, kinesiotaping, manual therapy, neuromuscular re-education, self care/home management, therapeutic activities and therapeutic exercises . aquatic PT - correct lateral shift if able, focus on neutral spine while symptoms remain irritable, may have extension bias as flexion mechanism of injury. Frequency and duration:. 1x/every other week for 8 weeks = 4 total visits Pool. Potential to achieve rehab goals is good Continue with core and shoulder strengthening to allow for improved strength and ROM with yard work. JW . Progress with POC, as tolerated. Assessment Patient confirmed name and date of . Focused on core strengthening and unloading today secondary to patient having increased LE SX. Performed LE exercises in small range on R side to reduced nerve irritation. Patient demonstrates good trunk control wit UE/LE exercises. Adult Risk Screening There are no spiritual/cultural practices/values/needs that are important to know Initial Fall Risk Screening: ROBYN has not fallen in the last 6 months. ROBYN does not have a fear of falling. He does not need assistance with sitting, standing or walking. Does not need assistance walking in his home. He does not need assistance in an unfamiliar setting. The patient is not using an assistive device. Fall Risk Screening: Patient is identified as a fall risk. Care Plan: Low Risk: Environmental for all patients and low risk patients: Offer assistance as needed or requested, keep environment free of obstacles, keep floor clean and dry, keep room lighting, wheelchair brakes on, bed/ stretcher locked and in low position if applicable, non-slip footwear if applicable, walker/cane available if needed, side rails up if applicable and pre-emptive toileting. Please identify location of pain: low back radiating to L groin, occ to R groin. Insurance Insurance reviewed Visit number: 17 POC 11/04,07/01 supervising PT CAROL MIDDLETON, med necessity, $0 copay, 4% co-insurance Onset Date: 2021 Medicare Certification Period: Beginnin2021 Endin2021 Subjective Patient reports:. Patient reports that his sciatica has kicked up secondary to performing HEP. Reports LE Sx of 3-4/10 and LBP pain 3-4/10 and R shoulder pain is 3-4/10 from washing doors. Home program performing as directed: Yes . DC'd bridge. Precautions: none. Fall Risk: low USE KX MODIFIER. Objective Ortho Shoulder AROM is WNL b/l UE flexion and abd and ER. Pt limited to L1 b/l UE active IR. Shoulder strength: 4/5 throughout L shoulder and 4-/5 throughout R shoulder Special Tests: Speeds, Empty Can and Paez Bruno were all (+) on the R (+) Paez Bruno on the L. Treatment Time in clinic started at 1:00 pm Time in clinic ended at 1:45 pm Total time in clinic is 45 minutes. Total timed code time is 39 minutes. Therapeutic exercise (41351):. Not 04/15 UBE 2' FWD/BWD (N) Pulleys 3' flex Mid Rows w/TrA 1x10 Purple B/L GH ext w/TrA 1x10 Purple GH ER 1x10 orange GH IR 1x10 green Wall Slides 10 x 3 (N) Supine Marching 1x15 (N) Bridge 1x10 (N) B/L GH ER orange 1x10 (N). Manual Therapy (62018):. B/L GH PROM 12'. Aquatic Therapy (40616): timed minutes 39, units 3 . Review TrA contraction 10x5 holds SIDE STEPPING x 3 laps w/scapular retractions Heel raises x 25 w/bwd shoulder rows Squats x 20 Hip Extension x 25 Hip Abduction x25 Barbelll Rotation 10x10 holds Side Bending x10 Standing hamcurls x 25 BWD Step Taps x15 Lunges facing shallow end x10 ea Lateral Lunges x10 ea X DB ROLLS [address] marble P time ABDOMINALS x 20 push/pull, flexion, sm. blue board BWD STEP UPS x 5 UE PADDLES x 20 each. L4 Fl (more content not included)... Normal [facility] PT Progress Noteon 3 PT Progress Note Therapy Diagnosis Assessed Hip pain, right (719.45) (M25.551) Low back pain (724.2) (M54.50) Bilateral shoulder pain (719.41) (M25.511,M25.512) Plan Goals: Goals set and discussed today. Pt will demonstrate independence and compliance with HEP and self management New B/l shoulder goals effective 03/25/2022: 1) Improve b/l shoulder strength to >= 5-/5 throughout in order to be able to lift objects and perform housework without significant limitation. 4-6 weeks 2) Improve b/l shoulder active IR to >= L1-L2 in order to be able to reach effectively behind back as needed. 4-6 weeks, by week 2, goal met Activity Limitation: Decrease disability as assessed by Oswestry to less than or equal to 50% disability for improved QOL., by week 4 Gait/Locomotion: amb with normalized gait without antalgia for return to PLOF, by week 4 Pain: Decrease max pain to less than or equal to 7/10 for improved QOL. , by week 4, goal met Range Of Motion/Joint Mobility: Lumbar flex AROM WFL for improved ability to put on shoes, by week 4 Strength: L and R LE strength 5/5 throughout for improved ability to complete yardwork, by week 4 Planned interventions include: aquatic therapy, cryotherapy, education/instruction, gait training, home program, hot pack, kinesiotaping, manual therapy, neuromuscular re-education, self care/home management, therapeutic activities and therapeutic exercises . aquatic PT - correct lateral shift if able, focus on neutral spine while symptoms remain irritable, may have extension bias as flexion mechanism of injury. Frequency and duration:. 1x/every other week for 8 weeks = 4 total visits Pool. Potential to achieve rehab goals is good Continue with core and shoulder strengthening to allow for improved strength and ROM with yard work. JW . Progress with POC, as tolerated. Assessment Patient confirmed name and date of . Focused on B/L shoulder exercises and ROM for today's session secondary to pool being closed. Continued to focus on TrA contraction with UE exercises, fair trunk control noted. Slight increase in B/L shoulder irritation with UE exercises. Adult Risk Screening There are no spiritual/cultural practices/values/needs that are important to know Initial Fall Risk Screening: ROBYN has not fallen in the last 6 months. ROBYN does not have a fear of falling. He does not need assistance with sitting, standing or walking. Does not need assistance walking in his home. He does not need assistance in an unfamiliar setting. The patient is not using an assistive device. Fall Risk Screening: Patient is identified as a fall risk. Care Plan: Low Risk: Environmental for all patients and low risk patients: Offer assistance as needed or requested, keep environment free of obstacles, keep floor clean and dry, keep room lighting, wheelchair brakes on, bed/ stretcher locked and in low position if applicable, non-slip footwear if applicable, walker/cane available if needed, side rails up if applicable and pre-emptive toileting. Please identify location of pain: low back radiating to L groin, occ to R groin. Insurance Insurance reviewed Visit number: 16 POC 11/04,4 supervising PT CAROL Frazier EMI, med necessity, $0 copay, 4% co-insurance Onset Date: 2021 Medicare Certification Period: Beginnin2021 Endin2021 Subjective Patient reports:. Patient reports that he would like some stretching on UE and LEs. Patient reports that his shoulder pain is 1-2/10. States that his back hurts when he is in the kitchen. Home program performing as directed: Yes. Precautions: none. Fall Risk: low USE KX MODIFIER. Objective Ortho Shoulder AROM is WNL b/l UE flexion and abd and ER. Pt limited to L1 b/l UE active IR. Shoulder strength: 4/5 throughout L shoulder and 4-/5 throughout R shoulder Special Tests: Speeds, Empty Can and Paez Bruno were all (+) on the R (+) Paez Bruno on the L. Treatment Time in clinic started at 1:00 pm Time in clinic ended at 1:45 pm Total time in clinic is 45 minutes. Total timed code time is 39 minutes. Therapeutic exercise (29846): timed minutes 27, units 2 . UBE 2' FWD/BWD (N) Pulleys 3' flex Mid Rows w/TrA 1x10 Purple B/L GH ext w/TrA 1x10 Purple GH ER 1x10 orange GH IR 1x10 green Wall Slides 10 x 3 (N) Supine Marching 1x15 (N) Bridge 1x10 (N) B/L GH ER orange 1x10 (N). Manual Therapy (16307): timed minutes 12, units 1 . B/L GH PROM 12'. Aquatic Therapy (71571): timed minutes 43, units 3 . Review TrA contraction 10x5 holds SIDE STEPPING x 3 laps w/scapular retractions Heel raises x 25 w/bwd shoulder rows Squats x 20 Hip Extension x 25 Hip Abduction x25 Dumbbell Rotation 10x10 holds Side Bending x10 Standing hamcurls x 25 BWD Step Taps x15 Lunges facing shallow end x10 ea Lateral Lunges x10 ea X DB ROLLS [address] marble P time ABDOMINALS x 20 push/pull, flexion, sm. blue board BWD STEP UPS x 5 (more content not included)... Normal [facility] PT Progress Noteon 3 PT Progress Note Therapy Diagnosis Assessed Hip pain, right (719.45) (M25.551) Low back pain (724.2) (M54.50) Bilateral shoulder pain (719.41) (M25.511,M25.512) Plan Goals: Goals set and discussed today. Pt will demonstrate independence and compliance with HEP and self management New B/l shoulder goals effective 03/25/2022: 1) Improve b/l shoulder strength to >= 5-/5 throughout in order to be able to lift objects and perform housework without significant limitation. 4-6 weeks 2) Improve b/l shoulder active IR to >= L1-L2 in order to be able to reach effectively behind back as needed. 4-6 weeks, by week 2, goal met Activity Limitation: Decrease disability as assessed by Oswestry to less than or equal to 50% disability for improved QOL., by week 4 Gait/Locomotion: amb with normalized gait without antalgia for return to PLOF, by week 4 Pain: Decrease max pain to less than or equal to 7/10 for improved QOL. , by week 4, goal met Range Of Motion/Joint Mobility: Lumbar flex AROM WFL for improved ability to put on shoes, by week 4 Strength: L and R LE strength 5/5 throughout for improved ability to complete yardwork, by week 4 Planned interventions include: aquatic therapy, cryotherapy, education/instruction, gait training, home program, hot pack, kinesiotaping, manual therapy, neuromuscular re-education, self care/home management, therapeutic activities and therapeutic exercises . aquatic PT - correct lateral shift if able, focus on neutral spine while symptoms remain irritable, may have extension bias as flexion mechanism of injury. Frequency and duration:. 1x/every other week for 8 weeks = 4 total visits Pool. Potential to achieve rehab goals is good Continue with core and shoulder strengthening to allow for improved strength and ROM with yard work. JW . Progress with POC, as tolerated. Assessment Patient confirmed name and date of . Added addition shoulder strengthening with patient demonstrating good tolerance and fair strength. Patient shows improved scapular engagement with postural strengthening. Improved trunk control with unloading, less sway and rotation noted. Adult Risk Screening There are no spiritual/cultural practices/values/needs that are important to know Initial Fall Risk Screening: ROBYN has not fallen in the last 6 months. ROBYN does not have a fear of falling. He does not need assistance with sitting, standing or walking. Does not need assistance walking in his home. He does not need assistance in an unfamiliar setting. The patient is not using an assistive device. Fall Risk Screening: Patient is identified as a fall risk. Care Plan: Low Risk: Environmental for all patients and low risk patients: Offer assistance as needed or requested, keep environment free of obstacles, keep floor clean and dry, keep room lighting, wheelchair brakes on, bed/ stretcher locked and in low position if applicable, non-slip footwear if applicable, walker/cane available if needed, side rails up if applicable and pre-emptive toileting. Please identify location of pain: low back radiating to L groin, occ to R groin. Insurance Insurance reviewed Visit number: 15 POC 11/04,07/01 supervising PT CAROL MIDDLETON, med [facility], $0 copay, 4% co-insurance Onset Date: 2021 Medicare Certification Period: Beginnin2021 Endin2021 Subjective Patient reports:. Patient reports that his B/L shoulders are feeling good today, 2/10 pain levels. State that his back is good as long as he is does his exercises. No pain reported at end of session. Home program performing as directed: Yes. Precautions: none. Fall Risk: low USE KX MODIFIER. Objective Ortho Shoulder AROM is WNL b/l UE flexion and abd and ER. Pt limited to L1 b/l UE active IR. Shoulder strength: 4/5 throughout L shoulder and 4-/5 throughout R shoulder Special Tests: Speeds, Empty Can and Paez Bruno were all (+) on the R (+) Paez Bruno on the L. Treatment Time in clinic started at 10:00 pm Time in clinic ended at 10:45 pm Total time in clinic is 45 minutes. Total timed code time is 43 minutes. Therapeutic exercise (62561):. 03/25/2022 quick reassessment to add b/l shoulder pain M25.511 to POC. Aquatic Therapy (48453): timed minutes 43, units 3 . Review TrA contraction 10x5 holds SIDE STEPPING x 3 laps w/scapular retractions Heel raises x 25 w/bwd shoulder rows Squats x 20 Hip Extension x 25 Hip Abduction x25 Dumbbell Rotation 10x10 holds Side Bending x10 Standing hamcurls x 25 BWD Step Taps x15 Lunges facing shallow end x10 ea Lateral Lunges x10 ea X DB ROLLS [address] marble P time ABDOMINALS x 20 push/pull, flexion, sm. blue board BWD STEP UPS x 5 UE PADDLES x 20 each. L4 Flex/ext, abd/add, H. abd/add, push/pull UE Paddes Lv 1 -bicep curl x10 -IR/ER x10 100% UNLOADING 2 xlg noodles Ski 5' Hip abd/add 5; Hang 5' GRADUAL EXIT 2'. 'Scores and Scales' Signatures El (more content not included)... Normal [facility] PT Progress Noteon 2 PT Progress Note Therapy Diagnosis Assessed Hip pain, right (719.45) (M25.551) Low back pain (724.2) (M54.50) Bilateral shoulder pain (719.41) (M25.511,M25.512) Plan Goals: Goals set and discussed today. Pt will demonstrate independence and compliance with HEP and self management New B/l shoulder goals effective 03/25/2022: 1) Improve b/l shoulder strength to >= 5-/5 throughout in order to be able to lift objects and perform housework without significant limitation. 4-6 weeks 2) Improve b/l shoulder active IR to >= L1-L2 in order to be able to reach effectively behind back as needed. 4-6 weeks, by week 2, goal met Activity Limitation: Decrease disability as assessed by Oswestry to less than or equal to 50% disability for improved QOL., by week 4 Gait/Locomotion: amb with normalized gait without antalgia for return to PLOF, by week 4 Pain: Decrease max pain to less than or equal to 7/10 for improved QOL. , by week 4, goal met Range Of Motion/Joint Mobility: Lumbar flex AROM WFL for improved ability to put on shoes, by week 4 Strength: L and R LE strength 5/5 throughout for improved ability to complete yardwork, by week 4 Planned interventions include: aquatic therapy, cryotherapy, education/instruction, gait training, home program, hot pack, kinesiotaping, manual therapy, neuromuscular re-education, self care/home management, therapeutic activities and therapeutic exercises . aquatic PT - correct lateral shift if able, focus on neutral spine while symptoms remain irritable, may have extension bias as flexion mechanism of injury. Frequency and duration:. 1x/every other week for 8 weeks = 4 total visits Pool. Potential to achieve rehab goals is good Continue with core and shoulder strengthening to allow for improved UE function with [place] activities. JW . Progress with POC, as tolerated. Assessment Patient confirmed name and date of . PT Francis came in pool room to perform measurements at start of session. Added shoulder strengthening in aquatic session today. Gave HEP to patient along with bands. Patient demonstrated R shoulder weakness with midrows and b/l extension. Patient continues to demonstrate good trunk control with LE/UE exercises. 03/25/2022 PT Reassessment to add Dx of b/l [...] added shoulder treatment as per MD order. Adult Risk Screening There are no spiritual/cultural practices/values/needs that are important to know Initial Fall Risk Screening: ROBYN has not fallen in the last 6 months. ROBYN does not have a fear of falling. He does not need assistance with sitting, standing or walking. Does not need assistance walking in his home. He does not need assistance in an unfamiliar setting. The patient is not using an assistive device. Fall Risk Screening: Patient is identified as a fall risk. Care Plan: Low Risk: Environmental for all patients and low risk patients: Offer assistance as needed or requested, keep environment free of obstacles, keep floor clean and dry, keep room lighting, wheelchair brakes on, bed/ stretcher locked and in low position if applicable, non-slip footwear if applicable, walker/cane available if needed, side rails up if applicable and pre-emptive toileting. Please identify location of pain: low back radiating to L groin, occ to R groin. Insurance Insurance reviewed Visit number: 14 POC 11/04,4/ supervising PT CAROL MIDDLETON, med necessity, $0 copay, 4% co-insurance Onset Date: 2021 Medicare Certification Period: Beginnin2021 Endin2021 Subjective Patient reports:. Patient brought script in for B/L shoulders. States that he continues to feel good with back pain, 04/08. Reports that B/L shoulder pain is 2/10. Home program performing as directed: Yes. Precautions: none. Fall Risk: low USE KX MODIFIER. Objective Ortho Shoulder AROM is WNL b/l UE flexion and abd and ER. Pt limited to L1 b/l UE active IR. Shoulder strength: 4/5 throughout L shoulder and 4-/5 throughout R shoulder Special Tests: Speeds, Empty Can and Paez Bruno were all (+) on the R (+) Paez Bruno on the L. Treatment Time in clinic started at 12:15 pm Time in clinic ended at 1:00 pm Total time in clinic is 45 minutes. Total timed code time is 43 minutes. Therapeutic exercise (42562):. 03/25/2022 quick reassessment to add b/l shoulder pain M25.511 to POC. Aquatic Therapy (10030): timed minutes 43, units 3 . Review TrA contraction 10x5 holds SIDE STEPPING x 3 laps w/scapular retractions Heel raises x 25 w/bwd shoulder rows Squats x 20 Hip Extension x 25 Hip Abduction x25 Dumbbell Rotation 10x10 holds Side Bending x10 Standing hamcurls x 25 BWD Step (more content not included)... Normal [facility] Therapy Re-eval Noteon 03-25 Therapy Re-eval Note Therapy Diagnosis Assessed 1. Hip pain, right (719.45) (M25.551) 2. Low back pain (724.2) (M54.50) 3. Bilateral shoulder pain (719.41) (M25.511,M25.512) Plan Goals: Goals set and discussed today. Pt will demonstrate independence and compliance with HEP and self management New B/l shoulder goals effective 03/25/2022: 1) Improve b/l shoulder strength to >= 5-/5 throughout in order to be able to lift objects and perform housework without significant limitation. 4-6 weeks 2) Improve b/l shoulder active IR to >= L1-L2 in order to be able to reach effectively behind back as needed. 4-6 weeks, by week 2, goal met Activity Limitation: Decrease disability as assessed by Oswestry to less than or equal to 50% disability for improved QOL., by week 4 Gait/Locomotion: amb with normalized gait without antalgia for return to PLOF, by week 4 Pain: Decrease max pain to less than or equal to 7/10 for improved QOL. , by week 4, goal met Range Of Motion/Joint Mobility: Lumbar flex AROM WFL for improved ability to put on shoes, by week 4 Strength: L and R LE strength 5/5 throughout for improved ability to complete yardwork, by week 4 Planned interventions include: aquatic therapy, cryotherapy, education/instruction, gait training, home program, hot pack, kinesiotaping, manual therapy, neuromuscular re-education, self care/home management, therapeutic activities and therapeutic exercises . aquatic PT - correct lateral shift if able, focus on neutral spine while symptoms remain irritable, may have extension bias as flexion mechanism of injury. Frequency and duration:. 1x/every other week for 8 weeks = 4 total visits Pool. Potential to achieve rehab goals is good Continue with core and shoulder strengthening to allow for improved UE function with OH activities. JW . Progress with POC, as tolerated. Assessment Patient confirmed name and date of . PT Francis came in pool room to perform measurements at start of session. Added shoulder strengthening in aquatic session today. Gave HEP to patient along with bands. Patient demonstrated R shoulder weakness with midrows and b/l extension. Patient continues to demonstrate good trunk control with LE/UE exercises. 03/25/2022 PT Reassessment to add Dx of b/l [...] added shoulder treatment as per MD order. Adult Risk Screening There are no spiritual/cultural practices/values/needs that are important to know Initial Fall Risk Screening: ROBYN has not fallen in the last 6 months. ROBYN does not have a fear of falling. He does not need assistance with sitting, standing or walking. Does not need assistance walking in his home. He does not need assistance in an unfamiliar setting. The patient is not using an assistive device. Fall Risk Screening: Patient is identified as a fall risk. Care Plan: Low Risk: Environmental for all patients and low risk patients: Offer assistance as needed or requested, keep environment free of obstacles, keep floor clean and dry, keep room lighting, wheelchair brakes on, bed/ stretcher locked and in low position if applicable, non-slip footwear if applicable, walker/cane available if needed, side rails up if applicable and pre-emptive toileting. Please identify location of pain: low back radiating to L groin, occ to R groin. Insurance Insurance reviewed Visit number: 14 POC 11/04,07/01 supervising PT CAROL MIDDLETON, med necessity, $0 copay, 4% co-insurance Onset Date: 2021 Medicare Certification Period: Beginnin2021 Endin2021 Subjective Patient reports:. Patient brought script in for B/L shoulders. States that he continues to feel good with back pain, 1/10. Reports that B/L shoulder pain is 2/10. Home program performing as directed: Yes. Precautions: none. Fall Risk: low USE KX MODIFIER. Objective Ortho Shoulder AROM is WNL b/l UE flexion and abd and ER. Pt limited to L1 b/l UE active IR. Shoulder strength: 4/5 throughout L shoulder and 4-/5 throughout R shoulder Special Tests: Speeds, Empty Can and Paez Bruno were all (+) on the R (+) Paez Bruno on the L. Treatment Time in clinic started at 12:15 pm Time in clinic ended at 1:00 pm Total time in clinic is 45 minutes. Total timed code time is 43 minutes. Therapeutic exercise (85869):. 03/25/2022 quick reassessment to add b/l shoulder pain M25.511 to POC. Aquatic Therapy (60369): timed minutes 43, units 3 . Review TrA contraction 10x5 holds SIDE STEPPING x 3 laps w/scapular retractions Heel raises x 25 w/bwd shoulder rows Squats x 20 Hip Extension x 25 Hip Abduction x25 Dumbbell Rotation 10x10 holds Side Bending x10 Standing hamcurls x 25 (more content not included)... Normal [facility] PT Progress Noteon 2 PT Progress Note Therapy Diagnosis Assessed Hip pain, right (719.45) (M25.551) Low back pain (724.2) (M54.50) Plan Goals: Goals set and discussed today. Pt will demonstrate independence and compliance with HEP and self management, by week 2, goal met Activity Limitation: Decrease disability as assessed by Oswestry to less than or equal to 50% disability for improved QOL., by week 4 Gait/Locomotion: amb with normalized gait without antalgia for return to PLOF, by week 4 Pain: Decrease max pain to less than or equal to 7/10 for improved QOL. , by week 4, goal met Range Of Motion/Joint Mobility: Lumbar flex AROM WFL for improved ability to put on shoes, by week 4 Strength: L and R LE strength 5/5 throughout for improved ability to complete yardwork, by week 4 Planned interventions include: aquatic therapy, cryotherapy, education/instruction, gait training, home program, hot pack, kinesiotaping, manual therapy, neuromuscular re-education, self care/home management, therapeutic activities and therapeutic exercises . aquatic PT - correct lateral shift if able, focus on neutral spine while symptoms remain irritable, may have extension bias as flexion mechanism of injury. Frequency and duration:. 1x/every other week for 8 weeks = 4 total visits Pool. Potential to achieve rehab goals is good Continue with core strengthening to allow for improved tolerance to bending and lifting. JW . Progress with POC, as tolerated. Assessment Patient confirmed name and date of . Patient showed slight balance deficits with UE/LE exercises without UE assist. Held lateral lunges today secondary to lack of time. Patient is going to send PT Corinne a script from to address shoulder pain. Adult Risk Screening There are no spiritual/cultural practices/values/needs that are important to know Initial Fall Risk Screening: ROBYN has not fallen in the last 6 months. ROBYN does not have a fear of falling. He does not need assistance with sitting, standing or walking. Does not need assistance walking in his home. He does not need assistance in an unfamiliar setting. The patient is not using an assistive device. Fall Risk Screening: Patient is identified as a fall risk. Care Plan: Low Risk: Environmental for all patients and low risk patients: Offer assistance as needed or requested, keep environment free of obstacles, keep floor clean and dry, keep room lighting, wheelchair brakes on, bed/ stretcher locked and in low position if applicable, non-slip footwear if applicable, walker/cane available if needed, side rails up if applicable and pre-emptive toileting. Please identify location of pain: low back radiating to L groin, occ to R groin. Insurance Insurance reviewed Visit number: 13 POC 11/04,07/01 supervising PT CAROL Frazier MCR, med necessity, $0 copay, 4% co-insurance Onset Date: 2021 Medicare Certification Period: Beginnin2021 Endin2021 Subjective Patient reports:. Patient reports that he occasionally gets pain in his back but his exercises help. Patient states that his shoulders periodically painful, sometimes without explaination. Home program performing as directed: Yes. Precautions: none. Fall Risk: low USE KX MODIFIER. Treatment Time in clinic started at 1:00 pm Time in clinic ended at 1:45 pm Total time in clinic is 45 minutes. Total timed code time is 43 minutes. Aquatic Therapy (53520): timed minutes 43, units 3 . Review TrA contraction 10x5 holds SIDE STEPPING x 3 laps w/scapular retractions Heel raises x 25 w/bwd shoulder rows Squats x 20 Hip Extension x 25 Hip Abduction x25 Dumbbell Rotation 10x10 holds Side Bending x10 Standing hamcurls x 25 BWD Step Taps x15 Lunges facing shallow end x10 ea Lateral Lunges x10 ea X DB ROLLS [address] marble P time ABDOMINALS x 20 push/pull, flexion, sm. blue board BWD STEP UPS x 5 UE PADDLES x 20 each. L4 Flex/ext, abd/add, H. abd/add, push/pull 100% UNLOADING 2 xlg noodles Ski 5' Hip abd/add 5; Hang 5' GRADUAL EXIT 2'. 'Scores and Scales' Signatures Electronically signed by : Elin Robbins PTA; Mar 18 2022 1:52PM EST (Author) Electronically signed by : Corinne Husain PT; Mar 18 2022 2:53PM EST Normal [facility] Established Visit (Orthopaed ic Surgery)on 03-07-2022 Established Visit (Orthopaedic Surgery) Diagnoses/Problems Assessed Bilateral shoulder pain (719.41) (M25.511,M25.512) Low back pain (724.2) (M54.50) Right shoulder pain (719.41) (M25.511) Right foot pain (729.5) (M79.671) Impingement syndrome of right shoulder (726.2) (M75.41)1 1 Amended By: Jun Samuel; Mar 07 2022 12:59 PM ESTOrders Bilateral shoulder pain, Low back pain Physical Therapy - Aquatic Referral Evaluation and Treatment Evaluate AND Treat Status: Hold For - Scheduling Requested for: [id number] Right shoulder pain Administered: Lidocaine HCl - 2 % Injection Solution Administered: Triamcinolone Acetonide 40 MG/ML Injection Suspension (Kenalog) Patient Discussion/Summary A/P: 1. Bilateral shoulder pain, right greater than left. He was given a new order for some more physical therapy, we did opt to proceed with repeat Kenalog injection in subacromial space today. He will continue with activities as tolerated and follow-up as needed for this 2. Low back pain/lumbar spondylosis, interested in continue conservative management at this time, new referral for aquatic therapy was placed, he could consider pain management evaluation in the future if therapy becomes less effective 3. Right foot arch pain: Recommend conservative management for this, only having pain when he steps on something during hikes, did recommend that he try arch support/shoe insert with hiking, consider more supportive shoes, I did provide him with some plantar fascia exercises to work on some stretching, strengthening of the ankle and intrinsic foot muscles. Will follow-up as symptoms dictate Chief Complaint F/U BILATERAL SHOULDER History of Present Illness 76-year-old male presenting for follow-up of bilateral [...] He denies any significant stiffness in the shoulder With regards to his back overall he is [...] recurrence of symptoms. No new injuries or symptoms With regards to right foot he is having [...] denies any swelling, no redness or warmth. Review of Systems The patient's past medical, surgical, family, and social history as well as allergies and medications were reviewed with the patient and updated in the chart Constitutional: no fever, no chills, not feeling tired, no recent weight gain and no recent weight loss. ENT: no nosebleeds. Cardiovascular: no chest pain. Respiratory: no shortness of breath and no cough. Gastrointestinal: no abdominal pain, no nausea, no diarrhea and no vomiting. Integumentary: no rashes and no skin wound. Neurological: no headache. Psychiatric: no depression and no sleep disturbances. Endocrine: no muscle cramps. Hematologic/Lymphatic: no swollen glands and no tendency for easy bruising. All other systems have been reviewed and are negative for complaint. 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 Normal [facility] PT Progress Noteon 2 PT Progress Note Therapy Diagnosis Assessed Hip pain, right (719.45) (M25.551) Low back pain (724.2) (M54.50) Plan Goals: Goals set and discussed today. Pt will demonstrate independence and compliance with HEP and self management, by week 2, goal met Activity Limitation: Decrease disability as assessed by Oswestry to less than or equal to 50% disability for improved QOL., by week 4 Gait/Locomotion: amb with normalized gait without antalgia for return to PLOF, by week 4 Pain: Decrease max pain to less than or equal to 7/10 for improved QOL. , by week 4, goal met Range Of Motion/Joint Mobility: Lumbar flex AROM WFL for improved ability to put on shoes, by week 4 Strength: L and R LE strength 5/5 throughout for improved ability to complete yardwork, by week 4 Planned interventions include: aquatic therapy, cryotherapy, education/instruction, gait training, home program, hot pack, kinesiotaping, manual therapy, neuromuscular re-education, self care/home management, therapeutic activities and therapeutic exercises . aquatic PT - correct lateral shift if able, focus on neutral spine while symptoms remain irritable, may have extension bias as flexion mechanism of injury. Frequency and duration:. 1x/every other week for 8 weeks = 4 total visits Pool. Potential to achieve rehab goals is good Continue with core strengthening to allow for improved tolerance to bending and lifting. JW . Progress with POC, as tolerated. Assessment Patient confirmed name and date of . Patient show good trunk control with UE/LE exercises. Able to progress to lateral lunges, fair trunk control with some difficulty with coming to neutral position. Patient able to progress UE paddle resistance while maintaining good trunk control. Adult Risk Screening There are no spiritual/cultural practices/values/needs that are important to know Initial Fall Risk Screening: ROBYN has not fallen in the last 6 months. ROBYN does not have a fear of falling. He does not need assistance with sitting, standing or walking. Does not need assistance walking in his home. He does not need assistance in an unfamiliar setting. The patient is not using an assistive device. Fall Risk Screening: Patient is identified as a fall risk. Care Plan: Low Risk: Environmental for all patients and low risk patients: Offer assistance as needed or requested, keep environment free of obstacles, keep floor clean and dry, keep room lighting, wheelchair brakes on, bed/ stretcher locked and in low position if applicable, non-slip footwear if applicable, walker/cane available if needed, side rails up if applicable and pre-emptive toileting. Please identify location of pain: low back radiating to L groin, occ to R groin. Insurance Insurance reviewed Visit number: 12 POC 11/04,07/01 supervising PT CAROL MIDDLETON, med [facility], $0 copay, 4% co-insurance Onset Date: 2021 Medicare Certification Period: Beginnin2021 Endin2021 Subjective Patient reports:. Patient reports that his R shoulder and neck are painful and stiff today. States that he will see his DrDahiana tomorrow. Reports that his back is doing great. Home program performing as directed: Yes. Precautions: none. Fall Risk: low USE KX MODIFIER. Treatment Time in clinic started at 3:30 pm Time in clinic ended at 4:15 pm Total time in clinic is 45 minutes. Total timed code time is 43 minutes. Aquatic Therapy (07401): timed minutes 43, units 3 . Review TrA contraction 10x5 holds SIDE STEPPING x 3 laps Heel raises x 25 Squats x 20 Hip Extension x 25 Hip Abduction x25 Dumbbell Rotation 10x10 holds Side Bending x10 Standing hamcurls x 25 BWD Step Taps x15 Lunges facing shallow end x10 ea Lateral Lunges x10 ea N DB ROLLS [address]. marble P time ABDOMINALS x 20 push/pull, flexion, sm. blue board BWD STEP UPS x 5 UE PADDLES x 20 each. L4 Flex/ext, abd/add, H. abd/add, push/pull 100% UNLOADING 2 xlg noodles Ski 5' Hip abd/add 5; Hang 5' GRADUAL EXIT 2'. 'Scores and Scales' Signatures Electronically signed by : Elin Robbins AX SURVEY WORKER; Mar 06 2022 4:13PM EST (Author) Electronically signed by : Corinne Husain, PT; Mar 10 2022 3:03PM EST Normal [facility] PT Progress Note Therapy Diagnosis Assessed Hip pain, right (719.45) (M25.551) Low back pain (724.2) (M54.50) Plan Goals: Goals set and discussed today. Pt will demonstrate independence and compliance with HEP and self management, by week 2, goal met Activity Limitation: Decrease disability as assessed by Oswestry to less than or equal to 50% disability for improved QOL., by week 4, goal met Gait/Locomotion: amb with normalized gait without antalgia for return to PLOF, by week 4, goal partially met Pain: Decrease max pain to less than or equal to 7/10 for improved QOL. , by week 4, goal met Range Of Motion/Joint Mobility: Lumbar flex AROM WFL for improved ability to put on shoes, by week 4 Strength: L and R LE strength 5/5 throughout for improved ability to complete yardwork, by week 4, goal met Planned interventions include: aquatic therapy, cryotherapy, education/instruction, gait training, home program, hot pack, kinesiotaping, manual therapy, neuromuscular re-education, self care/home management, therapeutic activities and therapeutic exercises . aquatic PT - correct lateral shift if able, focus on neutral spine while symptoms remain irritable, may have extension bias as flexion mechanism of injury. Frequency and duration: 1 time(s) a week, for 6 weeks, for 6 visits. Potential to achieve rehab goals is good Assessment Patient confirmed name and date of this session. Pt is progressing well through POC addressing back pain with aquatic PT. He demos improved strength and functional mobility which allows for greater ease with yardwork, bending, lifting. He does report R shoulder and neck pain has started recently therefore pt instructed to obtain script for this diagnosis and it can be addressed in PT. Pt would benefit from skilled aquatic PT to further lower back pain and cont addressing LE strength, core strength, and flexibility. Adult Risk Screening There are no spiritual/cultural practices/values/needs that are important to know Initial Fall Risk Screening: ROBYN has not fallen in the last 6 months. ROBYN does not have a fear of falling. He does not need assistance with sitting, standing or walking. Does not need assistance walking in his home. He does not need assistance in an unfamiliar setting. The patient is not using an assistive device. Fall Risk Screening: Patient is identified as a fall risk. Care Plan: Low Risk: Environmental for all patients and low risk patients: Offer assistance as needed or requested, keep environment free of obstacles, keep floor clean and dry, keep room lighting, wheelchair brakes on, bed/ stretcher locked and in low position if applicable, non-slip footwear if applicable, walker/cane available if needed, side rails up if applicable and pre-emptive toileting. Please identify location of pain: low back radiating to L groin, occ to R groin. Insurance Insurance reviewed Visit number: 12 supervising PT CAROL MIDDLETON, med [facility], $0 copay, 4% co-insurance Onset Date: 2021 Medicare Certification Period: Beginnin2021 Endin2021 Subjective Patient reports:. Pt has been able to lift heavy objects, bend down on knees, do physically active work. Pt reports pain comes and goes. Pt rates back pain 1/10 upon arrival as aquatic therapy has helped a lot. Pt walks 2-5x/week for exercise. Pt states back pain returns after being out of pool 2-3 weeks so he would like to cont with aquatic PT. He does report the neck and shoulders have begun hurting. He also states his neck rotation is limited which he notices when driving. He is going to see Dr. Samuel tomorrow. Precautions: none. Fall Risk: low USE KX MODIFIER. Objective Ortho CHELSEY: 60% disability > 20% deferred lumbar AROM standing assessment due to high irritability of symptoms L LE MMT: hip flex 2/5 left sided low back pain > 5 /5 , hip abd 4/5, hip add 4/5 pain > 5 /5 , knee ext 2/5 pain > 5 /5 , knee flex 4/5 > 5/5 R LE MMT: hip flex 2/5 left sided low back pain > 5 /5 , hip abd 4/5 > 5 /5 , hip add 4/5 pain > 5 /5 , knee ext 2/5 pain >5 /5 , knee flex 4/5 >5 /5 palpation: tender L lumbar paraspinals >none HS flexibility R and L mod restriction > mild restriction of B HS. Treatment Time in clinic started at 2:48 pm Time in clinic ended at 3:15 pm Total time in clinic is 27 minutes. Total timed code time is 23 minutes. Therapeutic exercise (97460): timed minutes 23, units 2 . Recheck, review HEP, review POC Education on needing new script for shoulder pain, POC for addressing both shoulder and back pain, benefits of pool vs land therapy. 'Scores and Scales' Signatures Electronically signed by : Corinne Husain, PT; Mar 06 2022 4:56PM EST (Author) Normal [facility] Therapy Re-eval Noteon 03-06 Therapy Re-eval Note Therapy Diagnosis Assessed 1. Hip pain, right (719.45) (M25.551) 2. Low back pain (724.2) (M54.50) Plan Goals: Goals set and discussed today. Pt will demonstrate independence and compliance with HEP and self management, by week 2, goal met Activity Limitation: Decrease disability as assessed by Oswestry to less than or equal to 50% disability for improved QOL., by week 4, goal met Gait/Locomotion: amb with normalized gait without antalgia for return to PLOF, by week 4, goal partially met Pain: Decrease max pain to less than or equal to 7/10 for improved QOL. , by week 4, goal met Range Of Motion/Joint Mobility: Lumbar flex AROM WFL for improved ability to put on shoes, by week 4 Strength: L and R LE strength 5/5 throughout for improved ability to complete yardwork, by week 4, goal met Planned interventions include: aquatic therapy, cryotherapy, education/instruction, gait training, home program, hot pack, kinesiotaping, manual therapy, neuromuscular re-education, self care/home management, therapeutic activities and therapeutic exercises . aquatic PT - correct lateral shift if able, focus on neutral spine while symptoms remain irritable, may have extension bias as flexion mechanism of injury. Frequency and duration: 1 time(s) a week, for 6 weeks, for 6 visits. Potential to achieve rehab goals is good Assessment Patient confirmed name and date of this session. Pt is progressing well through POC addressing back pain with aquatic PT. He demos improved strength and functional mobility which allows for greater ease with yardwork, bending, lifting. He does report R shoulder and neck pain has started recently therefore pt instructed to obtain script for this diagnosis and it can be addressed in PT. Pt would benefit from skilled aquatic PT to further lower back pain and cont addressing LE strength, core strength, and flexibility. Adult Risk Screening There are no spiritual/cultural practices/values/needs that are important to know Initial Fall Risk Screening: ROBYN has not fallen in the last 6 months. ROBYN does not have a fear of falling. He does not need assistance with sitting, standing or walking. Does not need assistance walking in his home. He does not need assistance in an unfamiliar setting. The patient is not using an assistive device. Fall Risk Screening: Patient is identified as a fall risk. Care Plan: Low Risk: Environmental for all patients and low risk patients: Offer assistance as needed or requested, keep environment free of obstacles, keep floor clean and dry, keep room lighting, wheelchair brakes on, bed/ stretcher locked and in low position if applicable, non-slip footwear if applicable, walker/cane available if needed, side rails up if applicable and pre-emptive toileting. Please identify location of pain: low back radiating to L groin, occ to R groin. Insurance Insurance reviewed Visit number: 12 supervising PT CAROL MIDDLETON, [employer], $0 copay, 4% co-insurance Onset Date: 2021 Medicare Certification Period: Beginnin2021 Endin2021 Subjective Patient reports:. Pt has been able to lift heavy objects, bend down on knees, do physically active work. Pt reports pain comes and goes. Pt rates back pain 1/10 upon arrival as aquatic therapy has helped a lot. Pt walks 2-5x/week for exercise. Pt states back pain returns after being out of pool 2-3 weeks so he would like to cont with aquatic PT. He does report the neck and shoulders have begun hurting. He also states his neck rotation is limited which he notices when driving. He is going to see Dr. Samuel tomorrow. Precautions: none. Fall Risk: low USE KX MODIFIER. Objective Ortho CHELSEY: 60% disability > 20% deferred lumbar AROM standing assessment due to high irritability of symptoms L LE MMT: hip flex 2/5 left sided low back pain > 5 /5 , hip abd 4/5, hip add 4/5 pain > 5 /5 , knee ext 2/5 pain > 5 /5 , knee flex 4/5 > 5/5 R LE MMT: hip flex 2/5 left sided low back pain > 5 /5 , hip abd 4/5 > 5 /5 , hip add 4/5 pain > 5 /5 , knee ext 2/5 pain >5 /5 , knee flex 4/5 >5 /5 palpation: tender L lumbar paraspinals >none HS flexibility R and L mod restriction > mild restriction of B HS. Treatment Time in clinic started at 2:48 pm Time in clinic ended at 3:15 pm Total time in clinic is 27 minutes. Total timed code time is 23 minutes. Therapeutic exercise (75139): timed minutes 23, units 2 . Recheck, review HEP, review POC Education on needing new script for shoulder pain, POC for addressing both shoulder and back pain, benefits of pool vs land therapy. 'Scores and Scales' Signatures Electronically signed by : Corinne Husain, PT; Mar 06 2022 4:56PM EST (Author) [facility] PT Progress Noteon 2 PT Progress Note Therapy Diagnosis Assessed Hip pain, right (719.45) (M25.551) Low back pain (724.2) (M54.50) Plan Goals: Goals set and discussed today. Pt will demonstrate independence and compliance with HEP and self management, by week 2, goal met Activity Limitation: Decrease disability as assessed by Oswestry to less than or equal to 50% disability for improved QOL., by week 4 Gait/Locomotion: amb with normalized gait without antalgia for return to PLOF, by week 4 Pain: Decrease max pain to less than or equal to 7/10 for improved QOL. , by week 4, goal met Range Of Motion/Joint Mobility: Lumbar flex AROM WFL for improved ability to put on shoes, by week 4 Strength: L and R LE strength 5/5 throughout for improved ability to complete yardwork, by week 4 Planned interventions include: aquatic therapy, cryotherapy, education/instruction, gait training, home program, hot pack, kinesiotaping, manual therapy, neuromuscular re-education, self care/home management, therapeutic activities and therapeutic exercises . aquatic PT - correct lateral shift if able, focus on neutral spine while symptoms remain irritable, may have extension bias as flexion mechanism of injury. Frequency and duration:. 1x/every other week for 8 weeks = 4 total visits Pool. Potential to achieve rehab goals is good Continue with core strengthening along with UIE/LE strengthening to allow for improved tolerance to getting up from being on knees during yard work. JW . Progress with POC, as tolerated. Assessment Patient confirmed name and date of . Patient demonstrates increased trunk control with UE/LE exercises, able to move through all reps without noted fatigue or c/o of increased pain. Noted LE weakness with bwd step ups, performed 5 reps today. Cues to keep trunk from rotation with skiing during unloading. Adult Risk Screening There are no spiritual/cultural practices/values/needs that are important to know Initial Fall Risk Screening: ROBYN has not fallen in the last 6 months. ROBYN does not have a fear of falling. He does not need assistance with sitting, standing or walking. Does not need assistance walking in his home. He does not need assistance in an unfamiliar setting. The patient is not using an assistive device. Fall Risk Screening: Patient is identified as a fall risk. Care Plan: Low Risk: Environmental for all patients and low risk patients: Offer assistance as needed or requested, keep environment free of obstacles, keep floor clean and dry, keep room lighting, wheelchair brakes on, bed/ stretcher locked and in low position if applicable, non-slip footwear if applicable, walker/cane available if needed, side rails up if applicable and pre-emptive toileting. Please identify location of pain: low back radiating to L groin, occ to R groin. Insurance Insurance reviewed Visit number: 11 POC 11/04,2/ supervising PT CAROL MIDDLETON, [employer], $0 copay, 4% co-insurance Onset Date: 2021 Medicare Certification Period: Beginnin2021 Endin2021 Subjective Patient reports:. Patient reports that pain levels are low. States that he has been very active lately and his pain levels have stayed low. States that he was able to unload a trunk load of manure 2 days ago without aggravating pain levels. Home program performing as directed: Yes. Precautions: none. Fall Risk: low USE KX MODIFIER. Treatment Time in clinic started at 11:00 pm Time in clinic ended at 11:45 pm Total time in clinic is 45 minutes. Total timed code time is 43 minutes. Aquatic Therapy (32504): timed minutes 43, units 3 . Review TrA contraction 10x5 holds SIDE STEPPING x 3 laps Heel raises x 25 Squats x 20 Hip Extension x 25 Hip Abduction x25 Dumbbell Rotation 10x10 holds Side Bending x10 Standing hamcurls x 25 BWD Step Taps x15 Lunges facing shallow end x10 ea DB ROLLS [address] P time ABDOMINALS x 20 push/pull, flexion, sm. blue board BWD STEP UPS x 5 UE PADDLES x 20 each. L4 Flex/ext, abd/add, H. abd/add, push/pull 100% UNLOADING 2 xlg noodles Ski 5' Hip abd/add 5; Hang 5' GRADUAL EXIT 2'. 'Scores and Scales' Signatures Electronically signed by : Elin Robbins AX SURVEY WORKER; Feb 25 2022 11:32AM EST (Author) Electronically signed by : Corinne Husain, PT; Feb 25 2022 2:56PM EST Normal [facility] PT Progress Noteon 2 PT Progress Note Therapy Diagnosis Assessed Hip pain, right (719.45) (M25.551) Low back pain (724.2) (M54.50) Plan Goals: Goals set and discussed today. Pt will demonstrate independence and compliance with HEP and self management, by week 2, goal met Activity Limitation: Decrease disability as assessed by Oswestry to less than or equal to 50% disability for improved QOL., by week 4 Gait/Locomotion: amb with normalized gait without antalgia for return to PLOF, by week 4 Pain: Decrease max pain to less than or equal to 7/10 for improved QOL. , by week 4, goal met Range Of Motion/Joint Mobility: Lumbar flex AROM WFL for improved ability to put on shoes, by week 4 Strength: L and R LE strength 5/5 throughout for improved ability to complete yardwork, by week 4 Planned interventions include: aquatic therapy, cryotherapy, education/instruction, gait training, home program, hot pack, kinesiotaping, manual therapy, neuromuscular re-education, self care/home management, therapeutic activities and therapeutic exercises . aquatic PT - correct lateral shift if able, focus on neutral spine while symptoms remain irritable, may have extension bias as flexion mechanism of injury. Frequency and duration:. 1x/every other week for 8 weeks = 4 total visits Pool. Potential to achieve rehab goals is good Continue with core strengthening along with UIE/LE strengthening to allow for improved tolerance to yard work. JW . Progress with POC, as tolerated. Assessment Patient confirmed name and date of . Added lunges facing shallow end, patient required cues for good form. No c/o of increased pain. Patient showed good tolerance to addition of reps, good trunk stability. Patient maintains trunk stability throughout session. Adult Risk Screening There are no spiritual/cultural practices/values/needs that are important to know Initial Fall Risk Screening: ROBYN has not fallen in the last 6 months. ROBYN does not have a fear of falling. He does not need assistance with sitting, standing or walking. Does not need assistance walking in his home. He does not need assistance in an unfamiliar setting. The patient is not using an assistive device. Fall Risk Screening: Patient is identified as a fall risk. Care Plan: Low Risk: Environmental for all patients and low risk patients: Offer assistance as needed or requested, keep environment free of obstacles, keep floor clean and dry, keep room lighting, wheelchair brakes on, bed/ stretcher locked and in low position if applicable, non-slip footwear if applicable, walker/cane available if needed, side rails up if applicable and pre-emptive toileting. Please identify location of pain: low back radiating to L groin, occ to R groin. Insurance Insurance reviewed Visit number: 10 POC 11/04,2/ supervising PT CAROL MIDDLETON, [facility], $0 copay, 4% co-insurance Onset Date: 2021 Medicare Certification Period: Beginnin2021 Endin2021 Subjective Patient reports:. Patient reports reports that he is feeling good today. States that he was able to do hard work on Thursday without increased pain. Home program performing as directed: Yes . HEP given for open book. Precautions: none. Fall Risk: low USE KX MODIFIER. Treatment Time in clinic started at 11:00 pm Time in clinic ended at 11:45 pm Total time in clinic is 45 minutes. Total timed code time is 43 minutes. Aquatic Therapy (26678): timed minutes 43, units 3 . Review TrA contraction 10x5 holds SIDE STEPPING x 3 laps Heel raises x 25 P Squats x 2 Hip Extension x 25 P Hip Abduction x25 P Dumbbell Rotation 10x10 holds (N) Side Bending x10 Standing hamcurls x 25 BWD Step Taps x15 Lunges facing shallow end x10 ea (N) DB ROLLS [address] P time ABDOMINALS x 20 push/pull, flexion, sm. blue board BWD STEP UPS x 15 UE PADDLES x 20 each. L4 (P resistance) Flex/ext, abd/add, H. abd/add, push/pull 100% UNLOADING 2 xlg noodles Ski 5' Hip abd/add 5; Hang 5' GRADUAL EXIT 2'. 'Scores and Scales' Signatures Electronically signed by : Elin Robbins, AX SURVEY WORKER; Feb 18 2022 3:59PM EST (Author) Electronically signed by : Corinne Husain, PT; Feb 24 2022 12:39PM EST Normal [facility] PT Progress Noteon 2 PT Progress Note Therapy Diagnosis Assessed Hip pain, right (719.45) (M25.551) Low back pain (724.2) (M54.50) Plan Goals: Goals set and discussed today. Pt will demonstrate independence and compliance with HEP and self management, by week 2, goal met Activity Limitation: Decrease disability as assessed by Oswestry to less than or equal to 50% disability for improved QOL., by week 4 Gait/Locomotion: amb with normalized gait without antalgia for return to PLOF, by week 4 Pain: Decrease max pain to less than or equal to 7/10 for improved QOL. , by week 4, goal met Range Of Motion/Joint Mobility: Lumbar flex AROM WFL for improved ability to put on shoes, by week 4 Strength: L and R LE strength 5/5 throughout for improved ability to complete yardwork, by week 4 Planned interventions include: aquatic therapy, cryotherapy, education/instruction, gait training, home program, hot pack, kinesiotaping, manual therapy, neuromuscular re-education, self care/home management, therapeutic activities and therapeutic exercises . aquatic PT - correct lateral shift if able, focus on neutral spine while symptoms remain irritable, may have extension bias as flexion mechanism of injury. Frequency and duration:. 1x/every other week for 8 weeks = 4 total visits Pool. Potential to achieve rehab goals is good Continue with core strengthening along with UIE/LE strengthening to allow for improved tolerance to yard work. JW . Progress with POC, as tolerated. Assessment Patient confirmed name and date of . Patient able to progress to dumbbell rotation and side bends to promote lumbar mobility to allow for improved lumbar ROM with yard work. Added bwd step taps today to work on core control and extension bias. Adult Risk Screening There are no spiritual/cultural practices/values/needs that are important to know Initial Fall Risk Screening: ROBYN has not fallen in the last 6 months. ROBYN does not have a fear of falling. He does not need assistance with sitting, standing or walking. Does not need assistance walking in his home. He does not need assistance in an unfamiliar setting. The patient is not using an assistive device. Fall Risk Screening: Patient is identified as a fall risk. Care Plan: Low Risk: Environmental for all patients and low risk patients: Offer assistance as needed or requested, keep environment free of obstacles, keep floor clean and dry, keep room lighting, wheelchair brakes on, bed/ stretcher locked and in low position if applicable, non-slip footwear if applicable, walker/cane available if needed, side rails up if applicable and pre-emptive toileting. Please identify location of pain: low back radiating to L groin, occ to R groin. Insurance Insurance reviewed Visit number: 9 POC 12/05 supervising PT CAROL MIDDLETON, med [facility], $0 copay, 4% co-insurance Onset Date: 2021 Medicare Certification Period: Beginnin2021 Endin2021 Subjective Patient reports:. Patient reports a 7/10 in R shoulder, comes and goes. Low back is a 3/10, going up to an 8/10 at times. Home program performing as directed: Yes . HEP given for open book. Precautions: none. Fall Risk: low USE KX MODIFIER. Treatment Time in clinic started at 11:00 pm Time in clinic ended at 11:45 pm Total time in clinic is 45 minutes. Total timed code time is 43 minutes. Aquatic Therapy (52362): timed minutes 43, units 3 . Review TrA contraction 10x5 holds SIDE STEPPING x 3 laps Heel raises x 20 Squats x 20 Hip Extension x 20 Dumbbell Rotation 10x10 holds (N) Side Bending x10 (N) Standing hamcurls x 20 BWD Step Taps x15 (N) DB ROLLS [address] marble P time ABDOMINALS x 20 push/pull, flexion, sm. blue board BWD STEP UPS x 15 UE PADDLES x 20 each. L4 (P resistance) Flex/ext, abd/add, H. abd/add, push/pull 100% UNLOADING 2 xlg noodles Ski 5' Hip abd/add 5; Hang 5' GRADUAL EXIT 2'. 'Scores and Scales' Signatures Electronically signed by : Elin Robbins AX SURVEY WORKER; Feb 13 2022 12:19PM EST (Author) Electronically signed by : Corinne Husain, PT; Feb 13 2022 1:29PM EST Normal [facility] PT Progress Noteon 2 PT Progress Note Therapy Diagnosis Assessed Hip pain, right (719.45) (M25.551) Low back pain (724.2) (M54.50) Plan Goals: Goals set and discussed today. Pt will demonstrate independence and compliance with HEP and self management, by week 2, goal met Activity Limitation: Decrease disability as assessed by Oswestry to less than or equal to 50% disability for improved QOL., by week 4 Gait/Locomotion: amb with normalized gait without antalgia for return to PLOF, by week 4 Pain: Decrease max pain to less than or equal to 7/10 for improved QOL. , by week 4, goal met Range Of Motion/Joint Mobility: Lumbar flex AROM WFL for improved ability to put on shoes, by week 4 Strength: L and R LE strength 5/5 throughout for improved ability to complete yardwork, by week 4 Planned interventions include: aquatic therapy, cryotherapy, education/instruction, gait training, home program, hot pack, kinesiotaping, manual therapy, neuromuscular re-education, self care/home management, therapeutic activities and therapeutic exercises . aquatic PT - correct lateral shift if able, focus on neutral spine while symptoms remain irritable, may have extension bias as flexion mechanism of injury. Frequency and duration:. 1x/every other week for 8 weeks = 4 total visits Pool. Potential to achieve rehab goals is good Continue with core strengthening to allow for ease of function with bending and lifting with job duties. JW . Progress with POC, as tolerated. Assessment Patient confirmed name and date of . Patient demonstrates fair trunk control with UE/LE exercises, some loss from having a 3 week break. Cues for Tra contraction and no flexed posture with dumbbell rolls. Some fatigue noted in R shoulder from UE paddles, no increased pain. Reduction pain with unloading. Adult Risk Screening There are no spiritual/cultural practices/values/needs that are important to know Initial Fall Risk Screening: ROBYN has not fallen in the last 6 months. ROBYN does not have a fear of falling. He does not need assistance with sitting, standing or walking. Does not need assistance walking in his home. He does not need assistance in an unfamiliar setting. The patient is not using an assistive device. Fall Risk Screening: Patient is identified as a fall risk. Care Plan: Low Risk: Environmental for all patients and low risk patients: Offer assistance as needed or requested, keep environment free of obstacles, keep floor clean and dry, keep room lighting, wheelchair brakes on, bed/ stretcher locked and in low position if applicable, non-slip footwear if applicable, walker/cane available if needed, side rails up if applicable and pre-emptive toileting. Please identify location of pain: low back radiating to L groin, occ to R groin. Insurance Insurance reviewed Visit number: 7 POC 10/04 supervising PT CAROL MIDDLETON, med [facility], $0 copay, 4% co-insurance Onset Date: 2021 Medicare Certification Period: Beginnin2021 Endin2021 Subjective Patient reports:. Patient reports that the 3 week break was too long and has been hurting badly since last session. Reports that Right shoulder has been painful lately also. Pain of 4/10 in back and 8/10 in R shoulder. Home program performing as directed: Yes. Precautions: none. Fall Risk: low USE KX MODIFIER. Treatment Time in clinic started at 10:45 pm Time in clinic ended at 11:30 pm Total time in clinic is 45 minutes. Total timed code time is 43 minutes. Aquatic Therapy (11052): timed minutes 43, units 3 . Review TrA contraction 10x5 holds SIDE STEPPING x 3 laps Heel raises x 20 Squats x 20 Hip Extension x 20 Standing hamcurls x 20 DB ROLLS [address] marble P time ABDOMINALS x 20 push/pull, flexion, sm. blue board BWD STEP UPS x 15 UE PADDLES x 20 each. L3 Flex/ext, abd/add, H. abd/add, push/pull 100% UNLOADING 2 xlg noodles Ski 5' Hip abd/add 5; Hang 5' GRADUAL EXIT 2'. 'Scores and Scales' Signatures Electronically signed by : Elin Robbins AX SURVEY WORKER; Feb 04 2022 11:39AM EST (Author) Electronically signed by : Corinne Husain PT; Feb 04 2022 1:06PM EST Normal [facility] PT Progress Noteon 2 PT Progress Note Therapy Diagnosis Assessed Hip pain, right (719.45) (M25.551) Low back pain (724.2) (M54.50) Plan Goals: Goals set and discussed today. Pt will demonstrate independence and compliance with HEP and self management, by week 2, goal met Activity Limitation: Decrease disability as assessed by Oswestry to less than or equal to 50% disability for improved QOL., by week 4 Gait/Locomotion: amb with normalized gait without antalgia for return to PLOF, by week 4 Pain: Decrease max pain to less than or equal to 7/10 for improved QOL. , by week 4, goal met Range Of Motion/Joint Mobility: Lumbar flex AROM WFL for improved ability to put on shoes, by week 4 Strength: L and R LE strength 5/5 throughout for improved ability to complete yardwork, by week 4 Planned interventions include: aquatic therapy, cryotherapy, education/instruction, gait training, home program, hot pack, kinesiotaping, manual therapy, neuromuscular re-education, self care/home management, therapeutic activities and therapeutic exercises . aquatic PT - correct lateral shift if able, focus on neutral spine while symptoms remain irritable, may have extension bias as flexion mechanism of injury. Frequency and duration:. 1x/every other week for 8 weeks = 4 total visits Pool. Potential to achieve rehab goals is good Continue with core strength to improve standing, ambulation, sleeping. CORINE . Progress with POC, as tolerated. Assessment Patient confirmed name and date of . Reviewed TrA contraction with patient, compensation noted. CORINE Pt has improved significantly in his pain levels since beginning aquatic PT services. He also demos functional improvements including no longer requiring an assistive device to ambulate (used [facility] at [facility]). Despite these improvements he is still reporting pain in low back and would benefit from continued PT services in order to further reduce pain so that he can perform outdoor activities safely and painfree. CAROL. Adult Risk Screening There are no spiritual/cultural practices/values/needs that are important to know Initial Fall Risk Screening: ROBYN has not fallen in the last 6 months. ROBYN does not have a fear of falling. He does not need assistance with sitting, standing or walking. Does not need assistance walking in his home. He does not need assistance in an unfamiliar setting. The patient is not using an assistive device. Fall Risk Screening: Patient is identified as a fall risk. Care Plan: Low Risk: Environmental for all patients and low risk patients: Offer assistance as needed or requested, keep environment free of obstacles, keep floor clean and dry, keep room lighting, wheelchair brakes on, bed/ stretcher locked and in low position if applicable, non-slip footwear if applicable, walker/cane available if needed, side rails up if applicable and pre-emptive toileting. Please identify location of pain: low back radiating to L groin, occ to R groin. Insurance Insurance reviewed Visit number: 6 POC 09/04 supervising PT CAROL MIDDLETON, [employer], $0 copay, 4% co-insurance Onset Date: 2021 Medicare Certification Period: Beginnin2021 Endin2021 Subjective Patient reports:. Patient reports that he tends to tense back muscles when jacqueline TrA. States that his pain levels are 1-2/10 in low back pain today. Home program performing as directed: Yes. Precautions: none. Fall Risk: low USE KX MODIFIER. Treatment Time in clinic started at 2:00 pm Time in clinic ended at 2:45 pm Total time in clinic is 45 minutes. Total timed code time is 41 minutes. Aquatic Therapy (72360): timed minutes 41, units 3 . Review TrA contraction 10x5 holds SIDE STEPPING x 3 laps Heel raises x 20 P Squats x 20 P Hip Extension x 20 P Standing hamcurls x 20 P DB ROLLS [address] marble ABDOMINALS x 17 push/pull, flexion, sm. blue board BWD STEP UPS x 15 UE PADDLES x 20 each. L3 Flex/ext, abd/add, H. abd/add, push/pull 100% UNLOADING 2 xlg noodles Ski 5' Hip abd/add 5; Hang 5' GRADUAL EXIT 2'. 'Scores and Scales' Signatures Electronically signed by : Elin Robbins AX SURVEY WORKER; Jan 16 2022 5:51PM EST (Author) Electronically signed by : Corinne Husain, PT; Jan 17 2022 2:34PM EST (Author) [facility] Therapy Re-eval Noteon 01-16 Therapy Re-eval Note Therapy Diagnosis Assessed 1. Hip pain, right (719.45) (M25.551) 2. Low back pain (724.2) (M54.50) Plan Goals: Goals set and discussed today. Pt will demonstrate independence and compliance with HEP and self management, by week 2, goal met Activity Limitation: Decrease disability as assessed by Oswestry to less than or equal to 50% disability for improved QOL., by week 4 Gait/Locomotion: amb with normalized gait without antalgia for return to PLOF, by week 4 Pain: Decrease max pain to less than or equal to 7/10 for improved QOL. , by week 4, goal met Range Of Motion/Joint Mobility: Lumbar flex AROM WFL for improved ability to put on shoes, by week 4 Strength: L and R LE strength 5/5 throughout for improved ability to complete yardwork, by week 4 Planned interventions include: aquatic therapy, cryotherapy, education/instruction, gait training, home program, hot pack, kinesiotaping, manual therapy, neuromuscular re-education, self care/home management, therapeutic activities and therapeutic exercises . aquatic PT - correct lateral shift if able, focus on neutral spine while symptoms remain irritable, may have extension bias as flexion mechanism of injury. Frequency and duration:. 1x/every other week for 8 weeks = 4 total visits Pool. Potential to achieve rehab goals is good Continue with core strength to improve standing, ambulation, sleeping. JA . Progress with POC, as tolerated. Assessment Patient confirmed name and date of . Reviewed TrA contraction with patient, compensation noted. CORINE Pt has improved significantly in his pain levels since beginning aquatic PT services. He also demos functional improvements including no longer requiring an assistive device to ambulate (used SC at [facility]). Despite these improvements he is still reporting pain in low back and would benefit from continued PT services in order to further reduce pain so that he can perform outdoor activities safely and painfree. CAROL. Adult Risk Screening There are no spiritual/cultural practices/values/needs that are important to know Initial Fall Risk Screening: ROBYN has not fallen in the last 6 months. ROBYN does not have a fear of falling. He does not need assistance with sitting, standing or walking. Does not need assistance walking in his home. He does not need assistance in an unfamiliar setting. The patient is not using an assistive device. Fall Risk Screening: Patient is identified as a fall risk. Care Plan: Low Risk: Environmental for all patients and low risk patients: Offer assistance as needed or requested, keep environment free of obstacles, keep floor clean and dry, keep room lighting, wheelchair brakes on, bed/ stretcher locked and in low position if applicable, non-slip footwear if applicable, walker/cane available if needed, side rails up if applicable and pre-emptive toileting. Please identify location of pain: low back radiating to L groin, occ to R groin. Insurance Insurance reviewed Visit number: 6 POC 09/04 supervising PT CAROL MIDDLETON, [facility], $0 copay, 4% co-insurance Onset Date: 2021 Medicare Certification Period: Beginnin2021 Endin2021 Subjective Patient reports:. Patient reports that he tends to tense back muscles when jacqueline TrA. States that his pain levels are 1-2/10 in low back pain today. Home program performing as directed: Yes. Precautions: none. Fall Risk: low USE KX MODIFIER. Treatment Time in clinic started at 2:00 pm Time in clinic ended at 2:45 pm Total time in clinic is 45 minutes. Total timed code time is 41 minutes. Aquatic Therapy (48542): timed minutes 41, units 3 . Review TrA contraction 10x5 holds SIDE STEPPING x 3 laps Heel raises x 20 P Squats x 20 P Hip Extension x 20 P Standing hamcurls x 20 P DB ROLLS [address] marble ABDOMINALS x 17 push/pull, flexion, sm. blue board BWD STEP UPS x 15 UE PADDLES x 20 each. L3 Flex/ext, abd/add, H. abd/add, push/pull 100% UNLOADING 2 xlg noodles Ski 5' Hip abd/add 5; Hang 5' GRADUAL EXIT 2'. 'Scores and Scales' Signatures Electronically signed by : Corinne Husain PT; Jan 17 2022 2:34PM EST (Author) Normal [facility] MRI Cervical w/wo Contraston 01-15-2022 MR Cervical spine WO and W contrast IV Normal [facility] MAC[facility] 100 DO Work Phone: MRI T Spine w/wo Contraston 01-15-2022 MR Thoracic spine WO and W contrast IT Normal [facility] MAC[facility] 100 DO Work Phone: NR MR CERVICAL WO/W CONTRAST on 01-15-2022 NR MR CERVICAL WO/W CONTRAST Patient Name: ROBYN IRELAND STUDY: MR CERVICAL WO/W CONTRAST; 01/15/2022 3:40 pm INDICATION: low back pain, Radiologist suggested cervical and thoracic spine MR to evaluate for tumor M54.50: Low back pain. COMPARISON: None. ACCESSION NUMBER(S): [id number] ORDERING CLINICIAN: EBONIE MOORE TECHNIQUE: Sagittal and axial T1, T2 and STIR imaging was performed within the cervical spine. . Following intravenous injection of gadolinium contrast, T1 weighted fat suppressed multiplanar images were also performed. FINDINGS: The craniovertebral junction is normal. Marrow signal and vertebral body height are normal. The cord is normal in size and signal. There is loss of height and signal and intervertebral disc spaces throughout the cervical spine. There are associated small bulging discs, uncovertebral joint osteophytes and facet hypertrophy. There is no measurable canal stenosis, focal disc herniation, cord compression or nerve root compression. The soft tissues of the neck are unremarkable. No evidence of hydromyelia. No abnormal enhancement IMPRESSION: Cervical spondylosis without canal or foraminal narrowing. [place]AM[place] [facility] [place] signed by: JUJU FRIAS MD [facility] NR MR T-SPINE WO/Won 022 NR MR T-SPINE WO/W Patient Name: ROBYN IRELAND STUDY: MR T-SPINE WO/W; 01/15/2022 3:40 pm INDICATION: low back pain, Radiologist suggested cervical and thoracic spine MR to evaluate for tumor M54.50: Low back pain. COMPARISON: None. ACCESSION NUMBER(S): [id number] ORDERING CLINICIAN: EBONIE MOORE TECHNIQUE: Sagittal and axial T1 and T2 weighted images were performed through the thoracic spine. FINDINGS: Marrow signal and vertebral body height are normal. There is slight loss of height and signal intervertebral disc spaces. Small bulging discs and osteophytes are present throughout the thoracic spine. There is no measurable canal stenosis or foraminally narrowing. The spinal cord is normal in size and signal. There is dilatation of the central canal of the spinal cord from approximately T5 through the conus. There is no associated nodularity or abnormal enhancement to suggest primary neoplasm. There is no evidence of herniated nucleus polyposis. The conus is normal. The paraspinal soft tissues are normal. IMPRESSION: Thoracic spondylosis without canal or foraminal narrowing. 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 [place]AMIN[place] [facility] [place] signed by: JUJU FRIAS MD [facility] PT Progress Noteon 2 PT Progress Note Therapy Diagnosis Assessed Low back pain (724.2) (M54.50) Hip pain, right (719.45) (M25.551) Plan Goals: Goals set and discussed today. Pt will demonstrate independence and compliance with HEP and self management, by week 2 Activity Limitation: Decrease disability as assessed by Oswestry to less than or equal to 50% disability for improved QOL., by week 4 Gait/Locomotion: amb with normalized gait without antalgia for return to PLOF, by week 4 Pain: Decrease max pain to less than or equal to 7/10 for improved QOL. , by week 4 Range Of Motion/Joint Mobility: Lumbar flex AROM WFL for improved ability to put on shoes, by week 4 Strength: L and R LE strength 5/5 throughout for improved ability to complete yardwork, by week 4 Planned interventions include: aquatic therapy, cryotherapy, education/instruction, gait training, home program, hot pack, kinesiotaping, manual therapy, neuromuscular re-education, self care/home management, therapeutic activities and therapeutic exercises . aquatic PT - correct lateral shift if able, focus on neutral spine while symptoms remain irritable, may have extension bias as flexion mechanism of injury. Frequency and duration: 2 time(s) a week, for 4 weeks, for 8 visits. Potential to achieve rehab goals is good Continue with core strength to improve standing, ambulation, sleeping. Progress with POC, as tolerated. Assessment Patient tolerated treatment without increased pain. Patient has Fair TrA and keeps intact with ther-ex. Patient needing no UE support with LE ther-ex or with 100% unloading. Patient has good form/understanding with ther-ex and keeps body in good alignment. Continue with core stability to improve low back pain and improve sleeping, standing, ambulation. Adult Risk Screening There are no spiritual/cultural practices/values/needs that are important to know Initial Fall Risk Screening: ROBYN has not fallen in the last 6 months. ROBYN does not have a fear of falling. He does not need assistance with sitting, standing or walking. Does not need assistance walking in his home. He does not need assistance in an unfamiliar setting. The patient is not using an assistive device. Fall Risk Screening: Patient is identified as a fall risk. Care Plan: Low Risk: Environmental for all patients and low risk patients: Offer assistance as needed or requested, keep environment free of obstacles, keep floor clean and dry, keep room lighting, wheelchair brakes on, bed/ stretcher locked and in low position if applicable, non-slip footwear if applicable, walker/cane available if needed, side rails up if applicable and pre-emptive toileting. Please identify location of pain: low back radiating to L groin, occ to R groin. Insurance Insurance reviewed Visit number: 5 POC 04/06 supervising PT CAROL MIDDLETON, [facility], $0 copay, 4% co-insurance Onset Date: 2021 Medicare Certification Period: Beginnin2021 Endin2021 Subjective Patient reports:. Patient reports no falls and no to all covid questions. Patient reports 3/10 low back pain. Post aquatics states no change with pain level. Precautions: none. Fall Risk: low USE KX MODIFIER. Treatment Time in clinic started at 12:15 pm Time in clinic ended at 1:00 pm Total time in clinic is 45 minutes. Total timed code time is 41 minutes. Aquatic Therapy (31638): timed minutes 41, units 3 . SIDE STEPPING x 3 laps Heel raises x 17 P Squats x 17 P Hip Extension x 17 P Standing hamcurls x 17 P DB ROLLS [address] marble ABDOMINALS x 17 push/pull, flexion, sm. blue board STEP UPS x 17 UE PADDLES x 20 each. L3 Flex/ext, abd/add, H. abd/add, push/pull 100% UNLOADING 2 xlg noodles Ski 5' Hip abd/add 5; Hang 5' GRADUAL EXIT 2'. 'Scores and Scales' Signatures Electronically signed by : Jennifer Kimball AX SURVEY WORKER; Jan 13 2022 12:57PM EST (Author) Electronically signed by : Corinne Husain PT; Jan 14 2022 9:25AM EST Normal [facility] PT Progress Noteon 2 PT Progress Note Therapy Diagnosis Assessed Low back pain (724.2) (M54.50) Hip pain, bilateral (719.45) (M25.551,M25.552) Hip pain, right (719.45) (M25.551) Plan Goals: Goals set and discussed today. Pt will demonstrate independence and compliance with HEP and self management, by week 2 Activity Limitation: Decrease disability as assessed by Oswestry to less than or equal to 50% disability for improved QOL., by week 4 Gait/Locomotion: amb with normalized gait without antalgia for return to PLOF, by week 4 Pain: Decrease max pain to less than or equal to 7/10 for improved QOL. , by week 4 Range Of Motion/Joint Mobility: Lumbar flex AROM WFL for improved ability to put on shoes, by week 4 Strength: L and R LE strength 5/5 throughout for improved ability to complete yardwork, by week 4 Planned interventions include: aquatic therapy, cryotherapy, education/instruction, gait training, home program, hot pack, kinesiotaping, manual therapy, neuromuscular re-education, self care/home management, therapeutic activities and therapeutic exercises . aquatic PT - correct lateral shift if able, focus on neutral spine while symptoms remain irritable, may have extension bias as flexion mechanism of injury. Frequency and duration: 2 time(s) a week, for 4 weeks, for 8 visits. Potential to achieve rehab goals is good Continue with core sytrength to improve ambulation, standing, sleeping. Progress with POC, as tolerated. Assessment Patient tolerated treatment without increased pain. Patient has Fair TrA and keeps intact with ther-ex. Patient Has good form/understanding with ther-ex and keeps body in good alignment. Patient needing one UE support with LE ther-ex and no support with 100% unloading. Continue with core stability while peforming dyn activity to decrease back pain. Adult Risk Screening There are no spiritual/cultural practices/values/needs that are important to know Initial Fall Risk Screening: ROBYN has not fallen in the last 6 months. ROBYN does not have a fear of falling. He does not need assistance with sitting, standing or walking. Does not need assistance walking in his home. He does not need assistance in an unfamiliar setting. The patient is not using an assistive device. Fall Risk Screening: Patient is identified as a fall risk. Care Plan: Low Risk: Environmental for all patients and low risk patients: Offer assistance as needed or requested, keep environment free of obstacles, keep floor clean and dry, keep room lighting, wheelchair brakes on, bed/ stretcher locked and in low position if applicable, non-slip footwear if applicable, walker/cane available if needed, side rails up if applicable and pre-emptive toileting. Please identify location of pain: low back radiating to L groin, occ to R groin. Insurance Insurance reviewed Visit number: 4 POC 04/06 supervising PT CAROL MIDDLETON, [facility], $0 copay, 4% co-insurance Onset Date: 2021 Medicare Certification Period: Beginnin2021 Endin2021 Subjective Patient reports:. Patient reports no falls and no to all covid questions. Patient reports low back pain of 4/10. Post aquatics states 3/10 low back pain. Precautions: none. Fall Risk: low USE KX MODIFIER. Treatment Time in clinic started at 10:45 am Time in clinic ended at 11:30 am Total time in clinic is 45 minutes. Total timed code time is 40 minutes. Aquatic Therapy (34126): timed minutes 40, units 3 . SIDE STEPPING x 3 laps Heel raises x 15 Squats x 15 Hip Extension x 15 Standing hamcurls x 15 DB ROLLS [address] marble ABDOMINALS x 15 push/pull, flexion, sm. blue board STEP UPS x 15 N UE PADDLES x 20 each. L3 Flex/ext, abd/add, H. abd/add, push/pull 100% UNLOADING 2 xlg noodles Ski 5' Hip abd/add 5; Hang 5' GRADUAL EXIT 2'. 'Scores and Scales' Signatures Electronically signed by : Jennifer Kimball, AX SURVEY WORKER; Jan 10 2022 11:29AM EST (Author) Electronically signed by : Corinne Husain, PT; Jan 10 2022 1:40PM EST Normal [facility] PT Progress Noteon 2 PT Progress Note Therapy Diagnosis Assessed Hip pain, bilateral (719.45) (M25.551,M25.552) Low back pain (724.2) (M54.50) Plan Goals: Goals set and discussed today. Pt will demonstrate independence and compliance with HEP and self management, by week 2 Activity Limitation: Decrease disability as assessed by Oswestry to less than or equal to 50% disability for improved QOL., by week 4 Gait/Locomotion: amb with normalized gait without antalgia for return to PLOF, by week 4 Pain: Decrease max pain to less than or equal to 7/10 for improved QOL. , by week 4 Range Of Motion/Joint Mobility: Lumbar flex AROM WFL for improved ability to put on shoes, by week 4 Strength: L and R LE strength 5/5 throughout for improved ability to complete yardwork, by week 4 Planned interventions include: aquatic therapy, cryotherapy, education/instruction, gait training, home program, hot pack, kinesiotaping, manual therapy, neuromuscular re-education, self care/home management, therapeutic activities and therapeutic exercises . aquatic PT - correct lateral shift if able, focus on neutral spine while symptoms remain irritable, may have extension bias as flexion mechanism of injury. Frequency and duration: 2 time(s) a week, for 4 weeks, for 8 visits. Potential to achieve rehab goals is good Continue with core strength to improve sleeping, standing, ambulation. Progress with POC, as tolerated. Assessment Patient tolerated treatment without increased pain. Patient has Fair TrA and keeps intact with ther-ex. Patient has good form/understanding with ther-ex and keeps body in good alignment. Patient needing one UE support with LE ther-ex and no support with 100% unloading. Continue with core stability while performing dyn activity to decrease back pain. Adult Risk Screening There are no spiritual/cultural practices/values/needs that are important to know Initial Fall Risk Screening: ROBYN has not fallen in the last 6 months. ROBYN does not have a fear of falling. He does not need assistance with sitting, standing or walking. Does not need assistance walking in his home. He does not need assistance in an unfamiliar setting. The patient is not using an assistive device. Fall Risk Screening: Patient is identified as a fall risk. Care Plan: Low Risk: Environmental for all patients and low risk patients: Offer assistance as needed or requested, keep environment free of obstacles, keep floor clean and dry, keep room lighting, wheelchair brakes on, bed/ stretcher locked and in low position if applicable, non-slip footwear if applicable, walker/cane available if needed, side rails up if applicable and pre-emptive toileting. Please identify location of pain: low back radiating to L groin, occ to R groin. Insurance Insurance reviewed Visit number: 3 POC 04/06 supervising PT CAROL MIDDLETON, [facility], $0 copay, 4% co-insurance Onset Date: 2021 Medicare Certification Period: Beginnin2021 Endin2021 Subjective Patient reports:. Patient reports no falls and no to all covid questions. Patient reports pain of 5/10 in B ankles with no back pain today. Post aquatics states 0/10 B ankle pain. Precautions: none. Fall Risk: low USE KX MODIFIER. Treatment Time in clinic started at 12:15 pm Time in clinic ended at 1:00 pm Total time in clinic is 45 minutes. Total timed code time is 42 minutes. Aquatic Therapy (57727): timed minutes 42, units 3 . SIDE STEPPING x 3 laps Heel raises x 12 P Squats x 12 P Hip Extension x 12 P Standing hamcurls x 12 P DB ROLLS [address] marble ABDOMINALS x 12 push/pull, flexion, sm. blue board P UE PADDLES x 20 each. L2 P Flex/ext, abd/add, H. abd/add, push/pull 100% UNLOADING 2 xlg noodles Ski 5' Hip abd/add 5; Hang 5' GRADUAL EXIT 2'. 'Scores and Scales' Signatures Electronically signed by : Jennifer Kimball AX SURVEY WORKER; Jan 06 2022 12:57PM EST (Author) Electronically signed by : Macarena Azar, PT; Sep 29 2022 4:41PM EST Normal [facility] MRI L Spine without Contrast on 12-30-2021 MR Lumbar spine WO contrast Normal [facility] MAC4 100 DO Work Phone: NR MRI L-SPINE WOon 12-31-19 NR MRI L-SPINE WO Patient Name: ROBYN IRELAND STUDY: MRI L-SPINE WO; 12/30/2021 7:56 am INDICATION: low back pain M54.59: Other low back pain. COMPARISON: Radiographs of the lumbosacral spine 12/19/2021. ACCESSION NUMBER(S): [id number] ORDERING CLINICIAN: EBONIE MOORE TECHNIQUE: Sagittal T1, T2, STIR, axial T1 and T2 weighted images of the lumbar spine were acquired. FINDINGS: Alignment: There are 5 lumbar type vertebrae. L4 has minimal degenerative type anterolisthesis on L5 with similar anterolisthesis at L5-S1. Vertebrae/Intervertebral Discs: The vertebral bodies demonstrate expected height.The marrow signal is within normal limits. The intervertebral discs also demonstrate normal signal and morphology. Conus: The central canal of the spinal cord is borderline dilated to 2-3 mm extending from T12-L1 the on the most superior aspect of the cord imaged. The conus terminates at L1-L2. T11-12: The sagittal images demonstrate minimal indentation of the thecal sac by disc bulge. T12-L1: There is mild diffuse disc bulge, and bilateral ligamentum flavum hypertrophy. There is no significant central canal or neural foraminal stenosis. L1-2: There is mild diffuse disc bulge, and bilateral ligamentum flavum hypertrophy. There is no significant central leslie stenosis l there is mild left neural foraminal narrowing.. L2-3: There is diffuse disc bulge, and bilateral ligamentum flavum hypertrophy. The facet joints are moderately to severely arthritic with small effusions more so on the right. L3-4: There is diffuse disc bulgewith flattening of the ventral thecal sac, bilateral facet joint hypertrophy, and bilateral ligamentum flavum hypertrophy. There is no significant central canal narrowing, there is mild neural foraminal narrowing. L4-5: Right far lateral disc bulge abuts the exiting right L4 nerve. The lateral recesses are mildly stenosed by disc bulge, facet hypertrophy and ligament thickening. The facet joints are severely arthritic. L5-S1: Far lateral disc bulging abuts the exiting L5 nerves bilaterally. The neural foramina are mildly stenosed bilaterally by disc bulge and facet hypertrophy. The facet joints are severely arthritic. No central stenosis is noted. The prevertebral and posterior paraspinous soft tissues are unremarkable. IMPRESSION: 1. The central canal of the spinal canal is borderline distended. Enhanced cervical and thoracic MR is recommended for further evaluation. 2. Multilevel degenerative changes are present as noted. I personally reviewed the images/study and I agree with the findings as stated. This study was interpreted at [place], [place]. Electronically signed by: ROSANA NUNEZ MD [facility] PT Progress Noteon 2 PT Progress Note Therapy Diagnosis Assessed Hip pain, bilateral (719.45) (M25.551,M25.552) Low back pain (724.2) (M54.50) Plan Goals: Goals set and discussed today. Pt will demonstrate independence and compliance with HEP and self management, by week 2 Activity Limitation: Decrease disability as assessed by Oswestry to less than or equal to 50% disability for improved QOL., by week 4 Gait/Locomotion: amb with normalized gait without antalgia for return to PLOF, by week 4 Pain: Decrease max pain to less than or equal to 7/10 for improved QOL. , by week 4 Range Of Motion/Joint Mobility: Lumbar flex AROM WFL for improved ability to put on shoes, by week 4 Strength: L and R LE strength 5/5 throughout for improved ability to complete yardwork, by week 4 Planned interventions include: aquatic therapy, cryotherapy, education/instruction, gait training, home program, hot pack, kinesiotaping, manual therapy, neuromuscular re-education, self care/home management, therapeutic activities and therapeutic exercises . aquatic PT - correct lateral shift if able, focus on neutral spine while symptoms remain irritable, may have extension bias as flexion mechanism of injury. Frequency and duration: 2 time(s) a week, for 4 weeks, for 8 visits. Potential to achieve rehab goals is good Continue with core stability to decrease back pain and improve ADL. Progress with POC, as tolerated. Assessment Patient orientated to pool. Patient has weak Tra and attempts to keep intact in tact with ther-ex. Patient needing verbal/demo cues for body positioning, paddle positioning with ther-ex. Patient needing one UE support with LE ther-ex and no support with 100% unloading. Continue with core stability while programing dyn activity to decrease back pain. Adult Risk Screening There are no spiritual/cultural practices/values/needs that are important to know Initial Fall Risk Screening: ROBYN has not fallen in the last 6 months. ROBYN does not have a fear of falling. He does not need assistance with sitting, standing or walking. Does not need assistance walking in his home. He does not need assistance in an unfamiliar setting. The patient is not using an assistive device. Fall Risk Screening: Patient is identified as a fall risk. Care Plan: Low Risk: Environmental for all patients and low risk patients: Offer assistance as needed or requested, keep environment free of obstacles, keep floor clean and dry, keep room lighting, wheelchair brakes on, bed/ stretcher locked and in low position if applicable, non-slip footwear if applicable, walker/cane available if needed, side rails up if applicable and pre-emptive toileting. Please identify location of pain: low back radiating to L groin, occ to R groin. Insurance Insurance reviewed Visit number: 2 POC 04/06 supervising PT CAROL MIDDLETON, [facility], $0 copay, 4% co-insurance Onset Date: 2021 Medicare Certification Period: Beginnin2021 Endin2021 Subjective Patient reports:. Patient reports no falls and no to all covid questions. Patient reports pain of 8/10 with activity/first arising from bed. Presently states 4/10 low back pain. Post aquatics states 2/10 low back pain. Precautions: none. Fall Risk: low USE KX MODIFIER. Treatment Time in clinic started at 8:30 am Time in clinic ended at 9:15 am Total time in clinic is 45 minutes. Total timed code time is 40 minutes. Aquatic Therapy (52641): timed minutes 40, units 3 . SIDE STEPPING x 3 laps Heel raises x 10 Squats x 10 Hip Extension x 10 Standing hamcurls x 10 DB ROLLS [address] marble ABDOMINALS x 10 push/pull, flexion, sm. blue board UE PADDLES x 20 each. Open Flex/ext, abd/add, H. abd/add, push/pull 100% UNLOADING 2 xlg noodles Ski 5' Hip abd/add 5; Hang 5' GRADUAL EXIT 2'. 'Scores and Scales' Signatures Electronically signed by : Jennifer Kimball PTA; Dec 20 2021 9:12AM EST (Author) Electronically signed by : Corinne Husain PT; Dec 20 2021 1:09PM EST (Author) Normal [facility] Established Visit (Orthopaed ic Surgery)on 12-19-2021 Established Visit (Orthopaedic Surgery) Diagnoses/Problems Assessed Low back pain (724.2) (M54.50) Sciatica of left side (724.3) (M54.32) Orders Low back pain Pain Management Referral Evaluation and Treatment Evaluate AND Treat Status: Hold For - Scheduling Requested for: 19Dec2021 Xray BN Spine, Lumbosacral; 2 or 3 Views; Status:Resulted - Preliminary; Done: 19Dec2021 11:18AM Radiologist to Determine Optimal Study : Y What are the patient's signs and symptoms? : low back pain Other low back pain Disability Placard; Status:Complete; Done: 19Dec2021 MRI L Spine without Contrast; Status:Hold For - Scheduling; Requested for:19Dec2021; Radiologist to Determine Optimal Study : Y Does the patient have a Cochlear Implant, Pacemaker, Defibrilator, Pacing Wire, Brain Aneurysm Clip, Implanted Nerve or Bone Graft Simulator, Implanted Breast Tissue Functional Analyst, Glucose Monitor, or Neulasta Device? : No What are the patient's signs and symptoms? : low back pain Chief Complaint F/U BACK PAIN History of Present Illness This is a pleasant 76-year-old male presenting [...] numbness and paresthesia of bilateral lower extremities. The patient's past medical, surgical, family, and social history as well as allergies and medications were reviewed and updated in the chart. Pleasant and no acute distress. Walks with [...] is intact and muscle tone is adequate. Multiple view x-rays of the lumbar spine obtained today independently reviewed with evidence of degenerative changes of lumbar spine. There is spondylolisthesis of L4-L5, L5-S1. Assessment: Low back pain, differential diagnoses of left-sided sciatica pain versus bulging disc Plan: Discussion with patient and his about [...] patient once results of MRI are complete. Review of Systems Constitutional: no fever, no chills, not feeling tired, no recent weight gain and no recent weight loss. ENT: no nosebleeds. Cardiovascular: no chest pain. Respiratory: no shortness of breath and no cough. Gastrointestinal: no abdominal pain, no nausea, no diarrhea and no vomiting. Musculoskeletal: as noted in HPI. Integumentary: no rashes and no skin wound. Neurological: no headache. Psychiatric: no depression and no sleep disturbances. Endocrine: no muscle cramps. Hematologic/Lymphatic: no swollen glands and no tendency for easy bruising. All other systems have been reviewed and are negative for complaint. 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 Normal [facility] 12-19-2021 XR Lumbar spine AP and Lateral Please click on the link to view the study images Normal [facility] [email or web address] 100 DO Work Phone: XR Lumbar spine AP and Lateral Normal [facility] 100 DO Work Phone: PT Initial Evaluationon 11-28 PT Initial Evaluation Therapy Diagnosis Assessed Hip pain, right (719.45) (M25.551) Low back pain (724.2) (M54.50) Plan of Care Goals: Goals set and discussed today. Pt will demonstrate independence and compliance with HEP and self management, by week 2 Activity Limitation: Decrease disability as assessed by Oswestry to less than or equal to 50% disability for improved QOL., by week 4 Gait/Locomotion: amb with normalized gait without antalgia for return to PLOF, by week 4 Pain: Decrease max pain to less than or equal to 7/10 for improved QOL. , by week 4 Range Of Motion/Joint Mobility: Lumbar flex AROM WFL for improved ability to put on shoes, by week 4 Strength: L and R LE strength 5/5 throughout for improved ability to complete yardwork, by week 4 Planned interventions include: aquatic therapy, cryotherapy, education/instruction, gait training, home program, hot pack, kinesiotaping, manual therapy, neuromuscular re-education, self care/home management, therapeutic activities and therapeutic exercises . aquatic PT - correct lateral shift if able, focus on neutral spine while symptoms remain irritable, may have extension bias as flexion mechanism of injury. Frequency and duration: 2 time(s) a week, for 4 weeks, for 8 visits. Potential to achieve rehab goals is good Plan of care was developed with input and agreement by the patient. Assessment Patient is a 76 year male who [...] of initial evaluation, patient reported no change in pain intensity vs pre-evaluation. Flexion based mechanism of injury, and flexion appears to increase symptoms. No direction preference determined at eval - attempt side glide to correct lateral shift if present at next pool session, focus on neutral spine until irritability decreases - may have extension bias. The physical therapist of record is the therapist who assumes primary responsibility for patient management and as such is held accountable for the coordination, continuation and progression of the POC. This patient?s care and PT of record will be transferred from Macarena Azar PT to Corinne Husain PT effective as of 12/16/21. Clinical Presentation: Stable and/or uncomplicated characteristics. Level of Complexity: low Problem List: activity limitations, ADLs/IADLs/self care skills, balance, decreased functional level, decreased knowledge of HEP, fall risk, flexibility, gait/locomotion, pain, participation restrictions, posture, range of motion/joint mobility and strength. Reason For Visit Initial Evaluation . hip pain right, lumbago. Referred by: Ebonie Moore DISC INSPECTOR-HEAD MIXER Adult Risk Screening There are no spiritual/cultural practices/values/needs that are important to know Initial Fall Risk Screening: ROBYN has not fallen in the last 6 months. ROBYN does not have a fear of falling. He does not need assistance with sitting, standing or walking. Does not need assistance walking in his home. He does not need assistance in an unfamiliar setting. The patient is not using an assistive device. Fall Risk Screening: Patient is identified as a fall risk. Care Plan: Low Risk: Environmental for all patients and low risk patients: Offer assistance as needed or requested, keep environment free of obstacles, keep floor clean and dry, keep room lighting, wheelchair brakes on, bed/ stretcher locked and in low position if applicable, non-slip footwear if applicable, walker/cane available if needed, side rails up if applicable and pre-emptive toileting. Pain Scale: On a scale of 0 to 10, the patient rates the pain at 7. Please identify location of pain: low back radiating to L groin, occ to R groin. Insurance Insurance reviewed Visit number: 1 POC 04/06 supervising PT CAROL MIDDLETON, [employer], $0 copay, 4% co-insurance Onset Date: 2021 Medicare Certification Period: Beginnin2021 Endin2021 Subjective Current Episode of Functional Impairment and/or Pain Date of onset: 12/09/21 Mechanism of Injury:. Originally injured back 12/09/21 when digging/lifting plants. Reaggravated back 12/10/21. Started steroid taper, which was helpful, but as he finishes the taper symptoms are returning. Saw ortho, who referred to PT and [facility]. Pain is low back, radiates to L hip and at times R hip. Pain 4/10 at rest, max pain in past week 10/10. Aggravating activities: standing greater t (more content not included)... Normal [facility] Established Visit (Orthopaed ic Surgery)on 12-12-2021 Established Visit (Orthopaedic Surgery) Diagnoses/Problems Assessed Hip pain, bilateral (719.45) (M25.551,M25.552) Sciatica of left side (724.3) (M54.32) Orders Hip pain, bilateral Start: methylPREDNISolone 4 MG Oral Tablet Therapy Pack (Medrol); Take as prescribed Hip pain, right Physical Therapy - General Referral Evaluation and Treatment Evaluate AND Treat Status: Hold For - Scheduling Requested for: 12Dec2021 Unlinked [facility] Medicine Referral Evaluation and Treatment Evaluate AND Treat Status: Hold For - Scheduling Requested for: 12Dec2021 Chief Complaint lower back/ hip pain x 5 days +yardwork- digging L>R +groin History of Present Illness This is a pleasant 76-year-old male presenting [...] numbness or paresthesia of bilateral lower extremities. The patient's past medical, surgical, family, and social history as well as allergies and medications were reviewed and updated in the chart. Pleasant and no acute distress. Walks with [...] is intact and muscle tone is adequate. Normal left hip appearance without overlying skin [...] trochanter. Satisfaction motion of the hip with very minimal groin pain elicited with external rotation. The left hip has flexion to 90 degrees, with adequate internal and external rotation. There is no effusion or instability. Assessment: Low back pain, sciatica of left side Plan: Discussion with patient about diagnoses. He [...] he sees a physical therapist Macarena at [facility]. I have also provided patient with a referral to the [facility] health program for possible alternative therapies such as dry needling or acupuncture. He will continue to rest and modify activities, easing back pain. He can ice and use heat application as needed. He will follow-up in 2 weeks for reevaluation. If patient is continuing to have lower back symptoms, x-rays of the lumbar spine and possible MRI of lumbar spine may be indicated. 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) Bilateral shoulder pain (719.41) (M25.511,M25.512) Class 2 obesity with body mass index (BMI) of 35.0 to 35.9 in adult (278.00,V85.35) (E66.9,Z68.35) Community acquired pneumonia (486) (J18.9) Cough (786.2) (R05.9) Dyshydrosis (705.81) (L30.1) Dysphagia (787.20) (R13.10) ED (erectile dysfunction) (607.84) (N52.9) Generalized osteoarthritis of multiple sites (715.09) (M15.9) Greater trochanteric bursitis of left hip (726.5) (M70.62) Greater trochanteric bursitis of right hip (726.5) (M70.61) Hip pain, bilateral (719.45) (M25.551,M25.552) Hip pain, right (719.45) (M25.551) Hyperlipidemia, unspecified (272.4) (E78.5) Hypertrophy, nasal, 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) (J34.3) Hypogonadism male (257.2) (E29.1) Impingement syndrome of left shoulder (726.2) (M75.42) Impingement syndrome of right shoulder (726.2) (M75.41) (more content not included)... 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 -Discussed that even if he has a varicocele, there is no guarantee that this pain is from varicocele and that varicocele repair will alleviate the pain -Discussed cord block and microsurgical cord denervation in detail, including risks benefits and alternatives -Discussed conservative measures like nsaids, elevation, ice, tight underwear etc. -Also discussed pelvic floor PT -pain likely not related to varicocele given that it is not tender to palpation -given correlation to physical activity, pain is likely hip or back pain, recommend fu with orthopedic -warnings sign including numbness or paralysis reviewed #Anorgasmia -discussed options including cabergoline and sex therapy -pt elects to hold off for now #Hypogonadism -T wnl, no indication for testosterone therapy pt will call to fu in several months Follow up in 2 months after repeat T By signing my name below, I, jailyn Rangel, attest that this documentation has been prepared under the direction and in the presence of Dr. Jessica Brown. All medical record entries made by the giuliaibe were at my direction and personally dictated by me. I have reviewed the chart and agree that the record accurately reflects my personal performance of the history, physical exam, discussion, and plan. Chief Complaint Varicocele Anorgasmia Low T History of Present [id number] yo M here for varicocele and anorgasmia Last visit 10/21/21: -continue conservative measures -monitor symptoms during masturbation vs intercourse -repeat T in end of October #Varicocele/scrotal pain -had varicocele for over 20 years -varicocele embolization 08/29/21 -had previous dysuria, negative for UTI -dull throbbing, improved after embolization -left testicular pain with exercise, no correlation with ejaculation, had severe pain yesterday when working with plants -radiates to back -had asthma brought on by aspirin, nightmares from ibuprofen -taking tylenol -dad of cancer -no hx of vasectomy Scrotal US 09/06/21 personally reviewed: Mild left varicocele.Additional incidental findings as detailed above including bilateral 6 mm epididymal head cysts and 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) Bilateral shoulder pain (719.41) (M25.511,M25.512) Class 2 obesity with body mass index (BMI) of 35.0 to 35.9 in adult (278.00,V85.35) (E66.9,Z68.35) Community acquired pneumonia (486) (J18.9) Cough (786.2) (R05.9) Dyshydrosis (705.81) (L30.1) Dysphagia (787.20) (R13.10) ED (erectile dysfunction) (607.84) (N52.9) Generalized osteoarthritis of multiple sites (715.09) (M15.9) Greater trochanteric bursitis of left hip (726.5) (M70.62) Greater trochanteric bursitis of right hip (726.5) (M70.61) Hip pain, bilateral (719.45) (M25.551,M25.552) Hip pain, right (719.45) (M25.551) Hyperlipidemia, unspecified (272.4) (E78.5) Hypertrophy, nasal, 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) (J34.3) Hypogonadism male (257.2) (E29.1) Impingement syndrome of left shoulder (726.2) (M75.42) Impingement syndrome of right shoulder (726.2) (M75.41) Increased urinary frequency (788.41) (R35.0) Instability of left ankle joint (718.87) (M25.372) Knee pain (719.46) (M25.569) Lumbago (724.2) (M54.50) Added by Problem List Migration; 2013-01-09; Moved to [facility] Feb 20 2013 4:35PM Medicare annual wellness visit, subsequent (V70.0) (Z00.00) Oropharyngeal dysphagia (787.22) (R13.12) SI[place]ARA (obstructive sleep apnea) (327.23) (G47.33) Pain with urination (788.1) (R30.9) 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 Normal [facility] TESTOST,FREE AND TOTALon TESTOSTERONE TOT.LC/MS/MS 313 ng/dL Normal 250-1100 [facility] Comment on above: Result Comment: Men with clinically significant hypogonadal symptoms and testosterone values repeatedly in the range of the 200-300 ng/dL or less, may benefit from testosterone treatment after adequate risk and benefits counseling. For additional information, please refer to http://education.ezTaxi/faq/ MyyihXevossxcgsuiMLPCVQHYI956 (This link is being provided for informational/ educational purposes only.) This test was developed and its analytical performance characteristics have been determined by [employer] [place], [place]. It has not been cleared or approved by the U.S. Food and Drug Administration. This assay has been validated pursuant to the CLIA regulations and is used for clinical purposes. Performed By: #### T ESFT #### [facility] [id number] [place], [place] TESTOSTERONE,FREE 45.7 pg/mL Normal 30.0-135.0 [facility] Comment on above: Result Comment: This test was developed and its analytical performance characteristics have been determined by [employer] [place], [place]. It has not been cleared or approved by the U.S. Food and Drug Administration. This assay has been validated pursuant to the CLIA regulations and is used for clinical purposes. Performed By: #### T ESFT #### [facility] [id number] [place], [place] Laboratory - Chemistry and C hemistry - challengeon 11-30-2021 Testosterone [Mass/Vol] 313 ng/dL 250-1100 [facility] [address] Work Phone: Comment on above: Men with clinically significant hypogonadalsymptoms and testosterone values repeatedly inthe range of the 200-300 ng/dL or less, maybenefit from testosterone treatment afteradequate risk and benefits counseling. For additional information, please refer tohttp://education.ezTaxi/faq/TotalTestosteroneLCMSM MSFJ490(This link is being provided for informational/educational purposes only.) This test was developed and its analytical performancecharacteristics have been determined by [employer] [place], [place]. It hasnot been cleared or approved by the U.S. Food and DrugAdministration. This assay has been validated pursuantto the CLIA regulations and is used for clinicalpurposes. Testosterone Free [Mass/Vol] 45.7 pg/mL 30.0-135.0 [facility] [address] Work Phone: Comment on above: This test was develo ped and its analytical performancecharacteristics have been determined by [employer] [place] [place], [place]. It hasnot been cleared or approved by the U.S. Food and DrugAdministration. This assay has been validated pursuantto the CLIA regulations and is used for clinicalpurposes. 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 -Discussed that even if he has a varicocele, there is no guarantee that this pain is from varicocele and that varicocele repair will alleviate the pain -Discussed cord block and microsurgical cord denervation in detail, including risks benefits and alternatives -Discussed conservative measures like nsaids, elevation, ice, tight underwear etc. -Also discussed pelvic floor PT -continue conservative measures #Anorgasmia -monitor symptoms during masturbation vs intercourse I reviewed the common causes of hypogonadism with the patient. We will obtain a fasting, morning hypogonadal panel to determine if his hormonal axis is abnormal. We will evaluate his lab results and if needed, at that point we will begin treatment. We discussed different modalities to treat hypogonadism, including hcg, anastrozole, clomiphene, testosterone gels/creams, nasal testosterone, testosterone pellets, and testosterone injections. I also reviewed with him common risks following testosterone replacement, including cholesterol imbalance, polycythemia, cancer progression and infertility. He understands these risks and wishes to proceed. The patient is to adhere to a strict followup either every 3-4 months or biannually. We reviewed with him with our office's consent form. We also reviewed his fertility status and whether sperm production and/or prevention of testicular atrophy is a concern. If so, HCG will be added. We also discussed the possibility of gynecomastia secondary to testosterone therapy and methods of prevention and/or treatment if this occurs. #Hypogonadism -repeat T in end october #Screening for polycythemia -Hct -prn phlebotomy for Hct>54 #Screening for hyperestrogenemia -E2 -arimidex if E is elevated #Prostate cancer screening -PSA Follow up in 2 months after repeat T By signing my name below, I, jailyn Rangel, attest that this documentation has been prepared under the direction and in the presence of Dr. Jessica Brown. All medical record entries made by the giuliaibdilip were at my direction and personally dictated by me. I have reviewed the chart and agree that the record accurately reflects my personal performance of the history, physical exam, discussion, and plan. Chief Complaint An interactive audio and video telecommunication system which permits real time communications between the patient (at the originating site) and provider (at the distant site) was utilized to provide this telehealth service. Verbal consent was requested and obtained from ROBYN IRELAND on this date, 10/21/2021 01:00 PM , for a telehealth visit. Varicocele Anorgasmia Low T History of Present [id number] yo M here for varicocele and anorgasmia Last visit 09/16/21: -UA/CX/ureaplasma/mycoplasm a -pelvic floor PT -monitor symptoms during masturbation vs intercourse -ED labs (hormones), A1C #Varicocele -had varicocele for over 20 years -varicocele embolization 08/29/21 -had previous dysuria, negative for UTI -dull throbbing, improved after embolization -left testicular pain with exercise, no correlation with ejaculation -had asthma brought on by aspirin, nightmares from ibuprofen -taking tylenol -dad of cancer -no hx of vasectomy Scrotal US 09/06/21 personally reviewed: Mild left varicocele.Additional incidental findings as detailed above including bilateral 6 mm epididymal head cysts and 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) Bilateral shoulder pain (719.41) (M25.511,M25.512) Class 2 obesity with body mass index (BMI) of 35.0 to 35.9 in adult (278.00,V85.35) (E66.9,Z68.35) Community acquired pneumonia (486) (J18.9) Cough (786.2) (R05.9) Dyshydrosis (705.81) (L30.1) Dysphagia (787.20) (R13.10) ED (erectile dysfunction) (607.84) (N52.9) Generalized osteoarthritis of multiple sites (715.09) (M15.9) Greater trochanteric bursitis of left hip (726.5) (M70.62) Greater trochanteric bursitis of right hip (726.5) (M70.61) Hip pain, bilateral (719.45) (M25.551,M25.552) Hip pain, right (719.45) (M25.551) Hyperlipidemia, unspecified (272.4) (E78.5) Hypertrophy, nasal, 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) (more content not included)... Normal [facility] 17-Hydroxyprogesterone, Seru mon 09-17-2021 17-Hydroxyprogester one [Mass/Vol] 22 ng/dL HH-Vismosi-N udson Work Phone: Comment on above: Unable to flag a bnormal result(s), please refer to reference range(s) below: Adult Male Reference Ranges for 17-Hydroxyprogesterone: 18-30 years: 32-307 ng/dL 31-40 years: 42-196 ng/dL 41-50 years: 33-195 ng/dL 51-60 years: 37-129 ng/dL Male Patel Stages: II - III Males: 12 - 130 ng/dL IV - V Males: 51 - 190 ng/dL Includes data from J Clin Endocrinol Metab. 1991;73:674-686; J Clin Endocrinol Metab. 1989;69;8132-2997; J Clin Endocrinol Metab. 1994;78:226-270. Pediatr Res 1988;23:525-529. MedLinePlus (accessed 09/12/13). This test was developed and its analytical performancecharacteristics have been determined by [facility] [place]. It hasnot been cleared or approved by the U.S. Food and DrugAdministration. This assay has been validated pursuantto the CLIA regulations and is used for clinicalpurposes. Estradiol, Serumon 2 E2 [Mass/Vol] 22 pg/mL MG-Urology- C sofie Brenner Work Phone: Comment on above: REF VALUESFOLLICULAR PHASE 20-144MID CYCLE 64-357LUTEAL PHASE 56-214POSTMENOPAUSE < 32PREPUBERTY < 20FEMALE 10-18Y 8-110MALE 10-18Y < 20ADULT MALE < 40 Hemoglobin A1Con 09-17-2021 Glucose [Mass/Vol] 105 mg/dL MG-Uro logy-C [employer] Work Phone: HbA1c (Bld) [Mass fraction] 5.3 % NC-Sfugsle-H [employer] Work Phone: Comment on above: Diagnosis of Diabete s-Adults Non-Diabetic: < or = 5.6% Increased risk for developing diabetes: 5.7-6.4% Diagnostic of diabetes: > or = 6.5%. Monitoring of Diabetes Age (y) Therapeutic Goal (%) Adults: >18 <7.0 Pediatrics: 13-18 <7.5 7-12 <8.0 0- 6 7.5-8.5 [place] [employer]. Diabetes Care 33(S1), Mar 2009. Laboratory - Chemistry and C hemistry - challengeon 09-17-2021 Follitropin Qn 8.3 {IU/L} [facility] -C [employer] Work Phone: Comment on above: REF VALUESFOLLICULAR 4-65NHC-CGHHQ 12-25LUTEAL PHASE 2- 12MENOPAUSE 30-150PREPUBERTY 50% ADULTADULT MALE 2-10INFANTS 0-1 Lutropin Qn 7.1 {IU/L} OY-Txatqyw-L [employer] Work Phone: Comment on above: REF VALUESFOLLICULAR PHASE 1.9-12.5MID-CYCLE 8.7-76.3LUTEAL PHASE 0.5-16.9POST MENOPAUSE 5.0-55.2CHILDREN 0- 6.0ADULT MALE 18-70 1.5- 9.3ADULT MALE >70 3.1-34.6 Testosterone [Mass/Vol] 264 ng/dL 250-1100 YX-Lapxdsi-N son Work Phone: Comment on above: Men with clinically significant hypogonadalsymptoms and testosterone values repeatedly inthe range of the 200-300 ng/dL or less, maybenefit from testosterone treatment afteradequate risk and benefits counseling. For additional information, please refer [email or web address].ezTaxi/faq/TotalTestosteroneLCMSM [email or web address](This link is being provided for informational/educational purposes only.) This test was developed and its analytical performancecharacteristics have been determined by [employer] [place], [place]. It hasnot been cleared or approved by the U.S. Food and DrugAdministration. This assay has been validated pursuantto the CLIA regulations and is used for clinicalpurposes. Testosterone Free [Mass/Vol] 43.8 pg/mL 30.0-135.0 VO-Aphdegp-G udson 202 Work Phone: Comment on above: This test was develo ped and its analytical performancecharacteristics have been determined by [employer] [place], [place]. It hasnot been cleared or approved by the U.S. Food and DrugAdministration. This assay has been validated pursuantto the CLIA regulations and is used for clinicalpurposes. Prolactin, Serumon 2 Prolactin [Mass/Vol] 10.1 ug/L 2.0 - 18.0 KR-Rjuibsg-M [employer] Work Phone: Prostate Specific Antigenon 09-17-2021 Prostate specific Ag [Mass/Vol] 3.22 ng/mL See Below HR-Ikawmnw-C [employer] Work Phone: Comment on above: Reference Range: 0.0 0 - 4.00The FDA requires that the method used for PSA assay be reported to the physician. Values obtained with different assay methods must not be used interchangeably. [facility] using the [employer] PSA assay is a two-site immunoenzymatic sandwich assay. The assay is approved for measurement of prostate-specific antigen (PSA)in serum and may be used in conjunction with a digital rectal examination in men 50 years and older as an aid in detection of prostate cancer.6-Vibxg-yceqhrvjl inhibitors (e.g. Proscar, Finasteride, Avodart, Dutasteride and Rashmi) for the treatment of BPH have been shown to lower PSA levels by an average of 50% after 6 months of treatment. Total Estrogens, Serumon Estrogen [Mass/Vol] 52 pg/mL below low threshold 56-213 OT-Xsbgpst-I udson Work Phone: Comment on above: Prepubertal <40 Vitamin D 25-Hydroxyon 09-17 25-hydroxyvitamin D3 [Mass/Vol] 34 ng/mL WH-Aefodkq-N [employer] Work Phone: Comment on above: .DEFICIENCY: < 20 NG /MLINSUFFICIENCY: 20-29 NG/MLSUFFICIENCY: 30-100 NG/MLTHIS ASSAY ACCURATELY QUANTIFIES THE SUM OFVITAMIN D3, 25-HYDROXY AND VIT D2,25-HYDROXY. Cult, Urineon 09-16-2021 Bacteria identified Cx Nom (U) PH-Ufrzawk-C [employer] Work Phone: Urinalysison 09-16-2021 Color (U) Colorless See Below DT-Xsspcin-C udson Work Phone: [phone] Comment on above: Reference Range: STR AW,YELLOW Glucose Ql (U) Negative NEGATIVE [facility] -H udson Work Phone: Ketones Ql (U) Negative NEGATIVE [facility] -H udson Work Phone: Leukocyte esterase Test strip Ql (U) Negative NEGATIVE KQ-Vzkcmiq-D udson Work Phone: pH (U) 7.0 [pH] 5.0 - 8.0 TB-Cjeqpga-R udson Work Phone: Protein (U) [Mass/Vol] Negative NEGATIVE DN-Xlxcwuh-P udson 202 Work Phone: RBC (U) [#/Vol] Negative NEGATIVE MG-Urolog y-H udson 202 Work Phone: Specific gravity (U) [Rel density] 1.004 1 below low threshold See Below TL-Iqhmxlk-M udson Work Phone: [phone] Comment on above: Reference Range: 1.0 05 - 1.035 Urinalysis Negative NEGATIVE NY-Acgtwby-X udson Work Phone: [phone] Urinalysis <2.0 0.0 - 1.9 CS-Kalypqo-Z udson Work Phone: [phone]-Htyceyr-J udson Work Phone: [phone] Radiologyon 09-06-2021 US.doppler Scrotum and testicle Please click on the link to view the study images Normal [facility]-Tino Eagle Work Phone: US.doppler Scrotum and testicle Normal NB-Cnorrrr-Y [facility] Work Phone: Tobacco Screening.on 022 Fall risk assessment a) No falls within the last year WW-Irehslo-L [facility] Work Phone: Tobacco use status CPHS b) No KZ-Lehkung-S [facility] Work Phone: CBCon 08-29-2021 Hematocrit (Bld) [Volume fraction] 41.3 % 40.0 - 52.0 % [facility] Hemoglobin.gastroin testinal spec 1 Ql (Stl) 13.7 g/dL 13.0 - 18.0 g/dL [facility] MCH (RBC) [Entitic mass] 30.8 pg 26.0 - 34.0 pg [facility] MCHC (RBC) [Mass/Vol] 33.2 % 32.0 - 36.0 % [facility] MCV (RBC) [Entitic vol] 92.8 fL 80.0 - 98.0 fL [facility] Platelet distribution width (Bld) [Ratio] 14.0 % 11.5 - 14.5 % [facility] Platelet mean volume (Bld) [Entitic vol] 8.0 fL 7.4 - 12.4 fL [facility] Comment on above: MPV is a calculated measurement using platelet volume ratio. Platelets (Bld) [#/Vol] 220 10*3/uL 140 - 440 10*3/uL [facility] RBC (Bld) [#/Vol] 4.45 10*6/uL 4.40 - 5.9 0 10*6/uL [facility] WBC (Bld) [#/Vol] 8.4 10*3/uL 3.6 - 10.7 10*3/uL [facility] Test Performed by [id number] [place] [address] LAB [facility] Creatinineon 08-29-2021 Creatinine [Mass/Vol] 0.70 mg/dL Normal 0.52-1.25 [facility] Comment on above: Performed By: #### ALEYDA Lizarraga CRTN3 #### [address] [address] eGFR OTHER > 90.0 Normal >60 [facility] Comment on above: Result Comment: KDIG O guidelines provide the following GFR categories: Stage GFR(ml/min/1.73 m2) Terms G1 >=90 Normal or high G2 60-89 Mildly decreased* G3a 45-59 Mildly to moderately decreased G3b 30-44 Moderately to severely decreased G4 15-29 Severely decreased G5 <15 Kidney failure *Relative to young adult level. In the absence of evidence of kidney damage, neither GFR category G1 nor G2 fulfill the criteria for CKD. The CKD-EPI equation is validated in individuals 18 years of age and older. Currently the best equation for estimating glomerular filtration rate (GFR) from serum creatinine in children is the Bedside Wooten equation. It is less accurate in patients with extremes of muscle mass, restriction of dietary protein, ingestion of creatine, extra-renal metabolism of creatinine, or treatment with medications that affect renal tubular creatinine secretion. Performed By: #### ALEYDA Lizarraga CRTN3 #### [address] [address] GFR/1.73 sq M.predicted among blacks MDRD (S/P/Bld) [Vol rate/Area] mL/min/{1.73_m2} Normal >60 [facility] Comment on above: Performed By: #### ALEYDA Lizarraga CRTN3 #### [address] [address] Creatinine [Mass/Vol] 0.7 mg/dL 0.52 - 1.25 mg/dL [facility] EGFR IF NonAfrican Bur[place]ian >90.0 >60 mL/min [facility] Comment on above: KDIGO guidelines pro vide the following GFR categories: Stage GFR(ml/min/1.73 m2) Terms G1 >=90 Normal or high G2 60-89 Mildly decreased* G3a 45-59 Mildly to moderately decreased G3b 30-44 Moderately to severely decreased G4 15-29 Severely decreased G5 <15 Kidney failure *Relative to young adult level. In the absence of evidence of kidney damage, neither GFR category G1 nor G2 fulfill the criteria for CKD. The CKD-EPI equation is validated in individuals 18 years of age and older. Currently the best equation for estimating glomerular filtration rate (GFR) from serum creatinine in children is the Bedside Wooten equation. It is less accurate in patients with extremes of muscle mass, restriction of dietary protein, ingestion of creatine, extra-renal metabolism of creatinine, or treatment with medications that affect renal tubular creatinine secretion. GFR/1.73 sq M.predicted among blacks MDRD (S/P/Bld) [Vol rate/Area] mL/min/{1.73_m2} >60 mL/min [facility] Test Performed by [address] Hemogramon 08-29-2021 Erythrocyte distribution width (RBC) [Ratio] 14.0 % Normal 11.5-14.5 [facility] Comment on above: Performed By: #### P ALEYDA Mojica CRTN3 #### [address] [address] Hematocrit (Bld) [Volume fraction] 41.3 % Normal 40.0-52.0 [facility] Comment on above: Performed By: #### P ALEYDA Mojica CRTN3 #### [address] [address] Hemoglobin (Bld) [Mass/Vol] 13.7 g/dL Normal 13.0-18.0 [facility] Comment on above: Performed By: #### P ALEYDA Mojica CRTN3 #### [address] [address] MCH (RBC) [Entitic mass] 30.8 pg Normal 26.0-34.0 [facility] Comment on above: Performed By: #### P Yunior HEMOG, CRTN3 #### [facility] [address] [place], [place] MCHC 33.2 % Normal 32.0-36.0 [facility] Comment on above: Performed By: #### ALEYDA Lizarraga CRTN3 #### [place] [address] [address] [place], [place] MCV (RBC) [Entitic vol] 92.8 fL Normal 80.0-98.0 [facility] Comment on above: Performed By: #### P ALEYDA Mojica CRTN3 #### [place] [address] [place], [place] Platelet mean volume (Bld) [Entitic vol] 8.0 fL Normal 7.4-12.4 [facility] Comment on above: Result Comment: MPV is a calculated measurement using platelet volume ratio. Performed By: #### ALEYDA Lizarraga CRTN3 #### [place] [address] [address] [place], [place] Platelets (Bld) [#/Vol] 220 10*3/uL Normal 140-440 [facility] Comment on above: Performed By: #### ALEYDA Lizarraga CRTN3 #### [place] [address] [address] [place], [place] RBC (Bld) [#/Vol] 4.45 10*6/uL Normal 4.40-5.90 [facility] Comment on above: Performed By: #### P ALEYDA Mojica CRTN3 #### [place] [address] [address] [place], [place] WBC (Bld) [#/Vol] 8.4 10*3/uL Normal 3.6-10.7 [facility] Comment on above: Performed By: #### ALEYDA Lizarraga CRTN3 #### [place] [address] [address] [place], [place] Prothrombin Timeon 2 INR 1.0 Normal 0.9-1.1 [facility] Comment on above: Result Comment: Piero mmended Anticoagulant Therapy: SEE BELOW ----- INR of 2.0 - 3.0 : - Prophylaxis of Venous Thrombosis (high-risk surgery) - Treatment of Venous Thrombosis - Treatment of Pulmonary Embolism (Includes tissue heart valves, Acute Myocardial Infarction to prevent systemic embolism, Valvular Heart Disease, and Atrial Fibrillation) ----- INR of 2.5 - 3.5 : - Mechanical Prosthetic Valves (high risk) - If oral anticoagulant therapy is used to prevent Myocardial Infarction Performed By: #### P ALEYDA Mojica CRTN3 #### [address] [address] PT Coag (PPP) [Time] 11.0 s Normal 9.0-12.0 [facility] Comment on above: Result Comment: . Performed By: #### P ALEYDA Mojica CRTN3 #### [address] [address] Protime-INRon 08-29-2021 INR Coag (Bld) [Relative time] 1.0 {INR} [facility] Comment on above: Recommended Anticoag ulant Therapy: SEE BELOW ----- INR of 2.0 - 3.0 : - Prophylaxis of Venous Thrombosis (high-risk surgery) - Treatment of Venous Thrombosis - Treatment of Pulmonary Embolism (Includes tissue heart valves, Acute Myocardial Infarction to prevent systemic embolism, Valvular Heart Disease, and Atrial Fibrillation) ----- INR of 2.5 - 3.5 : - Mechanical Prosthetic Valves (high risk) - If oral anticoagulant therapy is used to prevent Myocardial Infarction PT Coag (PPP) [Time] 11 s 9.0 - 12.0 s [facility] Comment on above: . Test Performed by [address] LAB [facility] Proce [facility] 08-29-2021 XA Special Angiography Procedure Patient Name: ROBYN IRELAND Special Procedures ACCESSION EXAM DATE/TIME PROCEDURE ORDERING PROVIDER [id number] 08/29/2021 13:05 EDT XA Special Angiography MD CANO JAMES Procedure Reason For Exam (XA Special Angiography Procedure) Left varicocele embolization Report Indication: Varicocele, scrotal pain. PROCEDURES: 1. Percutaneous access using ultrasound and fluoroscopic guidance into right internal jugular vein. 2. Left renal vein catheterization and venography. 3. Accessory left renal vein catheterization and venography. 4. Left main gonadal vein catheterization and venography. 5. Selective catheterization of left distal gonadal branch number one with venograms pre, during, and post embolization. 6. Selective catheterization of left distal gonadal branch number two with venograms pre, during, and post embolization. 7. Embolization of left distal gonadal vein branch number one. 8. Embolization of left distal gonadal vein branch number two. 9. Embolization of main left gonadal vein. 10. Complex manipulation for difficult catheterization of left gonadal collateral veins. PHYSICIANS: Dr. Cano SEDATION: Moderate sedation was provided under my supervision with patient monitored by a trained radiology nurse. Total sedation time of 120?minutes. COMPLICATIONS: None ESTIMATED BLOOD LOSS: Less than 50 mL SPECIMENS: None CONTRAST: 83 mL Isovue-300 IV contrast FLUOROSCOPY TIME: 33.2 min PROCEDURE NOTE: The procedure, risks, benefits, and alternatives were carefully explained to the patient and written informed consent was obtained. The patient was placed supine on the fluoroscopy table. A time out was performed. The groin was prepped and draped in usual sterile fashion. The right internal jugular vein was accessed with a micropuncture set using ultrasound and fluoroscopic guidance. A seven F sheath was placed over a Bentson wire. The sheath was flushed and connected to a slow drip heparinized flush. A five F C2 Cobra catheter was advanced over the Bentson wire to the upper abdominal region, then turned to the left and withdrawn until Special Procedures Report the left renal vein was catheterized. The wire was used to advance the Cobra guide catheter into the superior most accessory left renal vein. DSA was performed demonstrating multiple collaterals with several accessory left renal veins. C2 catheter was then advanced over a Bentson wire into the mid abdomen, turned to the left and withdrawn into the lowest left renal vein. The wire was removed and contrast was used for guidance while gently moving the C2 until it accessed the gonadal vein arising from the inferior wall of the left renal vein. 5 Nauruan catheter could not be advanced into the gonadal vein due to acute angulation, so a Progreat microcatheter was used to cannulate the left gonadal vein. At this time, a left/right main gonadal venogram was performed with with breath hold and valsalva demonstrating reflux and stasis of contrast within enlarged left scrotal veins. A total of two branches of the gonadal vein were then evaluated for selective catheterization. The medial distal left gonadal vein (branch #1), measuring five mm was then selectively catheterized with the microcatheter, and was then embolized using several 8-10 mm Selvin coils. Venograms were performed pre, during, and post embolization of this branch. The lateral distal left gonadal vein (branch #2), measuring five mm was then selectively catheterized with the microcatheter, and was then embolized using several 8-10 mm Selvin coils. Venograms were performed pre, during, and post embolization of this branch. Coiling was performed while pulling the microcatheter back into the main gonadal vein superiorly with continued coiling using 10 mm Selvin coils until a few centimeters below the left renal vein. Venograms were performed pre, during, and post embolization of this branch. Following embolization of all distal gonadal veins coursing retrograde, a final venogram demonstrated good occlusion of the left gonadal vein with no flow into the varicocele. The catheters were removed, the sheath was pulled, and manual pressure held until hemostasis was achieved. Throughout the procedure, fluoroscopy and venography was performed in the abdominal and pelvic region with no filming over the testicular region. The gonadal veins were occluded above the internal inguinal ring level. FINDINGS: 1. Incompetent left gonadal vein with two branches flowing into the varicocele. 2. All branches successfully occluded above the internal inguinal ring by coil embolization. IMPRESSION: Successful embolization of left gonadal veins for symptomatic varicocele. Report Dictated on Final Dictated: 08/29/2021 3:19 pm Dictating Physician: MD CANO JAMES (more content not included)... Normal [facility] Radiologyon 08-27-2021 XR Chest 2 Views Normal [facility] Work Phone: Tobacco Screening.on 022 Adult depression screening assessment No [facility] Work Phone: Fall risk assessment a) No falls within the last year [facility] Work Phone: Tobacco use status CPHS b) No [facility] Work Phone: No Panel Informationon 08-02 Normal [facility] Physicians-H udson Work Phone: Radiologyon 06-10-2021 XR Pelvis and Hip - left Views Please click on the link to view the study images Normal [facility] [address] [place] Work Phone: XR Pelvis and Hip - left Views Normal -[facility] MAC4 100 DO Work Phone: No Panel Informationon 06-07 Normal [facility] [address] [place] Work Phone: CT Cardiac Scoringon 022 CT Cardiac Scoring Please click on the link to view the study images Normal [facility] Work Phone: CT Cardiac Scoring Normal [facility] Phys[facility]-H udson Work Phone: Radiologyon 05-03-2021 XR Shoulder - bilateral 2 Views Normal [facility]-[place] 1400 A DO Work Phone: Blood Pressure Cuff Sizeon 0 04-16-2021 Fall risk assessment a) No falls within the last year [facility]-H udson Work Phone: Tobacco use status CPHS b) No [facility]-H udson Work Phone: Blood Pressure Cuff Size Large [facility]-H udson Work Phone: Complete Blood Count + Diffe rentialon 04-13-2021 Basophils/100 WBC (Bld) 1.0 % 0.0 - 2.0 [facility]-H udson Work Phone: Erythrocyte distribution width (RBC) [Ratio] 13.7 % See Below [facility]-H udson Work Phone: Comment on above: Reference Range: 11. 5 - 14.5 Hematocrit (Bld) [Volume fraction] 40.8 % below low threshold See Below [facility]-H udson Work Phone: Comment on above: Reference Range: 41. 0 - 52.0 Hemoglobin (Bld) [Mass/Vol] 13.5 g/dL See Below [facility] udson Work Phone: Comment on above: Reference Range: 13. 5 - 17.5 Lymphocytes/100 WBC (Bld) 25.9 % See Below [facility] Work Phone: Comment on above: Reference Range: 13. 0 - 44.0 MCHC (RBC) [Mass/Vol] 33.1 g/dL See Below [facility] Work Phone: Comment on above: Reference Range: 32. 0 - 36.0 MCV (RBC) [Entitic vol] 93 fL 80 - 100 [facility] udson Work Phone: Monocytes/100 WBC (Bld) 10.7 % 2.0 - 10.0 [facility] udson Work Phone: Neutrophils/100 WBC (Bld) 60.1 % See Below [facility] Work Phone: Comment on above: Reference Range: 40. 0 - 80.0 Platelets (Bld) [#/Vol] 161 10*3/uL 150 - 450 [facility] udson Work Phone: RBC (Bld) [#/Vol] 4.38 {x10E12/L} below low threshold See Below [facility] Work Phone: Comment on above: Reference Range: 4.5 0 - 5.90 WBC (Bld) [#/Vol] 4.9 10*3/uL 4.4 - 11.3 [facility]-H udson Work Phone: Complete Blood Count + Differential 0.00 {x10E9/L} See Below [facility] udson Work Phone: Comment on above: Reference Range: 0.0 0 - 0.10 Complete Blood Count + Differential 0.10 {x10E9/L} See Below [facility] Pretty Simpleson Work Phone: Comment on above: Reference Range: 0.0 0 - 0.40 Complete Blood Count + Differential 0.50 {x10E9/L} See Below [facility] Pretty [employer]on Work Phone: Comment on above: Reference Range: 0.0 5 - 0.80 Complete Blood Count + Differential 1.30 {x10E9/L} See Below [facility] [employer] Work Phone: Comment on above: Reference Range: 0.8 0 - 3.00 Complete Blood Count + Differential 3.00 {x10E9/L} See Below [facility] Work Phone: Comment on above: Reference Range: 1.6 0 - 5.50 Percent differential counts (%) should be interpreted in the context of the absolute cell counts (cells/L). Complete Blood Count + Differential 2.3 % 0.0 - 6.0 [facility] Work Phone: Complete Blood Count + Differential 0.1 {/100_WBC} [facility] Work Phone: Laboratory - Chemistry and C hemistry - challengeon 04-13-2021 Albumin BCP dye [Mass/Vol] 3.8 g/dL 3.4 - 5.0 [facility] Work Phone: ALP [Catalytic activity/Vol] 60 U/L 33 - 136 [facility] Work Phone: ALT With P-5'-P [Catalytic activity/Vol] 17 U/L 10 - 52 [facility] Work Phone: Comment on above: Patients treated wit h Sulfasalazine may generate falsely decreased results for ALT. Anion gap [Moles/Vol] 9 mmol/L below low threshold 10 - 20 [facility] Work Phone: AST With P-5'-P [Catalytic activity/Vol] 21 U/L 9 - 39 [facility] Work Phone: Bilirubin [Mass/Vol] 0.7 mg/dL 0.0 - 1.2 [facility] udson Work Phone: Calcium [Mass/Vol] 9.2 mg/dL 8.6 - 10.3 [facility] Work Phone: Chloride [Moles/Vol] 106 mmol/L 98 - 107 [facility] [employer] Work Phone: CO2 [Moles/Vol] 28 mmol/L 21 - 32 [facility] Work Phone: Creatinine [Mass/Vol] 0.73 mg/dL See Below [facility] Work Phone: Comment on above: Reference Range: 0.5 0 - 1.30 Glucose [Mass/Vol] 91 mg/dL 74 - 99 [facility] [employer] Work Phone: Potassium [Moles/Vol] 3.8 mmol/L 3.5 - 5.3 [facility] [employer] Work Phone: Protein [Mass/Vol] 6.5 g/dL 6.4 - 8.2 [facility] [employer] Work Phone: Sodium [Moles/Vol] 139 mmol/L 136 - 145 [facility] [employer] Work Phone: TSH Qn 2.39 m[IU]/L See Below [facility] [employer] Work Phone: Comment on above: Reference Range: 0.4 4 - 3.98 TSH testing is performed using different testing methodology at [facility] than at other [facility]. Direct result comparisons should only be made within the same method. Urea nitrogen [Mass/Vol] 12 mg/dL 6 - 23 [facility] [employer] Work Phone: Lipid Panelon 04-13-2021 Cholesterol [Mass/Vol] 210 mg/dL above high threshold 0 - 199 [facility] Work Phone: Comment on above: . AGE DESIRABLE BORD JULY HIGH HIGH 0-19 Y 0 - 169 170 - 199 >/= 200 20-24 Y 0 - 189 190 - 224 >/= 225 >24 Y 0 - 199 200 - 239 >/= 240 All ranges are based on fasting samples. Specific therapeutic targets will vary based on patient-specific cardiac risk.. Pediatric guidelines reference:Pediatrics 2011, 128(S5). Adult guidelines reference: NCEP ATPIII Guidelines, REDDY 2001, 258:2486-97. Venipuncture immediately after or during the administration of Metamizole may lead to falsely low results. Testing should be performed immediately prior to Metamizole dosing. Cholesterol in HDL [Mass/Vol] 45.0 mg/dL [facility] [employer] Work Phone: Comment on above: . AGE VERY LOW LOW N ORMAL HIGH 0-19 Y < 35 < 40 40-45 ---- 20- 24 Y ---- < 40 >45 ---- >24 Y ---- < 40 40-60 >60. Cholesterol in LDL [Mass/Vol] 143 mg/dL above high threshold 0 - 99 [facility] [employer] Work Phone: Comment on above: . NEAR BORD AGE MOHAMUD RABLE OPTIMAL HIGH HIGH VERY HIGH 0-19 Y 0 - 109 --- 110-129 >/= 130 ---- 20-24 Y 0 - 119 --- 120-159 >/= 160 ---- >24 Y 0 - 99 100-129 130-159 160-189 >/=190. Cholesterol.total/C holesterol in HDL [Mass ratio] 4.7 {ratio} [facility] [employer] Work Phone: Comment on above: REF VALUESDESIRABLE < 3.4HIGH RISK > 5.0 Triglyceride [Mass/Vol] 109 mg/dL 0 - 149 [facility] [employer] Work Phone: Comment on above: . AGE DESIRABLE BORD JULY HIGH HIGH VERY HIGH 0 D-90 D 19 - 174 ---- ---- ----91 D- 9 Y 0 - 74 75 - 99 >/= 100 ---- 10-19 Y 0 - 89 90 - 129 >/= 130 ---- 20-24 Y 0 - 114 115 - 149 >/= 150 ---- >24 Y 0 - 149 150 - 199 200- 499 >/= 500. Venipuncture immediately after or during the administration of Metamizole may lead to falsely low results. Testing should be performed immediately prior to Metamizole dosing. Lipid Panel 22 mg/dL 0 - 40 [facility] Work Phone: No Panel Informationon 04-13 >90 >90 [facility] Work Phone: Comment on above: CALCULATIONS OF NICHOLE MATED GFR ARE PERFORMED USING THE 2020 CKD-EPI STUDY REFIT EQUATION WITHOUT THE RACE VARIABLE FOR THE IDMS-TRACEABLE CREATININE METHODS.https://jasn.asnjournals.org/content/early//ASN. 8020730028 Prostate Specific Antigenon 04-13-2021 Prostate specific Ag [Mass/Vol] 1.98 ng/mL See Below [facility] Work Phone: Comment on above: Reference Range: 0.0 0 - 4.00The FDA requires that the method used for PSA assay be reported to the physician. Values obtained with different assay methods must not be used interchangeably. [facility] the Access Hybritech PSA assay is a two-site immunoenzymatic sandwich assay. The assay is approved for measurement of prostate-specific antigen (PSA)in serum and may be used in conjunction with a digital rectal examination in men 50 years and older as an aid in detection of prostate cancer.4-Agwhr-ztrhwdoku inhibitors (e.g. Proscar, Finasteride, Avodart, Dutasteride and Rashmi) for the treatment of BPH have been shown to lower PSA levels by an average of 50% after 6 months of treatment. Vitamin D 25-Hydroxyon 04-13 25-hydroxyvitamin D3 [Mass/Vol] 21 ng/mL Abnormal -[facility] Work Phone: Comment on above: .DEFICIENCY: < 20 NG /MLINSUFFICIENCY: 20-29 NG/MLSUFFICIENCY: 30-100 NG/MLTHIS ASSAY ACCURATELY QUANTIFIES THE SUM OFVITAMIN D3, 25-HYDROXY AND VIT D2,25-HYDROXY. Otheron 04-14-[address] [facility] [address] [place] [id number] DERMATOPATHOLOGY REPORT Name:ROBYN IRELAND [facility] Rec #. [id number] #: [id number] Location: ADERMDate of Procedure: 04/14/2020 Race: WHITEDate Received: 04/16/2020 /Sex: 1945 (Age: 74)/ M Date Reported: 04/17/2020 Other: Submitting Physician:GET TERRAZAS MD FINAL DIAGNOSISA. 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 SKIN, LEFT LEG, SHAVE BIOPSY:INVASIVE SQUAMOUS CELL CARCINOMA, WELL DIFFERENTIATED, PRESENT ON THE DEEPMARGIN, SEE NOTE.Note: The tumor is at least 1.25 mm in thickness and extends into at least themid reticular dermis. No perineural or lymphovascular invasion is seen. Electronically Signed Out by AMY AARON M.D. Electronically Signed Out By AMY AARON MD/Tino the signature on this report, the individual or group listed as making theFinal Interpretation/Diagnosis certifies that they have reviewed this case. Intraoperative Consultation:B. Microscopic analysis shows irregular growth of keratinocytes that areassociated with the epidermis and invade the dermis in isolated islands andstrands. Horn pearls and partial keratinization are present. The basal cellsare poorly demarcated from the stroma. Atypia is mild, and mitoses are rare. Clinical History:A,B: Fixative (A): Routine Histopath (Formalin Fixed)Clinical Diagnosis History: Changing skin lesion - (L98.9). Dp Punch Biopsies.(Mukesh)Specimens Submitted As:A: SKIN, NASAL B: SKIN, LEFT LEG Gross Description:A:L Received in formalin is a valverde piece of skin measuring [id number] in aggreg.The specimen is inked and embedded in toto. B: Received in formalin is a tanpiece of skin measuring [id number]. The specimen is inked and embedded in toto. ink/04/16/2020Microscopic Description:A. Microscopic examination reveals wavy spindle cells with moderate pinkcytoplasm in the dermis. [facility] Work Phone: Otheron 05-03-2019 Interpreted by: COLLETTE MURRELL05/03/19 10:28MRN: [id number] Name: ROBYN IRELAND STUDY:Comprehensive speech evaluation dated 05/03/2019. INDICATION:Dysphagia. COMPARISON:None. ORDERING CLINICIAN:GET TERRAZAS. TECHNIQUE:Patient was asked to consume multiple consistencies of barium whileswallowing was assessed under active fluoroscopy. Examination wasperformed in conjunction with a member of the Department of SpeechPathology. FINDINGS:The swallowing phase of the examination was grossly unremarkable. Thepharyngeal phase of swallowing was grossly unremarkable. No laryngealpenetration or aspiration was evident during the course of this exam. IMPRESSION:1. No laryngeal penetration or aspiration was evident during thecourse of this examination.2. Please see report from member of the Department of SpeechPathology for further discussion.Electronically signed by: COLLETTE MURRELL 05/03/19 10:28 Normal [facility] Work Phone: Complete Blood Count + Diffe rentialon 03-29-2019 Basophils (Bld) [#/Vol] 0.04 {x10E9/L} See Below [facility] Work Phone: Comment on above: Reference Range: 0.0 0 - 0.10 Basophils/100 WBC (Bld) 0.6 % 0.0 - 2.0 [facility] Work Phone: Eosinophils (Bld) [#/Vol] 0.09 {x10E9/L} See Below [facility] Work Phone: [phone] Comment on above: Reference Range: 0.0 0 - 0.40 Eosinophils/100 WBC (Bld) 1.2 % 0.0 - 6.0 [facility] Work Phone: [phone] distribution width (RBC) [Ratio] 11.9 % See Below [facility] Work Phone: [phone] Comment on above: Reference Range: 11. 5 - 14.5 Hematocrit (Bld) [Volume fraction] 37.1 % below low threshold See Below [facility] Work Phone: [phone] Comment on above: Reference Range: 41. 0 - 52.0 Hemoglobin (Bld) [Mass/Vol] 12.4 g/dL below low threshold See Below [facility] Work Phone: [phone] Comment on above: Reference Range: 13. 5 - 17.5 Lymphocytes (Bld) [#/Vol] 1.10 {x10E9/L} See Below [facility] Work Phone: [phone] Comment on above: Reference Range: 0.8 0 - 3.00 Lymphocytes/100 WBC (Bld) 15.1 % See Below [facility] Work Phone: [phone] Comment on above: Reference Range: 13. 0 - 44.0 MCHC (RBC) [Mass/Vol] 33.4 g/dL See Below [facility] Work Phone: Comment on above: Reference Range: 32. 0 - 36.0 MCV (RBC) [Entitic vol] 94 fL 80 - 100 [facility] Work Phone: [phone] Monocytes (Bld) [#/Vol] 1.28 {x10E9/L} above high threshold See Below [facility] Work Phone: Comment on above: Reference Range: 0.0 5 - 0.80 Monocytes/100 WBC (Bld) 17.6 % 2.0 - 10.0 [facility] Work Phone: Neutrophils (Bld) [#/Vol] 4.74 {x10E9/L} See Below [facility] Work Phone: Comment on above: Reference Range: 1.6 0 - 5.50 Neutrophils/100 WBC (Bld) 65.2 % See Below [facility] Work Phone: Comment on above: Reference Range: 40. 0 - 80.0 Platelets (Bld) [#/Vol] 191 {x10E9/L} 150 - 450 [facility] Work Phone: RBC (Bld) [#/Vol] 3.95 {x10E12/L} below low threshold See Below [facility] Work Phone: Comment on above: Reference Range: 4.5 0 - 5.90 WBC (Bld) [#/Vol] 7.3 {x10E9/L} 4.4 - 11.3 [facility] Work Phone: WBC (Bld) [#/Vol] 0.0 {/100_WBC} 0.0-0.0 [facility] Work Phone: Complete Blood Count + Differential 0.3 % 0.0 - 0.9 [facility] Work Phone: Comment on above: Percent differential counts (%) should be interpreted in the context of the absolute cell counts (cells/L). Metabolic Panelon 03-29-2019 ALP [Catalytic activity/Vol] 64 U/L 33 - 136 [facility] Work Phone: Anion gap [Moles/Vol] 13 mmol/L 10 - 20 [facility] Work Phone: Bilirubin [Mass/Vol] 0.8 mg/dL 0.0 - 1.2 [facility] Work Phone: Calcium [Mass/Vol] 9.1 mg/dL 8.6 - 10.6 [facility] Work Phone: Chloride [Moles/Vol] 97 mmol/L below low threshold 98 - 107 [facility] Work Phone: CO2 [Moles/Vol] 28 mmol/L 21 - 32 [facility] Work Phone: Creatinine [Mass/Vol] 0.97 mg/dL See Below [facility] Work Phone: Comment on above: Reference Range: 0.5 0 - 1.30 Glucose [Mass/Vol] 98 mg/dL 74 - 99 [facility] Work Phone: Potassium [Moles/Vol] 3.9 mmol/L 3.5 - 5.3 [facility] Work Phone: Protein [Mass/Vol] 6.5 g/dL 6.4 - 8.2 [facility] Work Phone: Sodium [Moles/Vol] 134 mmol/L below low threshold 136 - 145 [facility] Work Phone: Urea nitrogen [Mass/Vol] 15 mg/dL 6 - 23 [facility] Work Phone: Otheron 03-29-2019 Albumin BCP dye [Mass/Vol] 3.7 g/dL 3.4 - 5.0 [facility] Work Phone: ALT With P-5'-P [Catalytic activity/Vol] 19 U/L 10 - 52 [facility] Work Phone: Comment on above: Patients treated wit h Sulfasalazine may generate falsely decreased results for ALT. AST With P-5'-P [Catalytic activity/Vol] 20 U/L 9 - 39 [facility] Work Phone: >60 >60 [facility] Work Phone: Comment on above: CALCULATIONS OF NICHOLE MATED GFR ARE PERFORMED USING THE MDRD STUDY EQUATION FOR THE IDMS-TRACEABLE CREATININE METHODS. CLIN CHEM 2007;53:766-72 Urinalysison 03-29-2019 Appearance (U) HAZY CLEAR [facility] Work Phone: Color (U) PEDRITO See Below [facility] Work Phone: Comment on above: Reference Range: STR AW,YELLOW Glucose Ql (U) Negative NEGATIVE [facility] Work Phone: Ketones Ql (U) Negative NEGATIVE [facility] Work Phone: Leukocyte esterase Test strip Ql (U) Negative NEGATIVE [facility] Work Phone: pH (U) 6.0 [pH] 5.0 - 8.0 [facility] Work Phone: Protein (U) [Mass/Vol] Negative NEGATIVE [facility] Work Phone: RBC (U) [#/Vol] SMALL (1+) Abnormal NEGATIVE [facility] Work Phone: Specific gravity (U) [Rel density] 1.017 See Below [facility] Work Phone: Comment on above: Reference Range: 1.0 05 - 1.035 Urinalysis Negative NEGATIVE [facility] Work Phone: Urinalysis <2.0 0.0 - 1.9 [facility] Work Phone: Urinalysis, Microscopicon Urinalysis, Microscopic 1+ [facility] Work Phone: Urinalysis, Microscopic 2+ [facility] Work Phone: Urinalysis, Microscopic 1 {/HPF} 0-5 [facility] Work Phone: Otheron 03-21-2019 Interpreted by: COLLETTE MURRELL03/21/19 09:43MRN: [id number] Name: ROBYN IRELAND STUDY:Comprehensive speech evaluation dated 03/21/2019. INDICATION:Dysphagia. COMPARISON:None. ORDERING CLINICIAN:GTE TERRAZAS. TECHNIQUE:Patient was asked to consume multiple consistencies of barium whileswallowing was assessed under active fluoroscopy. Examination wasperformed in conjunction with a member of the Department of SpeechPathology. FINDINGS:The swallowing phase of the examination was grossly unremarkable. Thepharyngeal phase of swallowing was grossly unremarkable. Traceaspiration with thin liquids was noted during the examination. IMPRESSION:1. Trace aspiration with thin liquids was noted during theexamination.2. Please see report from member of the Department of SpeechPathology for further discussion.Electronically signed by: COLLETTE MURRELL 03/21/19 09:43 Normal [facility] Work Phone: Vital Signs Date Time Vital Sign Value Performing Clinician Facility 10-30-2024 11:36-0400 Body temperature 99 [degF] Macarena PENN Work Phone: [facility] 10-30-2024 11:36-0400 Diastolic blood pressure 68 mm[Hg] Macarena PENN Work Phone: [facility] 10-30-2024 11:36-0400 Heart rate 62 /min Macarena PENN Work Phone: [facility] 10-30-2024 11:36-0400 Respiratory rate 16 /min Macarena PENN Work Phone: [facility] 10-30-2024 11:36-0400 SaO2% (BldA) [Mass fraction] 96 % Macarena PENN Work Phone: [facility] 10-30-2024 11:36-0400 Systolic blood pressure 108 mm[Hg] Macarena PENN Work Phone: [facility] 06-22-2024 11:33-0400 Body mass index (BMI) [Ratio] 33.52 kg/m2 Teetee Chapin MD Work Phone: [facility] 06-22-2024 11:33-0400 Body temperature 97.5 [degF] Teetee Chapin MD Work Phone: [facility] 06-22-2024 11:33-0400 Body weight 105.96 kg Teetee Chapin MD Work Phone: [facility] 06-22-2024 11:33-0400 Diastolic blood pressure 78 mm[Hg] Teetee Chapin MD Work Phone: [facility] 06-22-2024 11:33-0400 Systolic blood pressure 120 mm[Hg] Teetee Chapin MD Work Phone: [facility] 06-20-2024 08:12-0400 Body height 177.8 cm Robert Christian DO Work Phone: [facility] 06-20-2024 08:12-0400 Body mass index (BMI) [Ratio] 32.71 kg/m2 Robert Christian DO Work Phone: [facility] 06-20-2024 08:12-0400 Body weight 103.42 kg Robert Christian DO Work Phone: [facility] 06-06-2024 14:18-0400 Body height 177.8 cm Rozina Stapleton MD Work Phone: [facility] 06-06-2024 14:18-0400 Body mass index (BMI) [Ratio] 34.15 kg/m2 Rozina Stapleton MD Work Phone: [facility] 06-06-2024 14:18-0400 Body weight 107.96 kg Rozina Stapleton MD Work Phone: [facility] 06-06-2024 14:18-0400 Diastolic blood pressure 64 mm[Hg] Rozina Stapleton MD Work Phone: [facility] 06-06-2024 14:18-0400 Heart rate 57 /min Rozina Stapleton MD Work Phone: [facility] 06-06-2024 14:18-0400 Systolic blood pressure 108 mm[Hg] Rozina Stapleton MD Work Phone: [facility] 05-20-2024 11:46-0500 Body height 175.3 cm Trinh Brode DO Work Phone: [facility] 05-20-2024 11:46-0500 Body mass index (BMI) [Ratio] 34.97 kg/m2 Trinh Brode DO Work Phone: [facility] 05-20-2024 11:46-0500 Body temperature 97.3 [degF] Trinh Brode DO Work Phone: [facility] 05-20-2024 11:46-0500 Body weight 107.41 kg Trinh Brode DO Work Phone: [facility] 05-20-2024 11:46-0500 Diastolic blood pressure 58 mm[Hg] Trinh Brode DO Work Phone: [facility] 05-20-2024 11:46-0500 Heart rate 55 /min Trinh Brode DO Work Phone: [facility] 05-20-2024 11:46-0500 SaO2% (BldA) [Mass fraction] 96 % Trinh Brode DO Work Phone: [facility] 05-20-2024 11:46-0500 Systolic blood pressure 96 mm[Hg] Trinh Brode DO Work Phone: [facility] 03-10-2024 13:11-0500 Body mass index (BMI) [Ratio] 33.86 kg/m2 Arlette Geaney DISC INSPECTOR-HEAD MIXER Work Phone: [facility] 03-10-2024 13:11-0500 Body temperature 98.01 [degF] Arlette Geaney DISC INSPECTOR-HEAD MIXER Work Phone: [facility] 03-10-2024 13:11-0500 Body weight 107.05 kg Arlette Geaney DISC INSPECTOR-HEAD MIXER Work Phone: [facility] 03-10-2024 13:11-0500 Diastolic blood pressure 80 mm[Hg] Arlette Geaney DISC INSPECTOR-HEAD MIXER Work Phone: [facility] 03-10-2024 13:11-0500 Heart rate 65 /min Arlette Geaney DISC INSPECTOR-HEAD MIXER Work Phone: [facility] 03-10-2024 13:11-0500 SaO2% (BldA) [Mass fraction] 97 % Arlette Geaney DISC INSPECTOR-HEAD MIXER Work Phone: [facility] 03-10-2024 13:11-0500 Systolic blood pressure 122 mm[Hg] Arlette Geaney DISC INSPECTOR-HEAD MIXER Work Phone: [facility] 11-09-2023 08:40-0400 Body mass index (BMI) [Ratio] 33.15 kg/m2 Trinh Brode DO Work Phone: [facility] 11-09-2023 08:40-0400 Body temperature 97.39 [degF] Trinh Brode DO Work Phone: [facility] 11-09-2023 08:40-0400 Body weight 104.78 kg Trinh Loyola DO Work Phone: [facility] 11-09-2023 08:40-0400 Diastolic blood pressure 70 mm[Hg] Trinh Loyola DO Work Phone: [facility] 11-09-2023 08:40-0400 Heart rate 66 /min Trinh Loyola DO Work Phone: [facility] 11-09-2023 08:40-0400 SaO2% (BldA) [Mass fraction] 96 % Trinh Loyola DO Work Phone: [facility] 11-09-2023 08:40-0400 Systolic blood pressure 100 mm[Hg] Trinh Loyola DO Work Phone: [facility] 09-30-2023 13:57-0400 Body height 177.8 cm Leonardo Bustamante MD Work Phone: [facility] 09-30-2023 13:57-0400 Body mass index (BMI) [Ratio] 33.43 kg/m2 Leonardo Bustamante MD Work Phone: [facility] 09-30-2023 13:57-0400 Body weight 105.69 kg Leonardo Bustamante MD Work Phone: [facility] 09-30-2023 13:57-0400 Diastolic blood pressure 70 mm[Hg] Leonardo Bustamante MD Work Phone: [employer] 09-30-2023 13:57-0400 Heart rate 69 /min Leonardo Bustamante MD Work Phone: [employer] [facility] 09-30-2023 13:57-0400 SaO2% (BldA) [Mass fraction] 96 % Leonardo Bustamante MD Work Phone: [facility] 09-30-2023 13:57-0400 Systolic blood pressure 130 mm[Hg] Leonardo Bustamante MD Work Phone: [facility] 06-12-2023 13:05-0400 Body height 177.8 cm Ebonie Moore APRN-HEAD MIXER Work Phone: [facility] 06-12-2023 13:05-0400 Body mass index (BMI) [Ratio] 33 kg/m2 Ebonie Rauschec DISC INSPECTOR-HEAD MIXER Work Phone: [facility] 06-12-2023 13:05-0400 Body weight 104.33 kg Ebonie Rauschec DISC INSPECTOR-HEAD MIXER Work Phone: [facility] 04-23-2023 16:14-0500 Body height 177.8 cm PA Jorge Potts PA Work Phone: [facility] 04-23-2023 16:14-0500 Body mass index (BMI) [Ratio] 33.3 kg/m2 PA Jorge Potts PA Work Phone: [facility] 04-23-2023 16:14-0500 Body temperature 98.6 [degF] PA Jorge Potts PA Work Phone: [facility] 04-23-2023 16:14-0500 Body weight 105.23 kg PA Jorge Potts PA Work Phone: [facility] 04-23-2023 16:14-0500 Diastolic blood pressure 78 mm[Hg] PA Jorge Potts PA Work Phone: [facility] 04-23-2023 16:14-0500 Heart rate 76 /min PA Jorge Potts PA Work Phone: [facility] 04-23-2023 16:14-0500 Respiratory rate 12 /min PA Jorge Potts PA Work Phone: [facility] 04-23-2023 16:14-0500 SaO2% (BldA) [Mass fraction] 97 % PA Jorge Potts PA Work Phone: [facility] 04-23-2023 16:14-0500 Systolic blood pressure 134 mm[Hg] PA Jorge Potts PA Work Phone: [facility] 03-12-2023 10:01-0500 Body mass index (BMI) [Ratio] 35.59 kg/m2 Arlette Geaney DISC INSPECTOR-HEAD MIXER Work Phone: [facility] 03-12-2023 10:01-0500 Body temperature 97.3 [degF] Arlette Gagandeepaney DISC INSPECTOR-HEAD MIXER Work Phone: [facility] 03-12-2023 10:01-0500 Body weight 109.32 kg Arlettecathy Smithy DISC INSPECTOR-HEAD MIXER Work Phone: [facility] 03-12-2023 10:01-0500 Diastolic blood pressure 74 mm[Hg] Arlette Gagandeepaney DISC INSPECTOR-HEAD MIXER Work Phone: [facility] 03-12-2023 10:01-0500 Heart rate 59 /min Arlette Gagandeepaney DISC INSPECTOR-HEAD MIXER Work Phone: [facility] 03-12-2023 10:01-0500 SaO2% (BldA) [Mass fraction] 98 % Arlettecathy Smithy DISC INSPECTOR-HEAD MIXER Work Phone: [facility] 03-12-2023 10:01-0500 Systolic blood pressure 120 mm[Hg] Arlettecathy Smithy DISC INSPECTOR-HEAD MIXER Work Phone: [facility] 01-13-2023 14:22-0400 Body height 177.8 cm Leonardo Bustamante MD Work Phone: [employer] [facility] 01-13-2023 14:22-0400 Body mass index (BMI) [Ratio] 34.29 kg/m2 Leonardo Bustamante MD Work Phone: [facility] 01-13-2023 14:22-0400 Body weight 108.41 kg Leonardo Bustamante MD Work Phone: [facility] 01-13-2023 14:22-0400 Diastolic blood pressure 60 mm[Hg] Leonardo Bustamante MD Work Phone: [employer] [facility] 01-13-2023 14:22-0400 Heart rate 62 /min Leonardo [facility]ustamante MD [facility] 01-13-2023 14:22-0400 SaO2% (BldA) [Mass fraction] 95 % Leonardo Bustamante MD Work Phone: [facility] 01-13-2023 14:22-0400 Systolic blood pressure 112 mm[Hg] Leonardo Bustamante MD Work Phone: [facility] 12-22-2022 13:46-0400 Body mass index (BMI) [Ratio] 35.68 kg/m2 Arlette Geaney DISC INSPECTOR-HEAD MIXER Work Phone: [facility] 12-22-2022 13:46-0400 Body temperature 97.59 [degF] Arlette Geaney DISC INSPECTOR-HEAD MIXER Work Phone: 5([phone] [place] [address] 12-22-2022 13:46-0400 Body weight 109.59 kg Arlette Geaney DISC INSPECTOR-HEAD MIXER Work Phone: 2(675)[phone] [place] [address] 12-22-2022 13:46-0400 Diastolic blood pressure 58 mm[Hg] Arlette Geaney DISC INSPECTOR-HEAD MIXER Work Phone: [facility] 12-22-2022 13:46-0400 Heart rate 64 /min Arlette Geaney DISC INSPECTOR-HEAD MIXER Work Phone: 4(958)[phone] [place] [address] 12-22-2022 13:46-0400 SaO2% (BldA) [Mass fraction] 97 % Arlette Geaney DISC INSPECTOR-HEAD MIXER Work Phone: 8([phone] [place] [address] 12-22-2022 13:46-0400 Systolic blood pressure 106 mm[Hg] Arlette Geaney DISC INSPECTOR-HEAD MIXER Work Phone: [facility] 11-24-2022 12:51-0400 Body mass index (BMI) [Ratio] 35.77 kg/m2 Carla Alfredo MD Work Phone: [facility] 11-24-2022 12:51-0400 Body temperature 97.59 [degF] Carla Alfredo MD Work Phone: [facility] 11-24-2022 12:51-0400 Body weight 109.86 kg Carla Alfredo MD Work Phone: [facility] 11-24-2022 12:51-0400 Diastolic blood pressure 73 mm[Hg] Carla Alfredo MD Work Phone: [facility] 11-24-2022 12:51-0400 Heart rate 61 /min Carla Alfredo MD Work Phone: [facility] 11-24-2022 12:51-0400 Systolic blood pressure 111 mm[Hg] Carla Alfredo MD Work Phone: [facility] 09-23-2022 14:59-0400 Body height 175.26 cm [facility] Work Phone: [facility] Work Phone: 09-23-2022 14:59-0400 Body mass index (BMI) [Ratio] 35.29 kg/m2 [facility] Work Phone: [facility] Work Phone: 09-23-2022 14:59-0400 Body surface area Derived from formula 2.23 m2 [employer] [facility] Work Phone: [facility] Work Phone: 09-23-2022 14:59-0400 Body weight 108.41 kg Get [facility]as Work Phone: [facility] Work Phone: 07-21-2022 16:48-0400 Body height 175.26 cm [employer] [facility] Work Phone: [facility] Work Phone: 07-21-2022 16:48-0400 Body mass index (BMI) [Ratio] 35.29 kg/m2 [employer] [place] Work Phone: [facility] Work Phone: 07-21-2022 16:48-0400 Body surface area Derived from formula 2.23 m2 [employer] [place] Work Phone: [facility] Work Phone: 07-21-2022 16:48-0400 Body weight 108.41 kg Get Inmanch Work Phone: [facility] Work Phone: 03-07-2022 11:15-0500 Body height 175.26 cm Get Inmanch Work Phone: QV-Ejaydvzetk-Mthgb view 1400 A DO Work Phone: 03-07-2022 11:15-0500 Body mass index (BMI) [Ratio] 35.29 kg/m2 Get Inmanch Work Phone: ZJ-Brkkjzvwvk-Znzmf view 1400 A DO Work Phone: 03-07-2022 11:15-0500 Body surface area Derived from formula 2.23 m2 [employer] [place] Work Phone: UV-Usyxdybhda-Xvnox view 1400 A DO Work Phone: 03-07-2022 11:15-0500 Body weight 108.41 kg Get Inmanch Work Phone: NP-Qfevlttjaa-Pmgzi view 1400 A DO Work Phone: 12-19-2021 10:54-0400 Body height 175.26 cm Get Inmanch Work Phone: [facility] 100 DO Work Phone: 12-19-2021 10:54-0400 Body mass index (BMI) [Ratio] 35.29 kg/m2 Get Inmanch Work Phone: [facility] 100 DO Work Phone: 12-19-2021 10:54-0400 Body surface area Derived from formula 2.23 m2 Get Vallejo Mk Work Phone: [facility] 100 DO Work Phone: 12-19-2021 10:54-0400 Body weight 108.41 kg Get [place]lejo Helen Work Phone: [facility] 100 DO Work Phone: 09-10-2021 14:53-0400 Body height 175.26 cm Get Inmanch Work Phone: [facility] 100 DO Work Phone: 09-10-2021 14:53-0400 Body mass index (BMI) [Ratio] 35.29 kg/m2 Get nImanch Work Phone: [facility] 100 DO Work Phone: 09-10-2021 14:53-0400 Body surface area Derived from formula 2.23 m2 Get [place]lejo Mk Work Phone: [facility] 100 DO Work Phone: 09-10-2021 14:53-0400 Body weight 108.41 kg Get Inmanch Work Phone: [facility] 100 DO Work Phone: 09-05-2021 10:41-0400 Body height 175.26 cm Get Inmanch Work Phone: NS-Mzwzihm-Rpbogav Work Phone: 09-05-2021 10:41-0400 Body mass index (BMI) [Ratio] 35.3 kg/m2 [facility] [place] Work Phone: GH-Rwbycby-Dlocixn Work Phone: 09-05-2021 10:41-0400 Body surface area Derived from formula 2.23 m2 Get [place]le[place] K121 Work Phone: GM-Pfquvel-Nmbifnp Work Phone: 09-05-2021 10:41-0400 Body weight 108.43 kg Get Vallejo K121 Work Phone: HM-Yyigvtf-Xoxppkw Work Phone: 09-05-2021 10:41-0400 Diastolic blood pressure 66 mm[Hg] Get Genevieve K121 Work Phone: YR-Vgvuwuy-Hpgdhka Work Phone: 09-05-2021 10:41-0400 Heart rate 70 /min Get Vallejo K121 Work Phone: WS-Izpmrsn-Xbemuzj Work Phone: 09-05-2021 10:41-0400 Systolic blood pressure 103 mm[Hg] Get Vallejo K121 Work Phone: WQ-Xfyiexo-Shoeebl Work Phone: 08-29-2021 13:00-0400 Diastolic blood pressure 67 mm[Hg] Jony Cano MD Work Phone: [facility] 08-29-2021 13:00-0400 Heart rate 55 /min Jony Cano MD Work Phone: [facility] 08-29-2021 13:00-0400 SaO2% (BldA) [Mass fraction] 96 % Jony Cano MD Work Phone: [facility] 08-29-2021 13:00-0400 Systolic blood pressure 96 mm[Hg] Jony Cano MD Work Phone: [facility] 08-29-2021 11:42-0400 Respiratory rate 18 /min Jony Cano MD Work Phone: [facility] 08-29-2021 08:25-0400 Body height 177.8 cm Jony Cano MD Work Phone: [facility] 08-29-2021 08:25-0400 Body mass index (BMI) [Ratio] 33 kg/m2 Jony Cano MD Work Phone: [facility] 08-29-2021 08:25-0400 Body temperature 97.2 [degF] Jony Cano MD Work Phone: [facility] 08-29-2021 08:25-0400 Body weight 104.33 kg Jony Cano MD Work Phone: [facility] 08-27-2021 15:07-0400 Body mass index (BMI) [Ratio] 35.29 kg/m2 [facility] Work Phone: 08-27-2021 15:07-0400 Body surface area Derived from formula 2.23 m2 [employer] [facility] Work Phone[facility] Work Phone: 08-27-2021 15:07-0400 Body temperature 97.5 [degF] [employer] [facility] Work Phone: [facility] Work Phone: 08-27-2021 15:07-0400 Body weight 108.41 kg [facility] Work Phone: [facility] Work Phone: 08-27-2021 15:07-0400 Diastolic blood pressure 62 mm[Hg] Get [facility]as Work Phone: [facility] Work Phone: 08-27-2021 15:07-0400 Heart rate 58 /min [facility] Work Phone: [facility] Work Phone: 08-27-2021 15:07-0400 SaO2% (BldA) [Mass fraction] 98 % [employer] [facility] Work Phone: [facility] Work Phone: 08-27-2021 15:07-0400 Systolic blood pressure 102 mm[Hg] Get Vallejo Mk Work Phone: [facility] Work Phone: 05-03-2021 15:03-0500 Body height 175.26 cm Get Vallejo Helen Work Phone: RU-Vnmpcjqdzk-Rlajp view 1400 A DO Work Phone: 05-03-2021 15:03-0500 Body mass index (BMI) [Ratio] 34.41 kg/m2 Get Vallejo Helen Work Phone: DU-Ojtvrapgez-Rsjkp view 1400 A DO Work Phone: 05-03-2021 15:03-0500 Body surface area Derived from formula 2.2 m2 Get Vallejo Helen Work Phone: IT-Tcmpkpadsv-Bocte view 1400 A DO Work Phone: 05-03-2021 15:03-0500 Body weight 105.69 kg Get Vallejo Helen Work Phone: YG-Stxubdvpla-Bcecu view 1400 A DO Work Phone: 04-16-2021 10:16-0500 Body height 174.5 cm eGt Vallejo Helen Work Phone: [facility] Work Phone: 04-16-2021 10:16-0500 Body mass index (BMI) [Ratio] 35.51 kg/m2 Get Vallejo Mk Work Phone: [facility] Work Phone: 04-16-2021 10:16-0500 Body surface area Derived from formula 2.22 m2 Get Inmanch Work Phone: [facility] Work Phone: 04-16-2021 10:16-0500 Body temperature 97.2 [degF] [employer] [facility] Work Phone: [facility] Work Phone: 04-16-2021 10:16-0500 Body weight 108.13 kg Get [facility]razas Work Phone: [facility] Work Phone: 04-16-2021 10:16-0500 Diastolic blood pressure 80 mm[Hg] Get Terrazas Work Phone: [facility] Work Phone: 04-16-2021 10:16-0500 Systolic blood pressure 120 mm[Hg] Get [facility]as Work Phone: [facility] Work Phone: 04-14-2020 08:06-0500 BMI (Body Mass Index) 33.86 kg/m2 Nilda Kingger [facility] Work Phone: 04-14-2020 08:06-0500 Body Temperature 97.2 [degF] Nilda [facility]ger [facility] Work Phone: 04-14-2020 08:06-0500 Body weight 107.05 kg Nilda Kingger [facility] Work Phone: 04-14-2020 08:06-0500 BP Diastolic 82 mm[Hg] Nilda Samuel [facility] Work Phone: 04-14-2020 08:06-0500 BP Systolic 116 mm[Hg] Nilda Samuel [facility] Work Phone: 04-14-2020 08:06-0500 BSA (Body Surface Area) 2.24 m2 Nilda Kingger [facility] Work Phone: 03-29-2019 10:17-0500 BMI (Body Mass Index) 33.72 kg/m2 Arlette Lopez [facility] Work Phone: 03-29-2019 10:17-0500 Body Temperature 98.9 [degF] Arlette Lopez [facility] Work Phone: 03-29-2019 10:17-0500 Body weight 106.6 kg Arlette Lopez [facility] Work Phone: 03-29-2019 10:17-0500 BP Diastolic 70 mm[Hg] Arlette Lopez [facility] Work Phone: 03-29-2019 10:17-0500 BP Systolic 100 mm[Hg] Arlette Lopez [facility] Work Phone: 03-29-2019 10:17-0500 BSA (Body Surface Area) 2.24 m2 Arlette Lopez [facility] Work Phone: 03-29-2019 10:17-0500 Pulse (Heart Rate) 66 /min Arlette Lopez [facility] Work Phone: 03-29-2019 10:17-0500 Pulse Oximetry 97 % Arlette Lopez [facility] Work Phone: Encounters Encounter Date Encounter Type Care Provider Facility Start: 10-31-2024 ambulatory ELIZABETH MERCEDES Facility:[facility] Start: 10-30-2024 End: 10-30-2024 Patient encounter procedure Macarena [facility] Work Phone: Start: 10-30-2024 End: 10-30-2024 ambulatory Macarena Cho [facility] Start: 10-17-2024 End: 10-17-2024 ambulatory ORLANDO DUKE Facility:[facility] Start: 10-17-2024 End: 10-17-2024 Patient encounter procedure Orlando Duke MD Work Phone: [facility] [place] Comment on above: 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); Pseudophakia; Dry eye syndrome of both eyes; CME (cystoid macular edema), bilateral; Centrocecal scotoma of left eye Start: 10-10-2024 End: 10-12-2024 ambulatory EBONIE [facility] Start: 10-10-2024 End: 10-10-2024 Office outpatient visit 15 minutes Ebonie Rausch DISC INSPECTOR-HEAD MIXER Work Phone: [facility] Comment on above: Non-traumatic rotato r cuff tear, right (Primary Dx); Chronic right shoulder pain Start: 09-22-2024 End: 09-22-2024 Office outpatient visit 15 minutes Robert Christian DO Work Phone: [facility] Comment on above: Tear of left rotator cuff, unspecified tear extent, unspecified whether traumatic (Primary Dx); Tear of right rotator cuff, unspecified tear extent, unspecified whether traumatic Start: 09-22-2024 End: 09-22-2024 ambulatory [facility] Start: 07-22-2024 End: 07-25-2024 ambulatory [facility] Start: 07-22-2024 End: 07-22-2024 Office outpatient visit 25 minutes Jun Samuel MD Work Phone: [facility] Comment on above: Non-traumatic rotato r cuff tear, right (Primary Dx); 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; Chronic right shoulder pain Start: 07-08-2024 End: 07-08-2024 Subsequent hospital visit by physician Tino X-[facility] Comment on above: Rotator cuff tear Tear of left rotator cuff, unspecified tear extent, unspecified whether traumatic Tear of right supras pinatus tendon Start: 07-08-2024 End: 07-08-2024 ambulatory [facility] Start: 06-22-2024 End: 06-22-2024 Office outpatient visit 15 minutes Teetee Chapin MD Work Phone: [facility] Comment on above: Bronchitis (Primary Dx); Cough, unspecified type Start: 06-22-2024 End: 06-22-2024 ambulatory TEETEE CHAPIN [facility] Start: 06-20-2024 End: 06-20-2024 Office outpatient new 45 minutes Robert Christian DO Work Phone: [facility] Comment on above: Chronic right should er pain; Tear of right supraspinatus tendon; Tear of left rotator cuff, unspecified tear extent, unspecified whether traumatic Start: 06-20-2024 End: 06-20-2024 ambulatory ROBERT CHRISTIAN [facility] Start: 06-06-2024 End: 06-06-2024 Office outpatient new 30 minutes Rozina Stapleton MD Work Phone: [facility] [place] Comment on above: Idiopathic pericardi tis, unspecified chronicity; Mixed hyperlipidemia Start: 06-06-2024 End: 06-06-2024 ambulatory ROZINA STAPLETON [facility] Start: 05-20-2024 End: 05-20-2024 Assay of hemosiderin, quant Trinh Loyola DO Work Phone: [facility] Work Phone: Start: 05-20-2024 End: 05-20-2024 Patient encounter procedure Trinh Loyola DO Work Phone: [facility] Comment on above: Routine general medi roosevelt examination at health care facility (Primary Dx); Iron deficiency anemia, unspecified iron deficiency anemia type; Routine general medical examination at a health care facility; Incomplete bladder emptying; Anemia, unspecified type; Hypercholesterolemia; Screening for multiple conditions; Screening for cardiovascular condition; Chronic right shoulder pain; Tear of right supraspinatus tendon Start: 05-20-2024 End: 05-20-2024 Patient encounter status Trinh Loyola DO Work Phone: [facility] Work Phone: Start: 05-20-2024 End: 05-20-2024 ambulatory [facility] Ambulatory Start: 05-20-2024 End: 05-20-2024 Encounter for general adult medical examination without abnormal findings [facility] Start: 05-04-2024 End: 05-04-2024 ambulatory ORLANDO DUKE Facility:[facility] Start: 05-04-2024 End: 05-04-2024 Patient encounter procedure Orlando Duke MD Work Phone: [place] [facility] [place] Comment on above: 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); Pseudophakia; Dry eye syndrome of both eyes Start: 03-17-2024 End: 03-17-2024 ambulatory [facility] Start: 03-17-2024 End: 03-17-2024 Office outpatient visit 40 minutes [facility] Work Phone: [facility] Comment on above: Iron deficiency anem ia, unspecified iron deficiency anemia type (Primary Dx); Recurrent sinusitis; 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 Start: 03-10-2024 End: 03-11-2024 ambulatory [facility] Start: 03-10-2024 End: 03-10-2024 Office outpatient visit 15 minutes [facility] DISC INSPECTOR-HEAD MIXER Work Phone: [facility] Comment on above: Post-nasal drainage (Primary Dx); Acute cough Start: 03-04-2024 End: 03-04-2024 ambulatory [facility] Start: 02-06-2024 End: 02-06-2024 ambulatory Obinna Green Facility:[facility] Start: 12-24-2023 End: 12-24-2023 ambulatory MELANIE DUMAS [facility] Start: 12-22-2023 End: 12-22-2023 ambulatory EBONIE [facility] Start: 12-17-2023 End: 12-17-2023 ambulatory EBONIE [facility] Start: 12-15-2023 End: 12-15-[address] [facility] Start: 12-10-2023 End: 12-10-2023 ambulatory [facility] Start: 12-08-2023 End: 12-08-2023 ambulatory [facility] Start: 12-03-2023 End: 12-03-[address] [facility] Start: 12-01-2023 End: 12-01-[address] [facility] Start: 11-26-2023 End: 11-26-2023 ambulatory [facility] Start: 11-09-2023 End: 11-09-2023 ambulatory [facility] Start: 11-09-2023 End: 11-09-2023 Office outpatient visit 40 minutes Trinh Loyola DO Work Phone: [facility] Comment on above: Hypercholesterolemia (Primary Dx); Mild asthma without complication, unspecified whether persistent ([facility]); Dysuria; Anemia, unspecified type; Incomplete bladder emptying Start: 11-06-2023 End: 11-06-2023 ambulatory [facility] Start: 09-30-2023 End: 09-30-2023 Office outpatient visit 25 minutes Leonardo Bustamante MD Work Phone: [facility] Comment on above: Mixed hyperlipidemia (Primary Dx); Obstructive sleep apnea syndrome; Chronic idiopathic pericarditis, unspecified complication status; Sleep apnea, unspecified type Start: 09-30-2023 End: 09-30-2023 ambulatory LEONARDO BUSTAMANTE [facility] Start: 06-26-2023 End: 06-26-2023 Office outpatient visit 15 minutes Ebonie B Detec DISC INSPECTOR-HEAD MIXER Work Phone: [facility] Comment on above: Cervical muscle pain ; Chronic right shoulder pain; Nontraumatic incomplete tear of rotator cuff, right Start: 06-12-2023 End: 06-12-2023 Office outpatient visit 15 minutes Ebonie B Detec DISC INSPECTOR-HEAD MIXER Work Phone: [facility] [employer] [facility] 4 Comment on above: Nontraumatic incompl ete tear of rotator cuff, right (Primary Dx); Cervical muscle pain; Chronic right shoulder pain Start: 06-11-2023 End: 06-11-2023 ambulatory ISAMAR PENN Work Phone: [facility] Work Phone: Start: 06-11-2023 End: 06-11-2023 Patient encounter procedure ISAMAR PENN Work Phone: [facility] Scan, [facility] Work Phone: Start: 05-25-2023 End: 05-25-2023 Subsequent hospital visit by physician Tino Small [address] [place] [address] Comment on above: Postauricular lympha denopathy Bilateral shoulder p ain, unspecified chronicity Start: 05-12-2023 Telephone encounter Yamilet LOWERY [facility] Comment on above: Medication Question Start: 05-06-2023 End: 05-06-2023 Postop follow up visit related to original px Bran Monk MD Work Phone: [facility] Comment on above: Combined forms of ag e-related cataract of both eyes (Primary Dx); Fuchs' corneal dystrophy of both eyes Start: 04-23-2023 End: 04-23-2023 Patient encounter procedure ISAMAR PENN Work Phone: [facility] Work Phone: Start: 04-15-2023 End: 04-15-2023 Postop follow up visit related to original px Bran Monk MD Work Phone: [facility] Comment on above: Combined forms of ag e-related cataract of both eyes (Primary Dx) Start: 04-08-2023 End: 04-08-2023 Postop follow up visit related to original px Bran Monk MD Work Phone: [facility] Comment on above: Combined forms of ag e-related cataract of both eyes (Primary Dx); PVD (posterior vitreous detachment), both eyes Start: 03-25-2023 End: 03-25-2023 Office outpatient visit 15 minutes Bran Monk MD Work Phone: [facility] Comment on above: Combined forms of ag e-related cataract of both eyes (Primary Dx); Fuchs' corneal dystrophy of both eyes Start: 03-24-2023 Telephone encounter Germaine Orlucerosylvain [facility] Comment on above: Constipation Start: 03-18-2023 Telephone encounter Germaine Isaacs [facility] Comment on above: Eye Problem Start: 03-18-2023 End: 03-18-2023 Postop follow up visit related to original px Bran Monk MD Work Phone: [facility] Comment on above: Combined forms of ag e-related cataract of both eyes (Primary Dx); Fuchs' corneal dystrophy of both eyes Start: 03-13-2023 Refill Yamilet Porter [facility] Start: 03-12-2023 End: 03-12-2023 Office outpatient visit 25 minutes Arlette Lopez DISC INSPECTOR-HEAD MIXER Work Phone: [facility] Comment on above: Pre-operative cleara nce (Primary Dx); Combined forms of age-related cataract of both eyes; Hypercholesterolemia Start: 03-12-2023 End: 03-12-2023 Preoperative state Arlette Lopez DISC INSPECTOR-HEAD MIXER Work Phone: [facility] Work Phone: Start: 03-04-2023 Telephone encounter Yamilet Porter [facility] Comment on above: Cataract sx Letter Start: 03-03-2023 End: 03-03-2023 Patient encounter procedure Bran Monk MD Work Phone: [facility] Comment on above: Combined forms of ag e-related cataract of both eyes (Primary Dx) Start: 02-17-2023 End: 02-17-2023 Office outpatient visit 15 minutes Jun Samuel MD Work Phone: [facility] Comment on above: Primary osteoarthrit is of right knee (Primary Dx); Right knee pain Start: 02-09-2023 Telephone encounter Germaine Enrike roper COT [facility] Comment on above: Appointment Request Start: 02-09-2023 End: 02-09-2023 Office outpatient visit 25 minutes Bran Monk MD Work Phone: [facility] Comment on above: 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); Combined forms of age-related cataract of both eyes; PVD (posterior vitreous detachment), both eyes; Dermatochalasis of both upper eyelids Start: 01-13-2023 End: 01-13-2023 Office outpatient visit 25 minutes Leonardo Bustamante MD Work Phone: [facility] Comment on above: Mixed hyperlipidemia (Primary Dx); Obstructive sleep apnea syndrome; Mild intermittent asthma without complication; Chronic idiopathic pericarditis, unspecified complication status Start: 12-22-2022 End: 12-22-2022 Office outpatient visit 25 minutes Arlette NGUYEN Work Phone: [facility] Comment on above: Hypercholesterolemia (Primary Dx); Need for vaccination; Other skin changes Start: 11-24-2022 End: 11-24-2022 Office outpatient visit 15 minutes Carla Alfredo MD Work Phone: [facility] Comment on above: Healthcare maintenan ce (Primary Dx); Disorder of cartilage, unspecified; H/O squamous cell carcinoma Start: 11-24-2022 End: 11-24-2022 Patient encounter status Carla Alfredo MD Work Phone: [facility] Work Phone: Start: 09-23-2022 bhargav SAMUEL Facility:[id number] Start: 09-23-2022 FUV, Provider: Jun Locke, Status: Pen, Time: 2:40 PM [facility] Work Phone: [place] [address] Work Phone: Start: 09-23-2022 Office outpatient vi sit 25 minutes Get [facility] Work Phone: [facility] Work Phone: Start: 09-17-2022 Chart Update Get castro Work Phone: [facility] Work Phone: Start: 09-16-[address] Get Terrazas Facility:[id number] Start: 07-21-2022 ambulatory ИРИНАMONICA SAMUEL Facility:1 [id number] Start: 07-21-2022 Office outpatient vi sit 15 minutes Get [facility] Work Phone: [facility] Work Phone: Start: 05-29-2022 End: 05-29-2022 Office outpatient new 30 minutes Bran Monk MD Work Phone: [facility] Comment on above: Combined forms of ag e-related cataract of both eyes (Primary Dx); Fuchs' corneal dystrophy of both eyes; PVD (posterior vitreous detachment), both eyes; Dermatochalasis of both upper eyelids; Ocular migraine; Obstructive sleep apnea syndrome; Myopia of both eyes with astigmatism and presbyopia Start: 04-22-2022 Patient encounter procedure Sendy Terrazas Work Phone: [facility] Work Phone: Start: 04-22-2022 ambulatory Ms. Ebonie castro Detec Facility:[id number] Start: 04-15-2022 ambulatory Ms. Ebonie castro Detec Facility:[id number] Start: 04-11-2022 End: 04-11-2022 ambulatory [facility] Work Phone: Start: 04-11-2022 End: 04-11-2022 Patient encounter procedure [facility] Start: 04-08-2022 ambulatory Ms. Ebonie castro Detec Facility:[id number] Start: 04-01-2022 ambulatory Ms. Ebonie castro Detec Facility:9862 Start: 04-01-2022 Patient encounter procedure Sendy catalan A Mk Work Phone: [facility] Work Phone: Start: 03-25-2022 Patient encounter procedure Sendy Vallejo Mk Work Phone: [facility] Work Phone: Start: 03-25-2022 ambulatory Ms. Ebonie castro Detec Facility:9862 Start: 03-18-2022 Patient encounter procedure Senyd Vallejo Helen Work Phone: [facility] Work Phone: Start: 03-18-2022 ambulatory Ms. Ebonie castro Detec Facility:[id number] Start: 03-07-[address] Get Mario ew Mk Facility:[id number] Start: 03-07-2022 FUV, Provider: Jun Locke, Status: Pen, Time: 10:40 AM Get Terrazas Work Phone: [facility] Work Phone: Start: 03-07-2022 Office outpatient vi sit 25 minutes Get Vallejo Helen Work Phone: VY-Ykcewlivke-Eexhpus ew 1400 A DO Work Phone: Start: 03-06-2022 Patient encounter procedure Sendy Vallejo Helen Work Phone: [facility] Work Phone: Start: 03-06-2022 ambulatory Ms. Ebonie castro Detec Facility:9862 Start: 02-25-2022 ambulatory Ms. Ebonie castro Detec Facility:9862 Start: 02-25-2022 Patient encounter procedure Sendy Vallejo Helen Work Phone: [facility] Work Phone: Start: 02-18-2022 Patient encounter procedure Sendy Vallejo Helen Work Phone: [facility] Work Phone: Start: 02-18-2022 ambulatory Ms. Ebonie castro Detec Facility:9862 Start: 02-13-2022 ambulatory Ms. Ebonie castro Detec Facility:9862 Start: 02-13-2022 Patient encounter procedure Sendy Vallejo Mk Work Phone: [facility] Work Phone: Start: 02-04-2022 ambulatory Ms. Ebonie castro Detec Facility:9862 Start: 02-04-2022 Patient encounter procedure Sendy Vallejo Helen Work Phone: [facility] Work Phone: Start: 01-20-2022 Chart Update Get Genevieve Gerlac h Work Phone: -[facility] MAC4 100 DO Work Phone: Start: 01-16-2022 Patient encounter procedure Sendy Vallejo Helen Work Phone: [facility] Work Phone: Start: 01-16-2022 ambulatory Ms. Ebonie castro Detec Facility:9862 Start: 01-15-2022 ambulatory Ms. Ebonie castro Detec Facility:9509 Start: 01-13-2022 ambulatory Ms. Ebonie castro Detec Facility:9862 Start: 01-13-2022 Patient encounter procedure Sendy Vallejo Mk Work Phone: [facility] Work Phone: Start: 01-10-2022 Patient encounter procedure Sendy Vallejo Mk Work Phone: [facility] Work Phone: Start: 01-10-2022 ambulatory Ms. Ebonie castro Detec Facility:9862 Start: 01-07-2022 AUDIT Get Iyer h Work Phone: [facility]4 100 DO Work Phone: Start: 01-06-2022 ambulatory Ms. Ebonie castro Detec Facility:9862 Start: 01-06-2022 Patient encounter procedure Br hossein Terrazas [facility] Work [facility]: Start: 12-30-2021 ambulatory Ms. Ebonie castro Detec Facility:9509 Start: 12-23-2021 Chart Update Get Genevieve Inmanc h Work Phone: [facility]4 100 DO Work Phone: Start: 12-20-2021 ambulatory Ms. Ebonie castro Detec Facility:9862 Start: 12-20-2021 [facility], Provider : Jennifer Kimball, Status: Pen, Time: 8:30 AM Get Vallejo Mk Work Phone: [facility]4 100 DO Work Phone: Start: 12-20-2021 Patient encounter procedure Br hossein Vallejo Mk Work Phone: [facility] Work [facility]: Start: 12-19-2021 ambulatory Ebonie Detec Facility:9 502 Start: 12-19-2021 Office outpatient vi sit 25 minutes Get Inmanch Work Phone: [facility]4 100 DO Work Phone: Start: 12-16-2021 Patient encounter procedure Sendy Vallejo Helen [facility] Phone: [facility] Work Phone: Start: 12-16-2021 ambulatory Ms. Ebonie castro Detec Facility:9862 Start: 12-12-[address] Get Terrazas Facility: Start: 12-12-2021 [facility] Provider: Ebonie Moore, Status: Pen, Time: 10:40 AM Get Terrazas Work Phone: MA-Erktqre-Vxggf [place] Work Phone: Start: 12-12-2021 Office outpatient vi sit 15 minutes Get Terrazas Work Phone: -[facility] Hts 1400 Work Phone: Start: 12-11-[address] Get Terrazas Facility:[id number] Start: 12-11-2021 Office outpatient vi sit 15 minutes Get Terrazas Work Phone: PC-Soclsul-Oedyl [place] Work Phone: Start: 12-09-2021 Chart Update Get Iyer h Work Phone: XH-Kbkikbp-Gczhqb 202 Work Phone: Start: 10-21-2021 Office outpatient vi sit 25 minutes Get Terrazas Work Phone: HV-Avvvmjj-Fkzftt 202 Work Phone: Start: 10-21-[address] Get Terrazas Facility:[id number] Start: 09-23-2021 Chart Update Get Iyer h Work Phone: MM-Utsnbbz-Qgzpcn 202 Work Phone: Start: 09-18-2021 Chart Update Get Inmanc h Work Phone: GG-Yfrfoqo-Nanms [place] Work Phone: Start: 09-17-2021 Chart Update Get Inmanc h Work Phone: RZ-Zzdzbxb-Fvbbw [place] Work Phone: Start: 09-16-2021 Office outpatient ne w 45 minutes Get Inmanch Work Phone: JX-Vhjciul-Kgyxpo 202 Work Phone: Start: 09-10-2021 FUV, Provider: Ebonie Moore, Status: Pen, Time: 2:40 PM Get Vallejo K121 Work Phone: GU-Pzlbuhn-Kljelel Work Phone: Start: 09-10-2021 Office outpatient vi sit 15 minutes Get Genevieve Mk Work Phone: -[facility] MAC4 100 DO Work Phone: Start: 09-09-2021 Chart Update Get Vallejo [employer] Work Phone: YK-Fpcjunq-Siynzjc Work Phone: Start: 09-06-2021 Patient encounter procedure Br uce A K121 Work Phone: [facility] Work Phone: Start: 09-05-2021 Patient encounter procedure Br uce A K121 Work Phone: VK-Hxityci-Yojkzpt Work Phone: Start: 08-29-2021 End: 08-29-2021 Subsequent hospital visit by physician Jony Cano MD Work Phone: [facility] General Surgery Comment on above: Varicocele Start: 08-27-2021 Office outpatient vi sit 25 minutes Get Vallejo Mk Work Phone: [facility] Work Phone: Start: 08-09-2021 Patient encounter procedure Br uce A K121 Work Phone: [facility] Work Phone: Start: 08-06-2021 Chart Update Get [employer] Work Phone: [facility] Work Phone: Start: 08-02-2021 Patient encounter procedure Br uce A Mk Work Phone: [facility] Work Phone: Start: 08-02-2021 Patient encounter procedure Br hossein A Helen Work Phone: [facility] Work Phone: Start: 07-19-2021 Patient encounter procedure Br hossein A Mk Work Phone: [facility] Work Phone: Start: 07-19-2021 PTFUADULT4, Provider : Macarena Azar, Status: Pen, Time: 11:15 AM Get Inmanch Work Phone: [facility] Work Phone: Start: 07-17-2021 Patient encounter procedure Br hossein Vallejo Helen Work Phone: [facility] Work [facility]: Start: 07-12-2021 PTFUADULT4, Provider : Macarena Azar, Status: Pen, Time: 3:15 PM Get Terrazas Work Phone: [facility] Work Phone: Start: 07-10-2021 Patient encounter procedure Sendy Vallejo Mk Work Phone: [facility] Work Phone: Start: 07-10-2021 STFUADULT6, Provider : Tierney Jung, Status: Pen, Time: 1:15 PM Get Genevieve Inmanch Work Phone: [facility] Work Phone: Start: 07-09-2021 Patient encounter procedure Br hossein A Mk Work Phone: [facility] Work Phone: Start: 07-09-2021 STFUADULT6, Provider : Tierney Jung, Status: Pen, Time: 1:45 PM Get Genevieve Mk Work Phone: [facility] Work Phone: Start: 06-28-2021 Patient encounter procedure Br hossein Vallejo Mk Work Phone: [facility] Work Phone: Start: 06-24-2021 Patient encounter procedure Sendy Vallejo Mk Work Phone: [facility] Work Phone: Start: 06-20-2021 PTFUADULT4, Provider : Macarena Azar, Status: Pen, Time: 1:45 PM Get Vallejo Helen Work Phone: [facility] Work Phone: Start: 06-20-2021 Patient encounter procedure Sendy Vallejo Mk Work Phone: [facility] Work Phone: Start: 06-20-2021 NGUYEN, Provider : Tierney Jung, Status: Pen, Time: 1:00 PM Get Terrazas Work Phone: [facility] Work Phone: Start: 06-12-2021 Chart Update Get Genevieve Storm h Work Phone: -[facility] MAC4 100 DO Work Phone: Start: 06-07-2021 Patient encounter procedure Sendy Vallejo Mk Work Phone: [facility] Work Phone: Start: 05-27-2021 Patient encounter procedure Br hossein A Helen Work Phone: [facility] Work Phone: Start: 05-23-2021 Patient encounter procedure Br hossein A Helen Work Phone: [facility] Work Phone: Start: 05-20-2021 Patient encounter procedure Br hossein A Helen Work Phone: [facility] Work Phone: Start: 05-17-2021 PTFUADULT4, Provider : Sarah Beth Lemons, Status: Pen, Time: 10:45 AM Get Inmanch Work Phone: [facility] Work Phone: Start: 05-13-2021 Patient encounter procedure Br hossein Vallejo Helen Work Phone: [facility] Work Phone: Start: 05-10-2021 AUDIT Get Vallejo Gerlac h Work Phone: [facility] Work Phone: Start: 05-03-2021 AUDIT Get A Gerlac h Work Phone: [facility] Work Phone: Start: 05-03-2021 NPV, Provider: Jun Locke, Status: Pen, Time: 1:40 PM Get Terrazas Work Phone: [facility] 300 Work Phone: Start: 05-03-2021 Office outpatient ne w 30 minutes Get Inmanch Work Phone: JS-Mfowfxteop-Wgisrze ew 1400 A DO Work Phone: Start: 05-01-2021 AUDIT Get Vallejo Gerlac h Work Phone: [facility] 300 Work Phone: Start: 04-16-2021 Adv care pln tlkd & alt dcsn maker docd Get Vallejo Helen Work Phone: [facility] Work Phone: Start: 04-16-2021 Patient encounter procedure Br ucdilip Vallejo Helen Work Phone: [facility] Work Phone: Start: 04-15-2021 Chart Update Get Vallejo Contact At Once!lac h Work Phone: [facility] Work Phone: Start: 03-19-2021 AUDIT Get Vallejo Contact At Once!lac h Work Phone: [facility] Work Phone: Start: 04-14-2020 Patient encounter procedure Nilda Baker [facility] Work Phone: Start: 02-06-2020 Patient encounter procedure Nilda Baker [facility] Work Phone: Start: 05-03-2019 Patient encounter procedure Arlette horan [facility] Work Phone: Start: 05-02-2019 Patient encounter procedure Arlette Gagandeep horan [facility] Work Phone: Start: 04-29-2019 Patient encounter procedure Arlette Gagandeep haasy [facility] Work Phone: Start: 04-21-2019 Patient encounter procedure Arlette Gagandeep haasy [facility] Work Phone: Start: 04-19-2019 Patient encounter procedure Arlettemarkos horan [facility] Work Phone: Start: 04-14-2019 Patient encounter procedure Arlette Gagandeep horan [facility] Work Phone: Start: 04-12-2019 Patient encounter procedure Arlette JONAS [facility] Work Phone: Start: 04-07-2019 Patient encounter procedure Arlette JONAS [facility] Work Phone: Start: 04-05-2019 Patient encounter procedure Arlette JONAS [facility] Work Phone: Start: 04-01-2019 Patient encounter procedure Arlette JONAS [facility] Work Phone: Start: 03-29-2019 Patient encounter procedure Arlette JONAS [facility] Work Phone: Start: 03-21-2019 Patient encounter procedure Arlette JONAS [facility] Work Phone: Start: 03-14-2019 Patient encounter procedure Arlette JONAS [facility] Work Phone: Start: 03-11-2018 Patient encounter procedure Arlette JONAS [facility] Work Phone: Start: 02-27-2018 Patient encounter procedure Arlette JONAS [facility] Work Phone: Start: 07-29-2017 Patient encounter procedure Arlette JONAS [facility] Work Phone: Patient encounter procedure Shelley Terrazas Work Phone: [facility] Work Phone: Procedures Date Procedure Procedure Detail Performing Clinician Start: 10-17-2024 Computerized ophthal osiris imaging retina Orlando uDke MD Work Phone: Start: 07-22-2024 Arthrocentesis aspir &/inj major jt/bursa w/o us Jun Samuel MD Work Phone: Start: 07-08-2024 Radex optic foramina Be njamin L Dominic DO Work Phone: Start: 06-22-2024 Iaadiadoo influenza She jose Chapin MD Work Phone: Start: 06-22-2024 SARS-CoV-2 (COVID-19 ) Ag [Presence] in Respiratory specimen by Rapid immunoassay Teetee Chapin MD Work Phone: Start: 06-08-2024 Ecg routine ecg w/le ast 12 lds w/i&r Rozina Stapleton MD Work Phone: Start: 05-20-2024 Lipid 1996 panel - S rosy or Plasma Rozina Stapleton MD Work Phone: Start: 05-04-2024 Computerized corneal topography uni/bi Orlando Duke MD Work Phone: Start: 11-09-2023 Urnls dip stick/tabl et rgnt auto w/o microscopy Trinh Rosalesbeti DO Work Phone: Start: 11-06-2023 Lipid 1996 panel - S rosy or Plasma Trinh Nir DO Work Phone: Start: 06-12-2023 Arthrocentesis aspir &/inj major jt/bursa w/o us Ebonie Hernandez Detec DISC INSPECTOR-HEAD MIXER Work Phone: Start: 06-11-2023 CT of face PA Jorge gray PA Work Phone: Start: 05-25-2023 Us soft tissue head & neck real time imge docm Trinh Brobeti DO Work Phone: Start: 05-25-2023 Radex shoulder compl ete minimum 2 views Ebonie Hernandez Detec DISC INSPECTOR-HEAD MIXER Work Phone: Start: 03-25-2023 Oph bmtry prtl coher intrfrmtry io lens pwr roosevelt Monk MD Work Phone: Start: 03-03-2023 Oph bmtry prtl coher intrfrmtry io lens pwr roosevelt Bran Monk MD Work Phone: Start: 02-17-2023 Arthrocentesis aspir &/inj major jt/bursa w/us Jun Samuel MD Work Phone: Start: 01-14-2023 Ecg routine ecg w/le ast 12 lds w/i&r Leonardo Bustamante MD Work Phone: Start: 11-29-2022 Lipid 1996 panel - S rosy or Plasma Arlette Lopez DISC INSPECTOR-HEAD MIXER Work Phone: Start: 04-11-2022 CT of face Start: 12-16-2021 Follow-up visit Start: 10-14-2021 Follow-up visit Start: 08-29-2021 Creatinine blood Jony Cano MD Work Phone: Start: 04-13-2021 Lipid 1996 panel - S rosy or Plasma Carla Alfredo MD Work Phone: Start: 04-14-2020 Dermatopathology Shanel Baker Start: 04-05-2019 Xray Chest 2 View PA + Lateral Arlette Lopez Start: 03-29-2019 GI Mod Barium Swallo w with Speech Eval Arlette Lopez Start: 02-27-2009 Colonoscopy Jony [place]orga MD Work Phone: Plan of Treatment Date Care Activity Detail Author Start: 05-20-2029 Lipid panel Lipid Panel [facility] Start: 11-05-2028 Lipid panel Lipid Panel [facility] Start: 11-30-2027 Lipid panel Lipid Panel [facility] Start: 05-20-2027 Diabetes Screening Diabetes Screenin g [facility] Start: 11-05-2026 Diabetes Screening Diabetes Screenin g [facility] Start: 04-13-2026 Lipid panel Lipid Panel [facility] Start: 10-09-2025 DTaP/Tdap/Td vaccine (2 - Td or Tdap) DTaP/Tdap/Td vaccine (2 - Td or Tdap) [facility] Start: 10-09-2025 DTaP/Tdap/Td Vaccines (2 - Td or Tdap) DTaP/Tdap/Td Vaccines (2 - Td or Tdap) [facility] Start: 10-09-2025 Urine microalbumin profile DTaP,Tdap,Td Vaccine (2 - Td or Tdap) [facility] Start: 06-05-2025 End: 06-05-2025 Patient encounter procedure 06/05/2025 1:00 PM EDT Office Visit [facility] - [address] [place] [id number] Rozina Stapleton MD [address] [place] [address] [facility] [place] Start: 05-21-2025 Medicare Annual Wellness Visit Medicare Annual Wellness Visit (AWV) [facility] Start: 05-08-2025 End: 05-08-2025 Patient encounter procedure [facility] Comment on above: Return in about 1 ye ar (around 05/04/2025). Start: 01-16-2025 End: 01-16-2025 Patient encounter procedure 01/16/2025 11:00 AM EDT Office Visit [facility] [address] [place] [id number] Orlando Duke MD [address] [place], [place] [id number] [facility] [address] [address] Return in 3 months (on 01/17/2025). [facility] Comment on above: Return in 3 months ( on 01/17/2025). Start: 11-30-2024 End: 11-30-2024 Patient encounter procedure 11/30/2024 12:00 PM EDT Office Visit [facility] [address] [place] [phone] Trinh Loyola DO [address] [place], [place] [phone] [facility] Start: 11-28-2024 Influenza vaccination Influenza Vaccine (#1) [facility] Start: 11-05-2024 Diabetes mellitus screening Diabetes Screening [facility] Start: 10-28-2024 End: 10-28-2024 Patient encounter procedure 10/28/2024 3:00 PM EDT Office Visit [facility] [address] [place] [address] [place] [address] Department [place] [address] [facility] Start: 10-28-2024 End: 06-06-2025 Lipid 1996 panel - Serum or Plasma Lipid panel Lab Routine Mixed hyperlipidemia Expected: 10/28/2024 (Approximate), Expires: 06/06/2025 [facility] Work Phone: Comment on above: Expected: 10/28/2024 (Approximate), Expires: 06/06/2025 Start: 10-06-2024 End: 10-06-2024 Patient encounter procedure 10/06/2024 3:20 PM EDT Office Visit [facility] [address] [facility] [address] [place] [phone] [place] [address] Department [place] [address] [facility] Start: 09-22-2024 End: 09-22-2024 Patient encounter procedure 09/22/2024 3:40 PM EDT Office Visit [facility] [address] [facility] [address] [place] [phone] [place] [address] Department [place] [address] [facility] Start: 07-23-2024 COVID-19 Vaccine (6 - 2024-25 season) COVID-19 Vaccine ( season) [facility] Start: 07-23-2024 Covid-19 Vaccine ( season) Covid-19 Vaccine ( season) [facility] Start: 06-27-2024 End: 06-27-2024 Patient encounter procedure [facility] Start: 06-20-2024 End: 06-20-2025 MR Shoulder - left WO contrast MR shoulder left wo IV contrast Imaging Routine Tear of left rotator cuff, unspecified tear extent, unspecified whether traumatic Expected: 06/20/2024, Expires: 06/20/2025 [facility] Work Phone: Comment on above: Expected: 06/20/2024 , Expires: 06/20/2025 Start: 06-20-2024 End: 06-20-2025 MR Shoulder - right WO contrast MR shoulder right wo IV contrast Imaging Routine Tear of right supraspinatus tendon Expected: 06/20/2024, Expires: 06/20/2025 [facility] Service Area Work Phone: Comment on above: Expected: 06/20/2024 , Expires: 06/20/2025 Start: 06-15-2024 End: 06-15-2024 Patient encounter procedure 06/15/2024 12:00 PM EDT Office Visit [facility] [address] [place] [address] Trinh Loyola DO [address] [facility] [address] [place], [place] [phone] [facility] Start: 05-30-2024 End: 05-30-2024 Patient encounter procedure 05/30/2024 2:00 PM EST Office Visit [facility] [address] [place] [address] [address] [place] [phone] Leonardo Bustamante MD [address] [place] [address], [address] [place] [address] [facility] Start: 05-23-2024 End: 05-23-2024 Patient encounter procedure 05/23/2024 12:30 PM EST Office Visit [facility] [address] [place] [address] Trinh Loyola DO [address] [place] [address] [facility] Start: 05-20-2024 End: 05-20-2025 CBC panel - Blood by Automated count CBC Lab Routine Iron deficiency anemia, unspecified iron deficiency anemia type Incomplete bladder emptying Anemia, unspecified type Expected: 05/20/2024 (Approximate), Expires: 05/20/2025 [facility] Work Phone: Comment on above: Expected: 05/20/2024 (Approximate), Expires: 05/20/2025 Start: 05-20-2024 End: 05-20-2025 Comprehensive metabolic 2000 panel - Serum or Plasma Comprehensive metabolic panel Lab Routine Incomplete bladder emptying Anemia, unspecified type Expected: 05/20/2024 (Approximate), Expires: 05/20/2025 [facility] Work Phone: Comment on above: Expected: 05/20/2024 (Approximate), Expires: 05/20/2025 Start: 05-20-2024 End: 05-20-2025 Lipid 1996 panel - Serum or Plasma Lipid Panel Lab Routine Incomplete bladder emptying Anemia, unspecified type Hypercholesterolemia Expected: 05/20/2024 (Approximate), Expires: 05/20/2025 [facility] Service Area Work Phone: Comment on above: Expected: 05/20/2024 (Approximate), Expires: 05/20/2025 Start: 05-20-2024 End: 05-20-2024 Patient encounter procedure 05/20/2024 12:00 PM EST Office Visit [facility] [address] [place] [address] Trinh Loyola DO [address] [place] [address] [facility] Start: 05-12-2024 Medicare Annual Wellness Visit Medicare Annual Wellness Visit (AWV) [facility] Start: 03-30-2024 Advance Directive Discussion Advance Directive Discussion [facility] Start: 03-30-2024 Medicare Advantage Annual Wellness Visit Medicare Advantage Annual Wellness Visit [facility] Start: 03-17-2024 End: 03-17-2025 CBC W Auto Differential panel - Blood CBC and Auto Differential Lab Routine Iron deficiency anemia, unspecified iron deficiency anemia type Expected: 03/17/2024 (Approximate), Expires: 03/17/2025 [facility] Work Phone: Comment on above: Expected: 03/17/2024 (Approximate), Expires: 03/17/2025 Start: 03-17-2024 End: 03-17-2025 Cobalamin (Vitamin B12) [Mass/volume] in Serum or Plasma Vitamin B12 Lab Routine Iron deficiency anemia, unspecified iron deficiency anemia type Expected: 03/17/2024 (Approximate), Expires: 03/17/2025 [facility] Work Phone: Comment on above: Expected: 03/17/2024 (Approximate), Expires: 03/17/2025 Start: 03-17-2024 End: 03-17-2025 Ferritin [Mass/volume] in Serum or Plasma Ferritin Lab Routine Iron deficiency anemia, unspecified iron deficiency anemia type Expected: 03/17/2024 (Approximate), Expires: 03/17/2025 [facility] Work Phone: Comment on above: Expected: 03/17/2024 (Approximate), Expires: 03/17/2025 Start: 03-17-2024 End: 03-17-2025 Folate [Mass/volume] in Serum or Plasma Folate Lab Routine Iron deficiency anemia, unspecified iron deficiency anemia type Expected: 03/17/2024 (Approximate), Expires: 03/17/2025 [facility] Service Area Work Phone: Comment on above: Expected: 03/17/2024 (Approximate), Expires: 03/17/2025 Start: 03-17-2024 End: 03-17-2025 Iron and Iron binding capacity panel - Serum or Plasma Iron and TIBC Lab Routine Iron deficiency anemia, unspecified iron deficiency anemia type Expected: 03/17/2024 (Approximate), Expires: 03/17/2025 [facility] Work Phone: Comment on above: Expected: 03/17/2024 (Approximate), Expires: 03/17/2025 Start: 03-17-2024 End: 03-17-2024 Patient encounter procedure 03/17/2024 11:00 AM EST Office Visit [facility] [address] [place] [address] Trinh Loyola DO [address] [place] [address] [facility] Start: 01-13-2024 End: 01-13-2024 Patient encounter procedure 01/13/2024 12:00 PM EDT Office Visit [facility] [address] [place] [id number] Leonardo Bustamante MD [address], [address] [place] [address] [facility] Start: 11-30-2023 Diabetes mellitus screening Diabetes Screening [facility] Start: 11-29-2023 COVID-19 Vaccine ( season) COVID-19 Vaccine ( season) [facility] Start: 11-29-2023 Influenza vaccination Influenza Vaccine (#1) [facility] Start: 11-09-2023 End: 11-08-2024 CBC W Auto Differential panel - Blood CBC and Auto Differential Lab Routine Anemia, unspecified type Expected: 11/09/2023 (Approximate), Expires: 11/08/2024 [facility] Work Phone: Comment on above: Expected: 11/09/2023 (Approximate), Expires: 11/08/2024 Start: 11-09-2023 End: 11-08-2024 Cobalamin (Vitamin B12) [Mass/volume] in Serum or Plasma Vitamin B12 Lab Routine Anemia, unspecified type Expected: 11/09/2023 (Approximate), Expires: 11/08/2024 [facility] Work Phone: Comment on above: Expected: 11/09/2023 (Approximate), Expires: 11/08/2024 Start: 11-09-2023 End: 11-08-2024 Ferritin [Mass/volume] in Serum or Plasma Ferritin Lab Routine Anemia, unspecified type Expected: 11/09/2023 (Approximate), Expires: 11/08/2024 [facility] Work Phone: Comment on above: Expected: 11/09/2023 (Approximate), Expires: 11/08/2024 Start: 11-09-2023 End: 11-08-2024 Folate [Mass/volume] in Serum or Plasma Folate Lab Routine Anemia, unspecified type Expected: 11/09/2023 (Approximate), Expires: 11/08/2024 [facility] Service Area Work Phone: Comment on above: Expected: 11/09/2023 (Approximate), Expires: 11/08/2024 Start: 11-09-2023 End: 11-08-2024 Iron and Iron binding capacity panel - Serum or Plasma Iron and TIBC Lab Routine Anemia, unspecified type Expected: 11/09/2023 (Approximate), Expires: 11/08/2024 [facility] Work Phone: Comment on above: Expected: 11/09/2023 (Approximate), Expires: 11/08/2024 Start: 11-09-2023 End: 11-09-2023 Patient encounter procedure 11/09/2023 8:30 AM EDT Office Visit [facility] [address] [facility] [address] [place] [address] Trinh Loyola DO [address] [facility] [address] [place] [address] [facility] Start: 09-30-2023 End: 09-29-2024 Lipid 1996 panel - Serum or Plasma Lipid panel Lab Routine Mixed hyperlipidemia Expected: 09/30/2023 (Approximate), Expires: 09/29/2024 [facility] Work Phone: Comment on above: Expected: 09/30/2023 (Approximate), Expires: 09/29/2024 Start: 07-15-2023 End: 07-15-2023 Patient encounter procedure 07/15/2023 2:00 PM EDT Office Visit [facility] [address] [place] [address] Fanny Patterson DO [address] [place] [address] [facility] Start: 06-25-2023 End: 06-25-2023 ambulatory 06/25/2023 11:30 AM EDT Treatment [address] [place] [phone] Eduarda Parada, PT [address] [place] [address] [facility] Start: 06-23-2023 End: 06-23-2023 ambulatory 06/23/2023 11:00 AM EDT Treatment [address] [place] [address] Eduarda Parada, PT [address] [place] [address] [facility] Start: 06-18-2023 End: 06-18-2023 ambulatory 06/18/2023 2:30 PM EDT Treatment [place] [address] [place] [address] Eduarda Parada, PT [address] [place] [address] [facility] Start: 06-16-2023 End: 06-16-2023 ambulatory 06/16/2023 3:15 PM EDT Treatment [facility] [address] [place] [address] Eduarda Parada, PT [address] [place] [address] [facility] Start: 06-11-2023 End: 06-11-2023 ambulatory 06/11/2023 1:15 PM EDT Treatment [facility] [address] [place] [address] Eduarda Parada, PT [address] [place] [address] [facility] Start: 06-09-2023 End: 06-09-2023 ambulatory 06/09/2023 11:30 AM EDT Treatment [facility] [address] [place] [address] Eduarda Parada, PT [address] [place] [address] [facility] Start: 06-03-2023 End: 06-03-2023 ambulatory 06/03/2023 11:30 AM EST Treatment [place] [address] [place] [address] Sarah Beth Lemons, AX SURVEY WORKER [address] [facility] [place] [id number] [facility] Start: 06-01-2023 End: 06-01-2023 ambulatory 06/01/2023 8:30 AM EST [facility] [address] [place] [address] Caity Cano, AX SURVEY WORKER [address] [place] [address] [facility] Start: 05-24-2023 COVID-19 Vaccine () COVID-19 Vaccine () [facility] Start: 05-11-2023 End: 05-11-2023 Patient encounter procedure [facility] Start: 05-06-2023 End: 05-06-2023 Patient encounter procedure 05/06/2023 10:15 AM EST Office Visit [facility] [address] [place] [address] Bran Monk MD [address] [place], [place] [id number] [facility] Start: 04-22-2023 End: 04-22-2023 Patient encounter procedure [facility] Start: 04-15-2023 End: 04-15-2023 Patient encounter procedure 04/15/2023 10:45 AM EST Office Visit [facility] [address] [place] [address] Bran Monk MD [address] [place], [place] [phone] [facility] Start: 04-15-2023 End: 04-15-2023 Patient encounter procedure [facility] Start: 04-08-2023 End: 04-08-2023 Patient encounter procedure 04/08/2023 9:45 AM EST Office Visit [facility] [address] [place] [address] Bran Monk MD [address] [place], [place] [phone] [facility] Start: 03-30-2023 Medicare Advantage Annual Wellness Visit Medicare Advantage Annual Wellness Visit [facility] Start: 03-25-2023 End: 03-25-2023 Patient encounter procedure [facility] Start: 03-18-2023 COVID-19 Vaccine (5 - Pfizer series) COVID-19 Vaccine (5 - Pfizer series) [facility] Start: 03-18-2023 COVID-19 Vaccine ( season) COVID-19 Vaccine () [facility] Start: 03-18-2023 COVID-19 Vaccine () COVID-19 Vaccine () [facility] Start: 03-18-2023 End: 03-18-2023 Patient encounter procedure [facility] Start: 02-17-2023 End: 02-19-2023 XR Knee - right 3 Views [facility] Service Area Work Phone: Comment on above: Expected: 02/17/2023 , Expires: 02/19/2023 Start: 02-09-2023 End: 02-09-2023 Patient encounter procedure 02/09/2023 1:45 PM EST Office Visit [facility] [address] [place] [phone] Bran Monk MD [address] [place], [place] [phone] [facility] Start: 01-13-2023 End: 01-13-2023 Patient encounter procedure 01/13/2023 Office Visit Cardiology Leonardo Bustamante MD [address], [address] [place], [place] [phone] [facility] Start: 11-28-2022 COVID-19 Vaccine () COVID-19 Vaccine () [facility] Start: 11-28-2022 Influenza vaccination Influenza Vaccine (#1) [facility] Start: 11-24-2022 End: 11-25-2023 25-hydroxyvitamin D3 [Mass/volume] in Serum or Plasma Vitamin D, Total Lab Routine Healthcare maintenance Disorder of cartilage, unspecified Expected: 11/24/2022 (Approximate), Expires: 11/25/2023 [facility] Work Phone: Comment on above: Expected: 11/24/2022 (Approximate), Expires: 11/25/2023 Start: 11-24-2022 End: 11-25-2023 Comprehensive metabolic 2000 panel - Serum or Plasma Comprehensive Metabolic Panel Lab Routine Healthcare maintenance Expected: 11/24/2022 (Approximate), Expires: 11/25/2023 [facility] Service Area Work Phone: Comment on above: Expected: 11/24/2022 (Approximate), Expires: 11/25/2023 Start: 11-24-2022 End: 11-25-2023 Hemoglobin A1c/Hemoglobin.total in Blood Hemoglobin A1C Lab Routine Healthcare maintenance Expected: 11/24/2022 (Approximate), Expires: 11/25/2023 [facility] Work Phone: Comment on above: Expected: 11/24/2022 (Approximate), Expires: 11/25/2023 Start: 11-24-2022 End: 11-25-2023 Lipid 1996 panel - Serum or Plasma Lipid Panel Lab Routine Healthcare maintenance Expected: 11/24/2022 (Approximate), Expires: 11/25/2023 [facility] Work Phone: Comment on above: Expected: 11/24/2022 (Approximate), Expires: 11/25/2023 Start: 11-24-2022 End: 11-25-2023 TSH with reflex to Free T4 if abnormal TSH with reflex to Free T4 if abnormal Lab Routine Healthcare maintenance Expected: 11/24/2022 (Approximate), Expires: 11/25/2023 [facility] Work Phone: Comment on above: Expected: 11/24/2022 (Approximate), Expires: 11/25/2023 Start: 09-17-2022 Diabetes mellitus screening Diabetes Screening [facility] Start: 04-24-2022 COVID-19 Vaccine (5 - Pfizer series) COVID-19 Vaccine (5 - Pfizer series) [facility] Start: 04-22-2022 AQUATICFU4, Provider: Elin Robbins, Status: Pen, Time: 1:00 PM AQUATICFU4, Provider: Elin Robbins, Status: Pen, Time: 1:00 PM [facility] Work Phone: Start: 04-15-2022 AQUATICFU4, Provider: Elin Robbins, Status: Pen, Time: 1:00 PM AQUATICFU4, Provider: Elin Robbins, Status: Pen, Time: 1:00 PM [facility] Work Phone: Start: 04-08-2022 AQUATICFU4, Provider: Elin Robbins, Status: Pen, Time: 1:00 PM AQUATICFU4, Provider: Elin Robbins, Status: Pen, Time: 1:00 PM [facility] Work Phone: Start: 04-01-2022 AQUATICFU4, Provider: Elin Robbins, Status: Pen, Time: 1:00 PM AQUATICFU4, Provider: Elin Robbins, Status: Pen, Time: 1:00 PM [facility] Work Phone: Start: 04-01-2022 AQUATICFU4, Provider: Elin Robbins, Status: Pen, Time: 10:00 AM AQUATICFU4, Provider: Elin Robbins, Status: Pen, Time: 10:00 AM [facility] Work Phone: Start: 03-25-2022 AQUATICFU4, Provider: Elin Robbins, Status: Pen, Time: 12:15 PM AQUATICFU4, Provider: Elin Robbins, Status: Pen, Time: 12:15 PM [facility] Work Phone: Start: 03-18-2022 PTRECHADUL, Provider: Corinne Husain, Status: Pen, Time: 4:15 PM PTRECHADUL, Provider: Corinne Husain, Status: Pen, Time: 4:15 PM [facility] Work Phone: Start: 03-18-2022 AQUATICFU4, Provider: Elin Robbins, Status: Pen, Time: 3:15 PM AQUATICFU4, Provider: Elin Robbins, Status: Pen, Time: 3:15 PM [facility] Work Phone: Start: 03-18-2022 AQUATICFU4, Provider: Elin Robbins, Status: Pen, Time: 1:00 PM AQUATICFU4, Provider: Elin Robbins, Status: Pen, Time: 1:00 PM [facility] Work Phone: Start: 03-06-2022 AQUATICFU4, Provider: Elin Robbins, Status: Pen, Time: 3:30 PM AQUATICFU4, Provider: Elin Robbins, Status: Pen, Time: 3:30 PM [facility] Work Phone: Start: 03-06-2022 PTRECHADUL, Provider: Corinne Husain, Status: Pen, Time: 2:45 PM PTRECHADUL, Provider: Corinne Husain, Status: Pen, Time: 2:45 PM [facility] Work Phone: Start: 03-04-2022 AQUATICFU4, Provider: Elin Robbins, Status: Pen, Time: 3:15 PM AQUATICFU4, Provider: Elin Robbins, Status: Pen, Time: 3:15 PM [facility] Work Phone: Start: 02-27-2022 PTRECHADUL, Provider: Corinne Husain, Status: Pen, Time: 3:00 PM PTRECHADUL, Provider: Corinne Husain, Status: Pen, Time: 3:00 PM [facility] Work Phone: Start: 02-27-2022 AQUATICFU4, Provider: Elin Robbins, Status: Pen, Time: 2:00 PM AQUATICFU4, Provider: Elin Robbins, Status: Pen, Time: 2:00 PM [facility] Work Phone: Start: 02-25-2022 AQUATICFU4, Provider: Elin Robbins, Status: Pen, Time: 10:45 AM AQUATICFU4, Provider: Elin Robbins, Status: Pen, Time: 10:45 AM [facility] Work Phone: Start: 02-18-2022 AQUATICFU4, Provider: Elin Robbins, Status: Pen, Time: 3:15 PM AQUATICFU4, Provider: Elin Robbins, Status: Pen, Time: 3:15 PM [facility] Work Phone: Start: 02-17-2022 COVID-19 Vaccine (4 - Pfizer series) COVID-19 Vaccine (4 - Pfizer series) [facility] Start: 02-13-2022 AQUATICFU4, Provider: Elin Robbins, Status: Pen, Time: 10:45 AM AQUATICFU4, Provider: Elin Robbins, Status: Pen, Time: 10:45 AM [facility] Work Phone: Start: 02-04-2022 AQUATICFU4, Provider: Elin Robbins, Status: Pen, Time: 3:15 PM AQUATICFU4, Provider: Elin Robbins, Status: Pen, Time: 3:15 PM [facility] Work Phone: Start: 01-16-2022 AQUATICFU4, Provider: Elin Robbins, Status: Pen, Time: 2:00 PM AQUATICFU4, Provider: Elin Robbins, Status: Pen, Time: 2:00 PM [facility] DO Work Phone: Start: 01-16-2022 PTRECHADUL, Provider: Corinne Husain, Status: Pen, Time: 2:00 PM PTRECHADUL, Provider: Corinne Husain, Status: Pen, Time: 2:00 PM [facility] 100 DO Work Phone: Start: 01-14-2022 End: 01-14-2022 Patient encounter procedure 01/14/2022 Office Visit Cardiology Leonardo Bustamante MD [address] [place] [address], [address] [place], [place] [phone] [facility] Start: 01-13-2022 AQUATICFU4, Provider: Jennifer Kimball, Status: Pen, Time: 12:15 PM AQUATICFU4, Provider: Jennifer Kimball, Status: Pen, Time: 12:15 PM [facility] 100 DO Work Phone: Start: 01-10-2022 AQUATICFU4, Provider: Jennifer Kimball, Status: Pen, Time: 10:45 AM AQUATICFU4, Provider: Jennifer Kimball, Status: Pen, Time: 10:45 AM [facility] 100 DO Work Phone: Start: 01-09-2022 PTRECHADUL, Provider: Corinne Husain, Status: Pen, Time: 11:15 AM PTRECHADUL, Provider: Corinne Husain, Status: Pen, Time: 11:15 AM [facility] Work Phone: Start: 01-07-2022 AQUATICFU4, Provider: Elin Robbins, Status: Pen, Time: 12:15 PM AQUATICFU4, Provider: Elin Robbins, Status: Pen, Time: 12:15 PM [facility] Work Phone: Start: 01-06-2022 AQUATICFU4, Provider: Jennifer Kimball, Status: Pen, Time: 12:15 PM AQUATICFU4, Provider: Jennifer Kimball, Status: Pen, Time: 12:15 PM [facility] 100 DO Work Phone: Start: 12-31-2021 AQUATICFU4, Provider: Elin Robbins, Status: Pen, Time: 10:00 AM AQUATICFU4, Provider: Elin Robbins, Status: Pen, Time: 10:00 AM [facility] Work Phone: Start: 12-30-2021 AQUATICFU4, Provider: Jennifer Kimball, Status: Pen, Time: 12:15 PM AQUATICFU4, Provider: Jennifer Kimball, Status: Pen, Time: 12:15 PM [facility] Work Phone: Start: 12-26-2021 AQUATICFU4, Provider: Elin Robbins, Status: Pen, Time: 5:00 PM AQUATICFU4, Provider: Elin Robbins, Status: Pen, Time: 5:00 PM [facility] Work Phone: Start: 12-26-2021 FUV, Provider: Ebonie Moore, Status: Pen, Time: 11:20 AM FUV, Provider: Ebonie Moore, Status: Pen, Time: 11:20 AM [facility] 1400 Work Phone: Start: 12-24-2021 AQUATICFU4, Provider: Elin Robbins, Status: Pen, Time: 12:15 PM AQUATICFU4, Provider: Elin Robbins, Status: Pen, Time: 12:15 PM [facility] Work Phone: Start: 12-20-2021 AQUATICFU4, Provider: Jennifer Kimball, Status: Pen, Time: 8:30 AM AQUATICFU4, Provider: Jennifer Kimball, Status: Pen, Time: 8:30 AM [facility] Work Phone: Start: 12-16-2021 FUV, Provider: Doreen Brown, Status: Pen, Time: 11:00 AM FUV, Provider: Jessica Brown, Status: Pen, Time: 11:00 AM [id number] Work Phone: Start: 2021 RSV High Risk: (Elderly (60+) or Population) (1 - 1-dose 75+ series) RSV High Risk: (Elderly (60+) or Population) (1 - 1-dose 75+ series) [facility] Start: 2021 RSV Immunization for Adults (1 - 1-dose 75+ series) RSV Immunization for Adults (1 - 1-dose 75+ series) [facility] Start: 2021 RSV Vaccine (1 - 1-dose 75+ series) RSV Vaccine (1 - 1-dose 75+ series) [facility] Start: 10-14-2021 FUV, Provider: Doreen Brown, Status: Pen, Time: 1:30 PM FUV, Provider: Jessica Brown, Status: Pen, Time: 1:30 PM [id number] [id number] Work Phone: Start: 09-19-2021 NPV, Provider: Topher Bourgeois, Status: Pen, Time: 2:45 PM NPV, Provider: Tohper Bourgeois, Status: Pen, Time: 2:45 PM [facility] Work Phone: Start: 09-16-2021 NPV, Provider: Doreen Brown, Status: Pen, Time: 1:30 PM NPV, Provider: Jessica Brown, Status: Pen, Time: 1:30 PM [id number] Work Phone: Start: 09-09-2021 FUV, Provider: Topher Bourgeois, Status: Pen, Time: 1:45 PM FUV, Provider: Topher Bourgeois, Status: Pen, Time: 1:45 PM [id number]-[id number] Work Phone: Start: 09-06-2021 DENISA, Provider: Macarena Azar, Status: Pen, Time: 9:15 AM DENISA, Provider: Macarena Azar, Status: Pen, Time: 9:[address] [facility] Work Phone: Start: 08-30-2021 DENISA, Provider: Macarena Azar, Status: Pen, Time: 10:45 AM PTRECHECKA, Provider: Macarena Azar, Status: Pen, Time: 10:[address] [facility] Work Phone: Start: 08-23-2021 PTFUADULT4, Provider: Macarena Azar, Status: Pen, Time: 1:30 PM PTFUADULT4, Provider: Macarena Azar, Status: Pen, Time: 1:[address] [facility] Work Phone: Start: 08-09-2021 PTFUADULT4, Provider: Macarena Azar, Status: Pen, Time: 1:30 PM PTFUADULT4, Provider: Macarena Azar, Status: Pen, Time: 1:[address] [facility] Work Phone: Start: 08-02-2021 PTFUADULT4, Provider: Macarena Azar, Status: Pen, Time: 1:30 PM PTFUADULT4, Provider: Macarena Azar, Status: Pen, Time: 1:[address] [facility] Work Phone: Start: 07-26-2021 PTFUADULT4, Provider: Macarena Azar, Status: Pen, Time: 11:45 AM PTFUADULT4, Provider: Macarena Azar, Status: Pen, Time: 11:[address] [facility] Work Phone: Start: 07-23-2021 STFUADULT6, Provider: Tierney Jung, Status: Pen, Time: 1:45 PM STFUADULT6, Provider: Tierney Jung, Status: Pen, Time: 1:[address] [facility] Work Phone: Start: 07-19-2021 PTFUADULT4, Provider: Macarena Azar, Status: Pen, Time: 11:15 AM PTFUADULT4, Provider: Macarena Azar, Status: Pen, Time: 11:15 AM [facility] Work Phone: Start: 07-18-2021 STFUADULT6, Provider: Tierney Jung, Status: Pen, Time: 1:00 PM STFUADULT6, Provider: Tierney Jung, Status: Pen, Time: 1:00 PM [facility] Work Phone: Start: 07-17-2021 STFUADULT6, Provider: Tierney Jung, Status: Pen, Time: 2:30 PM STFUADULT6, Provider: Tierney Jung, Status: Pen, Time: 2:30 PM [facility] Work Phone: Start: 07-12-2021 PTFUADULT4, Provider: Macarena Azar, Status: Pen, Time: 3:15 PM PTFUADULT4, Provider: Macarena Azar, Status: Pen, Time: 3:15 PM [facility] Work Phone: Start: 07-11-2021 STFUADULT6, Provider: Tierney Jung, Status: Pen, Time: 1:00 PM STFUADULT6, Provider: Tierney Jung, Status: Pen, Time: 1:00 PM [facility] Work Phone: Start: 07-09-2021 STFUADULT6, Provider: Tierney Jung, Status: Pen, Time: 1:45 PM STFUADULT6, Provider: Tierney Jung, Status: Pen, Time: 1:45 PM [facility] Work Phone: Start: 07-04-2021 STFUADULT4, Provider: Tierney Jung, Status: Pen, Time: 1:45 PM STFUADULT4, Provider: Tierney Jung, Status: Pen, Time: 1:45 PM [facility] Work Phone: Start: 07-03-2021 STFUADULT4, Provider: Tierney Jung, Status: Pen, Time: 2:45 PM STFUADULT4, Provider: Tierney Jung, Status: Pen, Time: 2:45 PM [facility] Work Phone: Start: 06-28-2021 STFUADULT4, Provider: Tierney Jung, Status: Pen, Time: 2:15 PM STFUADULT4, Provider: Tierney Jung, Status: Pen, Time: 2:15 PM [facility] Work Phone: Start: 06-28-2021 PTRECHECKA, Provider: Macarena Azar, Status: Pen, Time: 1:30 PM PTRECHECKA, Provider: Macarena Azar, Status: Pen, Time: 1:30 PM [facility] Work Phone: Start: 06-24-2021 STFUADULT6, Provider: Tierney Jung, Status: Pen, Time: 1:30 PM STFUADULT6, Provider: Tierney Jung, Status: Pen, Time: 1:30 PM [facility] Work Phone: Start: 06-21-2021 STEVALADLT, Provider: Tierney Jung, Status: Pen, Time: 2:15 PM STEVALADLT, Provider: Tierney Jung, Status: Pen, Time: 2:15 PM [facility]-[address] Work Phone: Start: 06-21-2021 PTFUADULT4, Provider: Macarena Azar, Status: Pen, Time: 1:30 PM PTFUADULT4, Provider: Macarena Azar, Status: Pen, Time: 1:30 PM [facility] Work Phone: Start: 06-20-2021 PTFUADULT4, Provider: Macarena Azar, Status: Pen, Time: 1:45 PM PTFUADULT4, Provider: Macarena Azar, Status: Pen, Time: 1:45 PM [facility] 100 DO Work Phone: Start: 06-20-2021 STEVALADLT, Provider: Tierney Jung, Status: Pen, Time: 1:00 PM STEVALADLT, Provider: Tierney Jung, Status: Pen, Time: 1:00 PM [facility] 100 DO Work Phone: Start: 06-10-2021 NEWPROB, Provider: Jun Samuel, Status: Pen, Time: 2:20 PM NEWPROB, Provider: Jun Samuel, Status: Pen, Time: 2:20 PM [facility]-[address] Work Phone: Start: 06-07-2021 PTFUADULT4, Provider: Macarena Azar, Status: Pen, Time: 1:30 PM PTFUADULT4, Provider: Macarena Azar, Status: Pen, Time: 1:30 PM [facility] Work Phone: Start: 06-07-2021 PTRECHECKA, Provider: Macarena Azar, Status: Pen, Time: 1:30 PM PTRECHECKA, Provider: Macarena Azar, Status: Pen, Time: 1:30 PM [facility] Work Phone: Start: 06-04-2021 PTFUADULT4, Provider: Sarah Beth Lemons, Status: Pen, Time: 9:15 AM PTFUADULT4, Provider: Cynthia Lemonsissa, Status: Pen, Time: 9:15 AM [facility] Work Phone: Start: 05-31-2021 PTFUADULT4, Provider: Sarah Beth Lemons, Status: Pen, Time: 10:45 AM PTFUADULT4, Provider: Sarah Beth Lemons, Status: Pen, Time: 10:45 AM [facility] Work Phone: Start: 05-27-2021 PTFUADULT4, Provider: Macarena Azar, Status: Pen, Time: 12:15 PM PTFUADULT4, Provider: Macarena Azar, Status: Pen, Time: 12:15 PM [facility] Work Phone: Start: 05-27-2021 PTFUADULT4, Provider: Macarena Azar, Status: Pen, Time: 12:00 PM PTFUADULT4, Provider: Macarena Azar, Status: Pen, Time: 12:[address] [facility] Work Phone: Start: 05-23-2021 PTFUADULT4, Provider: Macarena Azar, Status: Pen, Time: 10:45 AM PTFUADULT4, Provider: Macarena Azar, Status: Pen, Time: 10:45 AM [facility] Work Phone: Start: 05-20-2021 PTFUADULT4, Provider: Macarena Azar, Status: Pen, Time: 2:30 PM PTFUADULT4, Provider: Macarena Azar, Status: Pen, Time: 2:30 PM [facility] Work Phone: Start: 05-17-2021 PTFUADULT4, Provider: Sarah Beth Lemons, Status: Pen, Time: 10:45 AM PTFUADULT4, Provider: Sarah Beth Lemons, Status: Pen, Time: 10:[address] [facility] Work Phone: Start: 05-13-2021 PTEVALADUL, Provider: Macarena Azar, Status: Pen, Time: 1:30 PM PTEVALADUL, Provider: Macarena Azar, Status: Pen, Time: 1:30 PM [facility] Work Phone: Start: 04-16-2021 Patient encounter procedure MCRANNUAL, Provider: Get Terrazas, Status: Pen, Time: 10:00 AM [facility] Work Phone: Start: 03-27-2020 Lipid panel Lipids [facility] Start: 02-27-2019 Screening for malignant neoplasm of colon [facility] Start: 2006 RSV Immunization aged 60 or older (1 - 1-dose 60+ series) RSV Immunization aged 60 or older (1 - 1-dose 60+ series) [facility] Start: 2006 RSV patients and/or patients aged 60+ years (1 - 1-dose 60+ series) RSV patients and/or patients aged 60+ years (1 - 1-dose 60+ series) [facility] Start: 11-24-1991 Screening for malignant neoplasm of colon [facility] Start: 1964 Anxiety Screening Anxiety Screening [facility] Start: 1964 Depression Screening Depression Scre ing [facility] Start: 1964 Hepatitis C screening [facility] Start: 1958 Depression Screen Depression Screen [facility] Start: 1958 Depression Screening Depression Scre ening [facility] Start: 1946 Annual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 - Bicep: Pain present, likely related to rotator cuff injury Imaging: I have personally reviewed and agree with Radiologist interpretation of previous imaging studies performed prior to this visit. STUDY: MR SHOULDER LEFT WO IV CONTRAST; INDICATION: Signs/Symptoms:left rotator cuff tear. COMPARISON: Plain film radiographs of the left shoulder performed on May 25, 2023 ACCESSION NUMBER(S): [id number] ORDERING CLINICIAN: ROBERT CHRISTIAN TECHNIQUE: Multiplanar multisequential MRI left shoulder without contrast. FINDINGS: Small amount of partial-thickness articular surface tearing distal supraspinatus tendon without evidence of full-thickness rotator cuff tear. Other rotator cuff tendons are normal. Muscle volume normal without atrophy or edema. Some rotator cuff insertional cystic change noted at the greater tuberosity. Biceps intact. Degenerative tearing posterosuperior and posteroinferior labrum with adjacent subchondral cystic change along the posterior glenoid rim. There is also some blunting of the anterior labrum with adjacent subchondral edema also degenerative tearing. No sizeable effusion. No evidence of fracture. No marrow replacement lesion. Moderate acromioclavicular osteoarthritis. Mild subacromial subdeltoid bursitis. No focal fluid collections. No evidence of a soft tissue mass. IMPRESSION: Small amount of distal supraspinatus tendon tearing without full-thickness rotator cuff tear. Mild glenohumeral osteoarthritis with degenerative circumferential labral tearing. Moderate acromioclavicular osteoarthritis with some subacromial subdeltoid bursitis. Signed by: Dony Dennison 07/09/2024 10:36 AM Dictation workstation: [id number] STUDY: MR SHOULDER RIGHT WO IV CONTRAST; INDICATION: Signs/Symptoms:right rotator cuff tear. COMPARISON: Previous MRI performed on September 16, 2022 ACCESSION NUMBER(S): [id number] ORDERING CLINICIAN: ROBERT CHRISTIAN TECHNIQUE: Multiplanar multisequential MRI right shoulder without contrast. FINDINGS: Evaluation of the rotator cuff demonstrates a small full-thickness tear of the distal supraspinatus tendon measuring an approximate 7 mm in size. This is superimposed on high-grade partial-thickness articular surface tearing of the entirety of the remainder of the supraspinatus. This has significantly progressed from prior. There is also some new partial tearing of the superior fibers of the subscapularis. Intra-articular biceps tendinosis without tear. Degenerative tearing posterosuperior and posteroinferior labrum with some adjacent subchondral cystic change and mild glenohumeral osteoarthritis. This has progressed from prior. No evidence of fracture. No marrow edema or marrow replacement process. Some joint effusion or synovitis. No other fluid collections. Mild acromioclavicular osteoarthritis similar to prior. IMPRESSION: Small full-thickness distal supraspinatus tendon tear slightly more prominent than prior study with extensive high-grade partial-thickness articular surface tearing. Partial tearing superior fibers subscapularis. Posterior labral tearing with glenohumeral osteoarthritis. Joint effusion with some synovitis. Signed by: Dony Dennison 07/09/2024 10:34 AM Dictation workstation: [id number] 1. Tear of left rotator cuff, unspecified tear extent, unspecified whether traumatic 2. Tear of right rotator cuff, unspecified tear extent, unspecified whether traumatic Assessment & Plan 1. Right shoulder pain: - Persistent right shoulder pain with previous corticosteroid injections - MRI confirmed arthritis and supraspinatus tendinopathy in the right shoulder - Discussed the option of PRP injection; patient expressed interest - Advised to avoid anti-inflammatories for 1 week before and 2 weeks after the injection - PRP injection will be scheduled 2. Left shoulder pain: - Reported left shoulder pain during the evaluation of the right shoulder - MRI of the left shoulder reviewed showing arthritis and supraspinatus tendinopathy - Discussed the option of PRP injection; patient expressed interest - Advised to avoid anti-inflammatories for 1 week before and 2 weeks after the injection - PRP injection will be scheduled Robert Christian DO This medical note was created with the assistance of artificial intelligence (AI) for documentation purposes. The content has been reviewed and confirmed by the healthcare provider for accuracy and completeness. Patient consented to the use of audio recording and use of AI during their visit. documented in this encounter [facility] Work Phone: 07-22-2024 History of Present illness Narrative Associated Order(s): L Inj/Asp: R subacromial bursa Post-Procedure Diagnose(s): Chronic right shoulder pain History of Present Illness Chief Complaint Patient presents with Right Shoulder - Pain The patient is 78 y.o. male here with a complaint of bilateral shoulder pain, right greater than left. I have seen patient in the past for some chronic right shoulder pain/rotator cuff tendinopathy. He was last seen by me approximately 2 years ago, he is also been seen by my nurse practitioner colleague Ebonie. Treatment has been conservative, he has done physical therapy in the past, he has had prior subacromial injections that have been of good benefit, he did have an MRI that showed some tendinopathy of the supraspinatus tendon without definitive tear. He has done previous rounds of physical therapy that were of some benefit. He did seek alternative opinion from my colleague Dr. Christian, he did have updated MRI ordered of bilateral shoulders as he was also complaining of some mild left shoulder pain. He says that he was having a hard time getting back in for review prompting him to schedule follow-up visit with me today. He says that right shoulder is painful with day-to-day activity, overhead activity, sleeping. Patient enjoys canoeing, he is concerned about his ability to continue with his pain in his right shoulder. He gets radiation of pain down the upper arm into the biceps muscle belly. He takes ixnq-qmr-nekrcju medications as needed for pain. Medical History[1] Medication Documentation Review Audit Reviewed by Teteee Chapin MD (Physician) on 06/22/24 at 1217 Medication Order Taking? Sig Documenting Provider Last Dose Status azelastine (Astelin) 137 mcg (0.1 %) nasal spray [id number] Yes Administer 1 spray into each nostril 2 times a day. Use in each nostril as directed Trinh Loyola, DO Active benzonatate (Tessalon) 100 mg capsule [id number] Take 1 capsule (100 mg) by mouth 3 times a day as needed for cough. Do not crush or chew. Teetee Chapin MD Active cholecalciferol (Vitamin D-3) 125 MCG (5000 UT) capsule [id number] Yes Take 1 capsule (125 mcg) by mouth once daily. Historical Provider, Taking Active cyanocobalamin (Vitamin B-12) 1,000 mcg tablet [id number] Yes Take 1 tablet (1,000 mcg) by mouth once daily. Historical Provider, Active docusate sodium (STOOL SOFTENER ORAL) [id number] Yes Take by mouth. Historical ProviderMD Taking Active doxycycline (Vibramycin) 100 mg capsule [id number] Take 1 capsule (100 mg) by mouth 2 times a day for 5 days. Take with at least 8 ounces (large glass) of water, do not lie down for 30 minutes after Teetee Chapin MD Active ferrous sulfate (Slow Fe) 137 mg (45 mg iron) tablet extended release [id number] Yes Take 1 tablet (137 mg) by mouth once daily. Patient taking differently: Take 1 tablet (137 mg) by mouth once daily. 2-3 times weekly Trinh Loyola DO Active fexofenadine ([place] Allergy) 180 mg tablet [id number] Yes Take 1 tablet (180 mg) by mouth if needed. Historical Provider, Taking Active fluticasone (Flonase) 50 mcg/actuation nasal spray [id number] Yes Administer 2 sprays into each nostril once daily. Shake gently. Before first use, prime pump. After use, clean tip and replace cap. Arlette Lopez, DISC INSPECTOR-HEAD MIXER Active vit A/vit C/vit E/zinc/copper (PRESERVISION AREDS ORAL) [id number] Yes Take by mouth. Historical Provider, Taking Active RX Allergies[2] Social History Socioeconomic History Marital status: Spouse name: Not on file Number of children: Not on file Years of education: Not on file Highest education level: Not on file Occupational History Not on file Tobacco Use Smoking status: Former Types: Pipe Quit date: 1974 Years since quittin.3 Passive exposure: Never Smokeless tobacco: Never Tobacco comments: Very occasional pipe smoker, back in early 1970s. Vaping Use Vaping status: Never Used Substance and Sexual Activity Alcohol use: Yes Alcohol/week: 3.0 standard drinks of alcohol Types: 3 Cans of beer per week Comment: Occasional beer. Drug use: Never Sexual activity: Yes Partners: Female control/protection: None Other Topics Concern Not on file Social History Narrative Not on file Social Drivers of Health Financial Resource Strain: Not on file Food Insecurity: Not on file Transportation Needs: Not on file Physical Activity: Not on file Stress: Not on file Social Connections: Not on file Intimate Partner Violence: Not on file Housing Stability: Not on file Surgical History[3] Review of Systems GENERAL: Negative GI: Negative [...] as noted in detailed exam and in HPI Right shoulder: Normal appearance, no swelling or skin changes, no muscle atrophy. There is tenderness at the subacromial space/supraspinatus insertion. He has full range of motion equal to the left, positive painful arc with abduction and forward flexion, internal rotation to lumbar spine. There is no significant weakness with rotator cuff strength testing but there is pain most prominent with resisted abduction. There are some pain with Paez and Neer's test. Positive [place], negative Speed, negative Yergason Left shoulder: Normal appearance, no swelling or skin changes, minimal tenderness at the subacromial space. He has good range of motion equal to the right without pain. There is some discomfort with Paez and Neer's, negative [place], negative Speed, negative Yergason. Imaging: MRI of bilateral shoulders were reviewed with patient, left shoulder shows some mild partial-thickness articular sided distal supraspinatus tendon tearing with some mild tendinosis, there are some degenerative changes of the AC joint, there is some subacromial bursitis, there is degenerative labral tearing MRI of the right shoulder shows interval change to the supraspinatus tendon, there is now small 7 mm area of full-thickness tearing of the distal supraspinatus with superimposed high-grade partial-thickness tearing throughout the remainder of the distal supraspinatus. There is some partial-thickness tearing of the subscapularis, there is subacromial bursitis L Inj/Asp: R subacromial bursa on 07/22/2024 4:19 PM Indications: pain Details: 22 G needle, posterior approach Medications: 40 mg triamcinolone acetonide 40 mg/mL; 2 mL lidocaine 20 mg/mL (2 %) Outcome: tolerated well, no immediate complications Procedure, treatment alternatives, risks and benefits explained, specific risks discussed. Consent was given by the patient. Immediately prior to procedure a time out was called to verify the correct patient, procedure, equipment, behaviour support teacher and site/side marked as required. Patient was prepped and draped in the usual sterile fashion. Assessment 1. Non-traumatic rotator cuff tear, right 2. 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 We discussed treatment options, can consider repeat Kenalog injection for pain control, we discussed PRP as alternative injection, discussed possible shoulder arthroscopy if symptoms are ongoing despite conservative management, percutaneous tenotomy would potentially be of less benefit given area of full-thickness tearing of the shoulder.. We did proceed with subacromial injection with Kenalog, he tolerated without issue. He will follow-up as needed Left shoulder: Symptoms are minimal, patient interested in conservative treatment, could consider similar injection on the left at some point if he would like, he has not had prior subacromial injections for the left shoulder. [1] Past Medical History: Diagnosis Date Acute upper respiratory infection, unspecified 03/29/2019 Upper respiratory infection, viral Allergic Arthritis Chronic maxillary sinusitis 03/08/2024 Disease due to severe acute respiratory syndrome coronavirus 2 (SARS-CoV-2) 03/08/2024 Disorder of the skin and subcutaneous tissue, unspecified 04/14/2020 Changing skin lesion Disorder of the skin and subcutaneous tissue, unspecified 06/03/2013 Skin lesion of right lower limb Epidermal cyst 11/04/2013 Inclusion cyst Pain in unspecified knee 04/16/2021 Knee pain Pain with urination 03/11/2023 Personal history of diseases of the skin [...] specified conditions 04/04/2014 History of chest pain Sciatica of left side 03/11/2023 Seasonal allergic rhinitis due to pollen 03/08/2024 Sebaceous cyst of ear 03/11/2023 Shoulder pain 03/11/2023 Skin lesion 03/11/2023 URI, acute 03/11/2023 [2] Allergies Allergen Reactions Hydrocortisone Swelling Aspirin Other asthma Bacitracin Zinc-Polymyxin B Hives Bacitracin-Polymyxin B Hives Claritin [Loratadine] Hives Ibuprofen Swelling and Other Night terrors Rgfkl-Agxyi-Rdidryb-Pramoxine Other Doxycycline Rash Koiyimaq-Anebjfgoo-Gdumhchxyb Rash Sulfa (Sulfonamide Antibiotics) Itching, Rash and Hives Itching Itching [3] Past Surgical History: Procedure Laterality Date ADENOIDECTOMY APPENDECTOMY EYE SURGERY NASAL SEPTUM SURGERY NASAL TURBINATE REDUCTION SINUS SURGERY Balloon sinuplasties - twice on 2022; deviated septum surgery Feb 1966; turbenate reduction surgery ~ 2012 or 2014? TONSILLECTOMY WISDOM TOOTH EXTRACTION documented in this encounter [facility] Work Phone: 06-22-2024 History of Present illness Narrative Subjective Patient ID: Robyn Ireland is a 78 y.o. male who presents for Cough (Productive cough, mucus, green/yellow drainage, could not use cpap due to cough/drainage). HPI Usual state of health, traveling last week by car. Noted 3 days prior to visit mild sore throat, sinus congestion. Gradually progressive cough. No fever or chills. Significant yellow-green sputum from nose and some from coughing. Stable over the past 24 hours. No headache. No nausea vomiting or diarrhea. No significant myalgias. No clear exposures but again was traveling. with similar but less significant. Up-to-date on flu vaccine/COVID-vaccine. Had prolonged left-sided maxillary sinus symptoms over the last 6 months. In April diagnosed by oral surgeon has infected upper tooth, status post root canals with relief. Review of Systems Objective BP 120/78 (BP Location: Left arm, Patient Position: Sitting) Temp 36.4 C (97.5 F) (Temporal) Wt 106 kg (233 lb 9.6 oz) BMI 33.52 kg/m Physical Exam Alert and oriented x 3. No acute distress. TMs clear bilaterally. Nasopharynx erythematous with small amount of nasal discharge. Oropharynx clear. Lungs clear to auscultation bilaterally with no rhonchi/rales/wheezing. Heart regular. Lab Results Component Value Date WBC 6.2 05/20/2024 HGB 13.4 05/20/2024 HCT 41.2 05/20/2024 PLT 175 05/20/2024 CHOL 233 (H) 05/20/2024 TRIG 131 05/20/2024 HDL 50 05/20/2024 ALT 17 05/20/2024 AST 21 05/20/2024 NA 139 05/20/2024 K 4.5 05/20/2024 CL 102 05/20/2024 CREATININE 0.72 05/20/2024 BUN 13 05/20/2024 CO2 29 05/20/2024 TSH 2.19 11/29/2022 PSA 2.04 11/06/2023 HGBA1C 5.3 11/29/2022 Assessment/Plan Assessment & Plan Viral URI-reviewed. Recommend rest, fluids, acetaminophen as needed. Tessalon as needed-reviewed use risk and side effects. Discussed delayed antibiotics. If not improving over the next several days begin doxycycline. Asked patient to follow-up if not improving. documented in this encounter [facility] Work Phone: 06-20-2024 History of Present illness Narrative Subjective Robyn Ireland is a 78 y.o. 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 Samuel presents for chronic right shoulder pain. He has been seen in the past for this including an MRI in August 2022 with a full-thickness tear of his right supraspinatus and had undergone extensive physical therapy and has received subacromial steroid injections x 2, last injection 06/26/2023. He notes that he has continued have discomfort and was informed that he might have an option to do Tenex or Eduardo at and was curious what his options for the management of his right shoulder would be particular for his upcoming canoeing season. He has done multiple rounds of physical therapy, has not been using any hqqu-ksp-zyslfkb medications due to concerns for side effects. The pain is primarily when he is reaching outwards and twisting his arm. The pain is described as anterior and lateral deltoid and the biceps tendon. ROS: All pertinent positive symptoms are included in the history of present illness. All other systems have been reviewed and are negative and noncontributory to this patient's current ailments. Objective Vitals: 06/20/24 0812 Weight: 103 kg (228 lb) Height: 1.778 m (5' 10) Physical Exam General/Constitutional: No apparent distress. Well-nourished and well developed. Head: Normocephalic, Atraumatic. Eyes: EOMI. Vascular: No edema, swelling or tenderness, except as noted in detailed exam. Respiratory: Non-labored breathing. Integumentary: No impressive skin lesions present, except as noted in detailed exam. Neurological: Alert and oriented. Psychological: Normal mood and affect. Musculoskeletal: Normal, except as noted in detailed exam. MSK right shoulder: No overlying erythema, rash, or ecchymosis AROM and PROM painful at about 90 degrees of forward flexion and abduction. Tender to palpation along the biceps tendon particularly biceps groove, as well as the anterior and posterior joint lines. No tenderness to palpation along the trapezius, cervical spine. 5/5 subscapularis, 4/5 supraspinatus infraspinatus, painful. 5/5 biceps, painful into the groove. Positive speeds, positive Yergason's. Positive impingement tests with Paez and Neer's. Positive scarf test for AC joint impingement. Negative apprehension. Negative [place]urling's. Imaging: I have personally reviewed and agree with Radiologist interpretation of previous imaging studies performed prior to this visit. I have included further imaging and interpretation as discussed below. Radiographs: X-ray shoulder from 05/25/2023 reviewed, AC joint moderate joint space loss with osteophyte formation. Glenohumeral joint, well-preserved joint space but osteophyte changes particular at the inferior margin along the humeral head. Loss of height space along the subacromial joint space. Winging with forward flexion right greater than left. === 05/25/23 === XR SHOULDER 2+ VIEWS BILATERAL - Impression - LEFT SHOULDER-moderately severe degenerative changes of the AC joint. 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 Assessment/Plan Problem List Items Addressed This Visit None Visit Diagnoses Chronic right shoulder pain Tear of right supraspinatus tendon Relevant Orders MR shoulder right wo IV contrast Robyn is a 78-year-old male who presents with chronic right shoulder pain previously diagnosed as rotator cuff tendinitis. Exam history and imaging most consistent with rotator cuff tendinitis, AC joint arthritis, and resultant biceps tendinitis. With consideration for Tenex/tenjet, did review previous MRI showing significant tearing of the supraspinatus, we will repeat MRI imaging of the shoulder to assess for atrophy and tendon assessment and internal derangement. Did also discuss subacromial corticosteroid injection, repeat physical therapy, PRP injection. Provided him information with PRP and Tenex/tangent, and ordered the MRI. We will also add an additional MRI of his left shoulder for similar symptoms. Will follow-up when MRIs are complete. Isiah Peres DO Sports Medicine Fellow Cosigned by Robert Christian DO at 06/20/2024 4:52 PM EDT Associated attestation - Robert Christian DO - 06/20/2024 4:52 PM EDT I confirm that I was present for the romeo and critical portions of the service, including a review of the patient's history and other pertinent data. I personally examined the patient, and formulated the evaluation and/or treatment plan. I have reviewed the note of the house staff and agree with the findings documented in the note, with any exceptions as noted below. DO Mehran Zepedamerged with [facility] [place] documented in this encounter [facility] Work Phone: 06-06-2024 History of Present illness Narrative Images from the original note were not included. [facility] - [address] [address] Dept: [phone] Dept Loc: [phone] Visit type: New patient Dr. Bustamante Reason for Visit: Establish Care Assessment and Plan Recurrent pericarditis, resolved -see details in HPI -No further cardiac testing indicated at this time; EKG normal Hyperlipidemia, uncontrolled -LDL 157 (March 2024) -Continue with diet and lifestyle modification -He does not wish to pursue pharmacotherapy at this time; information given in AVS for Mediterranean diet -Repeat lipid panel yearly Follow up in about 1 year (around 06/06/2025). Subjective HPI 77yo M following with Dr. Bustamante for a remote history of recurrent pericarditis. He had a catheterization 20 years ago which was reported to be normal he had no symptoms to suggest a reoccurrence of his pericarditis. He last saw Dr. Bustamante in October 2023. He had an elevated LDL of 140 and wanted to trial diet and lifestyle modification prior to pharmacotherapy for primary prevention. Patient seen and examined in the office today to establish. He continues to do well from a cardiac standpoint. His biggest complaint is arthritis pain. He is active and enjoys horticulture. ROS as below. Review of Systems Constitutional: Negative for fatigue and unexpected weight change. Respiratory: Negative for shortness of breath. Cardiovascular: Negative for chest pain, palpitations and leg swelling. Musculoskeletal: Positive for arthralgias. Neurological: Negative for dizziness, syncope and light-headedness. Hematological: Does not bruise/bleed easily. Allergies Allergen Reactions Hydrocortisone Swelling Ibuprofen Swelling and Other nightmares/sleep disturbance, night terrors Aspirin Other Asthma Bacitracin-Polymyxin B Hives Loratadine Hives Dvclp-Utfzq-Wnxript-Pramoxine Other Esqtrtcb-Tcnnjntqb-Vcgboiincd Rash Sulfa Antibiotics Itching and Rash Current Outpatient Medications Medication Instructions azelastine (Astelin) 0.1 % nasal spray 1 spray, 2 times daily cholecalciferol (VITAMIN D-3) 5,000 Units, Daily cyanocobalamin (VITAMIN B-12) 1,000 mcg, Daily docusate sodium (Stool Softener) 150 MG/15ML oral liquid Every 24 hours fluticasone (Flonase) 50 MCG/ACT nasal spray 1 spray, Daily Multiple Vitamins-Minerals (PRESERVISION AREDS 2 PO) Take by mouth. Slow Fe 137 mg, Daily Past Medical History: Diagnosis Date Asthma Combined [...] SURGERY NOSE SURGERY 05/2014 turbinate reduction surgery ROOT CANAL 05/30/2024 d/t abcess SKIN CANCER EXCISION Left left calf TESTICLE SURGERY Left 08/29/2021 Dr. Cano TONSILLECTOMY (HISTORICAL) Family History Problem Relation Name Age of Onset Other (07908) Mother Pollee P Hruby lung disease Arthritis Mother Pollee P Hruby Fuchs' dystrophy Mother Pollee P Hruby Cataracts Mother Pollee P Hruby Thyroid disease Mother Pollee P Hruby Cancer Father Emma Hruby Jr Tumor in heart High Blood Pressure Father Emma Hruby Jr Heart disease Father Emma Hruby Jr heart tumor cardiac pacemaker Obesity Sister High Blood Pressure Brother Chau Hruby Fuchs' dystrophy Brother Chau Hruby Cataracts Brother Chau Hruby Thyroid disease Brother David S Hruby Fuchs' dystrophy Father's Sister Aurora Mota Cataracts Paternal Grandfather Emma Concepcion Hruby Stroke Paternal Grandfather Emma Concepcion Hruby Thyroid disease Daughter Glaucoma Neg Hx Macular degeneration Neg Hx Objective BP 108/64 (BP Location: Left arm, Patient Position: Sitting, BP Cuff Size: Adult) Pulse 57 Ht 5' 10 (1.778 m) Wt 238 lb (108 kg) BMI 34.15 kg/m Physical Exam Constitutional: General: He is not in acute distress. Appearance: Normal appearance. He is obese. HENT: Head: Normocephalic and atraumatic. Neck: Vascular: No JVD. Cardiovascular: Rate and Rhythm: Normal rate and regular rhythm. Pulses: Normal pulses. Heart sounds: No murmur heard. Pulmonary: Effort: Pulmonary effort is normal. No respiratory distress. Breath sounds: No wheezing or rales. Musculoskeletal: General: Normal range of motion. Right lower leg: No edema. Left lower leg: No edema. Neurological: Mental Status: He is alert and oriented to person, place, and time. Gait: Gait normal. Psychiatric: Mood and Affect: Mood normal. Thought Content: Thought content normal. Review of tests/labs done/ordered within my specialty: EKG in office: Sinus bradycardia Review of tests/labs done/ordered outside my specialty: Lipid panel, CBC, CMP Independent interpretation of tests: Rozina Stapleton MD Department of Cardiovascular Disease [facility] [place] documented in this encounter [facility] 06-06-2024 Instructions Rozina Stapleton MD - 06/06/2024 2:15 PM EDT ASCVD Risk The following attachments cannot be sent through Care Everywhere.Mediterranean Diet (Liberian)documented in this encounter [facility] 05-20-2024 History of Present illness Narrative Assessment/Plan Problem List Items Addressed This Visit Hypercholesterolemia Relevant Orders Lipid Panel Other Visit Diagnoses Routine general medical examination at health care facility - Primary Iron deficiency anemia, unspecified iron deficiency anemia type Relevant Orders CBC Routine general medical examination at a health care facility Incomplete bladder emptying Relevant Orders Lipid Panel CBC Comprehensive metabolic panel Anemia, unspecified type Relevant Orders Lipid Panel CBC Comprehensive metabolic panel Screening for multiple conditions Screening for cardiovascular condition Chronic right shoulder pain Relevant Orders Referral to Sports Medicine Tear of right supraspinatus tendon Relevant Orders Referral to Sports Medicine Depression screening was completed during this visit. PHQ9 score 0 which is/not consistent with a diagnosis of depression. We discussed results and determined appropriate treatment plan if warranted. Vaccinations: pt was recommended all vaccinations per guidelines regarding age and diagnosed conditions. Vaccinations were provided/given today as so ordered if the patient was amenable. If no vaccinations were provided, the patient declined after a risk/benefit discussion. Cardiovascular risk discussed and if needed, lifestyle modifications were recommended, including nutritional choices, exercise, and elimination of habits contributing to risk. We agreed on a plan to reduce the current cardiovascular risk. Aspirin use/disuse was discussed after reviewing updated guidelines. Subjective Patient ID: Robyn Ireland is a 78 y.o. male who presents for Medicare Annual Wellness Visit Subsequent. Incomplete bladder emptying Discussed potential treatments for BPH. Including finasteride and tamsulosin. He elects to treat with conservative management at this time and to spend more time urinating as opposed to going out of the bathroom too quickly. UA in office was negative. Bandlike sensation that he palpates is related to xiphoid process and likely tight musculature. Nothing of concern. Has had crowns and root canal on tooth 14 Has 2 ENT's Hasa large abscess in his left sinus cavity / above his tooth #14 On May 30 will be having this removed. Right shoulder continues to be problematic ;chiropractor in [place] is concerned about AC jiont. He is doing exercises Reaching around to get in the car; or just using it can be difficult. 1. Focal full-thickness insertional tearing of the central supraspinatus tendon (5 mm in width) and moderate grade partial interstitial tearing at the insertion of posterior supraspinatus tendon, superimposed on mild tendinosis. 2. Mild insertional tendinosis of infraspinatus and subscapularis tendons without discrete tear. 3. Kauf-ph-hnkeeybo acromioclavicular and glenohumeral joint arthrosis. 4. Small volume glenohumeral joint effusion with synovitis. Trace subacromial subdeltoid bursitis. 5. Moderate fatty atrophy of spinal origin/posterior belly of deltoid muscle (as seen on axial image 23/38 and sagittal image 7/40). This is a nonspecific finding and could be related to prior trauma versus chronic denervation change. 6. Mild intracapsular long head of biceps tendinosis with suggestion of mild extracapsular long head of biceps tenosynovitis. Living Will: Not Received Healthcare Power of Atty: Not Received Code Status: Living Will: ericka HCPOA: , Elizabeth Ireland Social History Tobacco Use Smoking Status Former Types: Pipe Quit date: 1975 Years since quittin.1 Passive exposure: Never Smokeless Tobacco Never Tobacco Comments Very occasional pipe smoker, back in early 1970s. Screening Tests: Colonoscopy 06/20/20; normal recall 10 years due 2030 Not indicated for lung cancer screening. Prostate Cancer Screening: Lab Results Component Value Date PSA 2.04 11/06/2023 PSA 3.22 09/17/2021 PSA 1.98 04/13/2021 Patient Self Assessment of Health Status Patient Self Assessment: Good Functional Ability/Level of Safety Cognitive Impairment Observed: No cognitive impairment observed Cognitive Impairment Reported: No cognitive impairment reported by patient or family Nutrition and Exercise Current Diet: Well Balanced Diet Adequate Fluid Intake: Yes Caffeine: Yes Exercise Frequency: Regularly ADL Screening Hearing - Right Ear: Difficulty with noise Hearing - Left Ear: Difficulty with noise Bathing: Independent Dressing: Independent Walks in Home: Independent IADL's Managing Finances: Independent Grocery Shopping: Independent Taking Medication: Independent Doing Housework: Independent Objective BP 96/58 (BP Location: Left arm, Patient Position: Sitting, BP Cuff Size: Large adult) Pulse 55 Temp 36.3 C (97.3 F) (Skin) Ht 1.753 m (5' 9) Wt 107 kg (236 lb 12.8 oz) SpO2 96% BMI 34.97 kg/m Physical Exam Constitutional: General: He is not in acute distress. Appearance: Normal appearance. He is not ill-appearing, toxic-appearing or diaphoretic. HENT: Head: Normocephalic and atraumatic. Eyes: Extraocular Movements: Extraocular movements intact. Pupils: Pupils are equal, round, and reactive to light. Cardiovascular: Rate and Rhythm: Normal rate and regular rhythm. Pulses: Normal pulses. Heart sounds: Normal heart sounds. Pulmonary: Effort: Pulmonary effort is normal. Breath sounds: Normal breath sounds. Neurological: Mental Status: He is alert. Trinh Loyola DO I spent a total of 30 minutes on the date of the service which included preparing to see the patient, [id number] patient care, completing clinical documentation, performing a medically appropriate examination, counseling and educating the patient/family/caregiver and ordering medications, tests, or procedures. documented in this encounter [facility] Work Phone: 05-04-2024 Note Date of Procedure 05/04/2024. 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 Start time: 1:38 PM. Stop time: 1:44 PM. Astigmatism Right Eye Regular. Left Eye Regular. Interval Change Right Eye Worse. Left Eye Same. ZEISS 05-04-2024 Instructions Orlando Duke MD - 05/04/2024 2:17 PM EST Images from the original note were not included. documented in this encounter [facility] 05-04-2024 Note HNO ID: [id number] Author: ORLANDO DUKE MD Service: ? Author Type: Physician Type: Progress Notes Filed: 05/04/2024 14:19 Note Text: Assessment and Plan 1. Fuchs' corneal dystrophy of both eyes -with some thickening both eyes 2. pseudophakia, both eyes -s/p cataract extraction with intraocular lens implantation with Dr. Monk -look great with minimal increase in corneal swelling 3. Dry eye syndrome both eyes -main complaint is tearing when in windy outdoors -history of chalazia Plan: -artificial tears as needed -follow-up 1 year with pentacam and dilated fundus exam both eyes / sooner as needed I have confirmed and edited as necessary the relevant ophthalmic history, ROS, and the neuro exam findings as obtained by others. I have seen and examined Robyn Ireland. I have discussed the case and the management of this patient's care with the Resident/Fellow, if applicable. I also have reviewed and agree with the assessment and plan as stated above and agree with all of its relevant components. Orlando Duke MD [facility] 05-04-2024 History of Present illness Narrative Assessment and Plan 1. Fuchs' corneal dystrophy of both eyes -with some thickening both eyes 2. pseudophakia, both eyes -s/p cataract extraction with intraocular lens implantation with Dr. Monk -look great with minimal increase in corneal swelling 3. Dry eye syndrome both eyes -main complaint is tearing when in windy outdoors -history of chalazia Plan: -artificial tears as needed -follow-up 1 year with pentacam and dilated fundus exam both eyes / sooner as needed I have confirmed and edited as necessary the relevant ophthalmic history, ROS, and the neuro exam findings as obtained by others. I have seen and examined Robyn Ireland. I have discussed the case and the management of this patient's care with the Resident/Fellow, if applicable. I also have reviewed and agree with the assessment and plan as stated above and agree with all of its relevant components. Orlando Duke MD documented in this encounter [facility] 03-17-2024 History of Present illness Narrative Subjective Patient ID: Robyn Ireland is a 78 y.o. male who presents for No chief complaint on file.. He is doing fine The bloodwork was interesting He went to the drugstore and got some b12 500mcg Vitamin B12 taking 2 tablets of this Tries to take thsi first thing in the morning Doesn't take it with orange juice For awhile was having difficulty w/ hemorrhoids; but now there is no issues there. Had made several changes to help w/ stool Small amount of oatmeal Bowel movements are not difficult Regular BM's, formed stool Colonoscopy report reviewed 06/20/20 recall 10 years Walking every day; primarily outside but will walk inside if can't get outside. Has been having a series of sinus infections; it has been getting worse and worse. 2 years in April had surgery He is considering a repeat sinus surgery His teeth are starting to become problematic thinks he's having a inus infection Has drainage out of tear ducts. Will need an opthalmology evaluate tear ducts Left hip has started bothering him more now Walking on pavement and walking stores is really hard By including this disclaimer in the medical record, it is documented that the patient has been informed of the nature and limitations of telehealth services and has consented to participate in them. This disclaimer serves as a record of the patient's agreement to receive medical care through telehealth technology provided by [facility]. As such, no vitals were taken during this visit and the physical exam was limited to the capacity that can be obtained virtually. Physical Exam: Constitutional: General: not in acute distress Appearance: normal appearance, non-toxic, not ill-appearing or diaphoretic. HENT: Head: Normocephalic and atraumatic Eyes: EOMI, PERRL Neuro: alert, oriented x3 Assessment/Plan Start taking vitamin b12 supplement & iron supplements Will recheck CBC and iron in 3 months If levels are still low we did discuss check FOBT Colonoscopy is up to date; however, if continues w/ anemia will determine need for colonoscopy if +FOBT In regards to recurrent sinusitis will continue w/ flonase & start azelastin; he is going to consider an additional sinus surgery w/ Dr. Walls Concern for blocked tear ducts; discussed following up w/ budget officer. 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 Appointment made documented in this encounter [facility] Work Phone: 03-10-2024 History of Present illness Narrative Subjective Patient ID: Robyn Ireland is a 78 y.o. male who presents for Cough (Deep, hacking, semi-productive with valverde mucus x 2 weeks). HPI Presents today for recurrent post nasal drainage that is making him cough Seeing ENT for this as well and CT schedule for tomorrow Had sinus infection in the beginning of January that last ed a few weeks and had did go on antibiotic which resolved it was 100 percent better. 2 weeks ago caught a cold again. Is better but still has post nasal drainage which is causing him to cough Has not been consistently using his flonase No fever Review of Systems Constitutional: Negative. HENT: As noted in HPI Respiratory: Negative. Cardiovascular: Negative. Musculoskeletal: Negative. Neurological: Negative. Psychiatric/Behavioral: Negative. Objective BP 122/80 (BP Location: Left arm, Patient Position: Sitting) Pulse 65 Temp 36.7 C (98 F) (Temporal) Wt 107 kg (236 lb) SpO2 97% BMI 33.86 kg/m Physical Exam Constitutional: Appearance: Normal appearance. HENT: Right Ear: Tympanic membrane, ear canal and external ear normal. Left Ear: Tympanic membrane, ear canal and external ear normal. Mouth/Throat: Mouth: Mucous membranes are moist. Pharynx: Oropharynx is clear. Cardiovascular: Rate and Rhythm: Normal rate and regular rhythm. Pulmonary: Effort: Pulmonary effort is normal. Breath sounds: Normal breath sounds. Musculoskeletal: General: Normal range of motion. Neurological: General: No focal deficit present. Mental Status: He is alert. Psychiatric: Mood and Affect: Mood normal. Behavior: Behavior normal. Assessment/Plan Problem List Items Addressed This Visit None Visit Diagnoses Codes Post-nasal drainage - Primary R09.82 Relevant Medications fluticasone (Flonase) 50 mcg/actuation nasal spray Acute cough R05.1 documented in this encounter [facility] Work Phone: 03-10-2024 Instructions WENDY Young - 03/10/2024 1:00 PM EST Please use the flonase as directed. Let us know in 1-2 week sif no better. documented in this encounter [facility] Work Phone: 11-09-2023 History of Present illness Narrative Subjective Patient ID: Robyn Ireland is a 77 y.o. male who presents for 6 Month Follow Up. Patient believes that he may have a URI/UTI and therefore urine sample obtained today. He is also here to follow-up on chronic health conditions including idiopathic pericarditis hypercholesterolemia asthma and [place] he does follow with ENT for seasonal allergic rhinitis and hypertrophy of nasal turbinates at our last visit in April of this year he was complaining of neck pain and diagnosed with to we had discussed his utilization of CPAP every night. Rticollis was following with physical therapy No updates on pericarditis for which we talked about his annual wellness exam but did occur in 2007. He did just have lab work completed that did show continued elevated cholesterol but relatively stable over time Separation of cartilage in heart? States he had this diagnosis and so he has to be cautious. However upon further evaluation it sounds like this is related to costochondritis. Patient is also been having dysuria. He endorses incomplete emptying of the bladder intermittently. No nocturia occasional weakened stream he states that if he focuses since having more time in the bathroom he does not become as quite an issue. But was looking for treatment plans to help improve the symptoms. He feels a band like tightness to palpation across his chest to be clear this is not chest pain or substernal chest painBut is with a feeling when he touches the top part of his abdomen it feels more like a bit and Objective BP 100/70 (BP Location: Left arm, Patient Position: Sitting, BP Cuff Size: Adult) Pulse 66 Temp 36.3 C (97.4 F) (Skin) Wt 105 kg (231 lb) SpO2 96% BMI 33.15 kg/m Physical Exam Constitutional: General: He is not in acute distress. Appearance: Normal appearance. He is not ill-appearing, toxic-appearing or diaphoretic. HENT: Head: Normocephalic and atraumatic. Eyes: Extraocular Movements: Extraocular movements intact. Pupils: Pupils are equal, round, and reactive to light. Cardiovascular: Rate and Rhythm: Normal rate and regular rhythm. Pulses: Normal pulses. Heart sounds: Normal heart sounds. Pulmonary: Effort: Pulmonary effort is normal. Breath sounds: Normal breath sounds. Neurological: Mental Status: He is alert. Assessment/Plan Diagnoses and all orders for this visit: Hypercholesterolemia Mild asthma without complication, unspecified whether persistent (HHS-HCC) Dysuria - POCT UA Automated manually resulted Anemia, unspecified type - Folate; Future - Vitamin B12; Future - Ferritin; Future - Iron and TIBC; Future - CBC and Auto Differential; Future Incomplete bladder emptying Discussed potential treatments for BPH. Including finasteride and tamsulosin. He elects to treat with conservative management at this time and to spend more time urinating as opposed to going out of the bathroom too quickly. UA in office was negative. Bandlike sensation that he palpates is related to xiphoid process and likely tight musculature. Nothing of concern. Trinh Loyola DO I spent a total of 47 minutes on the date of the service which included preparing to see the patient, [id number] patient care, completing clinical documentation, performing a medically appropriate examination, counseling and educating the patient/family/caregiver and ordering medications, tests, or procedures. documented in this encounter [facility] Work Phone: 09-30-2023 History of Present illness Narrative Subjective: Patient: Robyn Ireland is a 77 y.o. male HPI Robyn Ireland is 77 years old he was last seen in December he has a history of sleep apnea and a remote history of pericarditis. For his pericarditis he had use nonsteroidal. He currently lives in [facility]. He had a catheterization 20 years ago which was reported to be normal he had no symptoms to suggest a reoccurrence of his pericarditis and he uses a CPAP device for his sleep apnea. He is on no cardiac medications his last weight 239 during his last visit he remained active he had more complaints of arthritis. I asked him to continue his CPAP device. In the past he has had an elevated LDL of 140 I recommended a statin therapy he wanted to try diet first EKG was normal today presents in follow-up for her remote history of pericarditis and elevated lipids. Review of Systems Constitutional: Negative. HENT: Negative. Eyes: Positive for visual disturbance (catarac surgery see;sbetter). Respiratory: Negative. Cardiovascular: Positive for chest pain (Sharp bilateral last seconds, not consistent with anginal-like pain). Gastrointestinal: Negative. Endocrine: Negative. Genitourinary: Negative. Musculoskeletal: Negative. Skin: Negative. Allergic/Immunologic: Negative. Neurological: Negative. Hematological: Negative. Psychiatric/Behavioral: Negative. Allergies Allergen Reactions Hydrocortisone Swelling Ibuprofen Swelling and Other nightmares/sleep disturbance, night terrors Aspirin Other Asthma Bacitracin-Polymyxin B Hives Loratadine Hives Vybsg-Wssrx-Govyscf-Pramoxine Other Zbesermn-Frqxcpzys-Yxezbydwul Rash Sulfa Antibiotics Itching and Rash @MEDCMED@ Past Medical History: Diagnosis Date Asthma Combined forms of age-related cataract of both eyes DDD (degenerative disc disease), cervical Dermatochalasis of both upper eyelids Deviated septum Fuchs' corneal dystrophy of both eyes Hyperlipidemia Ocular migraine Osteoarthritis Lumbar Pericarditis PVD (posterior vitreous detachment), both eyes Sleep apnea Spondylosis Surgery, other elective Turbinate reduction Varicocele Left teste Visual floaters Past Surgical History: Procedure Laterality Date APPENDECTOMY [...] Problem Relation Name Age of Onset Other (49411) Mother Pollee P Hruby lung disease Arthritis Mother Pollee P Hruby Fuchs' dystrophy Mother Pollee P Hruby Cataracts Mother Pollee P Hruby Thyroid disease Mother Pollee P Hruby Cancer Father Emma Hruby Jr Tumor in heart High Blood Pressure Father Emma Hruby Jr Heart disease Father Emma Hruby Jr heart tumor cardiac pacemaker Obesity Sister High Blood Pressure Brother Chau Hruby Fuchs' dystrophy Brother Chau Hruby Cataracts Brother Chau Hruby Thyroid disease Brother David Carson Hruby Fuchs' dystrophy Father's Sister Aurora Mota Cataracts Paternal Grandfather Emma J Hruby Stroke Paternal Grandfather Emma Concepcion Hruby Thyroid disease Daughter Glaucoma Neg Hx Macular degeneration Neg Hx Social History Tobacco Use Smoking status: Former Types: Pipe Smokeless tobacco: Never Tobacco comments: Occasionally smoked a pipe, but NEVER SINCE Mar 30, 1975 Substance Use Topics Alcohol use: Yes Alcohol/week: 3.0 standard drinks of alcohol Types: 3 Cans of beer per week Objective: BP 130/70 (BP Location: Left arm, Patient Position: Sitting, BP Cuff Size: Adult) Pulse 69 Ht 5' 10 (1.778 m) Wt 233 lb (106 kg) SpO2 96% BMI 33.43 kg/m Physical Exam Vitals and nursing note [...] hyperlipidemia 2. Obstructive sleep apnea syndrome 3. Chronic idiopathic pericarditis, unspecified complication status Plan Robyn Ireland cardiac standpoint is stable he remains active doing all daily activities. He describes some sharp discomfort which by history is inconsistent with cardiac pain. His lipids have been elevated in the past. He has been watching his diet. He would be willing to repeat his lipid profile and decide if any further therapies would be indicated. He is able to continue to do all daily activities he has no symptoms of a recurrence of his pericarditis EKG following the fall showed a sinus rhythm. I did not see any utility of doing any more testing I have not seen in the office in 8 months. Leonardo Bustamante MD 09/30/2023 2:38 PM In preparation for this encounter, we have personally reviewed pertinent lab work, imaging, and cardiac testing. documented in this encounter [facility] 06-26-2023 History of Present illness Narrative Subjective Patient ID: Robyn Ireland is a 77 y.o. male. Chief Complaint: F/U right shoulder and neck pain HPI 77-year-old male presenting to the office for follow-up of right shoulder pain and neck pain. He has been seen in the past for right shoulder pain and has had an MRI in August 2022. There was noted to be a full-thickness tear of his right supraspinatus. He has gone through extensive physical therapy and received a right shoulder subacromial steroid injection in the past which has been of significant benefit. I saw patient approximately 2 weeks ago, when he was complaining of pain in the right shoulder, pointing to his deltoid. We decided at that time to undergo a repeat right shoulder subacromial injection of Kenalog/lidocaine. Presents to the office today stating that that injection was of benefit for his posterior shoulder pain, but now is pointing directly to his bicep tendon when describing shoulder pain. He is having difficulty with overhead reaching activities and is concerned about his upcoming canoeing season. He has continued to work with physical therapy twice a week, and sees a chiropractor. Physical therapy has also tried massage. He is still experiencing shoulder pain. He also complains of more musculature tight neck pain, which she is also working with physical therapy and the chiropractor with. He states that his shoulder pain is much more significant than his neck pain. The patient's past medical, surgical, family, and social history as well as allergies and medications were reviewed and updated in the chart. Objective Ortho Exam Pleasant and no acute distress. Right shoulder normal appearance, no overlying skin changes, no muscle atrophy. Right shoulder forward flexion 160 . No effusion or instability. There is positive Neer and Paez impingement. Tenderness to right cervical muscles and trapezius. There is subacromial crepitus and tenderness around the subacromial space. Biceps tenderness. No acromioclavicular tenderness. Rotator cuff strength is intact but there is discomfort with strength testing. [...] strength are intact. Sensation intact to light touch. Assessment/Plan Encounter Diagnoses: Cervical muscle pain, right shoulder pain, right shoulder rotator cuff tear and tendinitis Plan: An extensive discussion again with patient about previous MRI of the right shoulder and x-rays. Again conservative and surgical treatment options were discussed. As he had relief with a subacromial bursa injection and pain seems focal to his bicep tendon, I have reached out Dr. Samuel if he would think a ultrasound-guided injection into the bicep tendon would be of benefit. Dr. Samuel states that he would consider a ultrasound-guided biceps tendon injection 2 weeks following subacromial bursa injection. Therefore patient will be able to schedule ultrasound-guided injection next week. Patient also mention that he had discussed PRP with Dr. Samuel in the past as well. He will continue with physical therapy and seeing the chiropractor. Patient is also aware that speaking to a surgeon about possible surgical intervention may be needed if he does not see significant relief after the injections. I have also referred patient to pain management in regards to cervical neck pain. He will continue to avoid aggravating activities. He can take riko-owy-grrxmbc medications and apply ice. He will follow-up with Dr. Samuel for an ultrasound-guided right bicep tendon injection. documented in this encounter [facility] Work Phone: 06-12-2023 History of Present illness Narrative Associated Order(s): L Inj/Asp: R subacromial bursa Subjective Patient ID: Robyn Ireland is a 77 y.o. male. Chief Complaint: Follow-up right shoulder pain HPI 77-year-old male presenting to the office for follow-up of right shoulder pain. He has been seen in the past for right shoulder pain and has had an MRI in August 2022. There was noted to be a full-thickness tear of his right supraspinatus. He has gone through extensive physical therapy and received a right shoulder subacromial steroid injection of Kenalog/lidocaine, which was of significant benefit. He is continuing to have pain in right shoulder, pointing to his deltoid. He continues to go to physical therapy twice a week, and intermittently sees a chiropractor. States that physical therapy has been doing massage, which has provided minimal relief. He enjoys canoeing on a regular basis, and tends to notice pain is increased with canoeing activities. He denies any recent injury or redness or warmth to right shoulder. The patient's past medical, surgical, family, and social history as well as allergies and medications were reviewed and updated in the chart. Objective Ortho Exam Pleasant and no acute distress. Right shoulder normal appearance, no overlying skin changes, no muscle atrophy. Right shoulder forward flexion 160 . No effusion or instability. There is positive Neer and Paez impingement. There is subacromial crepitus and tenderness around the subacromial space. No biceps tenderness. No acromioclavicular tenderness. Rotator cuff strength is intact but there is discomfort with strength testing. [...] strength are intact. Sensation intact to light touch. Image Results: No further imaging was obtained today, but I did review at length the patient's previous MRI and shoulder x-rays. L Inj/Asp: R subacromial bursa on 06/12/2023 2:47 PM Indications: pain Details: 22 G needle, posterior approach Medications: 40 mg triamcinolone acetonide 40 mg/mL; 2 mL lidocaine 20 mg/mL (2 %) Procedure, treatment alternatives, risks and benefits explained, specific risks discussed. Consent was given by the patient. Assessment/Plan Encounter Diagnoses: Cervical muscle pain, right shoulder pain, right shoulder rotator cuff tear Plan: Discussion with patient about diagnoses with review of previous right shoulder MRI and x-rays. Conservative and surgical treatment options were discussed. Patient has also discussed with Dr. Samuel in the past, PRP was explained at length. If he is interested in PRP injection, he can follow-up with Dr. Samuel. He will continue with his physical therapy program and intermittently seeing the chiropractor. As patient has seen good relief from injections in the past, patient has agreed to proceed with right shoulder steroid injection today and tolerated well. Patient was advised if he does not see significant relief of symptoms with injection, continue physical therapy, neck step would be PRP injection versus speaking to a surgeon about possible surgical intervention. He will continue to avoid aggravating activities. He can take mdyb-esw-qzcjwjv medications and apply ice. He can follow-up with myself or Dr. Samuel as needed. documented in this encounter [facility] Work Phone: 05-13-2023 Telephone encounter Note Called pt on 05/13/23 @ 1147 to inform him he is okay to take flonase. Pt understood and was thankful for a quick response. [facility] 05-13-2023 Miscellaneous Notes Called pt on 05/13/23 [...] was on 04-07-23 documented in this encounter [facility] 05-13-2023 Telephone encounter Note Yes, that is fine to take flonase [facility] 05-12-2023 Telephone encounter Note Pt called on 05/12/2023 @ 1200. Pt states he has a sinus infection at the moments and was prescribed flonase. Pt would like to know if he is okay to take this. Last sx was on 04-07-23 [facility] 05-06-2023 History of Present illness Narrative Images from the original note were not included. [facility] [address] [facility] [address] Dept: [phone] Dept Loc: [phone] Visit type: Established patient Reason for Visit: [...] Other Asthma Bacitracin-Polymyxin B Hives Loratadine Hives Tpspt-Kyhjl-Tmwcgxy-Pramoxine Other Aekdsmld-Nyxlzqiyu-Ejqitdoqyh Rash Sulfa Antibiotics Itching and Rash Current [...] Problem Relation Name Age of Onset Other (83387) Mother Pollee P Hruby lung disease Arthritis Mother Pollee P Hruby Fuchs' dystrophy Mother Pollee P Hruby Cataracts Mother Pollee P Hruby Thyroid disease Mother Pollee P Hruby Cancer Father Emma Ireland Jr Tumor in heart High Blood Pressure Father Emma Ireland Jr Heart disease Father Emma Dianelys Kohli heart tumor cardiac pacemaker Obesity Sister High Blood Pressure Brother Uvaldo [place] Hruby Fuchs' dystrophy Brother Uvaldo [place] Hruby Cataracts Brother Uvaldo [place] Hruby Thyroid disease Brother David S Hruby Fuchs' dystrophy Father's Sister Aurora Mota Cataracts Paternal Grandfather Emma Ireland Stroke Paternal Grandfather Emma Ireland Thyroid disease Daughter Glaucoma Neg Hx [...] Periphery Normal Refraction Wearing Rx Sphere Cylinder [place] Add Right -0.25 +1.50 022 +2.75 Left +0.25 +2.25 152 +2.75 Type: PAL - Pt uses these for computer and reading with ease Manifest Refraction (Auto) Sphere Cylinder [place] Dist [place] Add Near VA Right -0.25 +1.00 007 Left [place] +1.50 149 Manifest Refraction #2 Sphere Cylinder [place] Dist VA Add Near VA Right -0.75 +1.25 010 20/20 +2.75 J1+ Left -0.75 +1.50 150 20/20 +2.75 J1+ Final Rx Sphere Cylinder [place] Add Right -0.75 +1.25 010 +2.75 Left -0.75 +1.50 150 +2.75 Expiration Date: 05/06/2024 Data Reviewed and Summarized No current labs Bran Monk MD documented in this encounter [facility] 04-15-2023 History of Present illness Narrative Images from the original note were not included. [facility] [address] [facility] [address] Dept: [phone] Dept Loc: [phone] Visit type: Established patient Reason for Visit: [...] Other Asthma Bacitracin-Polymyxin B Hives Loratadine Hives Mwckt-Xpczt-Fonkmqt-Pramoxine Other Kxslsrwb-Vpycnzejf-Xbstlopvib Rash Sulfa Antibiotics Itching and Rash Current [...] Problem Relation Name Age of Onset Other (13090) Mother Salas Ireland lung disease Arthritis Mother Salas Ireland Fuchs' dystrophy Mother Pollee P Hruby Cataracts Mother Salas P Hruby Thyroid disease Mother Salas P Hruby Cancer Father Emma [place] Tumor in heart High Blood Pressure Father Emma Hrdwayney Jr Heart disease Father Emma Ireland Jr heart tumor cardiac pacemaker Obesity Sister High Blood Pressure Brother Uvaldo [place] Hruby Fuchs' dystrophy Brother Uvaldo [place] Hruby Cataracts Brother Uvaldo [place] Hruby Thyroid disease Brother David Carson Hruby Fuchs' dystrophy Father's Sister Aurora Mota Cataracts Paternal Grandfather Emma Ireland Stroke Paternal Grandfather Emma Olveraubcathy Thyroid disease Daughter Glaucoma Neg Hx Macular [...] Bran Monk MD documented in this encounter [facility] 04-15-2023 Instructions BEVERLEY Lennon - 04/15/2023 10:45 AM EST 1 week Post-Operative Cataract Surgery Eye Drop Instructions Patient Name: Robyn Ireland : 1945 DATE: 04/15/2023 Directions for your surgical eye only: Instill only one (1) drop of medication Wait 3-5 minutes then install the next drop of medication. You may use them in any order. Ofloxacin (Valverde cap) Prednisolone Acetate (Severance or white cap) Ketorolac (Pate cap) Week 2 STOP 3 times a day 3 times a day Week 3 2 times a day 2 times a day Week 4 1 times a day 1 times a day Week 5 STOP STOP If you have any new change in clarity of vision, pain, or redness please call Dr. Monk's office at [phone]. documented in this encounter [facility] 04-08-2023 History of Present illness Narrative Images from the original note were not included. [facility] [address] [facility] [facility] [address] Dept: [phone] Dept Loc: [phone] Visit type: Established patient Reason for Visit: [...] once a day starting today. Ofloxacin last used:0800 Ketorolac last used:0805 Prednisolone last used: 08 Last edited by BEVERLEY Aguilera on 04/08/2023 10:00 AM. ROS Positive for: Eyes Last edited by BEVERLEY Aguilera on 04/08/2023 9:50 AM. Allergies Allergen Reactions Hydrocortisone Swelling Ibuprofen Swelling and Other nightmares/sleep disturbance, night terrors Aspirin Other Asthma Bacitracin-Polymyxin B Hives Loratadine Hives Ixpje-Krwdy-Bgfmxdm-Pramoxine Other reaction(s): Other Enarbbyj-Erhfdsary-Nohrdjcoga Rash Sulfa Antibiotics Itching and Rash Itching [...] Problem Relation Name Age of Onset Other (33333) Mother Pollee P Hruby lung disease Arthritis Mother Pollee P Hruby Fuchs' dystrophy Mother Pollee P Hruby Cataracts Mother Pollee P Hruby Thyroid disease Mother Pollee P Hruby Cancer Father Emma Hruby Jr Tumor in heart High Blood Pressure Father Emma Hruby Jr Heart disease Father Emma Hruby Jr heart tumor cardiac pacemaker Obesity Sister High Blood Pressure Brother Uvaldo [place] Hruby Fuchs' dystrophy Brother Chau Hruby Cataracts Brother Uvaldo [place] Hruby Thyroid disease Brother David S Hruby Fuchs' dystrophy Father's Sister Aurora Mota Cataracts Paternal Grandfather Emma Ireland Stroke Paternal Grandfather Emma Olveraubcathy Thyroid disease Daughter Glaucoma Neg Hx Macular [...] Bran Monk MD documented in this encounter [facility] 04-08-2023 Instructions BEVERLEY Aguilera - 04/08/2023 9:45 [...] first week Ofloxacin (Valverde cap) Prenisolone Acetate (Severance or white cap) Ketorolac (Pate cap) Week [...] redness please call Dr. Monk's office at [phone]. documented in this encounter [facility] 03-25-2023 History of Present illness Narrative Images from the original note were not included. [facility] [address] [facility] [address] Dept: [phone] Dept Loc: [phone] Visit type: Established patient Reason for Visit: [...] PC IOL Topical: [] @ [] @ [facility] [] Phaco with PC IOL Block: [] @ [] @ [facility] [] Complex phaco with PC IOL pupilloplasty: [] @ [] @ [facility] Follow up for surgery scheduled at right [...] Ketorolac last used: 0800 Prednisolone last used: 0805 Last edited by BEVERLEY Aguilera on 03/25/2023 10:17 AM. ROS Positive for: Eyes, Respiratory Last edited by BEVERLEY Aguilera on 03/25/2023 10:10 AM. Allergies Allergen Reactions Hydrocortisone Swelling Ibuprofen Swelling and Other nightmares/sleep disturbance, night terrors Aspirin Other Asthma Bacitracin-Polymyxin B Hives Loratadine Hives Dwvla-Dfcok-Pdzqjkh-Pramoxine Other reaction(s): Other Uoghfpay-Hjkpcicma-Tswcfatbrb Rash Sulfa Antibiotics Itching and Rash Itching [...] Problem Relation Name Age of Onset Other (67219) Mother Pollee P Hruby lung disease Arthritis Mother Pollee P Hruby Fuchs' dystrophy Mother Pollee P Hruby Cataracts Mother Pollee P Hruby Thyroid disease Mother Pollcynthia P Hruby Cancer Father Emma Ireland Jr Tumor in heart High Blood Pressure Father Emma Hrdwayney Jr Heart disease Father Emma Ireland Jr heart tumor cardiac pacemaker Obesity Sister High Blood Pressure Brother Uvaldo [place] Hruby Fuchs' dystrophy Brother Uvaldo [place] Hruby Cataracts Brother Uvaldo [place] Hruby Thyroid disease Brother David Carson Hruby Fuchs' dystrophy Father's Sister Aurora Mota Cataracts Paternal Grandfather Emma Concepcion Hrubcathy Stroke Paternal Grandfather Emma Olveraubcathy Thyroid disease Daughter Glaucoma Neg Hx Macular [...] Periphery Normal Refraction Wearing Rx Sphere Cylinder [place] Right -0.75 +1.50 018 Left -0.50 +2.00 148 Type: Bifocal Manifest Refraction Sphere Cylinder [place] Dist VA Add Near VA Right Left -0.50 +1.75 155 20/20 +2.75 J1+ Data Reviewed and Summarized No current labs Bran Monk MD documented in this encounter [facility] 03-25-2023 Instructions BEVERLEY Aguilera - 03/25/2023 10:00 AM EST 1 week Post-Operative Cataract Surgery Eye Drop Instructions Patient Name: Robyn Ireland : 1945 DATE: 03/25/2023 Directions for your surgical eye only: Instill only one (1) drop of medication Wait 3-5 minutes then install the next drop of medication. You may use them in any order. Ofloxacin (Valverde cap) Prednisolone Acetate (Severance or white cap) Ketorolac (Pate cap) Week 2 STOP 3 times a day 3 times a day Week 3 2 times a day 2 times a day Week 4 1 times a day 1 times a day Week 5 STOP STOP If you have any new change in clarity of vision, pain, or redness please call Dr. Monk's office at [phone]. documented in this encounter [facility] 03-24-2023 Telephone encounter Note Spoke to pt @ 3242. Pt c/o constipation s/p cataract extraction. Pt [...] upon her return to the office tomorrow. [facility] 03-24-2023 Miscellaneous Notes Spoke to pt @ 3837. Pt c/o constipation s/p cataract extraction. Pt [...] the office tomorrow. documented in this encounter [facility] 03-18-2023 Telephone encounter Note Pt called concerned [...] light. Pt expressed understanding and was thankful. [facility] 03-18-2023 Miscellaneous Notes Pt called concerned about [...] and was thankful. documented in this encounter [facility] 03-18-2023 History of Present illness Narrative Images from the original note were not included. [facility] [address] [facility] [address] Dept: [phone] Dept Loc: [phone] Visit type: Established patient Reason for Visit: [...] Other Asthma Bacitracin-Polymyxin B Hives Loratadine Hives Blcpi-Evyim-Pkidyvg-Pramoxine Other reaction(s): Other Lzbkbxvx-Xuxhynhpk-Xaauyxpzek Rash Sulfa Antibiotics Itching and Rash Itching [...] Problem Relation Name Age of Onset Other (02821) Mother Pollee P Hruby lung disease Arthritis Mother Pollee P Hruby Fuchs' dystrophy Mother Pollee P Hruby Cataracts Mother Pollee P Hruby Thyroid disease Mother Pollee P Hruby Cancer Father Emma Hruby Jr Tumor in heart High Blood Pressure Father Emma Hruby Jr Heart disease Father Emma Olverauby Jr heart tumor cardiac pacemaker Obesity Sister High Blood Pressure Brother Chau Hruby Fuchs' dystrophy Brother Chau Hruby Cataracts Brother Chau Hruby Thyroid disease Brother David S Hruby Fuchs' dystrophy Father's Sister Aurora Mota Cataracts Paternal Grandfather Emma Concepcion Hruby Stroke Paternal Grandfather Emma Concepcion Hruby Thyroid disease Daughter Glaucoma Neg [...] vitreous detachment Refraction Wearing Rx Sphere Cylinder [place] Right -0.75 +1.50 018 Left -0.50 +2.00 148 Type: Bifocal Data Reviewed and Summarized No current labs Bran Monk MD documented in this encounter [facility] 03-18-2023 Instructions BEVERLEY Lennon - 03/18/2023 10:15 [...] first week Ofloxacin (Valverde cap) Prenisolone Acetate (Severance or white cap) Ketorolac (Pate cap) Week [...] redness please call Dr. Monk's office at [phone]. documented in this encounter [facility] 03-12-2023 History of Present illness Narrative Subjective [...] - Primary Z01.818 documented in this encounter [facility] Work Phone: 03-12-2023 Instructions WENDY Young - 03/12/2023 9:45 AM EST Forms completed and will be faxed. documented in this encounter [facility] Work Phone: 03-04-2023 Telephone encounter Note Spoke with pt on 03-04-23 @ 1455. Went over surgery letter, eye drop instructions, and post op appointment. Pt showed understanding. Mailed letter out to pt. [facility] 03-04-2023 Miscellaneous Notes Spoke with pt on 03-04-23 @ 1455. Went over surgery letter, eye drop instructions, and post op appointment. Pt showed understanding. Mailed letter out to pt. documented in this encounter [facility] 03-03-2023 History of Present illness Narrative [place] today: left eye first documented in this encounter [facility] 02-17-2023 History of Present illness Narrative Associated [...] doing so. He has been taking some lgiq-flz-arsqnnx medications with minimal change in symptoms, he [...] Last Dose Status albuterol 90 mcg/actuation inhaler [id number] Yes Inhale 2 puffs if needed. Historical ProviderMD Taking Active cholecalciferol (Vitamin D-3) 125 MCG (5000 UT) capsule [id number] Yes Take 1 capsule (5,000 Units) by mouth once daily. Historical Provider, Taking Active fexofenadine ([facility]) 180 mg tablet [id number] Yes Take 1 tablet (180 mg) by mouth if needed. Historical Provider, Taking Active Allergies Allergen Reactions Hydrocortisone Swelling Aspirin Other asthma Bacitracin Zinc-Polymyxin B Hives Bacitracin-Polymyxin B Hives Claritin [Loratadine] Hives Ibuprofen Swelling and Other Night terrors Owmgs-Evggx-Qdbwezc-Pramoxine Other Wctmnkns-Kjuqyhivd-Skdufrnhoj Rash Sulfa (Sulfonamide Antibiotics) Itching, Rash and [...] to verify the correct patient, procedure, equipment, behaviour support teacher and site/side marked as required. Patient was [...] as symptoms dictate. documented in this encounter [facility] Work Phone: 02-10-2023 Telephone encounter Note Progress notes faxed to Dr Orlando Duke's office @ [phone]. Confirmation rec'd via fax that job was completed. Confirmation fax scanned into pt's chart. [facility] 02-10-2023 Miscellaneous Notes Progress notes faxed to Dr Orlando Duke's office @ [phone]. Confirmation rec'd via fax that job was completed. Confirmation fax scanned into pt's chart. Dr Monk requested pt be seen by Dr Orlando Duke at [facility]. Appointment was made for 03/02/2023 @ 6412. Dr Duke's office requested records be faxed to [phone]. Will fax progress notes tomorrow morning when signed and finalized. documented in this encounter [facility] 02-09-[address] Monk requested pt be seen by Dr Orlando Duke at [facility]. Appointment was made for 03/02/2023 @ 0745. Dr Duke's office requested records be faxed to [phone]. Will fax progress notes tomorrow morning when signed and finalized. [facility] 02-09-[address] Monk requested pt be seen by Dr Orlando Duke at [facility]. Appointment was made for 03/02/2023 @ 0745. Dr Duke's office requested records be faxed to [phone]. Will fax progress notes tomorrow morning when signed and finalized. documented in this encounter [facility] 02-09-2023 History of Present illness Narrative Images from the original note were not included. [facility] [address] [facility] [address] Dept: [phone] Dept Loc: [phone] Visit type: Established patient Reason for Visit: [...] eyes. I offered a second opinion from [facility] cornea specialist prior to cataract surgery. 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 Gale at [facility] in [place] . Subjective HPI Return 6 mos DFE [...] asthma asthma Bacitracin-Polymyxin B Hives Loratadine Hives Kpusu-Ytnpu-Aaoysgd-Pramoxine Other reaction(s): Other Mlcdmzpy-Dillcvoui-Yhnnzgatye Rash Sulfa Antibiotics Itching and Rash Itching [...] Problem Relation Name Age of Onset Other (63366) Mother lung disease Arthritis Mother Fuchs' dystrophy [...] Normal Normal Refraction Wearing Rx Sphere Cylinder [place] Right -0.75 +1.50 018 Left -0.50 +2.00 148 Age: 6m Type: Bifocal Manifest Refraction Sphere Cylinder [place] Dist VA Near VA Right -0.75 +1.50 018 20/20- J1+ Left -0.50 +2.00 148 20/25- J2 Data Reviewed and Summarized No current labs Bran Monk MD documented in this encounter [facility] 02-09-2023 History of Present illness Narrative Images from the original note were not included. [facility] [address] [place] [address] Dept: [phone] Dept Loc: [phone] Visit type: Established patient Reason for Visit: [...] eyes. I offered a second opinion from [facility] cornea specialist prior to cataract surgery. Fuchs' [...] for referral to Cornea: Dr. Gale at [facility] in [place] . Subjective HPI Return 6 mos DFE [...] asthma asthma Bacitracin-Polymyxin B Hives Loratadine Hives Qbuff-Wario-Abyygqn-Pramoxine Other reaction(s): Other Covrdeet-Jzjhdytil-Yhtqbtxhug Rash Sulfa Antibiotics Itching and Rash Itching [...] Problem Relation Name Age of Onset Other (89070) Mother lung disease Arthritis Mother Fuchs' dystrophy [...] Normal Normal Refraction Wearing Rx Sphere Cylinder [place] Right -0.75 +1.50 018 Left -0.50 +2.00 148 Age: 6m Type: Bifocal Manifest Refraction Sphere Cylinder [place] Dist VA Near VA Right -0.75 +1.50 018 20/20- J1+ Left -0.50 +2.00 148 20/25- J2 Data Reviewed and Summarized No current labs Bran Monk MD documented in this encounter [facility] 01-13-2023 History of Present illness Narrative Subjective: [...] active doing daily activities. He lives in [facility]. Blood work and renal function in the [...] asthma asthma Bacitracin-Polymyxin B Hives Loratadine Hives Hjmjc-Uuaue-Xcrlgpj-Pramoxine Other reaction(s): Other Ptkoovdx-Hnnbylkwo-Pqtnqxhgih Rash Sulfa Antibiotics Itching and Rash Itching [...] Problem Relation Name Age of Onset Other (56061) Mother lung disease Arthritis Mother Fuchs' dystrophy [...] of a new family physician in the [facility]. He will contact me should he have difficulties Leonardo Bustamante MD 01/14/2023 6:50 AM In preparation for this encounter, we have personally reviewed pertinent lab work, imaging, and cardiac testing. documented in this encounter [facility] 12-22-2022 History of Present illness Narrative Subjective [...] skin changes R23.8 documented in this encounter [facility] Work Phone: 12-22-2022 Instructions WENDY Young - 12/22/2022 1:30 PM EDT Will continue to monitor your cholesterol yearly. If lesion on face continues to change please return to the form maker. documented in this encounter [facility] Work Phone: 11-24-2022 History of Present [...] Carla Alfredo MD documented in this encounter [facility] Work Phone: 11-24-2022 Instructions Carla Alfredo MD - 11/24/2022 12:30 PM EDT Medicare wellness visit in February,. Dermatology referral placed. documented in this encounter [facility] Work Phone: 05-29-2022 History of Present illness Narrative Images from the original note were not included. [facility] [address] [facility] [address] Dept: [phone] Dept Loc: [phone] Visit type: New patient Reason for Visit: Cataract and Spots and/or Floaters Assessment and Plan 1. Combined forms of age-related cataract of both eyes: visually significant but will wait until next Winter when he is not outdoors and canoeing. 2. Fuchs' corneal dystrophy of both eyes: mild, positive family history of brother and mother with corneal transplants. CCT: baseline today 596, 581 No edema on exam Plan: CCT yearly or as needed We discussed increased risk of corneal decompensation after cataract surgery. Monitor 3. PVD (posterior vitreous detachment), both eyes; monitor 4. Dermatochalasis of both upper eyelids: mild monitor 5. Ocular migraine: discussed triggers and to call an be seen by PCP if change increased or occur with new symptoms. 6. Obstructive sleep apnea syndrome: on CPAP. Discussed increased risk of heart disease if not on CPAP with [facility]. 7. Myopia with astigmatism and presbyopia: Rx glasses given Follow up for will plan to do his cataracts next winter due to his canoeing in summer . Subjective HPI Spots and/or Floaters Laterality: both eyes Comments Patient states he has had a floater in his left eye for about 6 months, and a feather looking object in his left eye. The right half of his right eye is cloudy and he is constsantly turning his head. He is not able to read with his left eye anymore because his vision is not good. He feels his vision has gotten worse in the last 6 months. Every couple of months he gets an ocular migraine and loses his central vision. Sometimes he gets a headache afterwards, but not always. It is frightening when he can't see out the center of his eye. He denies flashes of light except when he has ocular migraines. This started only a few years ago. He has cataracts. He has Fuchs and a history of it on both sides of the family. Glasses are less than a year old. Last edited by Chanda Wooten on 05/29/2022 11:13 AM. ROS Positive for: HENT, Cardiovascular, Eyes Negative for: Constitutional, Gastrointestinal, Neurological, Skin, Genitourinary, Musculoskeletal, Endocrine, Respiratory, Psychiatric, Allergic/Imm, Heme/Lymph Last edited by Chanda Wooten on 05/29/2022 11:01 AM. Allergies Allergen Reactions Bacitracin-Polymyxin B Hives Dgesswgl-Npsvjwxhf-Ezhppajlui Rash Sulfa Antibiotics Itching and Rash Itching Outpatient Medications Prior to Visit Medication Sig Dispense Refill cholecalciferol (Vitamin D-3) 125 MCG (5000 UT) capsule Take 5,000 Units by mouth daily. No facility-administered medications prior to visit. Past Medical History: Diagnosis Date Asthma DDD (degenerative disc disease), cervical Deviated septum Hyperlipidemia Osteoarthritis Lumbar Pericarditis Sleep apnea Spondylosis Surgery, other elective Turbinate reduction Varicocele Left teste Social History Tobacco Use Smoking status: Never Smokeless tobacco: Never Substance Use Topics Alcohol use: Yes Alcohol/week: 3.0 standard drinks Past Surgical History: Procedure Laterality Date APPENDECTOMY CARDIAC CATHETERIZATION Left 08/2007 normal exam FRACTURE SURGERY Right FX leg NASAL SEPTUM SURGERY NOSE SURGERY 05/2014 turbinate reduction surgery SKIN CANCER EXCISION Left left calf TESTICLE SURGERY Left 08/29/2021 Dr. Cano TONSILLECTOMY (HISTORICAL) Family History Problem Relation Name Age of Onset Other (81753) Mother lung disease Arthritis Mother Fuchs' dystrophy Mother Cancer Father Tumor in heart High Blood Pressure Father Heart disease Father heart tumor cardiac pacemaker Obesity Sister High Blood Pressure Brother Fuchs' dystrophy Brother Thyroid disease Daughter Objective Base Eye Exam Visual Acuity (Snellen - Linear) Right Left Dist cc 20/25 +2 20/25 +2 Correction: Glasses Tonometry (Applanation, 11:35 AM) Right Left Pressure 10 8 Pachymetry (05/29/2022) Right Left Thickness 596 581 Pupils Pupils Dark Light APD Right PERRL 3 2 None Left PERRL 3 2 None Visual Mclaughlin Right Left Full Full Extraocular Movement Right Left Full, Ortho Full, Ortho Neuro/Psych Oriented x3: Yes Mood/Affect: Normal Dilation Both eyes: 2.5% Phenylephrine, 1.0% Tropicamide @ 11:36 AM Additional Tests Glare Testing (BAT) Off Medium High Right 20/40 ------- ------- Left 20/40 20/60 20/80 Slit Lamp and Fundus Exam External Exam Right Left External Normal Normal Slit Lamp Exam Right Left Lids/Lashes 1+ Dermatochalasis - upper lid, 1+ Meibomian gland dysfunction 1+ Dermatochalasis - upper lid, 1+ Meibomian gland dysfunction Conjunctiva/Sclera White and quiet White and quiet Cornea 1-2+ Guttata, FTBUT 1-2+ Guttata, FTBUT Anterior Chamber Deep and quiet Deep and quiet Iris Round and reactive Round and reactive Lens 2+ Nuclear sclerosis, 1+ Cortical cataract 2+ Nuclear sclerosis, 1+ Cortical cataract Anterior Vitreous Posterior vitreous detachment Posterior vitreous detachment Fundus Exam Right Left Disc Normal Normal C/D Ratio 0.3 0.3 Macula Normal Normal Vessels Normal Normal Periphery Normal Normal Refraction Wearing Rx Sphere Cylinder [place] Right -0.75 +1.25 005 Left -0.25 +2.25 148 Manifest Refraction Sphere Cylinder [place] Dist VA Add Near VA Right -1.00 +1.25 015 20/25 +2.75 J1+ Left -0.25 +1.75 150 20/25+2 +2.75 J1+ Final Rx Sphere Cylinder [place] Add Right -1.00 +1.25 015 +2.75 Left -0.25 +1.75 150 +2.75 Expiration Date: 05/30/2023 Data Reviewed and Summarized No current labs Bran Monk MD documented in this encounter [facility] 03-25-2022 History of Present illness Narrative Patient [...] shoulder treatment as per MD order. [facility] Work Phone: 12-22-2021 History of Present illness [...] patient once results of MRI are complete. [facility] Work Phone: 2021 History of Present [...] swelling, no redness or warmth. -[facility] [address] Work Phone: 10-21-2021 Chief complaint Narrative - Reported An interactive audio and video telecommunication system which permits real time communications between the patient (at the originating site) and provider (at the distant site) was utilized to provide this telehealth service.Verbal consent was requested and obtained from ROBYN IRELAND on this date, 10/21/2021 01:00 PM , for a telehealth visit.VaricoceleAnorgasmiaLow T FW-Xctzqpk-Wzlryr Work Phone: 10-21-2021 History of Present illness [...] 22, PSA 3.22, A1C 5.3-T 11/30/21: 313 YK-Reotwlk-G[facility] [place] Work Phone: 09-16-2021 History of Present illness Narrative 75 yo M here for varicocele and anorgasmiaLast visit 09/16/21:-UA/CX/ureaplasma/mycoplas ma-pelvic floor PT-monitor symptoms during masturbation vs intercourse-ED [...] 7.1, E 22, PSA 3.22, A1C 5.3 QP-Lymakwc-Stysbq [facility] Work Phone: 09-04-2021 History of Present illness Narrative This is a pleasant 75-year-old snelr-ecps-zikrrgku male presenting to the office for returning [...] be indicated. He will follow-up as needed. -[facility] [employer] 100 DO Work Phone: 09-03-2021 History of Present illness Narrative This is a pleasant 75-year-old ecerp-wavf-iokounqh male presenting to the office for returning [...] be indicated. He will follow-up as needed. -[facility] [employer] 100 DO Work Phone: 08-29-2021 History [...] rete testis.#Anorgasmia-loses sensation during intercourse-has low BP TW-Ainqcad-Sugdhe Work Phone: 08-29-2021 History of Present illness [...] eat pineapple, but blends it with cantaloupe. TILE PROFESSIONAL suggested crushed pineapple. A repeat MBSS was [...] Thank you for this referral. [facility] Work Phone: 06-07-2021 History of Present illness [...] of obstruction in valleculae, especially with pineapple. TILE PROFESSIONAL recommended canned, crushed pineapple if he wants to continue to eat pineapple. Mr. Ireland is well known to TILE PROFESSIONAL from previous swallow studies and subsequent dysphagia treatment starting in 2019. Mr. Ireland admitted to eating/drinking fast at times, taking larger bites/sips, and not always alternating solids/liquids. TILE PROFESSIONAL showed MBSS video to Mr. Ireland and [...] therapyRepeat: MBSS, when clinically indicated [facility] Work Phone: 05-28-2021 History of Present illness [...] a slow rate.MBSS VIDEO IN PACS [facility] Work Phone: 05-08-2021 History of Present [...] denies any swelling, no redness or warmth. [employer] [address] A DO Work Phone: 01-31-2021 History of Present illness Narrative Pleasant 75-year-old nawgl-irlk-geemupzd male presenting for shoulder pain. Onset of [...] last few weeks with moving heavy snow. [employer] [address] A DO Work Phone: 09-25-2019 History of [...] He denies any new injuries or symptoms. -[facility] [employer] Work Phone: 02-27-2019 History of Present illness [...] clear. Prominent cricopharyngeus at C4-C5.MBSS VIDEO IN [facility] Recommendations:Liquid consistencies: thin (IDDSI level 0)Solid consistencies: regular (IDDSI Level 7)NOMS swallow score: mild: level 6Feeding strategy recommendations: small bites, small sips, hard/effortful swallow, double/multiple swallows, slow rate , alternate consistencies, up 90 degrees for all intake by mouth and remain upright for 30 minutes after mealAdditional recommendations: outpatient skilled speech therapyRepeat: MBSS, when clinically indicated [facility] Work Phone: 02-27-2019 History of Present [...] skilled speech therapyRepeat: MBSS, when clinically indicated [facility] Work Phone: 10-04-2009 History of Present illness Narrative Patient presents to the office today to Establish with a Varicocele. Painful -11/06. Recently Dr Jony Cano at [facility] did Embolization of the Varicocele (08/29/2021). Since [...] Hx of Kidney Stones.No Hx of UTI's. [facility] Work Phone: Chief complaint Narrative - Reported Varicose vein in testicle would like referral. [facility] Work Phone: Evaluation note Diagnosis Varicocele Scrotal varices documented in this encounter [facility] Work Phone: Evaluation noteNo assessment information available [facility] Work Phone: Evaluation note* Diagnosis Healthcare maintenance- Primary Disorder of cartilage, unspecified H/O squamous cell carcinoma documented in this encounter [facility] Work Phone: Evaluation note* Diagnosis Hypercholesterolemia- Primary Pure hypercholesterolemia Need for vaccination Need for prophylactic vaccination and inoculation against unspecified single disease Other skin changes documented in this encounter [facility] Work Phone: Evaluation note* Diagnosis Mixed hyperlipidemia- Primary Obstructive sleep apnea syndrome Obstructive sleep apnea (adult) (pediatric) Mild intermittent asthma without complication Chronic idiopathic pericarditis, unspecified complication status documented [facility] this [facility]* Diagnosis Fuchs' corneal dystrophy of both eyes- Primary Combined forms of age-related cataract of both eyes PVD (posterior vitreous detachment), both eyes Dermatochalasis of both upper eyelids documented in this encounter [facility] note* Diagnosis Primary osteoarthritis of right knee- Primary Right knee pain Pain in joint, lower leg documented in this encounter [facility] Work Phone: Evaluation note* Diagnosis Combined forms of age-related cataract of both eyes- Primary [facility]* Diagnosis Fuchs' corneal dystrophy of both eyes- Primary Combined forms of age-related cataract of both eyes PVD (posterior vitreous detachment), both eyes Dermatochalasis of both upper eyelids [facility] this [facility]* Diagnosis Pre-operative clearance- Primary Unspecified pre-operative examination Combined forms of age-related cataract of both eyes Hypercholesterolemia Pure hypercholesterolemia documented in this encounter [facility] Work Phone: Evaluation note* Diagnosis 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 documented in this [facility]* Diagnosis 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 documented in this [facility]* Diagnosis Combined forms of age-related cataract of both eyes- Primary PVD (posterior vitreous detachment), both eyes documented in this [facility]* Diagnosis Combined forms of age-related cataract of both eyes- Primary documented in this [facility]* Diagnosis 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 [facility] in this [facility]* Diagnosis Postauricular lymphadenopathy Enlargement of lymph nodes documented in this encounter [facility] Work Phone: Evaluation note* Diagnosis Bilateral shoulder pain, unspecified chronicity documented in this encounter [facility] Work Phone: Evaluation note* Diagnosis Nontraumatic incomplete tear of rotator cuff, right- Primary Cervical muscle pain Chronic right shoulder pain Pain in joint, shoulder region documented in this encounter [facility] Work Phone: Evaluation note* Diagnosis Onset Date Resolution Status COVID-19 [facility] Work Phone: Evaluation note* Diagnosis Cervical muscle pain Chronic right shoulder pain Pain in joint, shoulder region Nontraumatic incomplete tear of rotator cuff, right documented in this encounter [facility] Work Phone: Evaluation note* Diagnosis Mixed hyperlipidemia- Primary Obstructive sleep apnea syndrome Obstructive sleep apnea (adult) (pediatric) Chronic idiopathic pericarditis, unspecified complication status Sleep apnea, unspecified type [facility] this [facility]* Diagnosis Post-nasal drainage- Primary Other diseases of nasal cavity and sinuses Acute cough documented in this encounter [facility] Work Phone: Evaluation note* Diagnosis 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 PVD (posterior vitreous detachment), both eyes Dermatochalasis of both upper eyelids Ocular migraine Variants of migraine, not elsewhere classified, without mention of intractable migraine without mention of status migrainosus Obstructive sleep apnea syndrome Obstructive sleep apnea (adult) (pediatric) Myopia of both eyes with astigmatism and presbyopia [facility] this 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 documented in this encounter [facility] Work Phone: Evaluation note* Diagnosis Fuchs' corneal dystrophy of both eyes- Primary Pseudophakia Lens replaced by other means Dry eye syndrome of both eyes [facility] Diagnosis Routine general medical examination at health care facility- Primary Routine general medical examination at a health care facility Iron deficiency anemia, unspecified iron deficiency anemia type Routine general medical examination at a health care facility Incomplete bladder emptying Anemia, unspecified type Hypercholesterolemia Pure hypercholesterolemia Screening for multiple conditions Multiphasic screening Screening for cardiovascular condition Screening for other and unspecified cardiovascular conditions Chronic right shoulder pain Pain in joint, shoulder region Tear of right supraspinatus tendon documented in this encounter [facility] Work Phone: Evaluation note* Diagnosis Idiopathic pericarditis, unspecified chronicity Mixed hyperlipidemia [facility] this [facility]* Diagnosis Chronic right shoulder pain Pain in joint, shoulder region Tear of right supraspinatus tendon Tear of left rotator cuff, unspecified tear extent, unspecified whether traumatic documented in this encounter [facility] Work Phone: Evaluation note* Diagnosis Bronchitis- Primary Bronchitis, not specified as acute or chronic Cough, unspecified type documented in this encounter [facility] Work Phone: Evaluation note* Diagnosis Rotator cuff tear Rotator cuff (capsule) sprain and strain documented in this encounter [facility] Work Phone: [phone] note* Diagnosis Tear of left rotator cuff, unspecified tear extent, unspecified whether traumatic documented in this encounter [facility] Work Phone: [phone] note* Diagnosis Tear of right supraspinatus tendon documented in this encounter [facility] Work Phone: [phone] note* Diagnosis Non-traumatic rotator cuff tear, right- Primary 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 Chronic right shoulder pain Pain in joint, shoulder region documented in this encounter [facility] Work Phone: Evaluation note* Diagnosis Tear of left rotator cuff, unspecified tear extent, unspecified whether traumatic- Primary Tear of right rotator cuff, unspecified tear extent, unspecified whether traumatic documented in this encounter [facility] Work Phone: Evaluation note* Diagnosis Non-traumatic rotator cuff tear, right- Primary Chronic right shoulder pain Pain in joint, shoulder region documented in this encounter [facility] Work Phone: Evaluation note* Diagnosis Fuchs' corneal dystrophy of both eyes- Primary Pseudophakia Lens replaced by other means Dry eye syndrome of both eyes CME (cystoid macular edema), 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 He now has issues with his right hip and back. At [address] Finch and rick. He would prefer to go someplace closer to home. I am sending him downstairs for an x-ray of his right hip and LS-spine. They will also give him a disc of the images to take with him when he goes to see Dr. Brandon Castellano in [facility]. * 3. Lesions on Scalp: * The [...] consultation regarding his ankle pain * 4 [place]: * He has a small corn over [...] is currently using Dr. Sánchez is his feather curling machine operator and is very pleased with the service he has been receiving. He was also referred to Dr. Nicholas Johnson as a professor of genetics. * There are no spiritual/cultural practices/values/needs that are important to know * Initial Fall Risk Screening: * ROBYN has not fallen in the last 6 months. -[facility] Work Phone: History of Present illness Narrative* [...] of motion/joint mobility and strength. [facility] Work Phone: History of Present illness Narrative* Reviewed HEP, added RC strengthening ther ex and GH AAROM exercises and issued new printed HEP. Mild posterior GH pain reported with TB rows that resolved with posterior capsule stretch. Cont progressing ROM/strengthening as stephon for resumption of full rowing routine as able without symptoms. * Patient was able to complete today's treatment with some difficulty. [facility] Work Phone: Hisrouz of Present illness Narrative* Stopped UBE secondary to pt report of increased pain. Added TB IR to improve RC strength, increasedreps of TB ER. Introduced shoulder PROM to improve ROM. No increased pain reported post tx vs pre-tx. Cont with PROM at next session, review shoulder AAROM/flexibility. * Patient was able to complete today's treatment with some difficulty. [facility] Work Phone: History of Present illness [...] to complete today's treatment with some difficulty. [facility] Work Phone: history of Present illness Narrative* Diet Recommendations: * [...] therapy * Repeat: MBSS, when clinically indicated [facility] Work Phone: History of Present illness Narrative* [...] to complete today's treatment with some difficulty. [facility] Work Phone: Histpmj of Present illness Narrative* Patient is a 75 year male who presents with signs/symptoms consistent with R and L greater trochanteric bursitis: increased pain, decreased hip AROM, decreased hip/LE strength, decreased ability as assessed by the LEFS. Patient would benefit from skilled PT to improve hip AROM, improve hip/LE strength for return to PLOF: able to hike, walk in [employer] without hip pain. Barriers to patient s [...] of motion/joint mobility and strength. [facility] Work Phone: History of Present illness Narrative* Pain limits R GH flex and scaption PROM, max VC to relax during PROM. Focused on shoulders/manual secondary pt report with increased pain with ROM during gardening chores - reviewed HEP, cont progressing ROM/flexibility as stephon for decreased symptoms with ADLs. * Response to treatment: no change in pain. [facility] Work Phone: History of Present illness Narrative* [...] today's treatment with some difficulty. [facility] Work Phone: History of Present illness Narrative* Patient here for varicose vein in testicle. He has a varicocele on his left testicle. Has had it x 20 years. Was told previously that there is nothing they can do but recently there have been procedures that they can do to help. He called his feather curling machine operator, Dr Rios, and he recommended a Dr Ghulam Samuel. He does have pain. It is starting to affect his life. * He has seen Dr Henry Castellano for urology. He was [facility]. * He also had a recent URI and just finished his abx and prednisone. He is still having coughing spells. He does have a history of asthma. He is taking mucinex and paradise. Flonase is helping. [facility] Work Phone: History of Present illness [...] complete today's treatment with ease. [facility] Work Phone: History of Present illness Narrative* [...] he sees a physical therapist Macarena at [facility]. I have also provided patient with a referral to the [facility] program for possible alternative therapies such as dry needling or acupuncture. He will continue to rest and modify activities, easing back pain. He can ice and use heat application as needed. He will follow-up in 2 weeks for reevaluation. If patient is continuing to have lower back symptoms, x-rays of the lumbar spine and possible MRI of lumbar spine may be indicated. -[facility] Work Phone: History of Present illness [...] range of motion/joint mobility and strength. [facility] Work Phone: History of Present illness Narrative* [...] patient once results of MRI are complete. -[facility] DO Work Phone: History of [...] activity to decrease back pain. [facility] Work Phone: History of Present illness NarrativePatient tolerated treatment without increased pain. Patient has Fair TrA and keeps intact with ther-ex. Patient has good form/understanding with ther-ex and keeps body in good alignment. Patient needing one UE support with LE ther-ex and no support with 100% unloading. Continue with core stability while performing dyn activity to decrease back pain.[facility] Work Phone: History of Present illness NarrativePatient tolerated treatment without increased pain. Patient has Fair TrA and keeps intact with ther-ex. Patient Has good form/understanding with ther-ex and keeps body in good alignment. Patient needing one UE support with LE ther-ex and no support with 100% unloading. Continue with core stability while peforming dyn activity to decrease back pain. [facility] Work Phone: History of Present illness NarrativePatient tolerated treatment without increased pain. Patient has Fair TrA and keeps intact with ther-ex. Patient needing no UE support with LE ther-ex or with 100% unloading. Patient has good form/understanding with ther-ex and keeps body in good alignment. Continue with core stability to improve low back pain and improve sleeping, standing, ambulation. [facility] Work Phone: history of Present illness NarrativePatient confirmed name and date of . Reviewed TrA contraction with patient, compensation noted. [facility] Work Phone: history of Present illness Narrative* Patient confirmed name and date of . Reviewed TrA contraction with patient, compensation noted. CORINE * Pt has improved significantly in his pain levels since beginning aquatic PT services. He also demosfunctional improvements including no longer requiring an assistive device to ambulate (used SC at [facility]). Despite these improvements he is still reporting pain in low back and would benefit from continued PT services in order to further reduce pain so that he can perform outdoor activities safely and painfree. MP. [facility] Work Phone: history of Present illness NarrativePatient confirmed name and date of . Patient demonstrates fair trunk control with UE/LE exercises, some loss from having a 3 week break. Cues for Tra contraction and no flexed posture with dumbbell rolls. Some fatigue noted in R shoulder from UE paddles, no increased pain. Reduction pain with unloading.[facility] Work Phone: history of Present illness NarrativePatient confirmed name and date of . Patient able to progress to dumbbell rotation and side bends to promote lumbar mobility to allow for improved lumbar ROM with yard work. Added bwd step taps today to work on core control and extension bias.[facility] Work Phone: history of Present illness NarrativePatient confirmed name and date of . Added lunges facing shallow end, patient required cues for good form. No c/o of increased pain. Patient showed good tolerance to addition of reps, good trunkstability. Patient maintains trunk stability throughout session.[facility] Work Phone: history of Present illness NarrativePatient confirmed name and date of . Patient demonstrates increased trunk control with UE/LE exercises, able to move through all reps without noted fatigue or c/o of increased pain. Noted LE weakness with bwd step ups, performed 5 reps today. Cues to keep trunk from rotation with skiing duringunloading. [facility] Work [facility]: history of Present illness Narrative* [...] addressing LE strength, core strength, and flexibility. [facility] Work Phone: history of Present illness NarrativePatient confirmed name and date of . Patient showed slight balance deficits with UE/LE exercises without UE assist. Held lateral lunges today secondary to lack of time. Patient is going to send PT Corinne a script from to address shoulder pain.[facility] Work Phone: history of Present illness NarrativePatient confirmed name and date of . Added addition shoulder strengthening with patient demonstrating good tolerance and fair strength. Patient shows improved scapular engagement with postural strengthening. Improved trunk control with unloading, less sway and rotation noted.[facility] Work Phone: history of Present illness Narrative* [...] improvements noted in lumbar AROM, MMT in BLEs as well as significant subjective report of improvement with CHELSEY score improving from 60% at eval to only 10% disability at D/C. Pt reported good understanding of all edu and up dates to HEP made this date and is appropriate to attempt independence with HEP and symptom management at this time. [facility] Work Phone: history of Present illness [id number]-[id number]-gor tkuye-[id number]-aowllgvr male presenting for follow-up of right shoulder [...] more diligently with more recentaggravation of pain.- [facility] [employer] [facility] Work Phone: Hospital Discharge instructions* Instructions* [...] call and ask for the Interventional Radiologist almond paste mixer. IF YOU REPORT TO AN EMERGENCY ROOM, DOCTOR'S OFFICE OR HOSPITAL WITHIN 24 HOURS AFTER YOUR PROCEDURE, BRING THIS SHEET AND YOUR AFTER VISIT SUMMARY WITH YOU AND GIVE IT TO THE PHYSICIAN OR NURSE ATTENDING YOU. * Attachments The following attachments cannot be sent through Care Everywhere. * Angiogram: General: Post-op (Liberian) documented in this [facility] Work Phone: Reason for referral (narrative)* Consultation (Routine) - Authorized Specialty Diagnoses / Procedures Referred By Jam t Referred To Contact Dermatology Diagnoses H/O squamous cell carcinoma Procedures ME OFFICE/OUTPATIENT [facility] MDM 60-74 MINUTES Carla Alfredo MD [address] [facility], [address] [place] [address] Referral ID Status Reason Start Date Expiration Date Visits Requested Visits Authorized [id number] Authorized Specialty Services Required 11/24/2022 05/23/2023 1 1 [facility] Work Phone: Reason for referral (narrative)* Consultation (Routine) - Authorized Specialty Diagnoses / Procedures Referred By Contsintia t Referred To Contact Pain Medicine Diagnoses Cervical muscle pain Ebonie Moore, DISC INSPECTOR-HEAD MIXER [address] [facility], [facility], [address] [place] [address] Referral ID Status Reason Start Date Expiration Date Visits Requested Visits Authorized [id number] Authorized Specialty Services Required 06/26/2023 06/25/2024 1 1 [facility] Work Phone: reason for referral (narrative)No reason for referral information availableMattel [facility] Work Phone: Reason for visit Narrative* Initial Evaluation . bilateral shoulder pain, R and L shoulder impingement. * Referred by: Dr. Samuel [facility] Work Phone: Reloxf for visit Narrative* Initial Evaluation . greater trochanteric bursitis of L hip and R hip. * Referred by: Dr. Samuel [facility] Work Phone: reason for visit Narrative* Initial Evaluation . hip pain right, lumbago. * Referred by: Ebonie Moore APRN-MENDEZ [facility] Work Phone: Relucr for visit Narrative* Imaging (Emergency) - Authorized Specialty Diagnoses / Procedures Referred By Jam mojica Referred To Contact Radiology Diagnoses Rotator cuff tear Procedures XR eye foreign body Robert Christian, [address] Department [place] [address] Phone: tel: fax: Referral ID Status Reason Start Date Expiration Date Visits Requested Visits Authorized [id number] Authorized Perform Procedure 07/08/2024 07/08/2025 1 1 [facility] Work Phone: reason for visit Narrative* Imaging (Routine) - Authorized Specialty Diagnoses / Procedures Referred By Jam mojica Referred To Contact Radiology Diagnoses Tear of left rotator cuff, unspecified tear extent, unspecified whether traumatic Procedures MR shoulder left wo IV contrast Robert Christian, [address] Department [place] [address] Phone: tel: fax: Referral ID Status Reason Start Date Expiration Date Visits Requested Visits Authorized [id number] Authorized Perform Procedure 06/20/2024 06/20/2025 1 1 [facility] Work Phone: Reason for visit Narrative* Imaging (Routine) - Authorized Specialty Diagnoses / Procedures Referred By Jam mojica Referred To Contact Radiology Diagnoses Tear of right supraspinatus tendon Procedures MR [place] [address] [address] Department [place] [address] Phone: tel: fax: Referral ID Status Reason Start Date Expiration Date Visits Requested Visits Authorized [id number] Authorized Perform Procedure 06/20/2024 06/20/2025 1 1 [facility] Work Phone: Family History No Family History [...] RISK * Medicare Annual Wellness Visit * 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 * [...] Referral Specialty Diagnoses / Procedures Referred By Contac t Referred To Contact Radiology Diagnoses Varicocele Procedures XA SPECIAL ANGIOGRAPHY PROCEDURE Jerome, Jony Vallejo MD [address] [place] [address] Referral ID Status Reason Start Date Expiration Date Visits Re quested Visits Authorized [id number] Open 08/28/2021 08/28/2022 1 1 Specialty Diagnoses / Procedures Referred By Contac t Referred To Contact Orthopaedic Surgery / Orthopedic Surgery Diagnoses Right knee pain Procedures L Inj/Asp: R knee Jun Samuel MD [address] [place] [address] Referral ID Status Reason Start Date Expiration Date V isits Requested Visits Authorized [id number] Pending Review 02/17/2023 02/17/2024 1 1 Specialty Diagnoses / Procedures Referred By Contac t Referred To Contact Radiology Diagnoses Right knee pain Procedures XR knee right 3 views Jun Samuel MD [address] [place] [address] Referral ID Status Reason Start Date Expiration Date Visits Requested Visits Authorized [id number] Authorized Perform Procedure 3 02/16/2024 1 1 Specialty Diagnoses / Procedures Referred By Contac t Referred To Contact Radiology Diagnoses Postauricular lymphadenopathy Procedures US head neck soft tissue Trinh Loyola DO [address] [address] Referral ID Status Reason Start Date Expiration Date Visits Requested Visits Authorized [id number] Authorized Perform Procedure 05/22/2023 05/21/2024 1 1 Specialty Diagnoses / Procedures Referred By Contac t Referred To Contact Radiology Diagnoses Bilateral shoulder pain, unspecified chronicity Procedures XR shoulder 2+ views bilateral Detec, Ebonie B, DISC INSPECTOR-HEAD MIXER [address] [facility], [facility], [address] [place] [address] Referral ID Status Reason Start Date Expiration Date Visits Requested Visits Authorized [id number] Authorized Perform Procedure 05/25/2023 05/24/2024 1 1 Advance Directives No Advanced Directives Records FoundDocuments on File Type Date Recorded 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 ACP-Advance Directive ACP-Power of Dean Of Admissions Latest Code Status on File Code Status Date Activated Date Inactivated Comments Full Code 08/29/2021 11:41 AM Healthcare Agents on File Name Relationship Healthcare Agent Relationshi p Communication Elizabeth Ireland Spouse Health Care Agent [id number] (Mobile) Healthcare Agents on File Name Relationship Healthcare Agent Relationshi p Communication Elizabeth Ireland Spouse Health Care Agent [id number] (Mobile) Healthcare Agents on File Name Relationship Healthcare Agent Relationshi p Communication Elizabeth Ireland Spouse Health Care Agent [id number] (Mobile) Healthcare Agents on File Name Relationship Healthcare Agent Relationshi p Communication Elizabeth Ireland Spouse Health Care Agent [id number] 20 (Mobile)[employer] Healthcare Agents on File Name Relationship Healthcare Agent Relationshi p Communication Elizabeth Ireland Spouse Health Care Agent [id number] 20 (Mobile)[employer] Healthcare Agents on File Name Relationship Healthcare Agent Relationshi p Communication Elizabeth Ireland Spouse Health Care Agent [id number] 20 (Mobile)[employer] Healthcare Agents on File Name Relationship Healthcare Agent Relationshi p Communication Elizabeth Ireland Spouse Health Care Agent [id number] 20 (Mobile)[employer] Healthcare Agents on File Name Relationship Healthcare Agent Relationshi p Communication Elizabeth Ireland Spouse Health Care Agent [id number] 20 (Mobile)[email or web address] Summary Purpose Chief Complaint and Reason for Visit Chief Complaint SINUSITIS Chief Complaint COUGH, POSITIVE HOME COVID TEST Chronic maxillary sinusitis Reason for Visit COVID-19 Chief Complaint Admit Date CONCERN FOR FLU October 30, 2024 11: 22am Additional Source Comments Continuous Active and Recently Administ ered Medications (unrecognized section and content) Medication Order 08/27/2021 08/28/2021 08/29/2021 0.9 % sodium chloride infusion IntraVENous, at 50 mL/hr, CONTINUOUS, Starting on Key 08/29/21 at 0845, Pre-op (day of surgery) 0845 ([facility] - Prov ider: Madelaine Sinha RN) PRN Medication Order 08/27/2021 08/28/2021 08/29/2021 acetaminophen (TYLENOL) tablet 650 mg 650 mg, Oral, EVERY 4 HOURS PRN, Starting on Key 08/29/21 at 1140, Until Discontinued, Pain Mild (1-3), Fever, Fever >100.5 F (38 C), Maximum dose of acetaminophen is 4000 mg from all sources in 24 hours., Recovery(IR) fentaNYL (SUBLIMAZE) injection (COMPLETED) ONCE PRN, 1 dose, Starting on Key 08/29/21 at 0936, Until Key 6 at 0936 0936 (Given - Provid er: Radha Gamino RN) fentaNYL (SUBLIMAZE) injection (COMPLETED) ONCE PRN, 1 dose, Starting on Key 6 at 1011, Until Key 6 at 1011 1011 (Given - Provid er: Radha Gamino RN) fentaNYL (SUBLIMAZE) injection (COMPLETED) ONCE PRN, 1 dose, Starting on Key 08/29/21 at 1040, Until Key 622 at 1040 1040 (Given - Provid er: Radha Gamino RN) lidocaine PF 1 % injection (COMPLETED) ONCE PRN, 1 dose, Starting on Key 6 at 0936, Until Key 6/22 at 0936 0936 (Given - Provid er: Jony Cnao MD - Comment: Right) midazolam (VERSED) injection (COMPLETED) ONCE PRN, 1 dose, Starting on Key 6/05/21 at 0936, Until Key 6/2/22 at 0936 0936 (Given - Provid er: Radha Gamino RN) midazolam (VERSED) injection (COMPLETED) ONCE PRN, 1 dose, Starting on Key 6 at 1011, Until Key 622 at 1011 1011 (Given - Provid er: Radha Gamino RN) midazolam (VERSED) injection (COMPLETED) ONCE PRN, 1 dose, Starting on Key 08/29/21 at 1040, Until Key 08/29/21 at 1040 1040 (Given - Provid er: Radha Gamino RN) ondansetron (ZOFRAN) injection 4 mg 4 mg, IntraVENous, EVERY 8 HOURS PRN, Starting on Key 08/29/21 at 1141, Until Discontinued, Nausea, Vomiting, Recovery(IR) [...] Care Teams (unrecognized sec tion and content) [employer] Relationship Specialty Start Date End Date Get Terrazas MD [address] [place] [address] PCP - General Family Medicine 01/07/16 Team Status: Active Member Role Status Dates GET TERRAZAS Family Provider Active GET TERRAZAS Primary Care Provider Active Team Status: Inactive Member Role Status Dates MK MERCHANT Primary Care Provider Active Dr. Obinna Green MD Attending Provider Activ e [employer] Relationship Specialty Start Date End Date Get Terrazas MD [address] [facility], [address] [address] PCP - General 04/24/11 Monae Steward DO [address] [facility], [address] [address] PCP - [employer] Medicare Advantage PCP 03/30/22 [employer] Specials Relationship Specialty Start Date End Date Get Terrazas MD [address] [facility], [address] [address] PCP - General 04/24/11 Monae Steward DO [address] [facility], [address] [address] PCP - [employer] Medicare Advantage PCP 03/30/22 [employer] Specials Relationship Specialty Start Date End Date Get Terrazas MD [address] [facility], [address] [address] PCP - General 01/07/16 [employer] Specials Relationship Specialty Start Date End Date Get Terrazas MD [address] [facility], [address] [address] PCP - General 01/07/16 [employer] Specials Relationship Specialty Start Date End Date Get Terrazas MD [facility] [facility] [address] [address] PCP - General 01/07/16 [employer] Specials Relationship Specialty Start Date End Date Get Terrazas MD Office Address Unavailable as of 09/28/2022 PCP - General 04/24/11 Monae Steward DO [address] [facility], [address] [address] PCP - [employer] Medicare Advantage PCP 03/30/22 [employer] Specials Relationship Specialty Start Date End Date Get Terrazas MD [address] [facility], [address] [address] PCP - General 01/07/16 [employer] Specials Relationship Specialty Start Date End Date Get Terrazas MD [address] [facility], [address] [address] PCP - General 01/07/16 [employer] Specials Relationship Specialty Start Date End Date Get Terrazas MD [address] [facility], [address] [address] PCP - General 01/07/16 [employer] Specials Relationship Specialty Start Date End Date Get Terrazas MD Office Address Unavailable as of 09/28/2022 PCP - General 04/24/11 Monae Steward DO [address] [facility], [address] [address] PCP - [employer] Medicare Advantage PCP 03/30/22 [employer] Specials Relationship Specialty Start Date End Date Get Terrazas [facility] [facility] [address] [address] PCP - General 01/07/16 [employer]ials Relationship Specialty Start Date End Date Get Terrazas MD [address] [facility], [facility] [address] [place] [address] PCP - General 01/07/16 [employer] Relationship Specialty Start Date End Date Get Terrazas MD [address] [facility], [facility] [address] [place] [address] PCP - General 01/07/16 [employer] Relationship Specialty Start Date End Date Get Terrazas MD [address] [facility], [address] [address] PCP - General 01/07/16 [employer] Specials Relationship Specialty Start Date End Date Get Terrazas MD [address] [place] [facility], [address] [address] PCP - General 01/07/16 [employer] Relationship Specialty Start Date End Date Arlette Lopez APRN-HEAD MIXER [address] [facility], [address] [address] PCP - [employer] Medicare Advantage PCP 03/30/23 Trinh Loyola DO [address] [address] PCP - General Family Medicine 05/11/23 [employer] Relationship Specialty Start Date End Date Arlette Lopez DISC INSPECTOR-HEAD MIXER [address] [facility], [facility] [address] [place] [address] PCP - [employer] Medicare Advantage PCP 03/30/23 Trinh Loyola DO [address] [address] PCP - General Family Medicine 05/11/23 Team Status: Active Member Role Status Dates GET TERRAZAS Family Provider Active TRINH LOYOLA Primary Care Provider Active Team Status: Inactive Member Role Status Dates Jorge PENN, PA Attending Provider Active Team Status: Inactive Member Role Status Dates BONIFACIO THURSTON Attending Provider, Referring Provider A ctive NIR BRODERICK Primary Care Provider Active [employer] Relationship Specialty Start Date End Date Arlette Lopez, DISC INSPECTOR-HEAD MIXER [address] [facility], [facility] [address] [place] [address] PCP - [employer] Medicare Advantage PCP 03/30/23 Trinh Loyola DO [address] [address] PCP - General Family Medicine 05/11/23 [employer] Specials Relationship Specialty Start Date End Date Arlette Lopez, DISC INSPECTOR-HEAD MIXER [address] [facility], [address] [address] PCP - [employer] Medicare Advantage PCP 03/30/23 Trinh Loyola DO [address] [address] PCP - General Family Medicine 05/11/23 [employer] Specials Relationship Specialty Start Date End Date Get Terrazas MD [address] [address] PCP - General 01/07/16 [employer]ials Relationship Specialty Start Date End Date Arlette Lopez, DISC INSPECTOR-HEAD MIXER [address] [facility], [facility] [address] [place] [address] PCP - [employer] Medicare Advantage PCP 03/30/23 Trinh Loyola DO [address] [facility] [address] [place] [address] PCP - General Family Medicine 05/11/23 [employer] Specials Relationship Specialty Start Date End Date Arlette Lopez, DISC INSPECTOR-HEAD MIXER [address] [facility], [address] [place] [address] PCP - [employer] Medicare Advantage PCP 03/30/23 Trinh L[facility]ola DO [facility] [address] [place] [address] PCP - General Family Medicine 05/11/23 [employer] Specials Relationship Specialty Start Date End Date Trinh Loyola DO 5[address] [facility] [address] [place] [address] PCP - General Family Medicine 05/11/23 Trinh Loyola DO [address] [address] PCP - [employer] Medicare Advantage PCP 03/30/24 [employer]ials Relationship Specialty Start Date End Date Get Terrazas MD PCP - General 01/07/16 [employer]ials Relationship Specialty Start Date End Date Trinh Loyola DO [address] [facility] [address] [place] [address] PCP - General Family Medicine 05/11/23 Trinh Loyola DO [facility] [address] [place] [address] PCP - Aet[employer] Medicare [facility] PCP 03/30/24 [employer] Specials Relationship Specialty Start Date End Date Trinh Loyola DO [address] [place] [address] PCP - General Family Medicine 05/11/23 Trinh Loyola DO [address] [place] [address] PCP - [employer] Medicare Advantage PCP 03/30/24 [employer] Relationship Specialty Start Date End Date Trinh Loyola DO [address] [place] [address] PCP - General Family Medicine 05/11/23 Trinh Loyola DO [address] [place] [address] PCP - [employer] Medicare Advantage PCP 03/30/24 [employer] Relationship Specialty Start Date End Date Trinh Loyola DO [address] [place] [address] PCP - General Family Medicine 05/11/23 Trinh Loyola DO [address] [place] [address] PCP - [employer] Medicare Advantage PCP 03/30/24 [employer]ials Relationship Specialty Start Date End Date Trinh Loyola DO [address] [place] [address] PCP - General Family Medicine 05/11/23 Trinh Loyola DO [address] [place] [address] PCP - [employer] Medicare Advantage PCP 03/30/24 [employer]ials Relationship Specialty Start Date End Date Marcus LoyolaieDO 5[address] [facility] [address] [place] [address] PCP - General Family Medicine 05/11/23 Trinh Loyola DO [address] [facility] [address] [place] [address] PCP - [employer] Medicare Advantage PCP 03/30/24 [employer] Relationship Specialty Start Date End Date Nir TrinhDO 5[address] [facility] [address] [place] [address] PCP - General Family Medicine 05/11/23 Trinh Loyola DO [address] [facility] [address] [place] [address] PCP - [employer] Medicare Advantage PCP 03/30/24 Team Status: Active Member Role/Relationship Status Dates GET TERRAZAS [facility] Provider Active Team Status: Inactive Member Role/Relationship Status Dates Macarena PENN, PA Attending Provider Active Start: October 30, 2024 End: October 30, 2024 (unrecognized sect ion and content) No Status Records FoundNo Status Records FoundNo Status Records FoundNo Status Records FoundNo Status Records FoundNo Status Records FoundNo Status Records FoundNo Status Records FoundNo Status Records FoundNo Status Records FoundNo Status Records FoundNo Status Records FoundNo Status Records FoundNo Status Records FoundNo Status Records Found INFORMATION SOURCE (unrecogn ized section and content) DATE CREATED AUTHOR 08/29/2021 [facility] DATE CREATED AUTHOR AUTHOR'S ORGANIZ ATION 12/29/2021 [facility] DATE CREATED AUTHOR AUTHOR'S ORGANIZ ATION 09/21/2022 [facility] DATE CREATED AUTHOR AUTHOR'S ORGANIZ ATION 09/24/2022 [facility] DATE CREATED AUTHOR AUTHOR'S ORGANIZ ATION 09/30/2022 [employer] DATE CREATED AUTHOR AUTHOR'S ORGANIZ ATION 04/08/2023 [facility] DATE CREATED AUTHOR AUTHOR'S ORGANIZ ATION 03/11/2024 [facility] DATE CREATED AUTHOR AUTHOR'S ORGANIZ ATION 05/23/2024 [facility] DATE CREATED AUTHOR AUTHOR'S ORGANIZ ATION 06/11/2024 [facility] DATE CREATED AUTHOR AUTHOR'S ORGANIZ ATION 07/16/2024 [facility] DATE CREATED AUTHOR AUTHOR'S ORGANIZ ATION 07/25/2024 [facility] DATE CREATED AUTHOR AUTHOR'S ORGANIZ ATION 09/24/2024 [facility] DATE CREATED AUTHOR AUTHOR'S ORGANIZ ATION 10/14/2024 [facility] DATE CREATED AUTHOR AUTHOR'S ORGANIZ ATION 10/18/2024 [facility] DATE CREATED AUTHOR AUTHOR'S ORGANIZ ATION 10/31/2024 [facility] Goals (unrecognized section and content) Goals may be documented in a n alternate sectionGoals may be documented in an alternate sectionGoals may be documented in an alternate section Reason for Visit (unrecogniz ed section and content) Reason Comments Pain Specialty Diagnoses / Procedures Referred By Jam t Referred To Contact Sports Medicine / Orthopedic Surgery Diagnoses Chronic right shoulder pain Tear of right supraspinatus tendon Trinh Loyola DO [address] [facility] [address] [place] [address] Phone: tel: fax: Referral ID Status Reason Start Date Expiration Date Visits Requested Visits Authorized [id number] Authorized Specialty Services Required 05/20/2024 05/20/2025 1 1 Reason Comments Pain Twinging, swelling n oticed about 2 hrs after getting out of bed plus couple of skin issues Reason Comments lab follow up spot on right fore arm spot on left cheek Reason Comments Follow-up Reason Onset Date Comments Appointment Request 02/09/2023 Reason Comments Cataract Reason Onset Date Comments Cataract sx Letter [...] neck soft tissue Trinh Loyola DO [address] [place] [address] Referral ID Status Reason Start Date Expiration Date Visits Requested Visits Authorized [id number] Authorized Perform Procedure 05/22/2023 05/21/2024 1 1 Specialty Diagnoses / Procedures Referred By Contac t Referred To Contact Radiology Diagnoses Bilateral shoulder pain, unspecified chronicity Procedures XR shoulder 2+ views bilateral Sam, Ebonie Hernandez, DISC INSPECTOR-HEAD MIXER [address] [facility], [facility] [address] [place] [address] Referral ID Status Reason Start Date Expiration Date Visits Requested Visits Authorized [id number] Authorized Perform Procedure 05/25/2023 05/24/2024 1 1 Reason Comments OTHER F/U NECK AND SHOULDE R Reason Comments Follow-up Shortness of Breath Reason Comments Cough Deep, hacking, semi- productive with valverde mucus x 2 weeks Reason Comments Cataract Spots and/or Floaters Reason Comments 6 Month Follow Up Reason Comments Dry Eye(s) Both Eyes Reason Comments Medicare Annual Wellness Visit Subsequen t Reason Comments Establish Care Reason Comments Cough Productive cough, mu cus, green/yellow drainage, could not use cpap due to cough/drainage Reason Comments Floaters Left Eye Blurred Vision Left Eye Source Comments (unrecognize d section and content) In the event this informatio n is protected by the Federal Confidentiality of Alcohol and Drug Abuse Patient Records regulations: The Federal rules restrict any use of the information to criminally investigate or prosecute any alcohol or drug abuse patient.[facility] the event this information is protected by the Federal Confidentiality of Alcohol and Drug Abuse Patient Records regulations: The Federal rules restrict any use of the information to criminally investigate or prosecute any alcohol or drug abuse patient.[facility] FOR RECORDS PERTAINING TO PATIENTS WHO ARE [...] BE BASED ON THE PRIMARY CLINICAL RECORDS. [facility] [employer] provides no warranty or guarantee of the accuracy or completeness of information in this document.
== END | disposition home or self-care (01) ==
PROVIDERS: Referring Provider Physician Assistant; Visit Provider Physician Assistant
DX: R05.9 Cough, unspecified (principal)
CPT/HCPCS: 71046